=== PATIENT | male | born 1940 | race Caucasian/White ===

== ENCOUNTER 2025-06-24 14:06 | Outpatient (AMB) | payer MEDICARE, OTHER, SELFPAY ==
--- OUTSIDE RECORDS SUMMARY | 2025-06-23 10:20 | XMS_ITS | Encounter Summary ---
Author Organization Address [address] [place] [address] Care Team Providers Care Nurse College Name Role Phone Alida Weber MD Primary Care Provider Encounter Details Date Type Department Care Team (Late st Contact Info) Description 06/23/2025 10:20 AM [facility] Lab Draw Station [address] [phone] Memory loss; Type 2 diabetes mellitus with other specified complication, unspecified whether longterm insulin use (CMS/HCC V24, CMS/HCC V28); Abnormal pleural fluid; Nutritional deficiency; Dyspnea, unspecified type; Abnormal findings on diagnostic imaging of other parts of digestive tract Social History Tobacco Use Types Packs/Day Years Used Date Smoking Tobacco: Never Smokeless Tobacco: Never Alcohol Use Standard Drinks/Week Comments Not Currently 0 (1 standard drink = 0.6 oz pur e alcohol) Housing Instability Answer Date Recorde d Are you worried that in the next 2 months you may not have stable housing? No 05/20/2025 Food Access & Nutrition Answer Date Rec orded Do you have access to a vari ety of food including fruits and vegetables? Yes 05/20/2025 Access to Healthcare Answer Date Record ed Within the last 3 months, jose w many times did you visit the emergency department for your medical care? 3 05/20/2025 Health Literacy Answer Date Recorded How often do you need to hav e someone help you when you read instructions, pamphlets, or other written material from your doctor or pharmacy? Never 05/20/2025 Caregiver: How often do you need to have someone help you when you read instructions, pamphlets, or other written material from your doctor or pharmacy? Not on file 05/20/2025 Financial Risk Answer Date Recorded How hard is it for you to pa y for the very basics like food, housing, medical care, and air conditioning / heating? Not very hard 05/20/2025 Transportation Answer Date Recorded Has the lack of transportati on kept you from meetings, work, or from getting things needed for daily living? No Has the lack of transportati on kept you from medical appointments or from getting medications? No 05/20/2025 Social Isolation Answer Date Recorded How often do you feel lonely or isolated from th ose around you? Never 05/20/2025 Food Risk Answer Date Recorded Within the past 12 months we worried whether our food would run out before we got money to buy more. Never true 05/20/2025 Within the past 12 months th e food we bought just didn't last and we didn't have money to get more. Never true 05/20/2025 Dependent Care Answer Date Recorded Do you need help finding or paying for care for your loved ones. For example, special needs child caregiver or elderly care for an older adult? No 05/20/2025 Education Answer Date Recorded Do you think completing more education or training, like finishing a GED, going to college, or learning a trade, would be helpful for you? N/A 05/20/2025 Employment and Income Answer Date Recor ded During the last four weeks, have you been actively looking for work? No 05/20/2025 Living Situation Answer Date Recorded What is your living situation? Unrecognized valu e 05/20/2025 Interpersonal Safety Answer Date Record ed Physical Abuse Unrecognized value 04/15/2025 Verbal Abuse Unrecognized value 04/15/2025 Sex and Gender Information Value Date Recorded Sex Assigned at Male 02/05/2025 2:22 PM EDT Legal Sex Male 4:39 PM EST Gender Identity Male 02/05/2025 2:22 PM EDT Sexual Orientation Straight 02/05/2025 2: 22 PM EDT documented as of this encounter Functional Status * Are you deaf or do you have serious difficulty hearing? Answer Date of Assessment Author No 04/07/2025 11:47 AM Randee Allison RN * Are you blind or do you have serious difficulty seeing, even when wearing glasses? Answer Date of Assessment Author No 04/07/2025 11:47 AM Randee Allison RN * Do you have serious difficulty walking or climbing stairs? Answer Date of Assessment Author Yes 04/07/2025 11:47 AM Randee Allison RN * Do you have serious difficulty dressing or bathing? Answer Date of Assessment Author Yes 04/07/2025 11:47 AM Randee Allison RN * Because of a physical, mental, or emotional condition, do you have serious difficulty doing errandsalone such as visiting the doctor? Answer Date of Assessment Author Yes 04/07/2025 11:47 AM Randee Allison RN documented as of this encounter Mental Status * Because of a physical, mental, or emotional condition, do you have serious difficulty concentrating, remembering, or making decisions? (5 years old or older) Answer Entry Date Author No 04/07/2025 11:47 AM Randee Allison RN documented in this encounter Plan of Treatment Upcoming Encounters Date Type Department Care Team (Late st Contact Info) Description 07/22/2025 2:00 PM EST Office Visit Adult Medicine [address] [phone] Alida Weber MD [address] [place] [address] 07/24/2025 4:00 PM EST Office Visit Vascular Surgery - [place] [address] [phone] Senait España PA [address] [address] 07/29/2025 4:00 PM EST Office Visit Endocrinology [address] [phone] Rosa Roth PA [address] [place] [address] 08/12/2025 9:00 AM EST Consult [facility] [address] [place] [address] [place] [phone] Franky Choudhury MD [address] [place] [address] [place] [phone] 08/26/2025 10:30 AM EST Clinical Support Pulmonology - [place] [address] [place] [phone] 09/02/2025 10:45 AM EST Office Visit Pulmonology [facility] [address] [facility] [address] [place] [phone] Lore Myers MD [address] [place] [phone] 05/05/2026 9:00 AM EDT Ancillary Procedure [facility] [address] [facility] [address] [place] [address] Scheduled Orders Name Type Priority Associated Diagnoses Orde r Schedule pH, body fluid Lab Routine Abnormal pleural fluid 1 Occurrences starting 06/23/2025 until 06/23/2026 Amylase, body fluid Lab Routine Abnormal pleural fluid 1 Occurrences starting 06/23/2025 until 06/23/2026 Cell count with reflex differential, body fluid Lab Routine Abnormal pleural fluid 1 Occurrences starting 06/23/2025 until 06/23/2026 Triglycerides, body fluid Lab Routine Abnormal pleural fluid Nutritional deficiency Dyspnea, unspecified type Abnormal findings on diagnostic imaging of other parts of digestive tract 1 Occurrences starting 06/23/2025 until 06/23/2026 Lactate dehydrogenase, body fluid Lab Routine Abnormal pleural fluid 1 Occurrences starting 06/23/2025 until 06/23/2026 documented as of this encounter Procedures Procedure Name Priority Date/Time Associated Diagnosis Comments TREPONEMA PALLIDUM ANTIBODY WITH REFLEX TO RPR AND PARTICLE AGGLUTINATION Routine 06/23/2025 10:29 AM EST Memory loss THYROID STIMULATING HORMONE WITH REFLEX TO FREE T4 AND FREE T3 Routine 06/23/2025 10:29 AM EST Memory loss FREE THYROXINE WITH REFLEX TO FREE TRIIODOTHYRONINE Routine 06/23/2025 10:29 AM EST Memory loss MICROALBUMIN CREATININE URINE RATIO Routine 06/23/2025 10:29 AM EST Type 2 diabetes mellitus with other specified complication, unspecified whether long term care administrator insulin use ([facility] V24, [facility] V28) TRIIODOTHYRONINE FREE Routine 06/23/2025 10:29 AM EST Memory loss COMPREHENSIVE METABOLIC PANEL Routine 06/23/2025 10:29 AM EST Type 2 diabetes mellitus with other specified complication, unspecified whether longterm insulin use ([facility] V24, [facility] V28) documented in this encounter Results * (ABNORMAL) Triiodothyronine free (06/23/2025 10:29 AM EST) T3, Free 137(L) 230 - 420 pcg/dL LAB CHEMISTRY METHOD 06/23/2025 7:41 PM EST [facility] Blood Venous blood specimen / Unknown Venipuncture / Unknown 06/23/2025 10:29 AM EST 06/23/2025 10:29 AM EST us Alida Weber MD LAB BLOOD ORDERABLES Final Result [facility] [address] [place] [address], [place] [phone] * Free thyroxine with reflex to free triiodothyronine (06/23/2025 10:29 AM EST) Free T4 1.15 0.70 - 1.80 ng/dL LAB CHEMISTRY METHOD 06/23/2025 6:28 PM EST [facility] Blood Venous blood specimen / Unknown Venipuncture / Unknown 06/23/2025 10:29 AM EST 06/23/2025 10:29 AM EST us Alida Weber MD LAB BLOOD ORDERABLES Final Result Performing Organization Address [facility]/ZIP Co de Phone Number [facility] [address] [place] [address], [place] [phone] * (ABNORMAL) Thyroid stimulating hormone with reflex to free t4 and free t3 (06/23/2025 10:29 AM EST) Pathologist [facility] TSH 4.74(H) 0.40 - 4.00 mcIU/mL LAB CHEMISTRY METHOD 06/23/2025 5:05 PM [facility] Blood Venous blood specimen / Unknown Venipuncture / Unknown 06/23/2025 10:29 AM EST 06/23/2025 10:29 AM EST Alida Weber MD LAB BLOOD ORDERABLES Final Result Performing Organization Address City/[facility]/ZIP Co de Phone Number [facility] [address] [place] [address], [place] [phone] * (ABNORMAL) Comprehensive metabolic panel (06/23/2025 10:29 AM EST) [facility] Sodium 135 133 - 145 mmol/L LAB CHEMISTRY METHOD 06/23/2025 4:33 PM [facility] Potassium 3.1(L) 3.5 - 5.5 mmol/L LAB CHEMISTRY METHOD 06/23/2025 4:33 PM [facility] Chloride 93(L) 96 - 110 mmol/L LAB CHEMISTRY METHOD 06/23/2025 4:33 PM [facility] CO2 36(H) 21 - 32 mmol/L LAB CHEMISTRY METHOD 06/23/2025 4:33 PM [facility] Anion Gap 6 3 - 11 LAB CHEMISTRY METHOD 06/23/2025 4:33 PM [facility] Glucose 85 70 - 100 mg/dL LAB CHEMISTRY METHOD 06/23/2025 4:33 PM [facility] BUN 20 5 - 25 mg/dL LAB CHEMISTRY METHOD 06/23/2025 4:33 PM [facility] Creatinine 2.03(H) 0.70 - 1.30 mg/dL LAB CHEMISTRY METHOD 06/23/2025 4:33 PM [facility] eGFR 32(L) >=60 mL/min/1. 73m2 LAB CHEMISTRY METHOD 06/23/2025 4:33 PM [facility] Comment:Calculation based on the Chronic Kidney Disease Epidemiology Collaboration (CKD-EPI) equation refit without adjustment for race. BUN/Creatinine Ratio 9.9 LAB CHEMISTRY METHOD 06/23/2025 4:33 PM [facility] Calcium 8.6 8.5 - 10.5 mg/dL LAB CHEMISTRY METHOD 06/23/2025 4:33 PM [facility] AST (SGOT) 117(H) 10 - 42 unit/L LAB CHEMISTRY METHOD 06/23/2025 4:33 PM [facility] ALT (SGPT) 180(H) 10 - 60 unit/L LAB CHEMISTRY METHOD 06/23/2025 4:33 PM [facility] Alkaline Phosphatase 112 42 - 121 unit/L LAB CHEMISTRY METHOD 06/23/2025 4:33 PM [facility] Total Protein 6.4 6.0 - 8.0 g/dL LAB CHEMISTRY METHOD 06/23/2025 4:33 PM [facility] Albumin 3.6 3.2 - 5.0 g/dL LAB CHEMISTRY METHOD 06/23/2025 4:33 PM [facility] Total Bilirubin 1.0 0.0 - 1.4 mg/dL LAB CHEMISTRY METHOD 06/23/2025 4:33 PM [facility] Blood Venous blood specimen / Unknown Venipuncture / Unknown 06/23/2025 10:29 AM EST 06/23/2025 10:29 AM EST us Alida Weber MD LAB BLOOD ORDERABLES Final Result [facility] [address] [place] [address], [place] [phone] * (ABNORMAL) Microalbumin creatinine urine ratio (06/23/2025 10:29 AM EST) Creatinine, Urine 19.0 mg/dL LAB CHEMISTRY METHOD 06/23/2025 7:40 PM EST [facility] Microalb, Ur 112.0(H) 0.0 - 29.0 mg/L LAB CHEMISTRY METHOD 06/23/2025 7:40 PM EST [facility] Microalb/Crea t Ratio 589(H) <30 mg/g creat LAB CHEMISTRY METHOD 06/23/2025 7:40 PM EST [facility] Urine Urine specimen obtained by clean catch procedure / Unknown Non-blood Collection / Unknown 06/23/2025 10:29 AM EST 06/23/2025 10:29 AM EST us Alida Weber MD LAB URINE ORDERABLES Final Result [facility] [address] [place] [address], [place] [phone] * Treponema pallidum antibody with reflex to RPR and particle agglutination (06/23/2025 10:29 AM EST) T. Pallidum Antibodies Negative Negative LAB CHEMISTRY METHOD 06/23/2025 5:15 PM EST [facility] Blood Venous blood specimen / Unknown Venipuncture / Unknown 06/23/2025 10:29 AM EST 06/23/2025 10:29 AM EST us Alida Weber MD LAB BLOOD ORDERABLES Final Result [facility] [address] [place] [address], documented in this encounter Visit Diagnoses Diagnosis Memory loss Type 2 diabetes mellitus with other specified complication, unspecified whether long term care administrator insulin use (CMS/HCC V24, CMS/HCC V28) Abnormal pleural fluid Other nonspecific abnormal finding in body substances Nutritional deficiency Unspecified nutritional deficiency Dyspnea, unspecified type Abnormal findings on diagnostic imaging of other parts of digestive tract Encounter for adjustment or management of cardiac device documented in this encounter Additional Health Concerns Assessment Noted Time PHQ-9 Depression Total Score: 0 02/20/20 25 9:35 AM EDT documented as of this encounter Care Teams Nurse College Relationship Specialty Start Date End Date Alida Weber MD [address] [place] [address] PCP - General 10/26/22 documented as of this encounter
--- OUTSIDE RECORDS SUMMARY | 2025-06-24 07:40 | XMS_ITS | Encounter Summary ---
Author Organization [facility] Address [address] [place] [address] Care Team Providers Care Cyber Security Analyst Name Role Phone Alida Weber MD Primary Care Provider Reason for Visit * Reason Comments Follow-up Encounter Details Date Type Department Care Team ([facility] st Contact Info) Description 06/24/2025 7:40 AM EST Office Visit [facility] - [address] [facility] [address] [place] [phone] Saira Daly NP [address] [place] [address] [place] [phone] Nonrheumatic aortic valve stenosis (Primary Dx); Paroxysmal atrial fibrillation (CMS/HCC V24, CMS/HCC V28); HFrEF (heart failure with reduced ejection fraction) (CMS/HCC V24, CMS/HCC V28) Social History Tobacco Use Types Packs/Day Years [...] Record ed Within the last 3 months, ho w many times did you visit the [...] care for your loved ones. For example, early childhood lead teacher or elderly care for an older adult? [...] PM EDT documented as of this encounter Last Filed Vital Signs Vital Sign Reading Time Taken Comments Blood Pressure 118/66 06/24/2025 7:38 AM EST Pulse 63 06/24/2025 7:38 AM EST Temperature - - Respiratory Rate - - Oxygen Saturation - - Inhaled Oxygen Concentration - - Weight 52.6 kg (116 lb) 06/24/2025 7:38 AM EST Height 160 cm (5' 3 ) 06/24/2025 7:38 AM EST Body Mass Index 20.55 06/24/2025 7:38 AM EST documented in this encounter Functional Status * Are you [...] Randee Allison RN documented in this encounter Progress Notes * Saira Daly NP - 06/24/2025 8:24 AM ESTAssociated Problem(s): Aortic valve stenosis Echocardiogram from March revealed severely thickened aortic valve leaflets with moderate regurgitation and moderate to severe stenosis with mean gradient of 31 mmHg. At this point, I will refer himto see Dr. Choudhury to discuss TAVR. He may not be a candidate given chronic severe anemia requiring blood transfusions and he and his sister are aware of this but would like to discuss options with the specialist. He would not be a suitable candidate for SAVR. Warning signs of progressive aortic stenosis: chest pain, shortness of breath, palpitations, dizziness, passing out or coming close to passing out. * Saira Daly NP - 06/24/2025 8:22 AM ESTAssociated Problem(s): HFrEF (heart failure with reduced ejection fraction) (CMS/HCC V24, CMS/HCC V28) Echocardiogram in July 2024 showed moderately decreased LV systolic function with an EF of 35-40% and updated echocardiogram in March revealed improved LV systolic function to low-normal range with an EF of 50-55%. He is status post BiV ventricular pacemaker implantation. He appears euvolemic on physical exam. He is experiencing shortness of breath with exertional activities which are likelymultifactorial including severe anemia, deconditioning and worsening . He denies other symptoms of fluid retention such as orthopnea, PND and lower extremity edema. His fluid is managed by dialysis. GDMT is quite limited by low blood pressures and end-stage renal disease. No changes to current medical therapy, continue carvedilol as prescribed. * Saira aDly NP - 06/24/2025 8:20 AM ESTAssociated Problem(s): Paroxysmal atrial fibrillation (CMS/HCC V24, CMS/HCC V28) Patient has a history of paroxysmal atrial fibrillation. Heart rate well- controlled today at 63 bpm. He is not on anticoagulation due to severe anemia and frequent falls. He is not a suitable candidate for the Watchman procedure. I will continue to monitor the burden of atrial fibrillation via his pacemaker. Continue carvedilol as prescribed. * Saira Daly NP - 06/24/2025 7:40 AM EST Images from the original note were not included. [facility] PRIMARY DONATION SPECIALIST: Hector Galloway MD PCP: Alida Wbeer MD HPI: Kike Uribe is a pleasant 84 y.o. old male with a past medical history of hypertension, hyperlipidemia, complete heart block status post permanent pacemaker placement, paroxysmal atrial fibrillation not on anticoagulation, congestive heart failure with reduced ejection fraction, and end-stagerenal disease on dialysis, severe anemia, chronic nonocclusive DVTs followed closely by vascular and type II diabetes. He was initially referred to cardiology with an abnormal echocardiogram and lower extremity edema. The echocardiogram showed a severely dilated left atrium, normal LV size, wall thickness and systolic function with an EF of 55-60%, abnormal LV diastolic function, normal right atrial size with a dilated IVC 2.3 cm with less than 50% collapse suggestive of elevated right atrial pressure of 15 mmHg and no hemodynamically significant valve disease. In May 2023 he experienced a syncopal event and was found to have a left sided rib fracture andwas discharged home. He was readmitted a week later and found to be acutely bradycardic with complete heart block. On 05/29/2023 he received a [employer] Assurity MRI pacemaker. In June 2023 he was admitted with a large left pleural effusion requiring thoracentesis. He underwent a repeat CT scan which showed recurrence of his pleural effusion and he underwent a repeat thoracentesis. He has not had a recurrence of his pleural effusion since. He was admitted in March 2024 for heart failure and was noted to have a severely reduced left ventricular systolic function, new compared to echocardiogram prior to the pacemaker implantation. Subsequent, he underwent upgrade with a [employer] Quadra Allure BiV pacemaker implantation on 03/11/2024. He was found to have paroxysmal atrial fibrillation but anticoagulation was not initiated due to severe anemia. He is on Epogen injections. He recently required a blood transfusion. He started dialysis in January. He is on midodrine for symptomatic low blood pressures. Echocardiogram from July 2024 showed a severely dilated left atrium, normal LV cavity size, mild hypertrophy of the LV posterior wall, systolic function moderately decreased with an EF of 35-40%.No regional LV wall motion abnormalities. Grade 2 diastolic dysfunction. Moderate aortic valve stenosis with a peak gradient 31 mmHg and mean gradient 16 mmHg and trace regurgitation. Mild tricuspid valve regurgitation with no evidence of stenosis and RVSP estimated at 58 mmHg. Patient was admitted to [facility] from 01/30/2025 - 02/01/2025 for acute on chronic systolic heart failure. He was discharged on torsemide 40 mg twice daily. Patient presented back to [facility] ER on 02/01/2025 after having a fall at home. He reported that he fell in his bathroomwhen attempting to put on his pants. CT chest completed on 02/02/2025 showed acute nondisplaced fractures of the left 5th, 6th, 7th, and 8th ribs as well as acute displaced fractures of the lateral left ninth and posterior left 10th, 11th, and 12th ribs with a large left effusion with multifocal compressive atelectasis. CT abdomen/pelvis 02/02/2025 showed acute fractures of the left L2, L3, and L4 t ransverse processes. CT head 02/02/2025 was unremarkable. Patient was subsequently transferred from [facility] to [facility] for trauma evaluation and higher level of care. At [facility] patient was admitted to the trauma team. He underwent left sided chest tube pl acement. He was discharged to a rehab facility. He updated an echocardiogram in March which showed a severely dilated left atrium, a normal LV cavity size, wall thickness and low normal systolic function with an EF of 50-55%, no regional LV wall motion abnormalities and grade 2 diastolic dysfunction. Normal right ventricle cavity size and systolic function. Severely thickened aortic valve leaflets with moderate regurgitation and moderate to severe stenosis with mean gradient of 31 mmHg. Trace mitral valve regurgitation. Normal RVSP estimated at 36 mmHg. When compared with the prior echocardiogram from July 2024, LV systolic function has improved however there appears to be worsening of the aortic valve stenosis and regurgitation. Most recent remote device interrogation shows normal device function, no new alerts or events, A-fib burden 0%, 48% A-pacing and 99% V-pacing. He was admitted twice recently, once in March and again in April for severe anemia requiring ablood transfusion. Patient returns today for routine cardiology follow-up accompanied by his sister. He is ambulating with a roller walker. Cardiac mitchell he has been stable. He has a chronic stable exertional shortness of breath that has not worsened and resolved quickly with rest. He denies chest pain, palpitations, l ightheadedness/near-syncope, orthopnea, paroxysmal nocturnal dyspnea or lower extremity edema. He continues on dialysis 3 days a week and is getting outpatient blood transfusions for severe anemia. ACTIVE MEDICATIONS: Current Outpatient Medications Medication Instructions acetaminophen (TYLENOL) 1,000 mg, oral, Every 8 hours PRN albuterol HFA (PROAIR HFA ; PROVENTIL HFA ; VENTOLIN HFA) 90 mcg/actuation inhaler 2 puffs, inhalation, Every 6 hours PRN atorvastatin (LIPITOR) 80 mg, oral, Daily blood sugar diagnostic (FreeStyle Lite Strips) test strip Use daily to check bs calcitrioL (ROCALTROL) 0.25 mcg, oral, Daily carvediloL (COREG) 3.125 mg, oral, 2 times daily with meals cholecalciferol (VITAMIN D-3) 125 mcg (5,000 unit) capsule TAKE 1 CAPSULE (5000 UNITS TOTAL) BY MOUTH ONCE DAILY ezetimibe (ZETIA) 10 mg, oral, Daily FreeStyle Lancets 28 gauge lancets Use to test blood glucose once daily before a meal levothyroxine (SYNTHROID, LEVOTHROID) 112 mcg, oral, Every morning before breakfast midodrine (PROAMATINE) 5 mg, oral, Daily mupirocin (BACTROBAN) 2 % ointment 2 times daily Nephro-Ailyn 0.8 mg tablet 1 tablet, oral, Daily sevelamer carbonate (RENVELA) 800 mg, oral, 3 times daily with meals, Swallow tablet whole; do not crush, break, or chew. PAST MEDICAL HISTORY: Problem List[1] ALLERGIES: Allergies[2] SOCIAL HISTORY: Social History Tobacco Use Smoking status: Never Smokeless tobacco: Never Substance Use Topics Alcohol use: Not Currently PHYSICAL EXAM: Vitals: 06/24/25 0738 BP: 118/66 Pulse: 63 Weight: 52.6 kg (116 lb) Height: 1.6 m (63 ) Physical Exam Vitals reviewed. Constitutional: General: He is not in acute distress. Comments: Ambulating with a roller walker HENT: Head: Normocephalic and atraumatic. Neck: Vascular: No carotid bruit. Cardiovascular: Rate and Rhythm: Normal rate. Rhythm irregularly irregular. Pulses: Normal pulses. Heart sounds: S1 normal and S2 normal. Murmur heard. Harsh midsystolic murmur is present with a grade of 3/6 at the upper right sternal border radiatingto the neck. No friction rub. No gallop. Pulmonary: Effort: Pulmonary effort is normal. Breath sounds: Normal breath sounds. Abdominal: General: Abdomen is flat. Palpations: Abdomen is soft. Musculoskeletal: Cervical back: Neck supple. Right lower leg: No edema. Left lower leg: No edema. Comments: Severe kyphosis Skin: General: Skin is warm and dry. Neurological: General: No focal deficit present. Mental Status: He is alert and oriented to person, place, and time. Psychiatric: Mood and Affect: Mood normal. Behavior: Behavior normal. TESTING: Lab Results Component Value Date WBC 8.8 04/16/2025 HGB 8.3 (L) 04/16/2025 HCT 26.2 (L) 04/16/2025 MCV 97.0 04/16/2025 PLT 163 04/16/2025 Lab Results Component Value Date NA 135 06/23/2025 K 3.1 (L) 06/23/2025 CL 93 (L) 06/23/2025 CO2 36 (H) 06/23/2025 GLUCOSE 85 06/23/2025 BUN 20 06/23/2025 CREATININE 2.03 (H) 06/23/2025 CALCIUM 8.6 06/23/2025 PROT 6.4 06/23/2025 ALBUMIN 3.6 06/23/2025 BILITOT 1.0 06/23/2025 AST 117 (H) 06/23/2025 ALT 180 (H) 06/23/2025 PHOS 5.2 (H) 02/12/2025 MG 1.9 04/07/2025 ALKPHOS 112 06/23/2025 EGFR 32 (L) 06/23/2025 Lab Results Component Value Date CHOL 103 04/16/2025 CHOL 97 01/21/2025 CHOL 76 10/22/2024 Lab Results Component Value Date HDL 64 04/16/2025 HDL 56 01/21/2025 HDL 41 10/22/2024 Lab Results Component Value Date LDLCALC 24 04/16/2025 LDLCALC 32 01/21/2025 LDLCALC 25 10/22/2024 Lab Results Component Value Date TRIG 73 04/16/2025 TRIG 43 01/21/2025 TRIG 48 10/22/2024 Lab Results Component Value Date CHOLHDL 1.6 04/16/2025 CHOLHDL 1.7 01/21/2025 CHOLHDL 1.9 10/22/2024 Lab Results Component Value Date TSH 4.74 (H) 06/23/2025 Lab Results Component Value Date HGBA1C 5.8 04/16/2025 ASSESSMENT/PLAN: As per AHA guidelines and previously established plan of care by Dr. Hector Galloway MD, we discussed the following today: Problem List Items Addressed This Visit Aortic valve stenosis - Primary Echocardiogram from March revealed severely thickened aortic valve leaflets with moderate regurgitation and moderate to severe stenosis with mean gradient of 31 mmHg. At this point, I will refer himto see Dr. Choudhury to discuss TAVR. He may not be a candidate given chronic severe anemia requiring blood transfusions and he and his sister are aware of this but would like to discuss options with the specialist. He would not be a suitable candidate for SAVR. Warning signs of progressive aortic stenosis: chest pain, shortness of breath, palpitations, dizziness, passing out or coming close to passing out. HFrEF (heart failure with reduced ejection fraction) ([facility] V24, [facility] V28) Echocardiogram in July 2024 showed moderately decreased LV systolic function with an EF of 35-40% and updated echocardiogram in March revealed improved LV systolic function to low-normal range with an EF of 50-55%. He is status post BiV ventricular pacemaker implantation. He appears euvolemic on physical exam. He is experiencing shortness of breath with exertional activities which are likelymultifactorial including severe anemia, deconditioning and worsening . He denies other symptoms of fluid retention such as orthopnea, PND and lower extremity edema. His fluid is managed by dialysis. GDMT is quite limited by low blood pressures and end-stage renal disease. No changes to current medical therapy, continue carvedilol as prescribed. Paroxysmal atrial fibrillation (CMS/HCC V24, [facility] V28) Patient has a history of paroxysmal atrial fibrillation. Heart rate well- controlled today at 63 bpm. He is not on anticoagulation due to severe anemia and frequent falls. He is not a suitable candidate for the Watchman procedure. I will continue to monitor the burden of atrial fibrillation via his pacemaker. Continue carvedilol as prescribed. Thank you for allowing us to participate in the care of this patient. The patient will follow up with Dr. Choudhury for TAVR talk, sooner PRN. This note is completed with voice recognition software. Please pardon any grammatical or syntax errors. [facility] [1] Patient Active Problem List Diagnosis Acute cough Acute pain of left knee Anemia of chronic disease Aortic valve calcification Aortic valve stenosis Atelectasis of right lung CAD (coronary artery disease) Calcification of mitral valve Chest pain CHF (congestive heart failure) (CMS/HCC V24, CMS/HCC V28) CKD (chronic kidney disease) stage 5, GFR less than 15 ml/min (CMS/HCC V24, CMS/HCC V28) Closed fracture of rib of left side with routine healing Cyst of left kidney Ground glass opacity present on imaging of lung Heart block atrioventricular HFrEF (heart failure with reduced ejection fraction) (CMS/HCC V24, CMS/HCC V28) Hyperlipidemia Hypothyroidism Lower leg edema Lung nodule Pleural effusion on left Pleural scarring Prolonged QT interval Snoring SOB (shortness of breath) Swelling of left knee joint Systolic murmur Ulcer of right leg, limited to breakdown of skin (CMS/HCC V24, CMS/HCC V28) White coat syndrome with diagnosis of hypertension 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 not on chronic dialysis, without long-term current use of insulin (CMS/HCC V24, CMS/HCC V28) Primary hypertension Paroxysmal atrial fibrillation (CMS/HCC V24, CMS/HCC V28) Biventricular cardiac pacemaker in situ Type 2 diabetes mellitus, without long-term current use of insulin (CMS/HCC V24, CMS/HCC V28) Bradycardia Rib fractures Secondary hyperparathyroidism of renal origin (CMS/HCC V24) Bilateral impacted cerumen Chronic lymphocytic leukemia (CMS/HCC V24, CMS/HCC V28) Chronic serous otitis media of left ear Deviated nasal septum Disorder of both eustachian tubes Epistaxis Hyperkalemia 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 Otorrhagia of left ear Peripheral angiopathy due to type 2 diabetes mellitus (CMS/HCC V24, CMS/HCC V28) Plantar wart Sensorineural hearing loss (SNHL) of right ear Acquired hammer toe of left foot Acquired hammer toe of right foot Symptomatic anemia Bilateral hearing loss Chronic infective otitis externa Serous otitis media [2] Allergies Allergen Reactions Aspirin Bleeding BLEEDING ULCERS Sulfa (Sulfonamide Antibiotics) Unknown Other reaction(s): Other (See Comments) Pt is unsure of reaction Sulfamethoxazole-Trimethoprim Unknown UNKNOWN Cosigned by Rodrigo Medina MD at 06/24/2025 11:33 AM EST documented in this encounter Plan of Treatment Upcoming Encounters Date Type Department Care Team (Late st Contact Info) Description 07/22/2025 2:00 PM EST Office Visit [facility] - [address] [phone] Alida Weber MD [address] [place] [address] 07/24/2025 4:00 PM EST Office Visit Vascular Surgery - [place] [address] [facility] [address] [place] [phone] Senait España PA [address] [facility] [address] [place] [address] 07/29/2025 4:00 PM EST Office Visit Endocrinology [address] [phone] Rosa Roth PA [address] [place] [address] 08/12/2025 9:00 AM EST Consult [facility] - [address] [place] [phone] Franky Choudhury MD [address] [place] [address] [address] [place] [phone] 08/26/2025 10:30 AM EST Clinical Support Pulmonology - [place] [address] [facility] [address] [place] [phone] 09/02/2025 10:45 AM EST Office Visit Pulmonology - [place] [address] [facility] [address] [place] [phone] Lore Myers MD [address] [place] [phone] 05/05/2026 9:00 AM EDT Ancillary Procedure [facility] - [facility] [address] [facility] [address] [place] [phone] documented as of this encounter Visit Diagnoses Diagnosis Nonrheumatic aortic valve stenosis- Primary Paroxysmal atrial fibrillation (CMS/[facility] V24, CMS/[facility] V28) Atrial fibrillation HFrEF (heart failure with reduced ejection fraction) (CMS/HCC V24, [facility] V28) Encounter for adjustment or management of cardiac device documented in this encounter Discontinued Medications Medication Sig Discontinue Reason Start Date End Da te sodium zirconium cyclosilicate (Lokelma) 10 gram packetIndications:RESUM E ON Monday04/12/2025, DO NOT TAKE A DOSE ON Monday04/08/2025 Take 10 g by mouth 2 (two) times a week. Mix contents of the packet(s) into a glass with at least 3 tablespoons of water and stir well. Drink the mixture right away. If any powder is left in the glass, add more water, stir, and drink it right away to make sure all the medicine has been taken. MONDAY + MONDAY Formulary change 06/24/2025 documented as of this encounter Additional Health Concerns Assessment Noted Time PHQ-9 Depression Total Score: 0 02/20/20 25 9:35 AM EDT documented as of this encounter Care Teams Cyber Security Analyst Relationship Specialty Start Date End Date Alida Weber MD [address] [place] [address] PCP - General 10/26/22 documented as of this encounter
--- NOTE | 2025-06-24 14:24 | A.PHYSOV ---
Vital Signs 06/24/25 14:31 06/24/25 14:31 Height 5 ft 3 in Weight 160 lb 160 lb BMI 28.3 Intake Visit Reasons: RE-EVAL ON NECK Intake Note: Patient is a 84 year old male in office today for follow up neck pain. Inletter Required: No Allergies aspirin Allergy (Unknown, Verified 06/24/25 14:17) Unknown Sulfa (Sulfonamide Antibiotics) Allergy (Unknown, Verified 06/24/25 14:17) Unknown sulfamethoxazole Allergy (Unknown, Verified 06/24/25 14:17) Unknown HPI Comments Details: History of Present Illness The patient is an 84-year-old male presenting with neck pain and structural issues related to arthritis including kyphosis. Patient has been using a soft collar for support for activities that exacerbate his symptoms with mild relief. The patient has a history of cervical arthritis, confirmed by imaging studies, which causes clicking sounds during neck movement due to joint movement. The cartilage in his neck is worn, leading to a grinding sensation and pain. Structural issues in the neck have led to a forward head posture, causing muscle tension and discomfort. Maintaining an upright head position is painful, affecting daily activities. Patient did undergo C7-T1 JACKIE with mild relief of his symptoms for short period of time. Patient would like to consider further treatment options and has failed conservative treatment. Patient does take Tylenol and is on dialysis. Pain Description - Onset: Chronic neck pain with structural issues - Quality: Grinding sensation and clicking sounds during movement - Location: Cervical region with associated low back pain - Exacerbating factors: Activities requiring head movement or prolonged upright posture - Relieving factors: Rest and avoiding triggering activities [facility] Surgical History Status post cardiac surgery (Unknown) Social History (Updated 06/24/25 @ 14:29 by Kayce Mcclain MA) Alcohol intake: current Alcohol intake frequency: does not drink Patient Tobacco Use Status: Never used Tobacco Review of Systems Narrative Review of Systems - Musculoskeletal: Reports neck pain with clicking sounds, low back pain - Neurological: Denies any neurological deficits Physical Exam Exam Exam: Physical Exam Cervical Spine: Forward head position. He is tender to the C4 through 7 assess. He is markedly limited in extension as well as lateral rotation. Special Tests: Axial Compression test: Negative Spurlings test: Negative Lhermitte's sign is Negative Upper Extremities: Full range of motion bilateral upper extremities. Equal tuna purse seiner strength bilaterally. Neuro: Sensation: Intact to upper extremities bilateral to light touch Strength C5 (Elbow Flexion): 5/5 on the left and 5/5 on the right. C6 (Elbow Ext): 5/5 on the left and 5/5 on the right. C7 (Elbow Ext): 5/5 on the left and 5/5 on the right. C8 (Finger Flex): 5/5 on the left and 5/5 on the right. T1 (Finger Abd/Add): 5/5 on the left and 5/5 on the right. DTR: C5 (Biceps): Left 2 Right 2 C6 (Brachioradialis): Left 1 Right 1 C7 (Triceps): Left 1 Right 1 Abraham sign: Negative No pathologic clonus. No involuntary movement. Vital Signs: BMI result Body Mass Index 28.3 Assessment & Plan Assessment & Plan (1) Cervicalgia: Code(s): M54.2 - Cervicalgia Category: Medical (2) Cervical spondylosis: Code(s): M47.812 - Spondylosis without myelopathy or radiculopathy, cervical region Category: Medical Plan Pain Management - Affect: Pain impacts daily activities and causes discomfort - Analgesia: Previous injections provided short-term relief; considering new injections targeting arthritis - Adverse Effects: None reported from current pain management - Activities of Daily Living: Pain limits ability to maintain upright posture and perform certain activities - Aberrant Drug Related Behaviors: None reported Plan Patient was informed and verbally consented to the use of an ambient scribe for clinic note documentation during this visit. 1. Cervical Arthritis Patient is not respond to C7-T1 JACKIE. He has failed conservative treatment. I recommend bilateral C4-5, C5-6, C6-7 facet injection who is eager to proceed. We will obtain prior authorization for his injection contact him once we have done so. The meantime continue his home exercise plan and medications as prescribed. Orders: Referrals Physiatry Procedure Notification M47.812 - Spondylosis without myelopathy or radiculopathy, cervical region, M54.2 - Cervicalgia Coding Level of Care Code Tele Est Pt Level 3 (38473) Diagnoses Cervicalgia M54.2 Cervical spondylosis M47.812
[2025-06-24 14:31] VITALS: BMI 28.3
--- OUTSIDE RECORDS SUMMARY | 2025-06-25 08:58 | XMS_ITS ---
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 Past Plans Radiation Treatments * No radiation treatments are documented for this patient in [facility]. Treatments may have been administered in another system.
--- OUTSIDE RECORDS SUMMARY | 2025-06-25 08:58 | XMS_ITS | Patient Health Record ---
Author Organization [facility] Address [address] [place] [address] Care Team Providers Care Nursing Tech Name Role Phone Gus Alida Primary Care Provider Edda Roberson Unavailable [phone] Eunice Rivera Unavailable [phone] Osorio Cleaning Unavailable [phone] José Miguel Mora Unavailable [phone] Allergies Allergen (clinical drug ingredient) Drug/Non Drug Allergy documented on EMR Reaction Allergy Type Onset Date Status aspirin Aspirin Unknown Drug Allergy Active sulfamethoxazole / trimethoprim Bactrim Unknown Drug Allergy Active Substance with sulfonamide structure and antibacterial mechanism of action (substance) Sulfa Antibiotics Unknown Drug Allergy A ctive Results Component Value Reference Range Notes HEMOGLOBIN A1C (GLYCOHEMOGLO BIN) Reviewed date:08/27/2024 09:06:37 AM Interpretation: Performing Lab: Notes/Report: HEMOGLOBIN A1C % (HH) 5.9 HEMOGLOBIN A1C (GLYCOHEMOGLO BIN) Reviewed date:12/31/2024 01:40:01 PM Interpretation: Performing Lab: Notes/Report: HEMOGLOBIN A1C % (HH) 6.3 Reason For Referral No Information Medications Medication SIG (Take, Route, Frequency, Duration) Notes Start Date End Date Status Albuterol Active Retacrit Active Midodrine HCl 5 MG 1 tablet Orally Twic e a day Active Tylenol Active B Complex Active Mupirocin 2 % 1 application Brake Lining Maker ally daily to open wound; Duration: 30 days 05/01/2025 Active Atorvastatin Calcium Active Extra Depth Orthopedic Shoes, (1) Pair With (3) Pair Custom Heat Molded Multidensity Innersoles Dx: NIDDM/PVD(E11.51), Hammertoe Foot Deformity(M20.41,M20.42) , Preulcerative Skin Lesion(s)(L85.1) Wear Daily; Duration: 365 days Active Torsemide Active Sevelamer Carbonate Active Lokelma Active Ezetimibe Active Tums 500 MG 1 tablet Orally Once a day Not-Taking Calcitriol Active Sodium Bicarbonate N ot-Taking Levothyroxine Sodium Active Carvedilol Active Immunizations Vaccine Route Administration Date Status Comme nts Influenza Unknown 05/21/2024 Administered Influenza Unknown 05/07/2025 Administered Social History Tobacco Use: Social History Observation Description Date Details (start date - stop date) Never Smoker NA - NA Tobacco use other than smoking: Question Answer Notes Are you an other tobacco user? No Tobacco Control (Standard) Question Answer Notes Tobacco use: Nonsmoker Additional Findings: Tobacco non-user Current no nsmoker AUDIT-C (Standard) Question Answer Notes Did you have a drink containing alcohol in the p ast year? No Points 0 Interpretation Negative Problems Problem Type SNOMED Code ICD Code Onset Dates Problem Status W/U Status Risk Notes Problem Acquired hammer toe of right foot (4271473405472398) Other hammer toe(s) (acquired), right foot (M20.41) Active confirmed Problem Bilateral atherosclerosis of arteries of lower limbs (disorder) (54851560868588670 ) Atherosclerosis of [place] artery of both lower extremities, with unspecified presence of clinical manifestation (I70.203) Active confirmed Q7(A), Q8(2B), Q9(1B,2 C) Problem Ischemic ulcer of toe (359799356) Skin ulcer of toe of right foot with fat layer exposed (L97.512) Active confirmed Vital Signs Blood pressure diastolic 70 mm Hg 06/05/2025 Height 5ft 2 in in 06/05/2025 Blood pressure systolic 120 mm Hg 06/05/2025 Weight 135 lbs 06/05/2025 BMI 24.69 kg/m2 06/05/2025 Procedures Procedure Date Ordered Date Performed Result Body Sit e Q0903-HTCSIYIC DYSTROPHIC NAILS ANY # 08/27/2024 N/A 89334-ZYAB SKIN LESIONS, 2 TO 4 10/29/2024 N/A J7556-UYCZZZUR DYSTROPHIC NAILS ANY # 10/29/2024 N/A 73505-Dcgl Destruction, 1-14 12/31/2024 N/A 39317-VQTRJHC SKIN/TISSUE 06/05/2025 N/A Encounters Encounter Location Date Provider Diagnosis [address] [place] [address] 08/27/2024 Osorio Cleaning Keratoma L57.0 and Nail dystrophy L60.[address] [place] [address] 10/29/2024 Osorio Cleaning Keratoma L57.0 and Nail dystrophy L60.3 [facility] [address] [facility] [address] [place] [address] 12/31/2024 Edda Jackson Right foot pain M79.671 ; Plantar wart B07.0 and Left foot pain M79.[address] [place] [address] 01/16/2025 Eunice Rivera Plantar wart B07.0 ; Other hammer toe(s) (acquired), right foot M20.41 ; Type 2 diabetes mellitus with diabetic peripheral angiopathy without gangrene E11.51 ; Tinea unguium B35.1 ; Pain in right toe(s) M79.674 ; Pain in left toe(s) M79.675 ; Right foot pain M79.671 ; Left foot pain M79.672 and Other hammer toe(s) (acquired), left foot M20.[address] [address] 05/01/2025 Eunice Rivera Plantar wart B07.0 ; Other hammer toe(s) (acquired), right foot M20.41 ; Type 2 diabetes mellitus with diabetic peripheral angiopathy without gangrene E11.51 ; Tinea unguium B35.1 ; Pain in right toe(s) M79.674 ; Pain in left toe(s) M79.675 ; Right foot pain M79.671 ; Other hammer toe(s) (acquired), left foot M20.42 ; Ischemic ulcer of right foot with fat layer exposed L97.512 and Pressure injury of left heel, stage [address] [address] 05/22/2025 Eunice Rivera Other hammer toe(s) (acquired), right foot M20.41 ; Ischemic ulcer of right foot with fat layer exposed L97.512 ; Type 2 diabetes mellitus with diabetic peripheral angiopathy without gangrene E11.51 and Pressure injury of left heel, stage 1 L89.621 [facility] [address] [address] 06/05/2025 José Miguel Mora Skin ulcer of toe of right foot with fat layer exposed L97.512 ; Ingrown nail L60.0 ; Type 2 diabetes mellitus with diabetic polyneuropathy, 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 pdf (DIABETIC FOOT CARE INSTRUCTIONS. pdf) 01/16/2025 Plantar wart (ICD-10 - B07.0) 05/01/2025 Plantar wart (ICD-10 - B07.0) 05/22/2025 Other hammer toe(s) (acquired), right foot (ICD-10 - M20.41) 05/22/2025 Ischemic ulcer of right foot with fat layer exposed (ICD-10 - L97.512) Response to treatment 06/05/2025 Ingrown nail (ICD-10 - L60.0) 06/05/2025 Skin ulcer of toe of right foot with fat layer exposed (ICD-10 - L97.512) Patient Educated with: WOUND CARE INSTRUCTIONS. pdf (WOUND CARE INSTRUCTIONS. 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 pdf (DIABETIC FOOT CARE INSTRUCTIONS. pdf) 05/01/2025 Type 2 diabetes mellitus with diabetic peripheral angiopathy without gangrene (ICD-10 - E11.51) Q7(A), Q8(2B), Q9(1B,2C) 12/31/2024 Plantar wart (ICD-10 - B07.0) 10/29/2024 Nail dystrophy (ICD-10 - L60.3) $60 12/31/2024 Left foot pain (ICD-10 - M79.672) 01/16/2025 Tinea unguium (ICD-10 - B35.1) 05/22/2025 Pressure injury of left heel, stage 1 (ICD-10 - L89.621) 06/05/2025 Atherosclerosis of [place] artery of both lower extremities, with unspecified presence of clinical manifestation (ICD-10 - I70.203) Q7(A), Q8(2B), Q9(1B,2C) 05/01/2025 Tinea unguium (ICD-10 - B35.1) 05/01/2025 Pain in right toe(s) (ICD-10 - M79.674) 01/16/2025 Pain in right toe(s) (ICD-10 - M79.674) 01/16/2025 Pain in left toe(s) (ICD-10 - M79.675) 05/01/2025 Pain in left toe(s) (ICD-10 - M79.675) 05/01/2025 Right foot pain (ICD-10 - M79.671) 01/16/2025 Right foot pain (ICD-10 - M79.671) 01/16/2025 Left foot pain (ICD-10 - M79.672) 05/01/2025 Other hammer toe(s) (acquired), left foot (ICD-10 - M20.42) 01/16/2025 Other hammer toe(s) (acquired), left foot (ICD-10 - M20.42) 05/01/2025 Ischemic ulcer of right foot with fat layer exposed (ICD-10 - L97.512) Response to treatment Patient Educated with: WOUND CARE INSTRUCTIONS. pdf (WOUND CARE INSTRUCTIONS. pdf) 05/01/2025 Pressure injury of left heel, stage 1 (ICD-10 - L89.621) 05/01/2025 Other Plan Of Treatment Pending Test Test Name Order Date [id number] Destruction, 1-14 12/31/2024 [id number] SKIN/TISSUE 06/05/2025 18763-AEDP SKIN LESIONS, 2 TO 4 10/30/19 W4019-HSUFTGAW DYSTROPHIC NAILS ANY # N6553-PFAOANCX DYSTROPHIC NAILS ANY # J4540-UHDHIWTM DYSTROPHIC NAILS ANY # Next Appt Details Provider Name:José Miguel simon, 07/01/2025 01:00:00 PM, [address] [place], [address], Provider Name:Eunice molina, 08/14/2025 03:45:00 PM, [address] [place], [address], Insurance Providers Payer Name Payer Address Payer Phone Subscriber Number Group Number Insured Name Patient Relationship to Insured Coverage Start Date Coverage End Date Medicare National Govt Svcs [employer] [address] [place] [address] [id number] Kike Uribe Self - patient is the insured 5 [employer] [address] [place] [id number] [phone] [id number] Kike Uribe Self - patient is the insured Medical (General) History Medical History History ICD Code Back,Hip,and Knee pain Cataracts covid-19 type II diabetes High Blood Pressure Kidney disease thyroid Vascular grafts Measles Mumps Transfusions Broken bones Surgical History Surgery Date(Month/Year) cardiac pacemeker Hospitalization History Reason Date(Month/Year) 12/29
--- OUTSIDE RECORDS SUMMARY | 2025-06-25 08:58 | XMS_ITS | Clinical Summary ---
Author Organization [facility] Address [address] [place] [address] Care Team Providers Care Reservoir Engineering Advisor Name Role Phone Alida Weber MD Primary Care Provider Allergies Active Allergy Reactions Criticality Noted Date Comments Sulfa Antibiotics Other (See Comments) 12/28/19 23 Pt is unsure of reaction Medications Medication Sig Dispensed Refills Start Date End Date Status atorvastatin (LIPITOR) tablet 80 mg Take 1 tablet (80 mg total) by mouth daily. 0 Active ezetimibe (ZETIA) tablet 10 mg Take 1 tablet (10 mg total) by mouth daily. 0 Active levothyroxine (SYNTHROID, LEVOXYL) tablet 75 mcg Take 80 mcg by mouth every morning on an empty stomach. 0 Active Cholecalciferol (VITAMIN D) 2000 units tablet Take 6,000 Units by mouth daily. 0 Active Insulin Detemir (LEVEMIR SC) Inject 10 Units under the skin every night at bedtime. 0 Active B Complex Vitamins (VITAMIN B COMPLEX PO) Take by mouth. 0 Active acetaminophen (TYLENOL EXTRA STRENGTH) 500 MG tablet Take by mouth every 6 (six) hours as needed. 0 Active amLODIPine (NORVASC) tablet 5 mg Take 1 tablet (5 mg total) by mouth daily. 0 Active sodium zirconium cyclosilicate (LOKELMA) 10 g PACK packet Take 1 packet (10 g total) by mouth 2 (two) times a week 0 Active epoetin del-epbx (Retacrit) 05502 UNIT/ML SOLN injection once. 0 Ac tive sodium bicarbonate 650 MG tablet TAKE 1 TABLET (650 MG TOTAL) BY MOUTH IN THE MORNING AND IN THE EVENING 0 04/11/2023 Active torsemide (DEMADEX) 20 MG tablet Take 2 tablets (40 mg total) by mouth 2 (two) times a day. 0 08/08/2023 Active cinacalcet (SENSIPAR) tablet 30 mg TAKE 1 TABLET BY MOUTH 1 TIME EACH DAY. 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 Other hyperlipidemia 12/22/2017 Family History Medical History Relation Name Comments Cancer Mother Ryann Cancer Sister Indu Relation Name Status Comments Mother Ryann Sister Indu Alive Social History Tobacco Use Types Packs/Day Years Used Date Smoking Tobacco: Never Smokeless Tobacco: Never Alcohol Use Standard Drinks/Week Comments No 0 (1 standard drink = 0.6 oz pur e alcohol) Sex and Gender Information Value Date Recorded Sex Assigned at Male 04/04/2022 12:51 PM EDT Gender Identity Not on file Sexual Orientation Not on file Job Start Date Occupation Industry Not on file Not on file Not on file Last Filed Vital Signs Vital Sign Reading Time Taken Comments Blood Pressure 136/57 01/17/2024 9:42 AM EDT Pulse 68 01/17/2024 9:42 AM EDT Temperature 36.5 C (97.7 F) 01/17/2024 9:42 AM EDT Respiratory Rate 16 01/17/2024 9:42 AM EDT Oxygen Saturation 99% 01/17/2024 9:42 AM EDT ROOM AIR Inhaled Oxygen Concentration - - Weight 60.3 kg (133 lb) 11/13/2023 2:12 PM EDT Height 165.1 cm (5' 5 ) 11/13/2023 2:12 PM EDT Body Mass Index 22.13 11/13/2023 2:12 PM EDT Plan of Treatment Health Maintenance Due Date Last Done Comments Depression Screening 1952 Diabetes: Eye Exam (No Retinopathy) 1958 Diabetes: Foot Exam 1958 Diabetes: Microalbumin Test 1958 Hemoglobin A1C Due 1958 Preventative Health Evaluation 1958 Shingrix-Zoster Vaccine (1 of 2) 1959 Fall Risk Assessment 2005 RSV Adult > 60+ Yrs or (1 - 1-dose 75+ series) 2015 COVID-19 Vaccine ( season) 2025 10/25/2023, 11/13/2021, 05/23/2021, Additional history exists Influenza Vaccine (#1) 2025 , 05/21/2020, 05/21/2020, Additional history exists DTap / Tdap / Td (3 - Td or Tdap) 11/30/2031 11/29/2021, 04/11/2019 Pneumococcal Vaccine Completed 12/14/2023, 04/11/2019, 03/18/2013 Hepatitis B Vaccines Aged Out No long er eligible based on patient's age to complete this topic RSV Ped < 20 months Aged Out No longe r eligible based on patient's age to complete this topic Care Teams Reservoir Engineering Advisor Relationship Specialty Start Date End Date Alida Weber MD [address] [place] [address] PCP - General Internal Medicine 10/26/22
--- OUTSIDE RECORDS SUMMARY | 2025-06-25 08:59 | XMS_ITS | Continuity of Care Document ---
Author Organization [place] - [facility], [facility] Address [address] [place] [address] Care Team Providers Care Oracle Database Manager Name Role Phone SHAN VALENCIA Primary Care Provider Assessment Encounter Date Assessment Date Assessment LastModified by Organization Details LastModified Time 03/27/2025 03/27/2025 Neptali is a pleasant 84-year-old male who presents today for routine ear evaluation. Prior left sided T-tube. Under microscopic guidance there was significant crusting and dried blood in the left ear canal this was partially removed with a day hook and alligator forceps. His T-tube was obstructed in this and came out in 1 piece. I encouraged him to start Cipro drops for the next week and a half to try to break up some of the debris. I think this will make his next ear cleaning out easily. - Of note, the cerumen is on top of his eardrum for the next ear filter screen cleaner - Return visit in 2 weeks with the PA team [email or web address] Not available 03/27/2025 15:25:23 Plan of Treatment Reminders Order Date Submit Date Provider Last Modified By Organization Details Last Modified Time Details Appointments Hearing Test 2024 11:00A M Hearing Test Not available Not available Not available Establish ed 15 2024 11:30A M SIDNEY CALVO Not available Not available Not available Lab None recorded. Referral None recorded. Procedures None recorded. Surgeries None recorded. Imaging None recorded. Medication Orders ofloxacin 0.3 % ear drops 2024 025 [facility]acy #[id number], [address] [place], [address], 03/27/2025 15:26:16 Patient TargetsNo targets recorded. Patient InstructionsNo instructions recorded. Reason for Referral None Reported. Results Created Date Observation Date Name Description Value Unit Range Abnormal Flag Note LastModifiedBy Organization Detail LastModifiedTime 04/29/20 audio gram No observ ation record ed. BARCODE Not Available 2024 13:43:46 Result Notes None recorded. Problems Name Problem SNOMED Code Status Onset Date Resolution Date Notes Provider Name and Address Organization Details Recorded Time Impacted cerumen in left ear [id number] 29206 Active 2019 Impacted cerumen, left ear; Note: Date Diagnosed : 03/04/2020 3:57 PM (H61.22) Ethan Chinchilla, [address] [address], [place], [address] , [facility] - [facility] 5 15:25:30 Bleeding from nose 448091121 Active 2020 Epistaxis ; Note: Date Diagnosed : 03/02/2021 4:06 PM (R04.0) Not Available [facility] 4 02:46:44 Deviated nasal septum 401536998 Active 2020 Deviated nasal septum; Note: Date Diagnosed : 03/02/2021 4:06 PM (J34.2) Not Available [facility] 4 02:46:52 Impacted cerumen of bilateral ears 29251304508 82269 Active 2020 Impacted cerumen, bilateral ; Note: Date Diagnosed : 03/02/2021 4:06 PM (H61.23) Note: Date Diagnosed : 03/02/2021 4:06 PM (H61.23) Not Available [facility] 4 01:08:39 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 05323006144 100 Active 2021 Sensorine ural hearing loss, unilatera l, right ear, with restricte d hearing on the contralat eral side; Note: Date Diagnosed : 01/24/2022 10:45 AM (H90.A21) Not Available [facility] 4 02:46:52 Disorder of left Eustachia n tube 05727784960 85432 Active 2021 Other specified disorders of Eustachia n tube, left ear; Note: Date Diagnosed : 01/24/2022 10:45 AM (H69.82) Not Available [facility] 4 02:46:53 Mixed conductiv e and sensorine ural hearing loss of left ear 30519872905 107 Active 2021 Mixed conductiv e and sensorine ural hearing loss, unilatera l, left ear with restricte d hearing on the contralat eral side; Note: Date Diagnosed : 01/24/2022 10:45 AM (H90.A32) Not Available [facility] 4 02:46:46 Chronic serous otitis media of left ear 409392551 Active 2022 Chronic serous otitis media, left ear; Note: Date Diagnosed : 02/09/2023 1:16 PM (H65.22) Not Available [facility] 4 02:46:49 Sensorine ural hearing loss of bilateral ears 451219599 Active 2023 SIDNEY CALVO [address] [facility] [address] [facility], [place], [address] , [place] - [facility] 5 14:42:44 Bilateral disorder of Eustachia n tubes 28306197750 Active 2023 MARIA EUGENIA SANTOS MD [address], [place], [address] , [place] - [facility] [place] [facility] 4 09:39:41 Sensorine ural hearing loss of bilateral ears 015816688 Active 2023 Ethan Chinchilla DO [address], [place], [address] , [place] - [facility] [place] [facility] 5 08:47:36 Otorrhagi a of left ear 11331918873 22951 Active 2024 CHITRA ONEAL PA-C [address], [place], [address] , [place] - [facility] [place] [facility] 5 10:04:02 Dysfuncti on of bilateral eustachia n tubes 72011028483 17248 Active 2024 Ethan Chinchilla DO [address] [facility] [address], [place], [address] , [facility] - [facility] [place] 5 08:47:24 Chronic infective otitis externa 690878637 Active 2024 Ethan Chinchilla DO [address] [facility],[place] [address], [place], [place], [address] , [facility] [place] 5 15:26:02 Mixed conductiv e AND sensorine ural hearing loss 46753992 Active 2024 YISEL HATHAWAY AUD [address] [facility] [address], [place], [address] , [facility] - [facility] [place] 5 11:31:00 Bilateral hearing loss 18182424 Active 2024 SIDNEY CALVO [address] [facility],[place] [address], [place], [address] , [facility] - [facility] [place] 5 14:45:03 Serous otitis media 76512995 Active 2024 SIDNEY CALVO [address] [facility] [address], [place], [address] , [facility] - [facility] [place] 5 14:46:49 Dysfuncti on of left eustachia n tube 04764182358 Active 2024 SIDNEY CALVO [address] [facility],[place] [address], [place], [place], [address] , [facility] - [facility] [place] [facility] 5 14:47:08 Problem Notes None recorded. Procedures Surgical History Date Name Laterality Status Provider Name and Address Organization Details Recorded Time Air & Speech Audio with Tymps - 93082, 06757 & 53243 completed YISEL HATHAWAY AUD [address], [place], [address], [place] - [facility] 04/29/2025 11:35:41 5 Cerumen removal without microscope left completed SIDNEY CALVO [address] [facility],[address] [address], [place], [address], [facility] - [facility] [place] 04/08/2025 18:13:03 5 Cerumen removal with microscope completed Ethan Chinchilla, DO [address] [facility],[address], [address], [facility] - [facility] [place] [facility] 03/27/2025 15:24:17 5 Air & Speech Audio with Tymps - 37500, 22595 & 67012 completed THOM DOBBINS, AUD [address] [facility],[place] [address], [place], [address], [place] - [facility] 12/04/2024 09:52:31 5 Cerumen removal without microscope bilat completed CHITRA ONEAL PA-C [address] [facility],[address] [address] [address], [place], [address], [facility] - [facility] 12/04/2024 10:03:41 4 Cerumen removal with microscope completed MARIA EUGENIA SANTOS MD [address] [facility],[address], [address], [facility] - [facility] 06/05/2024 09:32:50 Imaging Results None recorded. Procedure Notes None recorded. Medical Equipment None Reported. Allergies No known drug allergies Medications Name Sig Start Date Stop Date Status Note LastModified by Organization Details LastModified Time furosemid e 40 mg tablet 2019 active Medicati on ID: [id number] D uration Value: 30 Brand Name: furosemi de Send Method: E-Prescr ibed Sub s Allowed: subs OK Speci al Instruct ion: TAKE 1 TABLET BY MOUTH EVERY DAY IN THE MORNING Medicati onGeneri cName: furosemi de Not Available Not Available Not Available atorvasta tin 80 mg tablet TAKE 1 TABLET BY MOUTH 1 TIME EACH DAY. active Not Available Not Available No t Available carvedilo l 6.25 mg tablet TAKE 1 TABLET BY MOUTH 2 TIMES DAILY (WITH MEALS) FOR 180 DAYS. active Not Available Not Available No t Available torsemide 20 mg tablet TAKE 2 TABLETS BY MOUTH IN THE MORNING AND 1 TABLET IN THE AFTERNOO N active Not Available Not Available No t Available azithromy anna 250 mg tablet TAKE 2 TABLETS BY MOUTH FOR THE FIRST DAY THEN TAKE 1 TABLET DAILY THEREAFT ER 06/05 completed Not Available Not Available Not Available metoprolo l succinate ER 50 mg tablet,ex tended release 24 hr 06/05 completed Medicati on ID: [id number] D uration Value: 30 Brand Name: metoprol ol succinat e Send Method: E-Prescr ibed Sub s Allowed: subs OK Speci al Instruct ion: TAKE 1 TABLET BY MOUTH EVERY DAY Medi cationGe nericNam e: metoprol ol succinat e Not Available Not Available Not Available FreeStyle Lancets 28 gauge USE TO TEST BLOOD GLUCOSE ONCE DAILY BEFORE A MEAL active Not Available Not Available No t Available prednison e 20 mg tablet PLEASE SEE ATTACHED FOR DETAILED DIRECTIO NS 06/05 completed Not Available Not Available Not Available midodrine 5 mg tablet TAKE 1 TABLET BY MOUTH 1 TIME EACH DAY. active Not Available Not Available No t Available amlodipin e 2.5 mg tablet TAKE 1 TABLET BY MOUTH EVERY DAY active Not Available Not Available No t Available amlodipin e 5 mg tablet TAKE 1 TABLET BY MOUTH EVERY DAY active Not Available Not Available No t Available acetamino phen 500 mg tablet TAKE 2 TABLETS BY MOUTH TWICE A DAY active Not Available Not Available No t Available carvedilo l 3.125 mg tablet TAKE 1 TABLET BY MOUTH TWICE A DAY WITH MEALS active Not Available Not Available No t Available levothyro xine 75 mcg tablet 06/05 completed Medicati on ID: [id number] D uration Value: 30 Brand Name: levothyr oxine Se nd Method: E-Prescr ibed Sub s Allowed: subs OK Speci al Instruct ion: TAKE 1 TABLET BY MOUTH EVERY DAY Medi cationGe nericNam e: levothyr oxine Not Available Not Available Not Available ofloxacin 0.3 % ear drops APPLY 4 DROPS TO THE LEFT EAR TWICE A DAY FOR 7 DAYS active Not Available Not Available No t Available furosemid e 80 mg tablet TAKE 0.5 TABLETS (40 MG TOTAL) BY MOUTH IN THE MORNING AND 0.5 TABLETS (40 MG TOTAL) IN THE EVENING. 06/05 completed Not Available Not Available Not Available sodium bicarbona te 650 mg tablet TAKE 2 TABLETS BY MOUTH IN THE MORNING AND 2 TABLETS IN THE EVENING AND 2 TABLETS BEFORE BEDTIME. active Not Available Not Available No t Available cephalexi n 500 mg capsule TAKE 1 CAPSULE BY MOUTH TWICE A DAY 06/05 completed Not Available Not Available Not Available erythromy anna 5 mg/gram (0.5 %) eye ointment PLEASE SEE ATTACHED FOR DETAILED DIRECTIO NS active Not Available Not Available No t Available calcitrio l 0.5 mcg capsule TAKE 1 CAPSULE (0.5 MCG TOTAL) BY MOUTH 1 (ONE) TIME EACH DAY active Not Available Not Available No t Available clotrimaz ole-betam ethasone 1 %-0.05 % topical cream APPLY TOPICALL Y TO AFFECTED AREA TWICE DAILY FOR 2-4 WEEKS 06/05 completed Not Available Not Available Not Available lisinopri l 10 mg tablet 06/05 completed Medicati on ID: [id number] D uration Value: 30 Brand Name: lisinopr il Send Method: E-Prescr ibed Sub s Allowed: subs STEWART Gord[place] al Instruct ion: TAKE 1 TABLET BY MOUTH EVERY DAY Medi cationGe nericNam e: lisinopr il Not Available Not Available Not Available furosemid e 20 mg tablet 06/05 completed Medicati on ID: [id number] D uration Value: 30 Brand Name: furosemi de Send Method: E-Prescr ibed Sub s Allowed: subs OK Speci al Instruct ion: TAKE 1 TABLET BY MOUTH EVERY DAY IN THE MORNING Medicati onGeneri cName: furosemi de Not Available Not Available Not Available metoprolo l succinate ER 25 mg tablet,ex tended release 24 hr TAKE 1 TABLET BY MOUTH EVERY DAY active Not Available Not Available No t Available albuterol sulfate HFA 90 mcg/actua tion aerosol inhaler INHALE 2 PUFFS BY MOUTH EVERY 6 HOURS NEEDED FOR WHEEZE OR FOR SHORTNES S OF BREATH active Not Available Not Available No t Available clotrimaz ole 1 % topical cream APPLY TO LOWER LEGS DAILY AFTER SHOWERIN G. 06/05 completed Not Available Not Available Not Available cholecalc iferol (vitamin D3) 125 mcg (5,000 unit) capsule TAKE 1 CAPSULE (5000 UNITS TOTAL) BY MOUTH ONCE DAILY active Not Available Not Available No t Available doxycycli ne hyclate 100 mg tablet TAKE 1 TABLET BY MOUTH EVERY 12 HOURS 06/05 completed Not Available Not Available Not Available calcitrio l 0.25 mcg capsule TAKE 1 CAPSULE (0.25 MCG TOTAL) BY MOUTH 1 (ONE) TIME EACH DAY active Not Available Not Available No t Available levothyro xine 112 mcg tablet TAKE 1 TABLET (112 MCG TOTAL) BY MOUTH ONCE DAILY BEFORE BREAKFAS T active Not Available Not Available No t Available amoxicill in 875 mg-potass ium clavulana te 125 mg tablet TAKE 1 TABLET BY MOUTH TWICE A DAY 06/05 completed Not Available Not Available Not Available B-Complex tablet 2019 active Medicati on ID: [id number] B rand Name: B-Comple x Send Method: E-Prescr ibed Sub s Allowed: subs OK Medic ationGen ericName : B-Comple x Not Available Not Available Not Available ezetimibe 10 mg tablet TAKE 1 TABLET BY MOUTH 1 TIME EACH DAY. active Not Available Not Available No t Available cinacalce t 30 mg tablet TAKE 1 TABLET BY MOUTH 1 TIME EACH DAY. active Not Available Not Available No t Available cinacalce t 60 mg tablet TAKE 1 TABLET BY MOUTH 1 TIME EACH DAY. active Not Available Not Available No t Available Nephro-Vi te 0.8 mg tablet TAKE 1 TABLET BY MOUTH 1 TIME EACH DAY. active Not Available Not Available No t Available BD Ultra-Fin e Mini Pen Needle 31 gauge x 3/16 1 EACH BY DOES NOT APPLY ROUTE 2 TIMES DAILY NEEDED (INSULIN ADMINIST RATION). 06/05 completed Not Available Not Available Not Available bromfenac 0.09 % eye drops USE 1 DROP ONCE DAILY TO THE RIGHT EYE 14 WEEKS DIRECTED active Not Available Not Available No t Available Levemir FlexPen 100 unit/mL (3 mL) solution subcutane ous insulin pen INJECT 10 UNITS UNDER THE SKIN EVERY NIGHT TAKE 10 UNITS BEFORE BED active Not Available Not Available No t Available FreeStyle Lite Strips USE TO TEST SUGAR ONCE A DAY active Not Available Not Available No t Available sevelamer carbonate 800 mg tablet TAKE 1 TABLET BY MOUTH 3 TIMES A DAY WITH MEALS. SWALLOW TABLET WHOLE DO NOT CRUSH, BREAK, OR CHEW. active Not Available Not Available No t Available Antibioti c(neomy-b acit-poly m) 3.5 mg-400 unit-5,00 0 unit/gram top oint SUPERFIC IAL ULCER OF LE B/L 06/05 completed Not Available Not Available Not Available Vitamin D3 125 mcg (5,000 unit) tablet 2019 active Medicati on ID: [id number] B rand Name: Vitamin D3 Send Method: E-Prescr ibed Sub s Allowed: subs OK Medic ationGen ericName : Vitamin D3 Not Available Not Available Not Available Flonase Allergy Relief 50 mcg/actua tion nasal spray,thania pension [place] 2 spray into both nostrils once a day 2021 active Medicati on ID: [id number] D uration Value: 30 Prescri bed By Name: SHERRIE Bo[place] nd Name: Flonase Allergy Relief S end Method: E-Prescr ibed Sub s Allowed: subs OK Medic ationGen ericName : Flonase Allergy Relief Not Available Not Available Not Available Lokelma 10 gram oral powder packet TAKE 1 PACKET BY MOUTH 4 (FOUR) TIMES A WEEK active Not Available Not Available No t Available Vitals Date Recorded Body height Provider Name an d Address Organization Details Last Updated DateTime 03/27/2025 160.02 cm [facility] - [facility] 03/27/2025 14:55:26 Social History None recorded. Functional Status None recorded. Mental Status None recorded. Family History Nothing Reported. Medical History Condition Response Diabetes Y Anemia Y Thyroid Problems Y Hypertension Y High Cholesterol Y Past Encounters Encounter ID Performer Location Encounter Start Date Encounter Closed Date Diagnosis/Indication Diagnosis SNOMED-CT Code Diagnosis ICD10 Code Diagnosis IMO Codes Diagnosis Note [id number] Ethan Chinchilla, DO [facility] [address] [address] 03/27/2025 14:53:35 03/27/2025 15:26:58 Dysfunction of bilateral eustachian tubes 5688329673 605911 H69.93 61178757 Sensorineu ral hearing loss of bilateral ears 023687936 H90.3 68663219 Impacted c erumen in left ear 6550469035 950722 H61.22 470199 Chronic in fective otitis externa 834039556 H60.392 72103304 Health Concerns Section Related Observation LastModified by Organization Detai ls LastModified Time None Recorded Concern Status LastModified by Organization Details LastModified Time None Recorded Payers Encounter Date Sequence Insurance Name Policy Number Policy Oralndo Covered Member ID [place] Member ID Guarantor Name 03/27/2025 2 [employer] [id number] Kike Uribe [id number] Kike Uribe 03/27/2025 1 MEDICARE B-CA: [facility] [employer] Kike Uribe [id number] Kike Uribe Notes Date Note Type Note Provider Name and Address Organization Details Recorded Time 03/27/2025 text/html ROS as noted in the HPI Interval history: Here today for recheck of eustachian tube dysfunction. Notes some ear pain and fullness. Notes that its been more bothersome recently Previously seen by Dr. Martinez and Chitra for eustachian tube dysfunction and prior PET placement. Last audiogram in November 2024 showed Normal sloping to severe sensorineural hearing loss with excellent word recognition. AD type A tymps, type B high-volume tymp Ethan Chinchilla, DO [address] [place] [address],[place] [address], [place], [address], [facility] - [facility] 03/27/2025 15:26:29
--- OUTSIDE RECORDS SUMMARY | 2025-06-25 08:59 | XMS_ITS ---
Author Organization 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 ([facility] V24, [facility] V28) 02/24/2025 Plantar wart 02/24/2025 Acquired hammer toe of left foot 02/24/2025 Acquired hammer toe of right foot 02/24/2025 Rib fractures 02/06/2025 Otorrhagia of left ear 12/04/2024 Type 2 diabetes mellitus, wi out long-term current use of insulin ([facility] V24, [facility] V28) 10/18/2024 Bradycardia 10/18/2024 Primary hypertension 07/19/2024 Paroxysmal atrial fibrillation ([facility] V24, [facility] V28) 07/19/2024 Assessment & Plan (06/24/2025 8:20 AM EST): Patient has a history of paroxysmal atrial fibrillation. Heart rate well- controlled today at 63 bpm. He is not on anticoagulation due to severe anemia and frequent falls. He is not a suitable candidate for the Watchman procedure. I will continue to monitor the burden of atrial fibrillation via his pacemaker. Continue carvedilol as prescribed. Assessment & Plan (03/27/2025 10:48 AM EDT): Patient has a history of paroxysmal atrial fibrillation. Heart rate well- controlled today at 60 bpm. He is not on anticoagulation due to severe anemia and frequent falls. He is not a suitable candidate for the Watchman procedure. I discussed the risks and benefits of anticoagulation with the patient and his sister and he will continue without at this time. I will continue to monitor the burden of atrial fibrillation via his pacemaker. Biventricular cardiac pacemaker in situ 07/19/20 24 Aortic valve stenosis 05/09/2024 Assessment & Plan (06/24/2025 8:26 AM EST): Echocardiogram from March revealed severely thickened aortic valve leaflets with moderate regurgitation and moderate to severe stenosis with mean gradient of 31 mmHg. At this point, I will refer him to see Dr. Choudhury to discuss TAVR. He [...] out or coming close to passing out. Assessment & Plan (03/27/2025 10:44 AM EDT): Echocardiogram from July 2024 showed moderate aortic valve stenosis with a peak gradient 31 mmHg and mean gradient 16 mmHg with trace regurgitation. Will update echocardiogram to reevaluate degree of stenosis. HFrEF (heart failure with re duced ejection fraction) (CMS/HCC V24, CMS/HCC V28) 05/09/2024 Assessment & Plan (06/24/2025 8:22 AM EST): Echocardiogram in July 2024 showed moderately decreased LV systolic function with an EF of 35-40% and updated echocardiogram in March revealed improved LV systolic function to low-normal range with an EF of 50-55%. He is status post BiV ventricular pacemaker implantation. He appears euvolemic on physical exam. He is experiencing shortness of breath with exertional activities which are likely multifactorial including severe anemia, deconditioning and worsening . He denies other symptoms of fluid retention such as orthopnea, PND and lower extremity edema. His fluid is managed by dialysis. GDMT is quite limited by low blood pressures and end-stage renal disease. No changes to current medical therapy, continue carvedilol as prescribed. Assessment & Plan (03/27/2025 10:48 AM EDT): Echocardiogram in July 2024 showed moderately decreased LV systolic function with an EF of 35-40%. He is status post BiV ventricular pacemaker implantation. He appears euvolemic on physical exam. He is experiencing shortness of breath with exertional activities which are likely multifactorial including recent rib fractures, severe anemia and deconditioning. He denies other symptoms of fluid retention such as orthopnea, PND and lower extremity edema. His fluid is managed by dialysis. GDMT is quite limited by low blood pressures and end-stage renal disease. No changes to current medical therapy, continue carvedilol as prescribed. Will update echocardiogram to reassess cardiac function and structures. 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 chronic dialysis, without long-term current use of insulin ([facility] V24, [facility] V28) 05/09/2024 Secondary hyperparathyroidism of renal origin ([facility] V24) 03/27/2024 Hyperkalemia 03/27/2024 Hypothyroidism 12/14/2023 White coat syndrome with diagnosis of hypertensi on 12/14/2023 CAD (coronary artery disease) 09/15/2023 CHF (congestive heart failure) ([facility] V24, [facility] V28) 09/15/2023 CKD (chronic kidney disease) stage 5, GFR less than 15 ml/min ([facility] V24, [facility] V28) 09/12/2023 Atelectasis of right lung 07/18/2023 Ground glass opacity present on imaging of lung 07/18/2023 Pleural scarring 07/18/2023 Acute cough 07/05/2023 Acute pain of left knee 07/05/2023 Pleural effusion on left 07/05/2023 Snoring 07/05/2023 Swelling of left knee joint 07/05/2023 Chest pain 06/27/2023 Heart block atrioventricular 06/27/2023 SOB (shortness of breath) 06/27/2023 Systolic murmur 06/27/2023 Aortic valve calcification 05/25/2023 Calcification of mitral valve 05/25/2023 Closed fracture of rib of left side with routine healing 05/25/2023 Cyst of left kidney 05/25/2023 Lung nodule 05/25/2023 Prolonged QT interval 05/25/2023 Lower leg edema 04/19/2023 Overview (05/09/2024): Last Assessment & Plan: Echo does suggest elevated CVP and grade 2 left ventricular diastolic dysfunction. Does not have a significant dyspnea. He is on furosemide 40 mg daily and unfortunately, he probably does not have a good response to the medication due to significant CKD with severely reduced creatinine clearance. I asked him to increase furosemide to 80 mg daily. I am not sure whether he could also have a superimposed venous insufficiency and he could not be evaluated by vascular team. The fundamental treatment is probably going to be renal replacement therapy eventually. Ulcer of right leg, limited to breakdown of skin (CMS/HCC V24, CMS/HCC V28) 04/19/2023 Anemia of chronic disease 04/18/2023 Chronic serous otitis media of left ear 02/10/20 Overview (02/24/2025): Chronic serous otitis media, left ear; Note: Date Diagnosed: 02/09/2023 1:16 PM (H65.22) Hyperlipidemia 10/06/2022 Disorder of both eustachian tubes 01/24/2022 Overview (02/24/2025): Other specified disorders of Eustachian tube, left ear; Note: Date Diagnosed: 01/24/2022 10:45 AM (H69.82) Mixed conductive and sensorineural hearing loss of left ear 01/24/2022 Overview (02/24/2025): Mixed conductive and sensorineural hearing loss, unilateral, left ear with restricted hearing on the contralateral side; Note: Date Diagnosed: 01/24/2022 10:45 AM (H90.A32) Sensorineural hearing loss (SNHL) of right ear 0 01/24/2022 Overview (02/24/2025): Sensorineural hearing loss, unilateral, right ear, with restricted hearing on the contralateral side; Note: Date Diagnosed: 01/24/2022 10:45 AM (H90.A21) Deviated nasal septum 03/02/2021 Overview (02/24/2025): Deviated nasal septum; Note: Date Diagnosed: 03/02/2021 4:06 PM (J34.2) Epistaxis 03/02/2021 Overview (02/24/2025): Epistaxis; Note: Date Diagnosed: 03/02/2021 4:06 PM (R04.0) Bilateral impacted cerumen 03/04/2020 Overview (02/24/2025): Impacted cerumen, left ear; Note: Date Diagnosed: 03/04/2020 3:57 PM (H61.22) Chronic lymphocytic leukemia ([facility] V24, [facility] V28) 12/22/2017 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 Past Treatment and Therapy Plans No past plan information found. Lifetime Dose Tracking * Chemical Lifetime Dose Automatic Entry Manual Entr y Fluoro Time 0.2 minutes 0.2 minutes 0 minutes Air Kerma 2.01 mGy 2.01 mGy 0 mGy CTDIvol 36.63 mGy 36.63 mGy 0 mGy
--- OUTSIDE RECORDS SUMMARY | 2025-06-25 09:00 | XMS_ITS | Clinical Summary ---
Author Organization [facility] [address] [place] [address] Address [address] [place], [place] Phone Care Team Providers Care Churn Operator Name Role Phone Alida Weber MD Primary Care Provider [phone] Allergies Active Allergy Reactions Criticality Noted Date Comments Aspirin Bleeding Medium 01/23/2025 BLEEDING ULCERS Sulfa (Sulfonamide Antibiotics) Unknown 12/27/2022 Other reaction(s): Other (See Comments) Pt is unsure of reaction Sulfamethoxazole-Trimethop rim Unknown 01/23/2025 UNKNOWN Medications blood sugar diagnostic (FreeStyle Lite Strips) test strip Use daily to check bs 100 each 12 025 2025 Active mupirocin (BACTROBAN) 2 % ointment 2 (two) times a day. 025 Active Nephro-Ailyn 0.8 mg tablet TAKE 1 TABLET BY MOUTH 1 TIME EACH DAY. 90 tablet 1 025 Active atorvastatin (LIPITOR) 80 mg tablet TAKE 1 TABLET BY MOUTH 1 TIME EACH DAY. 90 tablet 1 025 Active cholecalciferol (VITAMIN D-3) 125 mcg (5,000 unit) capsule TAKE 1 CAPSULE (5000 UNITS TOTAL) BY MOUTH ONCE DAILY 90 capsule 1 025 Active acetaminophen (TYLENOL) 500 mg tablet Take 2 tablets (1,000 mg total) by mouth every 8 (eight) hours if needed for mild pain. 360 tablet 1 Active ezetimibe (ZETIA) 10 mg tablet Take 1 tablet (10 mg total) by mouth 1 (one) time each day. 90 each 025 2025 Active calcitrioL (ROCALTROL) 0.25 mcg capsuleIndicatio ns:ESRD (end stage renal disease) on dialysis ([facility] V24, [facility] V28) Take 1 capsule (0.25 mcg total) by mouth 1 (one) time each day. 90 each 025 2025 Active albuterol HFA (PROAIR HFA ; PROVENTIL HFA ; VENTOLIN HFA) 90 mcg/actuation inhaler Inhale 2 puffs by mouth every 6 (six) hours if needed for wheezing or shortness of breath. 6.7 g 2 025 2024 Active midodrine (PROAMATINE) 5 mg tablet Take 1 tablet (5 mg total) by mouth 1 (one) time each day. 90 each 2025 Active carvediloL (COREG) 3.125 mg tablet Take 1 tablet (3.125 mg total) by mouth 2 (two) times a day with meals. 180 each 025 2025 Active FreeStyle Lancets 28 gauge lancets Use to test blood glucose once daily before a meal 100 each 1 Active sevelamer carbonate (RENVELA) 800 mg tabletIndication s:ESRD (end stage renal disease) on dialysis ([facility] V24, [facility] V28) Take 1 tablet (800 mg total) by mouth 3 (three) times a day with meals. Swallow tablet whole; do not crush, break, or chew. 270 each 1 025 2025 Active levothyroxine (SYNTHROID, LEVOTHROID) 112 mcg tablet Take 1 tablet (112 mcg total) by mouth 1 (one) time each day before breakfast. 90 each 025 2025 Active sodium zirconium cyclosilicate (Lokelma) 10 gram packetIndication s:RESUME ON Monday04/12/2025, DO NOT TAKE A DOSE [...] the medicine has been taken. MONDAY + Monday Discontinued(F ormulary change) atorvastatin (LIPITOR) 80 mg tablet Take 1 tablet (80 mg total) by mouth 1 (one) time each day. 90 each 2024 Discontinued albuterol HFA (PROAIR HFA ; PROVENTIL HFA ; VENTOLIN HFA) 90 mcg/actuation inhaler Inhale 2 puffs by mouth every 6 (six) hours if needed for wheezing or shortness of breath. 6.7 g 2 2024 Discontinued(R eorder) acetaminophen (TYLENOL) 500 mg tablet Take 2 tablets (1,000 mg total) by mouth 2 (two) times a day. 90 each 2 2024 Discontinued B complex-vitamin C-folic acid (NEPHRO-AILYN) 0.8 mg tablet Take 1 tablet by mouth 1 (one) time each day. 90 each 2024 Discontinued calcitrioL (ROCALTROL) 0.25 mcg capsuleIndicatio ns:ESRD (end stage renal disease) on dialysis ([facility] V24, [facility] V28) Take 1 capsule (0.25 mcg total) by mouth 1 (one) time each day. 90 each 025 2024 Discontinued(R eorder) cholecalciferol (VITAMIN D-3) 125 mcg (5,000 unit) capsule Take 1 capsule (5,000 Units total) by mouth 1 (one) time each day. 90 each 025 2024 Discontinued ezetimibe (ZETIA) 10 mg tablet Take 1 tablet (10 mg total) by mouth 1 (one) time each day. 90 each 025 2024 Discontinued(R eorder) midodrine (PROAMATINE) 5 mg tablet Take 1 tablet (5 mg total) by mouth 1 (one) time each day. 90 each 025 2024 Discontinued(R eorder) levothyroxine (SYNTHROID, LEVOTHROID) 112 mcg tablet Take 1 tablet (112 mcg total) by mouth 1 (one) time each day before breakfast. 90 each 025 2024 Discontinued(R eorder) FreeStyle Lancets 28 gauge lancets Use to test blood glucose once daily before a meal 100 each 1 025 2024 Discontinued(R eorder) sevelamer carbonate (RENVELA) 800 mg tabletIndication s:ESRD (end stage renal disease) on dialysis ([facility] V24, [facility] V28) Take 1 tablet (800 mg total) by mouth 3 (three) times a day with meals. Swallow tablet whole; do not crush, break, or chew. 270 each 1 025 2024 Discontinued(R eorder) carvediloL (COREG) 3.125 mg tablet Take 1 tablet (3.125 mg total) by mouth 2 (two) times a day with meals. 180 each 025 2024 Discontinued(R eorder) Active Problems Problem Noted Date Diagnosed Date Bilateral hearing loss 04/29/2025 Serous otitis media 04/29/2025 Chronic infective otitis externa 03/27/2025 Symptomatic anemia 03/07/2025 Peripheral angiopathy due to type 2 diabetes mellitus ([facility] V24, [facility] V28) 02/24/2025 Plantar wart 02/24/2025 Acquired hammer toe of left foot 02/24/2025 Acquired hammer toe of right foot 02/24/2025 Rib fractures 02/06/2025 Otorrhagia of left ear 12/04/2024 Type 2 diabetes mellitus, [facility] long-term current use of insulin ([facility] V24, [facility] V28) 10/18/2024 Bradycardia 10/18/2024 Primary hypertension 07/19/2024 Paroxysmal atrial fibrillation ([facility] V24, [facility] V28) 07/19/2024 Assessment & Plan (06/24/2025 [...] I will refer him to see Dr. Matson to discuss TAVR. He may not be [...] dialysis, without long-term current use of insulin ([facility] V24, [facility] V28) 05/09/2024 Secondary hyperparathyroidism of renal origin ([facility] [place] V24) 03/27/2024 Hyperkalemia 03/27/2024 Hypothyroidism 12/14/2023 White coat syndrome with diagnosis of hypertensi on 12/14/2023 CAD (coronary artery disease) 09/15/2023 CHF (congestive heart failure) ([facility] V24, [facility] V28) 09/15/2023 CKD (chronic kidney disease) stage 5, GFR less than 15 ml/min ([facility] V24, [facility] V28) 09/12/2023 Atelectasis of right lung 07/18/2023 [...] serous otitis media of left ear 02/10/20 23 Overview (02/24/2025): Chronic serous otitis media, left [...] 03/04/2020 3:57 PM (H61.22) Chronic lymphocytic leukemia ([facility] V24, [facility] V28) 12/22/2017 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 Encounters Date Type Department Care Team Description 06/24/2025 7:40 AM EST Office Visit [facility] - [facility] [address] [facility] [address] [place] [phone] Saira Daly NP Nonrheumatic aortic valve stenosis (Primary Dx); Paroxysmal atrial fibrillation ([facility] V24, [facility] V28); HFrEF (heart failure with reduced ejection fraction) ([facility] V24, [facility] V28) 06/23/2025 10:20 AM EST Lab Draw Station [address] [phone] Memory loss; Type 2 diabetes mellitus with other specified complication, unspecified whether jail insulin use ([facility] V24, [facility] V28); Abnormal pleural fluid; Nutritional deficiency; Dyspnea, unspecified type; Abnormal findings on diagnostic imaging of other parts of digestive tract 06/23/[address] [phone] Aldia Weber MD 06/19/2025 12:30 PM EST Office Visit [address] [phone] Alida Weber MD Hyperlipidemia, unspecified hyperlipidemia type (Primary Dx); ESRD (end stage renal disease) on dialysis ([facility] V24, [facility] V28); SOB (shortness of breath); HFrEF (heart failure with reduced ejection fraction) ([facility] V24, [facility] V28); White coat syndrome with diagnosis of hypertension; Anemia of chronic disease; Type 2 diabetes mellitus with other specified complication, without long-term current use of insulin ([facility] V24, [facility] V28); Hypothyroidism, unspecified type; Memory loss; Biventricular cardiac pacemaker in situ 06/13/2025 9:20 PM EST Ancillary Procedure [facility] - [facility] [address] [facility] [address] [place] [address] 06/02/[address] [phone] Alida Weber MD 05/28/2025 Telephone [address] [phone] Nataliya Lopez [place] 05/20/[address] [phone] Jacquie Nicole RN 05/15/2025 3:30 PM EDT Office Visit Pulmonology [address] [phone] Lore Myers MD KERRI on CPAP (Primary Dx); Dyspnea, unspecified type; Chronic obstructive pulmonary disease, unspecified COPD type ([facility] V24, [facility]/H[facility] V28); Multiple closed fractures of ribs of both sides with routine healing, subsequent encounter; Restrictive lung disease; Kyphoscoliosis 05/07/2025 4:25 PM EDT Ancillary Procedure [facility] [address] [facility] [address] [place] [address] 05/07/2025 2:58 PM EDT - 05/07/2025 11:59 PM EDT Hospital Encounter [address] [phone] Pleural effusion, bilateral; RAMIREZ (dyspnea on exertion) Discharge Disposition: Home or Self Care 05/07/2025 Results Follow-Up Pulmonology [address] [phone] Lore Myers MD 05/07/2025 Telephone Infectious Disease - [address] [phone] Dorcas Perez [place] 05/01/2025 1:00 PM EDT Ancillary Procedure [facility] [address] [facility] [address] [place] [address] Encounter for adjustment or management of cardiac device 04/24/2025 Telephone Adult Medicine [address] [phone] Nathalie Giraldo [place] 04/24/2025 Billing Patient Not Present Adult Medicine [address] [phone] Alida Weber MD 04/23/2025 Telephone Gastroenterology [address] [phone] Lorri Naik PA 04/22/2025 Telephone Pulmonology [address] [phone] Lore Myers MD 04/18/2025 Telephone Adult Medicine [address], [place] [phone] Alida Weber MD 04/17/2025 9:00 AM EDT Office Visit Adult Medicine [facility] [address] [place] [address] Alida Weber MD Primary hypertension (Primary Dx); Type 2 diabetes mellitus with other specified complication, unspecified whether jail insulin use ([facility] V24, [facility] V28); White coat syndrome with diagnosis of hypertension; Atrial fibrillation, unspecified type ([facility] V24, [facility] V28); ESRD (end stage renal disease) on dialysis ([facility] V24, [facility] V28); Anemia of chronic disease; Heart murmur; Biventricular cardiac pacemaker in situ; Memory loss 04/15/2025 10:27 AM EDT - 04/15/2025 11:59 PM EDT Hospital Encounter [facility] Xray [address] [place] [phone] Pain Discharge Disposition: Home or Self Care 04/15/2025 9:07 AM EDT Anesthesia Event [facility] Pain Management [address] [place] [address] Rodrigo Avila MD 04/15/2025 7:45 AM EDT - 04/15/2025 11:59 PM EDT Hospital Encounter [facility] Pain Management [address] [place] [address] Alverto Nickerson DO Slanda, Summer, CRNA Dasilva, John E, MD Radiculopathy, cervical region Discharge Disposition: Home or Self Care 04/14/2025 10:00 AM EDT Ancillary Procedure [facility] [address] [place] [phone] 04/08/2025 Telephone [facility] - [address] [place] [phone] Hector Galloway MD 04/07/2025 11:31 AM EDT - 04/07/2025 8:06 PM EDT Hospital Encounter [facility] Emergency [address] [place] [phone] Travis Hammer MD Deutsch, MD Aimee Posadas Nermina, MD Corrado, Adam D, MD Anemia, unspecified type (Primary Dx); ESRD (end stage renal disease) ([facility] V24, [facility] V28) Discharge Disposition: Home or Self Care 04/04/2025 12:30 PM EDT Ancillary Procedure [facility] [address] [place] [phone] HFrEF (heart failure with reduced ejection fraction) ([facility] V24, [facility] V28) 03/27/2025 9:40 AM EDT Office Visit [facility] [address] [place] [phone] Saira Daly NP HFrEF (heart failure with reduced ejection fraction) ([facility] V24, [facility] V28) (Primary Dx); Nonrheumatic aortic valve stenosis; Atrial fibrillation, unspecified type ([facility] V24, [facility] V28) 03/27/2025 Telephone Adult Medicine [address] [phone] Alida Weber MD from Last 3 Months Immunizations Immunization Administration Dates Next Due Influenza trivalent, 0.5mL ( Fluzone High-dose) 65yo and older 04/24/2025,05/18/2021,05/21/2020,05/30,05/03/2018,06/02/2016 Influenza trivalent, with pr eservative (Fluzone; Afluria) 6mo and older 06/05/2017 Influenza, Unspecified 05/10/2023 Moderna SARS-CoV-2 COVID-19, mRNA, LNP-S, preservative free 05/10/2023 Pfizer SARS-CoV-2 COVID-19, mRNA, LNP-S, preservative free 10/25/2023,11/13/2021,05/23/2021,10/05,09/14/2020 Pneumococcal conjugate 13 va lent (Prevnar 13, PCV13) 2mo and older 04/11/2019 Pneumococcal polysaccharide 23 valent (Pneumovax 23) 2yo and older 03/18/2013 Respiratory syncytial virus (RSV), unspecified 08/31/2023 Tdap Tetanus diptheria acell ular pertussis (Boostrix; Adacel) 7yo and older 04/11/2019 Surgical History Surgery Date Site/Laterality Comments COLONOSCOPY PROCEDURE:COLONOSCOPY AV FISTULA PLACEMENT INSERT / REPLACE / REMOVE PACEMAKER EYE SURGERY Medical History Medical History Date Comments CLL (chronic lymphocytic randy kemia) ([facility] V24, [facility] V28) DX:CLL (chronic lymphocytic leukemia) ([facility]) Hypertension DX:Hypertension Chronic kidney disease CKD 4/5 Diabetes mellitus type 2, co ntrolled, with complications ([facility] V24, [facility] V28) DX:Diabetes mellitus type 2, controlled, with complications ([facility]) Hyperlipidemia DX:Hyperlipidemi a Hypothyroidism DX:Hypothyroidis m Stage 4 chronic kidney disea se ([facility] V24, [facility] V28) 10/06/2022 DX:Stage 4 chronic kidney di sease ([facility]) Atrial fibrillation ([facility] V24, [facility] V28) Heart failure with mildly re duced ejection fraction ([facility] V24, [facility] V28) LVEF 30-40 07/2025 Aortic stenosis GI bleed CHF (congestive heart failur e) ([facility] V24, [facility] V28) 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 For example, early childhood special educator or elderly care for an older adult? [...] Orientation Straight 02/05/2025 2: 22 PM EDT Obstetrics History Last Filed Vital Signs Vital Sign Reading Time Taken Comments Blood Pressure 118/66 06/24/2025 7:38 AM EST Pulse 63 06/24/2025 7:38 AM EST Temperature 36.5 C (97.7 F) 06/19/2025 12:29 PM EST Respiratory Rate 20 05/15/2025 3:41 PM EDT Oxygen Saturation 100% 05/15/2025 3:41 PM EDT Inhaled Oxygen Concentration - - Weight 52.6 kg (116 lb) 06/24/2025 7:38 AM EST Height 160 cm (5' 3 ) 06/24/2025 7:38 AM EST Body Mass Index 20.55 06/24/2025 7:38 AM EST Plan of Treatment Upcoming Encounters Date Type Department Care Team (Late st Contact Info) Description 07/22/2025 2:00 PM EST Office Visit [facility] [place] - [address] [phone] Alida Weber MD [address] [place] [address] 07/24/2025 4:00 PM EST Office Visit Vascular [place] [address] [place] [address] Senait España PA [address] [facility] [address] [place] [address] 07/29/2025 4:00 PM EST Office Visit Endocrinology [address] [phone] Rosa Roth PA [address] [place], [place] 08/12/2025 9:00 AM EST Consult [facility] - [address] [place] [phone] Franky Matson MD [address] [place] [address] [address] [place] [phone] 08/26/2025 10:30 AM EST Clinical Support Pulmonology - [place] [address] [facility] [address] [place] [phone] 09/02/2025 10:45 AM EST Office Visit Pulmonology - [place] [address] [facility] [address] [place] [address] Lore Myers MD [address] [place] [phone] 05/05/2026 9:00 AM EDT Ancillary Procedure [facility] - [facility] [address] [facility] [address] [place] [phone] Health Maintenance Due Date Last Done Comments Medicare Annual Wellness Visit 07/22/2025 Postponed from 07/14/2022 (Patient Does Not Have Time) Hepatitis B Vaccines (3 of 3 - 19+ 3-dose series) 09/21/2025 05/19/2025, 04/18/2025, 03/21/2025 COVID-19 Vaccine (10 - Pfizer risk 2024- season) 2025 04/24/2025, 04/20/2024, 10/25/2023, Additional history exists Diabetes: Annual Retina Eye Exam 11/07/2025 11/07/2024, 08/14/2023 Diabetes: Blood Sugar Control Test (HGBA1C) 12/14/2025 06/16/2025, 06/16/2025, 05/28/2025, Additional history exists Falls Risk Assessment 03/08/2026 03/08/2025, 024 Social Influencers of Health Screening 05/20/2026 05/20/2025 Diabetes: Annual Foot Exam 06/19/2026 06/19/2025, Hypertension/CHF/CAD Annual BMP Blood Test 06/23/2026 06/23/2025, 04/16/2025, 04/07/2025, Additional history exists RSV Immunization Adult Patients (1 - 1-dose 75+ series) 06/29/2026 08/31/2023 Postponed from 2015 (Patient Refused) Cholesterol Screening (Lipid Panel) 06/16/2030 06/16/2025, 05/28/2025, 05/07/2025, Additional history exists DTaP,Tdap,and Td Vaccines (3 - Td or Tdap) 11/30/2031 11/29/2021, 04/11/2019 Zoster Vaccines Completed 11/05/2022, 07/22/2022 RSV Immunization Patients Under 20 months Aged Out 08/31/2023 No longer eligible based on patient's age to complete this topic Pneumococcal Vaccine: 50+ Years Completed 12/14/2023, 04/11/2019, 03/18/2013 Depression Screening Completed 02/19/2025, 10/27/19 24 Influenza Vaccine Completed 04/24/2025, , 05/10/2023, Additional history exists HIB Vaccines Aged Out No longer eligi ble based on patient's age to complete this topic HPV Vaccines Aged Out No longer eligi ble based on patient's age to complete this topic Hepatitis A Vaccines Aged Out No long er eligible based on patient's age to complete this topic IPV Vaccines Aged Out No longer eligi ble based on patient's age to complete this topic MMR Vaccines Aged Out No longer eligi ble based on patient's age to complete this topic Meningococcal ACWY Vaccine Aged Out N o longer eligible based on patient's age to complete this topic Meningococcal B Vaccine Aged Out No l onger eligible based on patient's age to complete this topic Varicella Vaccines Aged Out No longer eligible based on patient's age to complete this topic Medical Devices Implanted Type Area Senior Climate Advisor Device Identifier Shelf Expiration Date Model / Serial / Lot Abbt-Stju [id number] Quadra Allure Mp(Tm) [id number] Implanted:12/2023 (Quantity not on file) [employer]iac [employer]GER [employer] [employer] 3562 QUADRA ALLURE MP(TM) / [id number] / Abbt-Stju Quadra Allure Mp [id number] Implanted:12/2023 (Quantity not on file) Cardiac [employer]GER [employer] [facility] [employer] QUADRA ALLURE MP [id number] / [id number] / Procedures Procedure Name Priority Date/Time Associated Diagnosis Comments TRIIODOTHYRONINE FREE Routine 06/23/2025 10:29 AM EST Memory loss FREE THYROXINE WITH REFLEX TO FREE TRIIODOTHYRONINE Routine 06/23/2025 10:29 AM EST Memory loss THYROID STIMULATING HORMONE WITH REFLEX TO FREE T4 AND FREE T3 Routine 06/23/2025 10:29 AM EST Memory loss COMPREHENSIVE METABOLIC PANEL Routine 06/23/2025 10:29 AM EST Type 2 diabetes mellitus with other specified complication, unspecified whether supervisor intermediates insulin use ([facility] V24, [facility] V28) MICROALBUMIN CREATININE URINE RATIO Routine 06/23/2025 10:29 AM EST Type 2 diabetes mellitus with other specified complication, unspecified whether supervisor intermediates insulin use ([facility] V24, [facility] V28) TREPONEMA PALLIDUM ANTIBODY WITH REFLEX TO RPR AND PARTICLE AGGLUTINATION Routine 06/23/2025 10:29 AM EST Memory loss CARDIAC DEVICE CHECK- REMOTE- MURJ Routine 06/13/2025 9:[address] CHEST WO CONTRAST Routine 05/16/2025 8:47 AM EDT CARDIAC DEVICE CHECK- REMOTE- MURJ Routine 05/07/2025 4:20 PM EDT XR CHEST 2 VIEWS Routine 05/07/2025 3:16 PM EDT Pleural effusion, bilateral RAMIREZ (dyspnea on exertion) CARDIAC DEVICE CHECK- IN CLINIC- MURJ Routine 05/01/2025 1:40 PM EDT Encounter for adjustment or management of cardiac device BILIRUBIN DUPLICATE PROCEDURE TO ORDER Routine 04/16/2025 10:44 AM EDT Elevated liver enzymes CBC WITH AUTO DIFFERENTIAL Routine 04/16/2025 10:44 AM EDT Anemia, unspecified type GAMMA GLUTAMYL TRANSFERASE Routine 04/16/2025 10:44 AM EDT Elevated liver enzymes CBC AND DIFFERENTIAL Routine 04/16/2025 10:44 AM EDT Anemia, unspecified type THYROID STIMULATING HORMONE WITH REFLEX TO FREE T4 AND FREE T3 Routine 04/16/2025 10:44 AM EDT Hypothyroidism, unspecified type MICROALBUMIN CREATININE URINE RATIO Routine 04/16/2025 10:44 AM EDT Type 2 diabetes mellitus with other specified complication, without long-term current use of insulin ([facility] V24, CMS/[facility] V28) COMPREHENSIVE METABOLIC PANEL Routine 04/16/2025 10:44 AM EDT Type 2 diabetes mellitus with other specified complication, without long-term current use of insulin ([facility] V24, [facility] V28) LIPID PANEL WITH REFLEX TO DIRECT LDL Routine 04/16/2025 10:44 AM EDT Type 2 diabetes mellitus with other specified complication, without long-term current use of insulin ([facility] V24, [facility] V28) ANTIMITOCHONDRIAL ANTIBODY Routine 04/16/2025 10:44 AM EDT Elevated liver enzymes HEMOGLOBIN A1C Routine 04/16/2025 10:42 AM EDT Type 2 diabetes mellitus with other specified complication, without long-term current use of insulin ([facility] V24, [facility] V28) POCT GLUCOSE BLOOD Routine 04/15/2025 8: 24 AM EDT CARDIAC DEVICE CHECK- REMOTE- MURJ Routine 04/14/2025 9:59 AM EDT ECG ANNOTATED 04/08/2025 ELECTROLYTE PANEL STAT 04/07/2025 6:3 6 PM EDT HEMOGLOBIN AND HEMATOCRIT Routine 2024 6:35 PM EDT TRANSFUSE RED BLOOD CELLS STAT 2024 1:46 PM EDT ERYTHROPOIETIN Routine 04/07/2025 1:15 PM EDT TROPONIN I HIGH SENSITIVITY Timed 04/07/2025 1:15 PM EDT PREPARE RBC STAT 04/07/2025 12:57 PM EDT FERRITIN Add-On 04/07/2025 11:54 AM EDT IRON AND TIBC Add-On 04/07/2025 11:54 AM EDT CBC WITH AUTO DIFFERENTIAL STAT 04/07/2025 11:54 AM EDT TYPE AND SCREEN STAT 04/07/2025 11:54 AM EDT TROPONIN I HIGH SENSITIVITY Timed 04/07/2025 11:54 AM EDT MAGNESIUM STAT 04/07/2025 11:54 AM EDT BASIC METABOLIC PANEL STAT 04/07/2025 11:54 AM EDT CBC AND DIFFERENTIAL STAT 04/07/2025 11:54 AM EDT ECG 12-LEAD STAT 04/07/2025 11:38 AM EDT ED CRITICAL CARE Routine 04/07/2025 11:0 0 AM EDT TRANSTHORACIC ECHOCARDIOGRAM (TTE) COMPLETE Routine 04/04/2025 1:14 PM EDT HFrEF (heart failure with reduced ejection fraction) (CMS/HCC V24, CMS/HCC V28) EXTERNAL DIABETIC RETINA EYE EXAM 11/07/2024 FALLS RISK ASSESSMENT Routine 03/13/2024 DEPRESSION SCREENING Routine 10/27/2023 DIABETES FOOT EXAM Routine 07/18/2023 from Last 3 Months or Most Recently Relevant to Health Maintenance Results * Treponema pallidum antibody with reflex to RPR and particle agglutination (06/23/2025 10:29 AM EST) Pathologist [facility] T. Pallidum Antibodies Negative Negative LAB CHEMISTRY METHOD 06/23/2025 5:15 PM EST [facility] Blood Venous blood specimen / Unknown Venipuncture / Unknown 06/23/2025 10:29 AM EST 06/23/2025 10:29 AM EST Alida Weber MD LAB BLOOD ORDERABLES Final Result Performing Organization Address [facility]/ZIP Co de Phone Number [facility] [address] [place] [address], [place] [phone] * (ABNORMAL) Thyroid stimulating hormone with reflex to free t4 and free t3 (06/23/2025 10:29 AM EST) Only the most recent of2 resultswithin the time period is included. [facility] TSH 4.74(H) 0.40 - 4.00 mcIU/mL LAB CHEMISTRY METHOD 06/23/2025 5:05 PM EST [facility] Blood Venous blood specimen / Unknown Venipuncture / Unknown 06/23/2025 10:29 AM EST 06/23/2025 10:29 AM EST Alida Weber MD LAB BLOOD ORDERABLES Final Result Performing Organization Address City/[facility]/ZIP Co de Phone Number [facility] [address] [place] [address], [place] [phone] * Free thyroxine with reflex to free triiodothyronine (06/23/2025 10:29 AM EST) [facility] Free T4 1.15 0.70 - 1.80 ng/dL LAB CHEMISTRY METHOD 06/23/2025 6:28 PM EST [facility] Blood Venous blood specimen / Unknown Venipuncture / Unknown 06/23/2025 10:29 AM EST 06/23/2025 10:29 AM EST Alida Weber MD LAB BLOOD ORDERABLES Final Result Performing Organization Address City/[facility]/ZIP Co de Phone Number [facility] [address] [place] [address], [place] [phone] * (ABNORMAL) Microalbumin creatinine urine ratio (06/23/2025 10:29 AM EST) Only the most recent of2 resultswithin the time period is included. Creatinine, Urine 19.0 mg/dL LAB CHEMISTRY METHOD 06/23/2025 7:40 PM [facility] Microalb, Ur 112.0(H) 0.0 - 29.0 mg/L LAB CHEMISTRY METHOD 06/23/2025 7:40 PM EST [facility] Microalb/Crea t Ratio 589(H) <30 mg/g creat LAB CHEMISTRY METHOD 06/23/2025 7:40 PM EST [facility] Urine Urine specimen obtained by clean catch procedure / Unknown Non-blood Collection / Unknown 06/23/2025 10:29 AM EST 06/23/2025 10:29 AM EST Alida Weber MD LAB URINE ORDERABLES Final Result [facility] [address] [place] [address], [place] [phone] * (ABNORMAL) Triiodothyronine free (06/23/2025 10:29 AM EST) T3, Free 137(L) 230 - 420 pcg/dL LAB CHEMISTRY METHOD 06/23/2025 7:41 PM EST [facility] Blood Venous blood specimen / Unknown Venipuncture / Unknown 06/23/2025 10:29 AM EST 06/23/2025 10:29 AM EST us Alida Weber MD LAB BLOOD ORDERABLES Final Result [facility] [address] [place] [address], * (ABNORMAL) Comprehensive metabolic panel (06/23/2025 10:29 AM EST) Only the most recent of2 resultswithin the time period is included. Sodium 135 133 - 145 mmol/L LAB CHEMISTRY METHOD 06/23/2025 4:33 PM [facility] Potassium 3.1(L) 3.5 - 5.5 mmol/L LAB CHEMISTRY METHOD 06/23/2025 4:33 PM [facility] Chloride 93(L) 96 - 110 mmol/L LAB CHEMISTRY METHOD 06/23/2025 4:33 PM [facility] CO2 36(H) 21 - 32 mmol/L LAB CHEMISTRY METHOD 06/23/2025 4:33 PM [facility] Anion Gap 6 3 - 11 LAB CHEMISTRY METHOD 06/23/2025 4:33 PM [facility] Glucose 85 70 - 100 mg/dL LAB CHEMISTRY METHOD 06/23/2025 4:33 PM [facility] BUN 20 5 - 25 mg/dL LAB CHEMISTRY METHOD 06/23/2025 4:33 PM [facility] Creatinine 2.03(H) 0.70 - 1.30 mg/dL LAB CHEMISTRY METHOD 06/23/2025 4:33 PM [facility] eGFR 32(L) >=60 mL/min/1. 73m2 LAB CHEMISTRY METHOD 06/23/2025 4:33 PM [facility] Comment:Calculation based on the Chronic Kidney Disease Epidemiology Collaboration (CKD-EPI) equation refit without adjustment for race. BUN/Creatinine Ratio 9.9 LAB CHEMISTRY METHOD 06/23/2025 4:33 PM [facility] Calcium 8.6 8.5 - 10.5 mg/dL LAB CHEMISTRY METHOD 06/23/2025 4:33 PM [facility] AST (SGOT) 117(H) 10 - 42 unit/L LAB CHEMISTRY METHOD 06/23/2025 4:33 PM [facility] ALT (SGPT) 180(H) 10 - 60 unit/L LAB CHEMISTRY METHOD 06/23/2025 4:33 PM [facility] Alkaline Phosphatase 112 42 - 121 unit/L LAB CHEMISTRY METHOD 06/23/2025 4:33 PM [facility] Total Protein 6.4 6.0 - 8.0 g/dL LAB CHEMISTRY METHOD 06/23/2025 4:33 PM [facility] Albumin 3.6 3.2 - 5.0 g/dL LAB CHEMISTRY METHOD 06/23/2025 4:33 PM [facility] Total Bilirubin 1.0 0.0 - 1.4 mg/dL LAB CHEMISTRY METHOD 06/23/2025 4:33 PM [facility] Blood Venous blood specimen / Unknown Venipuncture / Unknown 06/23/2025 10:29 AM EST 06/23/2025 10:29 AM EST us Alida Weber MD LAB BLOOD ORDERABLES Final Result [facility] [address] [place] [address], * Cardiac device check - Remote- MURJ (06/13/2025 9:16 PM EST) Only the most recent of3 resultswithin the time period is included. Date Time Interrogation Session [id number] CV DEVICE CHECK Type Interrogation Session Remote Scheduled CV DEVICE CHECK Implantable Pulse Generator Senior Climate Advisor [employer] CV DEVICE CHECK Implantable Pulse Generator Type MANAGER FIBER-P CV DEVICE CHECK Implantable Pulse Generator Model 3562 Quadra Allure MP(TM) CV DEVICE CHECK Implantable Pulse Generator Serial Number [id number] CV DEVICE CHECK Implantable Pulse Generator Implant Date 20240311 CV DEVICE CHECK Battery Remaining Percentage 84.00 CV DEVICE CHECK Battery Remaining Longevity 82.0 CV DEVICE CHECK Battery Voltage 2.980 CV D EVICE CHECK Battery COMMERCIAL OR INSTITUTIONAL CLEANER Trigger 2.620 CV DEVICE CHECK Battery Status Middle of Service CV DEVICE CHECK Chaim Statistic RA Percent Paced 48.00 CV DEVICE CHECK Chaim Statistic RV Percent Paced 99.00 CV DEVICE CHECK MANAGER FIBER Statistic MANAGER FIBER Percent Paced 99.00 CV DEVICE CHECK Atrial Tachy Statistic AT/AF Victoria Percent 0.00 CV DEVICE CHECK Lead Channel Sensing Intrinsic Amplitude 2.300 CV DEVICE CHECK Lead Channel Setting Sensing Sensitivity 0.50 CV DEVICE CHECK Lead Channel Impedance Value 410 CV DEVICE CHECK Lead Channel Pacing Threshold Amplitude 0.875 CV DEVICE CHECK Lead Channel Pacing Threshold Pulse Width 0.4 CV DEVICE CHECK Lead Channel RA Pacing Threshold Date 2025-06-04 CV DEVICE CHECK Lead Channel Setting Pacing Amplitude 1.875 CV DEVICE CHECK Lead Channel Setting Pacing Pulse Width 0.4 CV DEVICE CHECK Lead Channel Sensing Intrinsic Amplitude 12.000 CV DEVICE CHECK Lead Channel Setting Sensing Sensitivity 2.00 CV DEVICE CHECK Lead Channel Impedance Value 390 CV DEVICE CHECK Lead Channel Pacing Threshold Amplitude 0.875 CV DEVICE CHECK Lead Channel Pacing Threshold Pulse Width 0.4 CV DEVICE CHECK Lead Channel RV Pacing Threshold Date 2025-06-04 CV DEVICE CHECK Lead Channel Setting Pacing Amplitude 2.000 CV DEVICE CHECK Lead Channel Setting Pacing Pulse Width 0.4 CV DEVICE CHECK Lead Channel Impedance Value 650 CV DEVICE CHECK Lead Channel Pacing Threshold Amplitude 1.250 CV DEVICE CHECK Lead Channel Pacing Threshold Pulse Width 0.4 CV DEVICE CHECK Lead Channel Pacing Threshold Date 2025-06-04 CV DEVICE CHECK Lead Channel Setting Pacing Amplitude 2.250 CV DEVICE CHECK Lead Channel Setting Pacing Pulse Width 0.4 CV DEVICE CHECK Chaim Setting Mode (NBG Code) DDDR CV DEVICE CHECK Ventricular chambers paced during MANAGER FIBER pacing. BiV CV DEVICE CHECK Chaim Setting Lower Rate Limit 60 CV DEVICE CHECK Chaim Setting AT Mode Switch Rate 180 CV DEVICE CHECK Chaim Setting Maximum Tracking Rate 130 CV DEVICE CHECK Chaim Setting Maximum Sensor Rate 130 CV DEVICE CHECK Chaim Setting PAV Delay 150 CV DEVICE CHECK Chaim Setting MIKHAIL Delay 130 CV DEVICE CHECK MANAGER FIBER LV-RV Delay 20 CV D EVICE CHECK Date of Service 2025-08-12 CV DEVICE CHECK Anatomical Region Laterality Modality Device Interroga tion 06/04/2025 2:00 AM EDT Impressions 06/13/2025 11:34 AM EST Normal Remote: No Events * Normal Device Function * Alerts or events: None * Battery: Battery is at 84%, 6.83 yrs * Sensing, impedance and thresholds reviewed * Programmed parameters reviewed * Presenting rhythm reviewed * Heart Rate Histograms reviewed * No significant changes noted Heart Failure Diagnostic: Stable * Heart failure diagnostics assessed through the device * Status: Stable * No overt HF present Narrative Procedure Note Rodrigo Medina MD - 06/13/2025 IMPRESSION: Normal Remote: No Events * Normal Device Function * Alerts or events: None * Battery: Battery is at 84%, 6.83 yrs * Sensing, impedance and thresholds reviewed * Programmed parameters reviewed * Presenting rhythm reviewed * Heart Rate Histograms reviewed * No significant changes noted Heart Failure Diagnostic: Stable * Heart failure diagnostics assessed through the device * Status: Stable * No overt HF present Rodrigo Medina MD CV IMPLANTABLE CARDIAC DEVICE PROCEDURES Final Result * CT Chest wo Contrast (05/16/2025 8:47 AM EDT) Anatomical Region Laterality Modality Body Computed Tomogra phy Historical Provider MD [facility] CT PROCEDURES Final R esult * XR Chest 2 Views (05/07/2025 3:16 PM EDT) Anatomical Region Laterality Modality Body Radiographic Rosamaria ging 05/07/2025 6:25 PM EDT Impressions 05/07/2025 6:52 PM EDT No significant interval change in the small to medium-sized left pleural effusion. -------- FINAL REPORT -------- Dictated By: Sarahi Riggs Dictated Date: 05/07/2025 18:25 ET Assigned Physician: Sarahi Riggs Reviewed and Electronically Signed By: Sarahi Riggs Signed Date: 05/07/2025 18:52 ET Workstation ID: [id number] Transcribed By: Self Edit Transcribed Date: 05/07/2025 18:35 ET Narrative 05/07/2025 6:52 PM EDT EXAM: Chest x-ray HISTORY: Dyspnea on exertion. History of a pleural effusion. COMPARISON: 10/18/2024 and 07/05/2023, chest CT 11/12/2024 FINDINGS: PA and lateral views of the chest were performed. No significant interval change in the small to medium-sized left pleural effusion compared with most recent imaging. No right pleural effusion. No evidence of pulmonary edema. No definite infiltrate. Heart is not enlarged. 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 Mediastinal contours have similar appearance. Multilevel degenerative changes in the spine. Bilateral chronic appearing rib fracture deformities. Procedure Note Sarahi Riggs MD - 05/07/2025 EXAM: Chest x-ray HISTORY: Dyspnea on exertion. History of a pleural effusion. COMPARISON: 10/18/2024 and 07/05/2023, chest CT 11/12/2024 FINDINGS: PA and lateral views of the chest were performed. No significant interval change in the small to medium-sized left pleuraleffusion compared with most recent imaging. No right pleural effusion. Noevidence of pulmonary edema. No definite infiltrate. Heart is notenlarged. Stable appearance of the triple lead pacemaker entering from theright. Mediastinal contours have similar appearance. Multileveldegenerative changes in the spine. Bilateral chronic appearing ribfracture deformities. IMPRESSION: No significant interval change in the small to medium-sized left pleuraleffusion. -------- FINAL REPORT -------- Dictated By: Sarahi Riggs Dictated Date: 05/07/2025 18:25 ET Assigned Physician: Sarahi Riggs Reviewed and Electronically Signed By: Sarahi Riggs Signed Date: 05/07/2025 18:52 ET Workstation ID: [id number] Transcribed By: Self Edit Transcribed Date: 05/07/2025 18:35 ET Lore Myers MD IMG XR PROCEDURES Final Result * [place]IAC [place]ICE [place] [facility] [place]05[place]01[place]25 1:40 PM EDT) Date Time Interrogation Session [id number] CV DEVICE CHECK Implantable Pulse Generator Senior Climate Advisor [employer] CV DEVICE CHECK Implantable Pulse Generator Type MANAGER FIBER-P CV DEVICE CHECK Implantable Pulse Generator Model Quadra [place] MP 3562 CV DEVICE CHECK Implantable Pulse Generator Serial Number [id number] CV DEVICE CHECK Implantable Pulse Generator Implant Date 20240311 CV DEVICE CHECK Battery Voltage 2.980 CV D EVICE CHECK Battery Status Middle of Service CV DEVICE CHECK Chaim Statistic RA Percent Paced 41.00 CV DEVICE CHECK MANAGER FIBER Statistic MANAGER FIBER Percent Paced 99.67 CV DEVICE CHECK Lead Channel Sensing Intrinsic Amplitude 2.700 CV DEVICE CHECK Lead Channel Setting Sensing Sensitivity 0.50 CV DEVICE CHECK Lead Channel Impedance Value 388 CV DEVICE CHECK Lead Channel Pacing Threshold Amplitude 0.750 CV DEVICE CHECK Lead Channel Pacing Threshold Pulse Width 0.4 CV DEVICE CHECK Lead Channel RA Pacing Threshold Date 2025-05-01 CV DEVICE CHECK Lead Channel Setting Pacing Amplitude 1.750 CV DEVICE CHECK Lead Channel Setting Pacing Pulse Width 0.4 CV DEVICE CHECK Lead Channel Sensing Intrinsic Amplitude 12.000 CV DEVICE CHECK Lead Channel Setting Sensing Sensitivity 2.00 CV DEVICE CHECK Lead Channel Impedance Value 400 CV DEVICE CHECK Lead Channel Pacing Threshold Amplitude 1.000 CV DEVICE CHECK Lead Channel Pacing Threshold Pulse Width 0.4 CV DEVICE CHECK Lead Channel RV Pacing Threshold Date 2025-05-01 CV DEVICE CHECK Lead Channel Setting Pacing Amplitude 2.000 CV DEVICE CHECK Lead Channel Setting Pacing Pulse Width 0.4 CV DEVICE CHECK Lead Channel Impedance Value 688 CV DEVICE CHECK Lead Channel Pacing Threshold Amplitude 1.000 CV DEVICE CHECK Lead Channel Pacing Threshold Pulse Width 0.4 CV DEVICE CHECK Lead Channel Pacing Threshold Date 2025-05-01 CV DEVICE CHECK Lead Channel Setting Pacing Amplitude 2.000 CV DEVICE CHECK Lead Channel Setting Pacing Pulse Width 0.4 CV DEVICE CHECK Chaim Setting Mode (NBG Code) DDDR CV DEVICE CHECK Ventricular chambers paced during MANAGER FIBER pacing. LV -> RV CV DEVICE CHECK Chaim Setting Lower Rate Limit 60 CV DEVICE CHECK Chaim Setting AT Mode Switch Rate 180 CV DEVICE CHECK Chaim Setting Maximum Tracking Rate 130 CV DEVICE CHECK Chaim Setting Maximum Sensor Rate 130 CV DEVICE CHECK Chaim Setting PAV Delay 150 CV DEVICE CHECK Chaim Setting MIKHAIL Delay 130 CV DEVICE CHECK MANAGER FIBER LV-RV Delay 20 CV D EVICE CHECK Date of Service 2025-12-02 CV DEVICE CHECK Anatomical Region Laterality Modality Device Interroga tion 05/01/2025 Impressions 05/06/2025 12:25 PM EDT Normal In-Office: No Events * Normal Device Function * Alerts or events: None * Battery: MOS, 6.70 yrs * Sensing, impedance and thresholds reviewed and tested * Presenting Rhythm: AP-BiVP 75 bpm * Underlying Rhythm: -VS 42 bpm today * Heart Rate Histograms reviewed * Pacing and Detection Parameters were evaluated Heart Failure Diagnostic: Stable * Heart failure diagnostics assessed through the device * Status: Stable * No overt HF present Narrative Procedure Note Rodrigo Medina MD - 05/07/2025 IMPRESSION: Normal In-Office: No Events * Normal Device Function * Alerts or events: None * Battery: MOS, 6.70 yrs * Sensing, impedance and thresholds reviewed and tested * Presenting Rhythm: AP-BiVP 75 bpm * Underlying Rhythm: -VS 42 bpm today * Heart Rate Histograms reviewed * Pacing and Detection Parameters were evaluated Heart Failure Diagnostic: Stable * Heart failure diagnostics assessed through the device * Status: Stable * No overt HF present us Order Referral Cardiovascular CV IMPLANTABLE CAR DIAC DEVICE PROCEDURES Final Result * Bilirubin duplicate procedure to order (04/16/2025 10:44 AM EDT) Total Bilirubin 0.9 0.0 - 1.4 mg/dL LAB CHEMISTRY METHOD 04/16/2025 12:25 PM EDT [facility] Bilirubin, Direct 0.3 0.0 - 0.3 mg/dL LAB CHEMISTRY METHOD 04/16/2025 12:25 PM EDT [facility] Bilirubin, Indirect 0.6 0.0 - 1.1 mg/dL LAB CHEMISTRY METHOD 04/16/2025 12:25 PM EDT [facility] Blood Venous blood specimen / Unknown Venipuncture / Unknown 04/16/2025 10:44 AM EDT 04/16/2025 10:44 AM EDT us Lorri LITTLE LAB BLOOD ORDERABLES Final Resu lt [facility] [address] [place] [address], [place] [phone] * Lipid panel with reflex to direct LDL (04/16/2025 10:44 AM EDT) [facility] Cholesterol 103 0 - 200 mg/dL LAB CHEMISTRY METHOD 04/16/2025 12:28 PM EDT [facility] Triglycerides 73 0 - 150 mg/dL LAB CHEMISTRY METHOD 04/16/2025 12:28 PM EDT [facility] HDL 64 >=40 mg/dL LAB CHEMISTRY METHOD 04/16/2025 12:28 PM EDT [facility] LDL Calculated 24 0 - 100 mg/dL LAB CHEMISTRY METHOD 04/16/2025 12:28 PM EDT [facility] Comment:Estimated LDL Calcul ated using equation: Total cholesterol - HDL cholesterol - (Triglycerides/5) VLDL Cholesterol Frankie 14.6 mg/dL LAB CHEMISTRY METHOD 04/16/2025 12:28 PM EDT [facility] Non HDL Chol. (LDL+VLDL) 39 <145 mg/dL LAB CHEMISTRY METHOD 04/16/2025 12:28 PM EDT [facility] Chol/HDL Ratio 1.6 0.0 - 4.4 LAB CHEMISTRY METHOD 04/16/2025 12:28 PM T [facility] Blood Venous blood specimen / Unknown Venipuncture / Unknown 04/16/2025 10:44 AM EDT 04/16/2025 10:44 AM EDT us Alida Weber MD LAB BLOOD ORDERABLES Final Result [facility] [address] [place] [address], [place] [phone] * (ABNORMAL) CBC auto differential (04/16/2025 10:44 AM EDT) Only the most recent of2 resultswithin the time period is included. [facility] WBC 8.8 4.8 - 10.8 K/mcL LAB HEMETOLOGY METHOD 04/16/2025 12:09 PM [facility] RBC 2.70(L) 4.50 - 5.50 M/[facility] LAB HEMETOLOGY METHOD 04/16/2025 12:09 PM [facility] Hemoglobin 8.3(L) 13.5 - 17.5 g/dL LAB HEMETOLOGY METHOD 04/16/2025 12:09 PM [facility] Hematocrit 26.2(L) 42.0 - 54.0 % LAB HEMETOLOGY METHOD 04/16/2025 12:09 PM [facility] MCV 97.0 79.0 - 98.0 FL LAB HEMETOLOGY METHOD 04/16/2025 12:09 PM [facility] MCH 30.7 27.0 - 32.0 pcg LAB HEMETOLOGY METHOD 04/16/2025 12:09 PM [facility] MCHC 31.7(L) 32.0 - 37.0 g/dL LAB HEMETOLOGY METHOD 04/16/2025 12:09 PM [facility] RDW 18.6(H) 11.0 - 15.0 % LAB HEMETOLOGY METHOD 04/16/2025 12:09 PM [facility] Platelets 163 130 - 400 K/[facility] HEMETOLOGY METHOD 04/16/2025 12:09 PM [facility] MPV 11.4(H) 7.0 - 11.0 FL LAB HEMETOLOGY METHOD 04/16/2025 12:09 PM [facility] NRBC 0.0 <1.0 % LAB HEMETOLOGY METHOD 04/16/2025 12:09 PM [facility] NRBC Absolute 0.00 <0.10 K/[facility] HEMETOLOGY METHOD 04/16/2025 12:09 PM [facility] Neutrophils Relative 73.2 % LAB HEMETOLOGY METHOD 04/16/2025 12:09 PM [facility] Lymphocytes Relative 20.5 % LAB HEMETOLOGY METHOD 04/16/2025 12:09 PM [facility] Monocytes Relative 5.8 % LAB HEMETOLOGY METHOD 04/16/2025 12:09 PM [facility] Eosinophils Relative 0.0 % LAB HEMETOLOGY METHOD 04/16/2025 12:09 PM [facility] Basophils Relative 0.0 % LAB HEMETOLOGY METHOD 04/16/2025 12:09 PM [facility] Immature Granulocytes Relative 0.5 % LAB HEMETOLOGY METHOD 04/16/2025 12:09 PM [facility] Neutrophils Absolute 6.42 1.50 - 7.00 K/mcL LAB HEMETOLOGY METHOD 04/16/2025 12:09 PM [facility] Lymphocytes Absolute 1.80 1.00 - 5.00 K/mcL LAB HEMETOLOGY METHOD 04/16/2025 12:09 PM [facility] Monocytes Absolute 0.51 0.20 - 1.00 K/mcL LAB HEMETOLOGY METHOD 04/16/2025 12:09 PM [facility] Eosinophils Absolute 0.00 0.00 - 0.50 K/mcL LAB HEMETOLOGY METHOD 04/16/2025 12:09 PM [facility] Basophils Absolute 0.00 0.00 - 0.20 K/mcL LAB HEMETOLOGY METHOD 04/16/2025 12:09 PM [facility] Immature Granulocytes Absolute 0.04(H) 0.00 - 0.03 K/mcL LAB HEMETOLOGY METHOD 04/16/2025 12:09 PM [facility] Blood Venous blood specimen / Unknown Venipuncture / Unknown 04/16/2025 10:44 AM EDT 04/16/2025 10:44 AM EDT Alida Weber MD LAB BLOOD ORDERABLES Final Result Performing Organization Address [facility] de Phone Number [facility] [address] [place] [address], [place] [phone] * (ABNORMAL) Antimitochondrial antibody (04/16/2025 10:44 AM EDT) Pathologist [facility] Mitochondrial Antibody Quantitative 224.6(H) <=20.0 units LAB CHEMISTRY METHOD 04/23/2025 12:31 PM EDT [facility] Mitochondrial Antibody Qualitative Positive (A) Negative LAB CHEMISTRY METHOD 04/23/2025 12:31 PM EDT [facility] Blood Venous blood specimen / Unknown Venipuncture / Unknown 04/16/2025 10:44 AM EDT 04/16/2025 10:44 AM EDT Lorri LITTLE LAB BLOOD ORDERABLES Final Resu lt Performing Organization Address [facility] de Phone Number [facility] [address] [place] [address], [place] [phone] * GGT (04/16/2025 10:44 AM EDT) [facility] GGT 29 7 - 64 unit/L LAB CHEMISTRY METHOD 04/16/2025 12:25 PM EDT [facility] Blood Venous blood specimen / Unknown Venipuncture / Unknown 04/16/2025 10:44 AM EDT 04/16/2025 10:44 AM EDT Lorri LITTLE LAB BLOOD ORDERABLES Final Resu lt Performing Organization Address City/[facility]/ZIP Co de Phone Number [facility] [address] [place] [address], [place] [phone] * Hemoglobin A1c (04/16/2025 10:42 AM EDT) [facility] Hemoglobin A1C 5.8 <6.5 % LAB CHEMISTRY METHOD 04/16/2025 9:35 PM EDT [facility] Mean Bld Glu Estim. 120 mg/dL LAB CHEMISTRY METHOD 04/16/2025 9:35 PM EDT [facility] Blood Venous blood specimen / Unknown Venipuncture / Unknown 04/16/2025 10:42 AM EDT 04/16/2025 10:42 AM EDT Alida Weber MD LAB BLOOD ORDERABLES Final Result Performing Organization Address City/[facility]/ZIP Co de Phone Number [facility] [address] [place] [address], * POCT Glucose, blood (04/15/2025 8:24 AM EDT) [facility] Glucose POCT 89 70 - 100 mg/dL 04/15/2025 8:25 AM EDT [facility] Blood Capillary blood specimen / Unknown 04/15/2025 8:24 AM EDT 04/15/2025 8:27 AM EDT Rodrigo Avila MD LAB POINT OF CARE TE ST DOCKED DEVICE UNSOLICITED RESULTS Final Result [facility] [address] [place] [address], [place] [phone] * ECG-Annotated (04/08/2025) Provider Onbase ECG ORDERABLES Final Result * Electrolyte panel (04/07/2025 6:36 PM EDT) [facility] Sodium 135 133 - 145 mmol/L LAB CHEMISTRY METHOD 04/07/2025 6:58 PM EDT [facility] Potassium 4.0 3.5 - 5.5 mmol/L LAB CHEMISTRY METHOD 04/07/2025 6:58 PM EDT [facility] Chloride 98 96 - 110 mmol/L LAB CHEMISTRY METHOD 04/07/2025 6:58 PM EDT [facility] CO2 31 21 - 32 mmol/L LAB CHEMISTRY METHOD 04/07/2025 6:58 PM EDT [facility] Anion Gap 6 3 - 11 LAB CHEMISTRY METHOD 04/07/2025 6:58 PM EDT [facility] Blood Venous blood specimen / Unknown Venipuncture / Unknown 04/07/2025 6:36 PM EDT 04/07/2025 6:39 PM EDT Marilee Jones NP LAB BLOOD ORDERABLES Fin al Result Performing Organization Address City/[facility]/ZIP Co de Phone Number [facility] [address] [place] [address], * (ABNORMAL) Hemoglobin and hematocrit (04/07/2025 6:35 PM EDT) [facility] Hemoglobin 8.9(L) 13.5 - 17.5 g/dL LAB HEMETOLOGY METHOD 04/07/2025 7:07 PM EDT [facility] Hematocrit 28.3(L) 42.0 - 54.0 % LAB HEMETOLOGY METHOD 04/07/2025 7:07 PM EDT [facility] Blood Venous blood specimen / Unknown Venipuncture / Unknown 04/07/2025 6:35 PM EDT 04/07/2025 6:39 PM EDT us Marilee Jones NP LAB BLOOD ORDERABLES Fin al Result [facility] [address] [place] [address], [place] [phone] * Transfuse RBC (04/07/2025 3:28 PM EDT) Katharina Saucedo MD BLOOD TRANSFUSION ORDERABLES F inal Result * (ABNORMAL) Troponin I high sensitivity (04/07/2025 1:15 PM EDT) Only the most recent of2 resultswithin the time period is included. Pathologist [facility] High Sensitivity Troponin I 88(H) <=79 ng/L LAB CHEMISTRY METHOD 04/07/2025 2:05 PM EDT [facility] Blood Venous blood specimen / Unknown Venipuncture / Unknown 04/07/2025 1:15 PM EDT 04/07/2025 1:32 PM EDT Narrative [facility] - 04/07/2025 2:05 PM EDT High levels of biotin in samples may falsely decrease hsTroponin values. Use caution when interpreting hsTroponin results in patients taking biotin who exhibit renal impairment (eGFR <60) or in patients taking more than 20 mg/day of biotin. Rodrigo Patel MD LAB BLOOD ORDERABLES Final Resul t [facility] [address] [place] [address], * (ABNORMAL) Erythropoietin (04/07/2025 1:15 PM EDT) Erythropoietin 25.0(H) 2.6 - 18.5 mIU/mL 04/10/2025 7:55 PM EDT [facility] Comment: Test performed at [facility], [address], [place] [address] Carmen Candelaria MD, PhD - Food Production Machine Operator Blood Venous blood specimen / Unknown Venipuncture / Unknown 04/07/2025 1:15 PM EDT 04/07/2025 1:32 PM EDT us Heber Yu MD LAB BLOOD ORDERABLES Final Res ult [facility] [address] [place] [address] * Prepare RBC: 1 Units (04/07/2025 12:57 PM EDT) Product Code [id number] 04/07/2025 1:51 PM EDT [facility] Unit Number [id number] 04/07/20 1:51 PM EDT [facility] Crossmatch Compatible 04/07/2025 1:11 PM EDT [facility] Dispense Status Transfused 04/07/2025 1:51 PM EDT [facility] Unit ABO Rh OPOS 04/07/2025 1:51 PM EDT [facility] Unit Expiration Date Time [id number] 04/07/2025 1:51 PM EDT [facility] Unit Blood Type 5100 04/07/2025 1:51 PM EDT [facility] Blood Venous blood specimen / Unknown 04/07/2025 12:57 PM EDT 04/07/2025 12:23 PM EDT us Katharian Saucedo MD BLOOD BANK PRODUCT ORDERABLES Final Result [facility] [address] [place] [address], * Iron and TIBC (04/07/2025 11:54 AM EDT) Iron 127 50 - 160 mcg/dL LAB CHEMISTRY METHOD 04/07/2025 1:22 PM EDT [facility] TIBC 279 250 - 450 mcg/dL LAB CHEMISTRY METHOD 04/07/2025 1:22 PM EDT [facility] Iron Saturation 46 20 - 50 % LAB CHEMISTRY METHOD 04/07/2025 1:22 PM EDT [facility] Blood Venous blood specimen / Unknown Venipuncture / Unknown 04/07/2025 11:54 AM EDT 04/07/2025 12:23 PM EDT Heber Yu MD LAB BLOOD ORDERABLES Final Res ult Performing Organization Address [facility]/ZIP Co de Phone Number [facility] [address] [place] [address], [place] [phone] * Type and screen (04/07/2025 11:54 AM EDT) ABO Group O 04/07/2025 1:09 PM EDT [facility] Rh Type Positive 04/07/2025 1:09 PM EDT [facility] Antibody Screen Negative 04/07/2025 1:09 PM EDT [facility] Blood Venous blood specimen / Unknown Venipuncture / Unknown 04/07/2025 11:54 AM EDT 04/07/2025 12:23 PM EDT Rodrigo Patel MD LAB BLOOD BANK TEST ORDERABLES F inal Result Performing Organization Address City/[facility]/ZIP Co de Phone Number [facility] [address] [place] [address], [place] [phone] * Magnesium (04/07/2025 11:54 AM EDT) Magnesium 1.9 1.9 - 2.6 mg/dL LAB CHEMISTRY METHOD 04/07/2025 1:00 PM EDT [facility] Blood Venous blood specimen / Unknown Venipuncture / Unknown 04/07/2025 11:54 AM EDT 04/07/2025 12:23 PM EDT us Rodrigo Patel MD LAB BLOOD ORDERABLES Final Resul t Performing Organization Address City/[facility]/ZIP Co de Phone Number [facility] [address] [place] [address], [place] [phone] * (ABNORMAL) Ferritin (04/07/2025 11:54 AM EDT) Ferritin 631(H) 26 - 388 ng/mL LAB CHEMISTRY METHOD 04/07/2025 2:37 PM EDT [facility] Blood Venous blood specimen / Unknown Venipuncture / Unknown 04/07/2025 11:54 AM EDT 04/07/2025 12:23 PM EDT us Heber Yu MD LAB BLOOD ORDERABLES Final Res ult Performing Organization Address [facility]/ZIP Co de Phone Number [facility] [address] [place] [address], [place] [phone] * (ABNORMAL) Basic metabolic panel (04/07/2025 11:54 AM EDT) Pathologist [facility] Sodium 135 133 - 145 mmol/L LAB CHEMISTRY METHOD 04/07/2025 1:00 PM EDT [facility] Potassium 3.2(L) 3.5 - 5.5 mmol/L LAB CHEMISTRY METHOD 04/07/2025 1:00 PM EDT [facility] Chloride 96 96 - 110 mmol/L LAB CHEMISTRY METHOD 04/07/2025 1:00 PM EDT [facility] CO2 32 21 - 32 mmol/L LAB CHEMISTRY METHOD 04/07/2025 1:00 PM EDT [facility] Anion Gap 7 3 - 11 LAB CHEMISTRY METHOD 04/07/2025 1:00 PM EDT [facility] Glucose 139(H) 70 - 100 mg/dL LAB CHEMISTRY METHOD 04/07/2025 1:00 PM EDT [facility] BUN 24 5 - 25 mg/dL LAB CHEMISTRY METHOD 04/07/2025 1:00 PM EDT [facility] Creatinine 2.56(H) 0.70 - 1.30 mg/dL LAB CHEMISTRY METHOD 04/07/2025 1:00 PM EDT [facility] eGFR 24(L) >=60 mL/min/1. 73m2 LAB CHEMISTRY METHOD 04/07/2025 1:00 PM EDT [facility] Comment:Calculation based on the Chronic Kidney Disease Epidemiology Collaboration (CKD-EPI) equation refit without adjustment for race. BUN/Creatinine Ratio 9.4 LAB CHEMISTRY METHOD 04/07/2025 1:00 PM EDT [facility] Calcium 8.7 8.5 - 10.5 mg/dL LAB CHEMISTRY METHOD 04/07/2025 1:00 PM EDT [facility] Blood Venous blood specimen / Unknown Venipuncture / Unknown 04/07/2025 11:54 AM EDT 04/07/2025 12:23 PM EDT us Rodrigo Patel MD LAB BLOOD ORDERABLES Final Resul t [facility] [address] [place] [address], * ECG 12 lead (04/07/2025 11:38 AM EDT) Ventricular Rate ECG 67 BPM GEMUSE Atrial Rate 67 BPM GEMUSE QRS Duration 160 ms GEMUSE Q-T Interval 492 ms GEMUSE QTc 519 ms GEMUSE P Wave [place] 82 degrees GEMUSE R [place] 95 degrees GEMUSE T [place] 70 degrees GEMUSE ECG Interpretation Ventricular-p aced rhythm with Premature atrial complexes with Aberrant conduction Biventricular pacemaker detected Abnormal ECG When compared with ECG of 07-MAR-2025 06:16, Aberrant conduction is now Present Vent. rate has decreased BY 7 BPM Confirmed by FRANKY MATSON ([id number]) on 04/07/2025 5:03:48 PM GEMUSE 04/07/2025 11:3 8 AM EDT 04/07/2025 5:03 PM EDT us Rodrigo Patel MD ECG ORDERABLES Final Result GEMUSE * Critical Care (04/07/2025 11:00 AM EDT) Narrative Katharina Saucedo MD - 04/07/2025 11:00 AM EDT Katharina Saucedo MD 04/07/2025 12:59 PM Critical Care Performed by: Katharina Saucedo MD Authorized by: Katharina Saucedo MD Critical care provider statement: Critical care time (minutes): 15 Total face to face critical care time (minutes): 15 Critical care was necessary to treat or prevent imminent or life-threatening deterioration of the following conditions: Renal failure and circulatory failure Critical care was time spent personally by me on the following activities: Development of treatment plan with patient or surrogate, examination of patient, obtaining history from patient or surrogate, ordering and performing treatments and interventions, ordering and review of laboratory studies and re-evaluation of patient's condition us Katharina Saucedo MD IN CLINIC/BEDSIDE ORDERABLES F inal Result * (ABNORMAL) TRANSTHORACIC ECHOCARDIOGRAM (TTE) COMPLETE (04/04/2025 1:14 PM EDT) Left Atrium Minor [place] 6.2 cm CV PACS Left Atrium Major [place] 5.9 cm CV PACS LA Area Sys (A2C) 31 cm2 CV PACS LA Area Sys (A4C) 26 cm2 CV PACS LA Volume (BP) 110 mL CV PACS RA Area 13.0 cm2 CV PACS RA 2D Volume 35 mL CV PACS AV Regurgitation PHT 843 ms CV PACS AR Max Velocity 2.9 m/s CV PACS AV Regurgitant Volume 33 mmHg CV PACS AV Peak Joseph 3.7 m/s CV PACS AV Peak Gradient 55 mmHg CV PACS AV Mean Gradient 31 mmHg CV PACS Ao VTI 82.5 cm CV PACS AV Area Continuity Equation 0.6 cm2 CV PACS AV Area Peak Velocity 0.6 cm2 CV PACS Aortic Sinus Valsalva 3.4 cm CV PACS Ascending Aorta 3.3 cm CV PACS IVC Proximal 1.6 cm CV PACS IVSD 0.8 0.6 - 1.0 cm CV PACS LVIDD 4.2 4.2 - 5.8 cm CV PACS LVIDS 3.3 2.5 - 4.0 cm CV PACS LVOT Diameter 2.0 cm CV PACS LVOT Mean Grad 1 mmHg CV PACS LVOT Peak VTI 16.2 cm CV PACS LVOT Mean Joseph 0.5 m/s CV PACS LVOT Peak Joseph 0.7 m/s CV PACS LVOT Peak Gradient 2 mmHg CV PACS LVPWD 0.9 0.6 - 1.0 cm CV PACS MV E' Tissue Velocity Lateral 7 cm/s CV PACS MV E' Tissue Velocity Septal 6 cm/s CV PACS LVOT Area 3.1 cm2 CV PACS LVOT Stroke Volume 51 mL CV PACS MV Deceleration [place] 2.3 m/s2 CV PACS E Wave Deceleration Time 398(A) 119 - 242 ms CV PACS MV PHT 117 ms CV PACS MV Peak A Joseph 1.10 m/s CV PACS MV Peak E Joseph 0.92 m/s CV PACS MV Mean Gradient 3 mmHg CV PACS MV VTI 55.2 cm CV PACS Mitral Valve Max Velocity 1.3 m/s CV PACS MV Peak Gradient 6 mmHg CV PACS MV Area PHT 1.9 cm2 CV PACS MV Area Continuity Equation 0.9 cm2 CV PACS PV Acceleration Time 63 ms CV PACS PV Acceleration Time 63 ms CV PACS PV Peak Velocity 1.0 m/s CV PACS PV Peak Gradient 4 mmHg CV PACS RV Diastolic Basal Dimension 2.7 2.5 - 4.1 cm CV PACS TAPSE 28 mm CV PACS TR Peak Velocity 2.89 m/s CV PACS TR Peak Gradient 33 mmHg CV PACS E/E' Ratio Septal 15 CV PACS E/E' Ratio Averaged 14 CV PACS LVOT Stroke Index 33 mL/m2 CV PACS Relative Wall Thickness ratio 0.43 CV PACS LVOT:AV VTI Index 0.20 CV PACS FS 21 % CV PACS LV Mass 2D 110 g CV PACS Ascending Aorta Index 2.16 cm/m2 CV PACS MV VTI:LVOT VTI ratio 3.4 CV PACS LVOT flow 157 mL/s CV PACS RA 2D Volume Index 23 mL/m2 CV PACS FIDE Index (VTI) 0.40 cm2/m2 CV PACS FIDE Index (Pk Joseph) 0.39 cm2/m2 CV PACS LVIDD Index 2.75 cm/m2 CV PACS LVIDS Index 2.16 cm/m2 CV PACS AV Velocity Ratio 0.19 CV PACS E/A Ratio 0.8 CV PACS E/E' Ratio Lateral 13 CV PACS LA Volume Index (BP) 72 mL/m2 CV PACS LV Mass Index 2D 72 g/m2 CV PACS BSA 1.53 m2 CV PACS Right Ventricular Peak Systolic Pressure 36 mmHg CV PACS Est. RA Pressure 3 mmHg CV PACS Anatomical Region Laterality Modality Ultrasound Narrative 04/08/2025 1:45 PM EDT Left ventricle cavity size is normal. Wall thickness is normal. Systolic function is low normal with an ejection fraction of 50-55%. There are no regional LV wall motion abnormalities. There is Grade II (moderate) diastolic dysfunction. Right ventricle cavity is normal. Right ventricular systolic function is normal. Left atrium cavity is severely dilated. The aortic valve is trileaflet. The leaflets are severely thickened. There is moderate regurgitation. There is moderate to severe stenosis with mean gradient of 31mmHg The right ventricular systolic pressure is normal. The RVSP is estimated at 36 mmHg. Bilateral pleural effusion is present. Compared to previous study of 07/23/2024, aortic stenosis and regurgitation have progressed. Left ventricular systolic function has improved. Left Ventricle Left ventricle cavity size is normal. Wall thickness is normal. Systolic function is low normal with an ejection fraction of 50-55%. There are no regional LV wall motion abnormalities. There is Grade II (moderate) diastolic dysfunction. Right Ventricle Right ventricle cavity appears normal. Systolic function is normal. Normal TAPSE (> 17 mm). A pacer wire is present in the right ventricle. Left Atrium Left atrium cavity is severely dilated. Right Atrium Right atrium cavity is normal. A pacer wire is present in the right atrium. IVC/SVC RA pressures is estimated to be 3 mmHg (IVC diameter <21 mm and decreases >50% during inspiration). Mitral Valve The leaflets are moderately thickened. There is annular calcification. There is trace regurgitation. There is no evidence of mitral valve stenosis. Tricuspid Valve Tricuspid valve structure is normal. There is mild regurgitation. There is no evidence of tricuspid valve stenosis. The right ventricular systolic pressure is normal. The RVSP is estimated at 36 mmHg. Aortic Valve The aortic valve is trileaflet. The leaflets are severely thickened. There is moderate regurgitation. There is moderate to severe stenosis with mean gradient of 31mmHg Pulmonic Valve Visualized portions of the pulmonic valve appear normal. No significant pulmonic valve regurgitation. No significant pulmonary valve stenosis noted. Ascending Aorta The Sinus of Valsalva is (3.4 cm). The ascending aorta is (3.3 cm). Pericardium There are left and right pleural effusions. Study Details Overall the study quality was adequate. Saira Daly NP CV ECHO PROCEDURES Final Result * External Diabetic Retina Eye Exam Report (11/07/2024) Anatomical Region Laterality Modality Ultrasound Provider Rama Onbase IMG US PROCEDURES Final Result * Falls Risk Assessment (03/13/2024) [facility] Falls Risk Assessment Abstracted Result [facility] Provider HEALTH MAINTENANCE Final Result * Depression Screening (10/27/2023) [facility] Depression Screening Abstracted Result [facility] Provider HEALTH MAINTENANCE Final Result * Diabetes Foot Exam (07/18/2023) [facility] Diabetes: Annual Foot Exam Abstracted Result [facility] Provider HEALTH MAINTENANCE Final Result from Last 3 Months or Most Recently Relevant to Health Maintenance Insurance MEDICARE [employer] Advance Directives Documents on File Type Date Recorded 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 Advance Directives and Living Will 02/25/2025 2:28 PM Pastora Campbell PROXY Advance Directives and Living Will 02/25/2025 2:27 PM MOLST Health Care Decision (hx) 08/07/2023 HE ALTH CARE PROXY Health Care Decision (hx) 08/07/2023 HE ALTH CARE PROXY Health Care Decision (hx) 08/07/2023 HE ALTH CARE PROXY Health Care Decision (hx) 08/07/2023 HE ALTH CARE PROXY Health Care Decision (hx) 08/07/2023 HE ALTH CARE PROXY Health Care Decision (hx) 08/07/2023 HE ALTH CARE PROXY Health Care Decision (hx) 08/07/2023 HE ALTH CARE PROXY Health Care Decision (hx) 08/07/2023 HE ALTH CARE PROXY Health Care Decision (hx) 08/07/2023 HE ALTH CARE PROXY Health Care Decision (hx) 08/07/2023 HE ALTH CARE PROXY Health Care Decision (hx) 08/07/2023 HE ALTH CARE PROXY Health Care Decision (hx) 08/07/2023 HE ALTH CARE PROXY Health Care Decision (hx) 08/07/2023 HE ALTH CARE PROXY Health Care Decision (hx) 08/07/2023 HE ALTH CARE PROXY Health Care Decision (hx) 01/17/2023 AD TIMMONS DIRECTIVE Health Care Decision (hx) 01/17/2023 AD TIMMONS DIRECTIVE Health Care Decision (hx) 01/17/2023 AD TIMMONS DIRECTIVE Health Care Decision (hx) 01/17/2023 AD TIMMONS DIRECTIVE Health Care Decision (hx) 01/17/2023 AD TIMMONS DIRECTIVE Health Care Decision (hx) 01/17/2023 AD TIMMONS DIRECTIVE Health Care Decision (hx) 01/17/2023 AD TIMMONS DIRECTIVE Health Care Decision (hx) 01/17/2023 AD TIMMONS DIRECTIVE Health Care Decision (hx) 01/17/2023 AD TIMMONS DIRECTIVE Health Care Decision (hx) 01/17/2023 AD TIMMONS DIRECTIVE Health Care Decision (hx) 01/17/2023 AD TIMMONS DIRECTIVE Health Care Decision (hx) 01/17/2023 AD TIMMONS DIRECTIVE Health Care Decision (hx) 01/17/2023 AD TIMMONS DIRECTIVE Health Care Decision (hx) 01/17/2023 AD TIMMONS DIRECTIVE Health Care Decision (hx) 01/17/2023 AD TIMMONS DIRECTIVE Health Care Decision (hx) 01/17/2023 AD TIMMONS DIRECTIVE Health Care Decision (hx) 01/17/2023 AD TIMMONS DIRECTIVE Health Care Decision (hx) 01/17/2023 AD TIMMONS DIRECTIVE Health Care Decision (hx) 01/17/2023 AD TIMMONS DIRECTIVE Health Care Decision (hx) 01/17/2023 AD TIMMONS DIRECTIVE Health Care Decision (hx) 01/17/2023 AD TIMMONS DIRECTIVE Health Care Decision (hx) 01/17/2023 AD TIMMONS DIRECTIVE Health Care Decision (hx) 01/17/2023 AD TIMMONS DIRECTIVE Health Care Decision (hx) 01/17/2023 AD TIMMONS DIRECTIVE Health Care Decision (hx) 01/17/2023 AD TIMMONS DIRECTIVE Health Care Decision (hx) 01/17/2023 AD TIMMONS DIRECTIVE Health Care Decision (hx) 01/17/2023 AD TIMMONS DIRECTIVE Health Care Decision (hx) 01/17/2023 AD TIMMONS DIRECTIVE Health Care Decision (hx) 01/17/2023 AD TIMMONS DIRECTIVE Health Care Decision (hx) 01/17/2023 AD TIMMONS DIRECTIVE Health Care Decision (hx) 01/17/2023 AD TIMMONS DIRECTIVE Health Care Decision (hx) 01/17/2023 AD TIMMONS DIRECTIVE Health Care Decision (hx) 12/21/2022 HE ALTH CARE PROXY Health Care Decision (hx) 12/21/2022 HE ALTH CARE PROXY Health Care Decision (hx) 12/21/2022 HE ALTH CARE PROXY Health Care Decision (hx) 12/21/2022 HE ALTH CARE PROXY Health Care Decision (hx) 12/21/2022 HE ALTH CARE PROXY Health Care Decision (hx) 12/21/2022 HE ALTH CARE PROXY Health Care Decision (hx) 12/21/2022 HE ALTH CARE PROXY Health Care Decision (hx) 12/21/2022 HE ALTH CARE PROXY Health Care Decision (hx) 12/21/2022 HE ALTH CARE PROXY Health Care Decision (hx) 12/21/2022 HE ALTH CARE PROXY Health Care Decision (hx) 12/21/2022 HE ALTH CARE PROXY Health Care Decision (hx) 12/21/2022 HE ALTH CARE PROXY Health Care Decision (hx) 12/21/2022 HE ALTH CARE PROXY Health Care Decision (hx) 12/21/2022 HE ALTH CARE PROXY Health Care Decision (hx) 12/21/2022 HE ALTH CARE PROXY Health Care Decision (hx) 12/21/2022 HE ALTH CARE PROXY Health Care Decision (hx) 12/21/2022 HE ALTH CARE PROXY Health Care Decision (hx) 12/21/2022 HE ALTH CARE PROXY Health Care Decision (hx) 12/21/2022 HE ALTH CARE PROXY Health Care Decision (hx) 12/21/2022 HE ALTH CARE PROXY Health Care Decision (hx) 12/21/2022 HE ALTH CARE PROXY Health Care Decision (hx) 12/21/2022 HE ALTH CARE PROXY Health Care Decision (hx) 12/21/2022 HE ALTH CARE PROXY Health Care Decision (hx) 12/21/2022 HE ALTH CARE PROXY Health Care Decision (hx) 12/21/2022 HE ALTH CARE PROXY Health Care Decision (hx) 12/21/2022 HE ALTH CARE PROXY Health Care Decision (hx) 12/21/2022 HE ALTH CARE PROXY Health Care Decision (hx) 12/21/2022 HE ALTH CARE PROXY Health Care Decision (hx) 12/21/2022 HE ALTH CARE PROXY Health Care Decision (hx) 12/21/2022 HE ALTH CARE PROXY Health Care Decision (hx) 12/21/2022 HE ALTH CARE PROXY Health Care Decision (hx) 12/21/2022 HE ALTH CARE PROXY Health Care Decision (hx) 12/21/2022 HE ALTH CARE PROXY Health Care Decision (hx) 12/21/2022 HE ALTH CARE PROXY Health Care Decision (hx) 12/21/2022 HE ALTH CARE PROXY * No CPR/Do Not Intubate (Latest Code Status on File) Date Activated Date Inactivated Comments 04/07/2025 2:05 PM 04/07/2025 10:06 PM This code sta tus was ascertained in the following way: Code status discussion: discussion with patient To update the patient's code status, place a code status order. Do not modify or discontinue any currently active code status orders. * Full Code - Default Date Activated Date Inactivated Comments 04/07/2025 1:06 PM 04/07/2025 2:05 PM This is order is used when code status has not been discussed with the patient, or code status is otherwise unknown/unconfirmed To update the patient's code status, place a code status order. Do not modify or discontinue any currently active code status orders. * No CPR/Do Not Intubate Date Activated Date Inactivated Comments 03/07/2025 2:32 PM 03/08/2025 4:42 PM This code stat us was ascertained in the following way: Code status discussion: discussion with patient/molst on file To update the patient's code status, place a code status order. Do not modify or discontinue any currently active code status orders. * Full Code - Default Date Activated Date Inactivated Comments 03/07/2025 1:53 PM 03/07/2025 2:32 PM This is order is used when code status has not been discussed with the patient, or code status is otherwise unknown/unconfirmed To update the patient's code status, place a code status order. Do not modify or discontinue any currently active code status orders. * No CPR/Do Not Intubate Date Activated Date Inactivated Comments 02/12/2025 11:26 AM 02/19/2025 4:[address] atus was ascertained in the following way: Code status discussion: discussion with patient To update the patient's code status, place a code status order. Do not modify or discontinue any currently active code status orders. Healthcare Agents on File Name Relationship Healthcare Agent Relationshi p Communication Pastora Campbell Sister Health Care Agent [phone] (Home) Care Teams Churn Operator Relationship Specialty Start Date End Date Alida Weber MD [address] [place] [address] PCP - General 10/26/22
--- OUTSIDE RECORDS SUMMARY | 2025-06-25 09:00 | XMS_ITS | Encounter Summary ---
Author Organization [facility] Address [address] [place] [phone] Phone Care Team Providers Care Mortgage Manager Name Role Phone GusAriadnemariel Primary Care Provider [phone] Reason for Visit * Reason Comments Med Change Request Encounter Details Date Type Department Care Team ([facility] Contact Info) Description 10/02/2024 Refill [facility] [address] [address] Saima Segovia ARNP [address] [phone] Stage 5 chronic kidney disease (HCC); Secondary hyperparathyroidism of renal origin (HCC); Hyperphosphatemia Social History Tobacco Use Types Packs/Day Years Used Date Smoking Tobacco: Never Smokeless Tobacco: Never Alcohol Use Standard Drinks/Week Comments No 0 (1 standard drink = 0.6 oz pur e alcohol) Sex and Gender Information Value Date Recorded Sex Assigned at Not on file Legal Sex Male 4:41 PM EST Gender Identity Not on file Sexual Orientation Not on file documented as of this encounter Functional Status * BP Answer Date of Assessment Author 70 10/02/2024 8:48 AM EST Bar[place]ona, N ixilu * Weight Answer Date of Assessment Author 8.4 10/02/2024 8:48 AM EST Barahona, N ixilu * BP Location Answer Date of Assessment Author Left upper arm 10/02/2024 8:48 AM EST Barahona, N ixilu * BP Answer Date of Assessment Author [address] 10/02/2024 8:48 AM EST Barahona, N ixilu * Weight Answer Date of Assessment Author 2118.4 10/02/2024 8:48 AM Edie Oliveira * BP Location Answer Date of Assessment Author Left upper arm 10/02/2024 8:48 AM Edie Oliveira documented as of this encounter Plan of Treatment Not on file documented as of this encounter Visit Diagnoses Diagnosis Stage 5 chronic kidney disease (HCC) Secondary hyperparathyroidism of renal origin (HCC) Secondary hyperparathyroidism of renal origin Hyperphosphatemia documented in this encounter Care Teams Mortgage Manager Relationship Specialty Start Date End Date Alida Weber [address] [place] [address] PCP - General 10/12/22 documented as of this encounter
--- OUTSIDE RECORDS SUMMARY | 2025-06-25 09:00 | XMS_ITS ---
Author Name [facility] Organization Unknown Care Team Organization Name Specialty Phone Email Start Date End Da alexi [facility] ACO 03/26/2025 [facility] SHAN VALENCIA Primary Care [email or web address] 01/13/2023 03/25/2024
--- OUTSIDE RECORDS SUMMARY | 2025-06-25 09:01 | XMS_ITS | Encounter Summary ---
Author Organization [facility] Address [address] [place] [address] Care Team Providers Care Director Sterile Processing Name Role Phone Alida Weber MD Primary Care Provider Reason for Visit * Reason Comments [facility] [id number] Encounter Details Date Type Department Care Team ([facility] Contact Info) Description 04/24/2025 Billing Patient Not Present Adult Medicine [facility] [address] [place] [address] Alida Weber MD [address] [place], [place] Social History Tobacco Use Types Packs/Day Years Used Date Smoking Tobacco: Never Smokeless Tobacco: Never Alcohol Use Standard Drinks/Week Comments Not Currently 0 (1 standard drink = 0.6 oz pur e alcohol) Housing Instability Answer Date Recorde d Are you worried that in the next 2 months you may not have stable housing? No 02/20/2025 Food Access & Nutrition Answer Date Rec orded Do you have access to a vari ety of food including fruits and vegetables? Yes 02/20/2025 Access to Healthcare Answer Date Record ed Within the last 3 months, ho w many times did you visit the emergency department for your medical care? 2 02/20/2025 Health Literacy Answer Date Recorded How often do you need to hav e someone help you when you read instructions, pamphlets, or other written material from your doctor or pharmacy? Rarely 02/20/2025 Caregiver: How often do you need to have someone help you when you read instructions, pamphlets, or other written material from your doctor or pharmacy? Not on file 02/20/2025 Financial Risk Answer Date Recorded How hard is it for you to pa y for the very basics like food, housing, medical care, and air conditioning / heating? Not very hard 02/20/2025 Transportation Answer Date Recorded Has the lack of transportati on kept you from meetings, work, or from getting things needed for daily living? No Has the lack of transportati on kept you from medical appointments or from getting medications? No 02/20/2025 Social Isolation Answer Date Recorded How often do you feel lonely or isolated from th ose around you? Never 02/20/2025 Food Risk Answer Date Recorded Within the past 12 months we worried whether our food would run out before we got money to buy more. Never true 02/20/2025 Within the past 12 months th e food we bought just didn't last and we didn't have money to get more. Never true 02/20/2025 Dependent Care Answer Date Recorded Do you need help finding or paying for care for your loved ones. For example, children's institution attendant or elderly care for an older adult? No 02/20/2025 Education Answer Date Recorded Do you think completing more education or training, like finishing a GED, going to college, or learning a trade, would be helpful for you? N/A 02/20/2025 Employment and Income Answer Date Recor ded During the last four weeks, have you been actively looking for work? No 02/20/2025 Living Situation Answer Date Recorded What is your living situation? Unrecognized valu e 02/20/2025 Interpersonal Safety Answer Date Record ed Physical [...] 2:00 PM EST Office Visit Adult Medicine [address] [phone] Alida Weber MD [address] [place] [address] 07/24/2025 4:00 PM EST Office Visit Vascular Surgery - [place] [address] [address] Senait España PA [address] [address] 07/29/2025 4:00 PM EST Office Visit Endocrinology [address] [phone] Rosa Roth PA [address] [place] [address] 08/12/2025 9:00 AM EST Consult [facility] [address] [place] [phone] Franky Choudhury MD [address] [place] [address] [address] [place] [phone] 08/26/2025 10:30 AM EST Clinical Support Pulmonology [facility] 175 [facility] [address] [place] [phone] 09/02/2025 10:45 AM EST Office Visit Pulmonology [facility] 175 [facility] [address] [place] [address] Lore Myers MD [address] [place] [phone] 05/05/2026 9:00 AM EDT Ancillary Procedure [facility] [address] 300 [facility] [address] [place] [phone] documented as of this encounter Visit Diagnoses Not on filedocumented in this encounter Additional Health Concerns Assessment Noted Time PHQ-9 Depression Total Score: 0 02/20/20 25 9:35 AM EDT documented as of this encounter Care Teams Director Sterile Processing Relationship Specialty Start Date End Date Alida Weber MD [address] [place] [address] PCP - General 10/26/22 documented as of this encounter
--- OUTSIDE RECORDS SUMMARY | 2025-06-25 09:01 | XMS_ITS | Continuity of Care Document ---
Author Organization [place] [facility], [facility] Address [address] [place] [address] Care Team Providers Care Career Orientation Teacher Name Role Phone SHAN VALENCIA Primary Care Provider Assessment Encounter Date Assessment Date Assessment LastModified by Organization Details LastModified Time 04/08/2025 04/08/2025 84 year old male, with a history of eustachian tube dysfunction s/p left tympanostomy tube placement performed 02/09/[address] Ruiz, presents for repeat left ear debridement. On otoscopic examination, there is dry ceruminous and squamous debris completely obstructing the left external auditory canal. This was removed using instruments and suction which the patient tolerated well. Canal skin is mildly erythematous, however the tympanic membrane is intact with a well aerated middle ear space. Recommend continued use of ofloxacin drops in the left ear for an additional 7 days. I will see him back in 2 weeks to ensure resolution and obtain repeat audiometric testing. All questions were answered. [email or web address] Not available 04/08/2025 18:12:31 Plan of Treatment Reminders Order Date Submit [...] ofloxacin 0.3 % ear drops 2024 025 [facility]/Pharmacy #[id number], [address] [place], [address], 04/08/2025 12:07:58 Patient TargetsNo targets recorded. Patient InstructionsNo instructions [...] Recorded Time Impacted cerumen in left ear [id number] 03701 Active 2019 Impacted cerumen, left ear; Note: Date Diagnosed : 03/04/2020 3:57 PM (H61.22) Ethan Chinchilla, [place] [address], [place], [phone] , [facility] 5 15:25:30 Bleeding from nose 218692246 Active 2020 Epistaxis ; Note: Date Diagnosed : 03/02/2021 4:06 PM (R04.0) Not Available [facility] 4 02:46:44 Deviated nasal septum 187586148 Active 2020 Deviated nasal septum; Note: Date Diagnosed : 03/02/2021 4:06 PM (J34.2) Not Available [facility] 4 02:46:52 Impacted cerumen of bilateral ears 99015966086 91324 Active 2020 Impacted cerumen, bilateral ; Note: Date Diagnosed : 03/02/2021 4:06 PM (H61.23) Note: Date Diagnosed : 03/02/2021 4:06 PM (H61.23) Not Available [facility] 4 01:08:39 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 88677182200 100 Active 2021 Sensorine ural hearing loss, unilatera l, right ear, with restricte d hearing on the contralat eral side; Note: Date Diagnosed : 01/24/2022 10:45 AM (H90.A21) Not Available [facility] 4 02:46:52 Disorder of left Eustachia n tube 97487287740 91040 Active 2021 Other specified disorders of Eustachia n tube, left ear; Note: Date Diagnosed : 01/24/2022 10:45 AM (H69.82) Not Available [facility] 4 02:46:53 Mixed conductiv e and sensorine ural hearing loss of left ear 16504795017 107 Active 2021 Mixed conductiv e and sensorine ural hearing loss, unilatera l, left ear with restricte d hearing on the contralat eral side; Note: Date Diagnosed : 01/24/2022 10:45 AM (H90.A32) Not Available [facility] 4 02:46:46 Chronic serous otitis media of left ear 793889788 Active 2022 Chronic serous otitis media, left ear; Note: Date Diagnosed : 02/09/2023 1:16 PM (H65.22) Not Available [facility] 4 02:46:49 Sensorine ural hearing loss of bilateral ears 334806613 Active 2023 SIDNEY CALVO [address] [facility] [place], [place], [phone] , [place] - [facility] 5 14:42:44 Bilateral disorder of Eustachia n tubes 48725702897 Active 2023 MARIA EUGENIA SANTOS MD [address] [facility] [address], [place], [address] , [place] - [facility] 4 09:39:41 Sensorine ural hearing loss of bilateral ears 595412602 Active 2023 Ethan Chinchilla DO [address] [facility] [address], [place], [address] , [place] - [facility] 5 08:47:36 Otorrhagi a of left ear 92779269189 47596 Active 2024 CHITRA ONEAL PA-C [address] [facility] [address], [place], [address] , [place] - [facility] 5 10:04:02 Dysfuncti on of bilateral eustachia n tubes 18263891796 65173 Active 2024 Ethan Chinchilla DO [address] [facility] [place],[facility] [address], [place], [address] , [facility] 5 08:47:24 Chronic infective otitis externa 742436292 Active 2024 Ethan Chinchilla DO 100 [facility],[place] [address], [place], [place], [address] , [facility] 5 15:26:02 Mixed conductiv e AND sensorine ural hearing loss 39570161 Active 2024 YISEL HATHAWAY AUD 100 [facility] 100, [place], [address] , [facility] 5 11:31:00 Bilateral hearing loss 30729926 Active 2024 SIDNEY CALVO 100 [facility],[place] [address], [place], [address] , [facility] 5 14:45:03 Serous otitis media 65994852 Active 2024 SIDNEY CALVO [address] [facility] [place],[facility] 100, [place], [address] , [facility] 5 14:46:49 Dysfuncti on of left eustachia n tube 37673288349 Active 2024 SIDNEY CALVO 100 [facility],[place] [address], [place], [place], [address] , [facility] 5 14:47:08 Problem Notes None recorded. Procedures Surgical History Date Name Laterality Status Provider Name and Address Organization Details Recorded Time Air & Speech Audio with Tymps - 46259, 64109 & 83508 completed YISEL HATHAWAY AUD [address] [facility] [address], [place], [address], [place] - [facility] 04/29/2025 11:35:41 5 Cerumen removal without microscope left completed SIDNEY CALVO 100 [facility],[place] [address], [place], [address], [facility] 04/08/2025 18:13:03 5 Cerumen removal with microscope completed Ethan Chinchilla, DO [address] [facility] [place],[address], [address], [facility] 03/27/2025 15:24:17 5 Air & Speech Audio with Tymps - 64476, 19405 & 04583 completed THOM DOBBINS, AUD [address] [facility] [place] [address], [place], [address], [place] - [facility] 12/04/2024 09:52:31 5 Cerumen removal without microscope bilat completed CHITRA ONEAL PA-C 100 [facility],[place] [address], [place], [address], [facility] 12/04/2024 10:03:41 4 Cerumen removal with microscope completed MARIA EUGENIA SANTOS MD 100 [facility],[address], [address], [facility] 06/05/2024 09:32:50 Imaging Results None recorded. Procedure Notes None recorded. Medical Equipment None Reported. Allergies No known drug allergies Medications Name Sig Start Date Stop Date Status Note LastModified by Organization Details LastModified Time furosemid e 40 mg tablet 2019 active Medicati on ID: [id number] D uration Value: 30 Brand Name: furosemi [...] 24 hr 06/05 completed Medicati on ID: 535504 D uration Value: 30 Brand Name: metoprol [...] mcg tablet 06/05 completed Medicati on ID: [id number] D uration Value: 30 Brand Name: levothyr [...] mg tablet 06/05 completed Medicati on ID: [id number] D uration Value: 30 Brand Name: lisinopr il Send Method: E-Prescr ibed Sub s Allowed: subs STEWART Gordoni al Instruct ion: TAKE 1 TABLET BY MOUTH EVERY DAY Medi cationGe nericNam e: lisinopr il Not Available Not Available Not Available furosemid e 20 mg tablet 06/05 completed Medicati on ID: [id number] D uration Value: 30 Brand Name: furosemi [...] B-Complex tablet 2019 active Medicati on ID: 225321 B rand Name: B-Comple x Send Method: [...] unit) tablet 2019 active Medicati on ID: 558298 B rand Name: Vitamin D3 Send Method: E-Prescr ibed Sub s Allowed: subs OK Medic ationGen ericName : Vitamin D3 Not Available Not Available Not Available Flonase Allergy Relief 50 mcg/actua tion nasal spray,thania pension [place] 2 spray into both nostrils once a day 2021 active Medicati on ID: [id number] D uration Value: 30 Prescri bed By [...] t Available Vitals Date Recorded Body height Body mass index (BMI) Body weight Provider Name and Address Organization Details Last Updated DateTime 04/08/2025 160.02 cm 20.9 kg/m2 90260.9 g Nickie Hassan [place] - [facility] 04/08/2025 11:43:59 Social History None recorded. Functional Status None recorded. Mental Status None recorded. Family History Nothing Reported. Medical History Condition Response Diabetes Y Anemia Y Thyroid Problems Y Hypertension Y High Cholesterol Y Past Encounters Encounter ID Performer Location Encounter Start Date Encounter Closed Date Diagnosis/Indication Diagnosis SNOMED-CT Code Diagnosis ICD10 Code Diagnosis IMO Codes Diagnosis Note [id number] Ethan Chinchilla, DO [facility] of [address] [address] 03/27/2025 14:53:35 03/27/2025 15:26:58 Dysfunction of bilateral eustachian tubes 4882815609 540743 H69.93 60486090 Sensorineu ral hearing loss of bilateral ears 810334037 H90.3 11519754 Impacted c erumen in left ear 5461715322 819955 H61.22 596921 Chronic in fective otitis externa 907578740 H60.392 [id number] SIDNEY CALVO [facility] [address] [place] [address] 04/08/2025 11:00:09 04/08/2025 12:11:58 Dysfunction of bilateral eustachian tubes 9073885544 568293 H69.93 52314398 Sensorineu ral hearing loss of bilateral ears 765704259 H90.3 02981130 Impacted c erumen in left ear 2745719733 169431 H61.22 089904 Chronic in fective otitis externa 599010904 H60.392 59494871 Health Concerns Section Related Observation LastModified by Organization Detai ls LastModified Time None Recorded Concern Status LastModified by Organization Details LastModified Time None Recorded Payers Encounter Date Sequence Insurance Name Policy Number Policy [place] Covered Member ID [place] Member ID Guarantor Name 04/08/2025 2 [employer] [id number] Kike Uribe [id number] Kike Uribe 04/08/2025 1 MEDICARE B-[place]: [facility] [employer] Kike Uribe [id number] Kike Uribe Notes Date Note Type Note Provider Name and Address Organization Details Recorded Time 04/08/2025 text/html ROS as noted in the HPI 84 year old male, with a history of eustachian tube dysfunction s/p left tympanostomy tube placement performed 02/09/[address] Ruiz, presents for repeat left ear debridement. Patient completed course of ofloxacin with resolution of otalgia. He continues to endorse some fullness in the left ear. Denies otorrhea. ETHAN JONES MD [address] [place] [address], [place], [address], [facility] 04/14/2025 07:53:41
--- OUTSIDE RECORDS SUMMARY | 2025-06-25 09:01 | XMS_ITS | Continuity of Care Document ---
Author Organization [place] - [facility], [facility] Address [address] [place] [address] Care Team Providers Care Certified Endoscopy Technician Name Role Phone SHAN VALENCIA Primary Care Provider [phone] Assessment No assessment recorded. Plan of Treatment Reminders Order Date Submit Date Provider Last Modified By Organization Details Last Modified Time Details Appointments Hearing Test 2024 11:00A M Hearing Test Not available Not available Not available Establish ed 15 2024 11:30A M SIDNEY CALVO Not available Not available Not available Lab None recorded. Referral None recorded. Procedures None recorded. Surgeries None recorded. Imaging None recorded. Medication Orders None recorded. Patient TargetsNo targets recorded. Patient InstructionsNo instructions recorded. Reason for Referral None Reported. Results Created Date Observation Date Name Description Value Unit Range Abnormal Flag Note LastModifiedBy Organization Detail LastModifiedTime 04/29/20 25 audio gram No observ ation record ed. BARCODE Not Available 2024 13:43:46 Result Notes None recorded. Problems Name Problem SNOMED Code Status Onset Date Resolution Date Notes Provider Name and Address Organization Details Recorded Time Impacted cerumen in left ear 88219869918 92887 Active 2019 Impacted cerumen, left ear; Note: Date Diagnosed : 03/04/2020 3:57 PM (H61.22) Ethan Chinchilla, [address], [address] , [place] - [facility] 15:25:30 Bleeding from nose 062108123 Active 2020 Epistaxis ; Note: Date Diagnosed : 03/02/2021 4:06 PM (R04.0) Not Available [facility] 4 02:46:44 Deviated nasal septum 652818609 Active 2020 Deviated nasal septum; Note: Date Diagnosed : 03/02/2021 4:06 PM (J34.2) Not Available [facility] 4 02:46:52 Impacted cerumen of bilateral ears 37889308857 13680 Active 2020 Impacted cerumen, bilateral ; Note: Date Diagnosed : 03/02/2021 4:06 PM (H61.23) Note: Date Diagnosed : 03/02/2021 4:06 PM (H61.23) Not Available [facility] 4 01:08:39 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 72771699346 100 Active 2021 Sensorine ural hearing loss, unilatera l, right ear, with restricte d hearing on the contralat eral side; Note: Date Diagnosed : 01/24/2022 10:45 AM (H90.A21) Not Available [facility] 4 02:46:52 Disorder of left Eustachia n tube 57441844062 12896 Active 2021 Other specified disorders of Eustachia n tube, left ear; Note: Date Diagnosed : 01/24/2022 10:45 AM (H69.82) Not Available [facility] 4 02:46:53 Mixed conductiv e and sensorine ural hearing loss of left ear 50523543077 107 Active 2021 Mixed conductiv e and sensorine ural hearing loss, unilatera l, left ear with restricte d hearing on the contralat eral side; Note: Date Diagnosed : 01/24/2022 10:45 AM (H90.A32) Not Available [facility] 4 02:46:46 Chronic serous otitis media of left ear 081061732 Active 2022 Chronic serous otitis media, left ear; Note: Date Diagnosed : 02/09/2023 1:16 PM (H65.22) Not Available [facility] 4 02:46:49 Sensorine ural hearing loss of bilateral ears 059756368 Active 2023 SIDNEY CALVO [address], [place], [address] , [place] - [facility] 5 14:42:44 Bilateral disorder of Eustachia n tubes 83613974761 64525 Active 2023 MARIA EUGENIA SANTOS MD [address], [place], [place], [address] , [place] - [facility] 4 09:39:41 Sensorine ural hearing loss of bilateral ears 362381677 Active 2023 Ethan Chinchilla, DO [address], [place], [place], [address] , [place] - [facility] 5 08:47:36 Otorrhagi a of left ear 64940798236 Active 2024 CHITRA ONEAL PA-C [address] [facility],[address], [place], [place], [address] , [place] - [facility] 5 10:04:02 Dysfuncti on of bilateral eustachia n tubes 50040992508 Active 2024 Ethan Chinchilla, DO [address] [facility] [address], [place], [place], [address] , [place] - [facility] 5 08:47:24 Chronic infective otitis externa 765152492 Active 2024 Ethan Chinchilla, DO [address] [facility], [place], [place], [address] , [place] - [facility] 5 15:26:02 Mixed conductiv e AND sensorine ural hearing loss 14780822 Active 2024 MARIAMA RODRIGUEZ [address] [facility], [place], [place], [address] , [place] - [facility] 5 11:31:00 Bilateral hearing loss 53115019 Active 2024 SIDNEY CALVO [address], [place], [address] , [place] [facility] 5 14:45:03 Serous otitis media 63496552 Active 2024 SIDNEY CALVO [address] [facility] [address],[facility] [address], [place], [address] , [place] - [facility] 5 14:46:49 Dysfuncti on of left eustachia n tube 79610800692 51259 Active 2024 SIDNEY CALVO [address] [facility], [place], [address] , [place] - [facility] 5 14:47:08 Problem Notes None recorded. Procedures Surgical History Date Name Laterality Status Provider Name and Address Organization Details Recorded Time 5 Air & Speech Audio with Tymps - 48101, 59770 & 64613 completed YISEL HATHAWAY, AUD [address] [facility],[address] [address], [place], [address], [place] - [facility] 04/29/2025 11:35:41 5 Cerumen removal without microscope left completed SIDNEY CALVO [address] [facility],[address], [address], [facility] - [facility] 04/08/2025 18:13:03 5 Cerumen removal with microscope completed Ethan Chinchilla, DO [address] [facility],[address], [address], [place] - [facility] 03/27/2025 15:24:17 5 Air & Speech Audio with Tymps - 03887, 70524 & 02465 completed THOM DOBBINS, AUD [address] [facility],[address], [address], [place] - [facility] 12/04/2024 09:52:31 5 Cerumen removal without microscope bilat completed CHITRA ONEAL PA-C [address] [facility],[address] [address], [place], [address], [place] [facility] 12/04/2024 10:03:41 Cerumen removal with microscope completed MARIA EUGENIA SANTOS MD [address] [place] [address], [place], [address], [place] [facility] 06/05/2024 09:32:50 Imaging Results None recorded. Procedure Notes None recorded. Medical Equipment None Reported. Allergies No known drug allergies Medications Name Sig Start Date Stop Date Status Note LastModified by Organization Details LastModified Time furosemid e 40 mg tablet 2019 active Medicati on ID: [id number] D uration Value: 30 Brand Name: furosemi [...] 24 hr 06/05 completed Medicati on ID: 873870 D uration Value: 30 Brand Name: metoprol [...] mcg tablet 06/05 completed Medicati on ID: 936456 D uration Value: 30 Brand Name: levothyr [...] mg tablet 06/05 completed Medicati on ID: 605116 D uration Value: 30 Brand Name: lisinopr il Send Method: E-Prescr ibed Sub s Allowed: subs OK Speci al Instruct ion: TAKE 1 TABLET BY MOUTH EVERY DAY Medi cationGe nericNam e: lisinopr il Not Available Not Available Not Available furosemid e 20 mg tablet 06/05 completed Medicati on ID: 947580 D uration Value: 30 Brand Name: ting cano Send Method: E-Prescr ibed Sub s Allowed: subs OK Speci al Instruct ion: TAKE 1 TABLET BY MOUTH EVERY DAY IN THE MORNING Medicati onGeneri cName: jessei de Not Available Not Available Not Available [...] B-Complex tablet 2019 active Medicati on ID: 634592 B rand Name: B-Comple x Send Method: [...] unit) tablet 2019 active Medicati on ID: 510938 B rand Name: Vitamin D3 Send Method: E-Prescr ibed Sub s Allowed: subs OK Medic ationGen ericName : Vitamin D3 Not Available Not Available Not Available Flonase Allergy Relief 50 mcg/actua tion nasal spray,thania pension [place] 2 spray into both nostrils once a day 2021 active Medicati on ID: 844112 D uration Value: 30 Prescri bed By [...] and Address Organization Details Last Updated DateTime 04/29/2025 160.02 cm 20.5 kg/m2 62775.71 g Nickie Hassan [place] - [facility] 04/29/2025 11:00:42 Social History None recorded. Functional Status None recorded. Mental Status None recorded. Family History Nothing Reported. Medical History Condition Response Diabetes Y Anemia Y Thyroid Problems Y Hypertension Y High Cholesterol Y Past Encounters Encounter ID Performer Location Encounter Start Date Encounter Closed Date Diagnosis/Indication Diagnosis SNOMED-CT Code Diagnosis ICD10 Code Diagnosis IMO Codes Diagnosis Note [id number] SIDNEY CALVO [facility] of [address] [address] 04/08/2025 11:00:09 04/08/2025 12:11:58 Dysfunction of bilateral eustachian tubes [id number] 355831 H69.93 03450372 Sensorineu ral hearing loss of bilateral ears 614821417 H90.3 13130812 Impacted c erumen in left ear 4200270013 411341 H61.22 396266 Chronic in fective otitis externa 495823614 H60.392 [id number] SIDNEY CALVO [facility] of [address] [address] 04/29/2025 10:48:51 04/29/2025 12:08:58 Chronic infective otitis externa 792830490 H60.392 [id number] Resolved. Mixed cond uctive AND sensorineural hearing loss 42859441 H90.A32 18010562 Right Ear:Border line normal hearing through 2K Hz sloping to a severe SNHL with excellent speech discrimina tion.Type A tympanogra m.Left Ear:Severe MHL with excellent speech discrimina tion.Type B tympanogra m. Bilateral hearing loss 74183656 H90.A21 30394220 Serous otitis media 8032 7007 H65.92 05201667 Dysfunctio n of left eustachian tube 9371339660 445852 H69.92 [id number] MARIAMA RODRIGUEZ [facility] [place] [address] [place] [address] 04/29/2025 11:27:01 04/30/2025 18:06:48 Sensorineural hearing loss of bilateral ears 863306185 H90.3 Mixed cond uctive AND sensorineural hearing loss 64862928 H90.A32 83573094 Right Ear:Border line normal hearing through 2K Hz sloping to a severe SNHL with excellent speech discrimina tion.Type A tympanogra m.Left Ear:Severe MHL with excellent speech discrimina tion.Type B tympanogra m. Health Concerns Section Related Observation LastModified by Organization Detai ls LastModified Time None Recorded Concern Status LastModified by Organization Details LastModified Time None Recorded Payers Encounter Date Sequence Insurance Name Policy Number Policy [place] Covered Member ID [place] Member ID Guarantor Name 04/29/2025 2 [employer] [id number] Kike Uribe [id number] Kike Uribe 04/29/2025 1 MEDICARE B-IA: [facility] [employer] Kike Uribe [id number] Kike Uribe Notes Date Note Type Note Provider Name and Address Organization Details Recorded Time 04/29/2025 text/html ROS as noted in the HPI 84 year old male, with a history of eustachian tube dysfunction s/p left tympanostomy tube placement performed 02/09/[address] Ruiz, presents for follow up of left otitis externa. Left tube has already extruded. Patient completed course of topical ofloxacin. He does report persistent fullness in the left ear since the previous visit. Denies otalgia, otorrhea, and dizziness. MARY ELLEN HARRINGTON MD [address] [address], [place], [address], [facility] - [facility] 04/29/2025 17:06:39
--- OUTSIDE RECORDS SUMMARY | 2025-06-25 09:01 | XMS_ITS | Clinical Summary ---
Author Organization [facility] 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 Role Phone Gus Alida Primary Care Provider [phone] Allergies Active Allergy Reactions Criticality Noted Date Comments Sulfa Antibiotics Other (see comments) 12/28/19 23 Pt is unsure of reaction Medications acetaminophen (TYLENOL) 500 MG tablet Take by mouth every 6 (six) hours if needed Active B COMPLEX VITAMINS ER PO Take by mouth Active atorvastatin (LIPITOR) 80 MG tabletIndications:Other hyperlipidemia TAKE 1 TABLET (80 MG TOTAL) BY MOUTH AT BED TIME 90 tablet 3 04/20/20 23 Active ezetimibe (ZETIA) 10 MG tabletIndications:Other hyperlipidemia TAKE 1 TABLET BY MOUTH 1 TIME EACH DAY. 90 tablet 3 05/04/20 23 Active levothyroxine (SYNTHROID, LEVOTHROID) 112 MCG tablet Take 112 mcg by mouth 1 (one) time each day 06/02/20 23 Active carvedilol (COREG) 6.25 MG tablet Take 6.25 mg by mouth in the morning and 6.25 mg in the evening. Take with meals. Active Epoetin Emile-epbx (RETACRIT IJ) Inject as directed Active sodium bicarbonate 650 MG tabletIndications:Stage 5 chronic kidney disease (HCC),Chronic metabolic acidosis Take 2 tablets (1,300 mg total) by mouth in the morning and 2 tablets (1,300 mg total) in the evening and 2 tablets (1,300 mg total) before bedtime. 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) Take 1 capsule (0.25 mcg total) by mouth 1 (one) time each day 30 capsule 11 01/02/20 25 026 Active torsemide (DEMADEX) 20 MG tablet Take 3 tablets (60 mg total) by mouth 1 (one) time each day Take 2 tablets in the AM and 1 tablet in the PM 90 tablet 2 01/08/20 25 Active Sodium Zirconium Cyclosilicate (Lokelma) 10 g pack Take 1 packet by mouth 4 (four) times a week 48 each 1 01/31/20 25 Active Hospital, Clinic, or Other Facility Administered Medication Ordered Dose Route Frequency Start Date End Date Status Epoetin Emile-epbx solution 20,000 UnitsIndications:Stage 5 chronic kidney disease (HCC),Anemia, not otherwise specified,Type 2 diabetes mellitus with diabetic chronic kidney disease (HCC) [address] Units IJ Every 14 days 01/25/2023 Active Active Problems Problem Noted Date Diagnosed Date Secondary hyperparathyroidism of renal origin Hyperkalemia 03/27/2024 Stage 5 chronic kidney disease 04/28/2022 Chronic kidney disease, stage 4 (severe) 021 Type 2 diabetes mellitus wit h diabetic chronic kidney disease 10/27/2020 Acute nontraumatic kidney injury 10/26/2020 Anemia 12/22/2017 Chronic lymphoid leukemia, 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 [address] [phone] Travis Coyne MD End stage renal disease; Dependence on renal dialysis 06/16/2025 Treatment [facility] [address] [phone] Travis Coyne MD End stage renal disease; Dependence on renal dialysis 06/09/2025 Treatment [facility] [address] [phone] Travis Coyne MD End stage renal disease; Dependence on renal dialysis 06/02/2025 [facility] [address] [phone] Travis Coyne MD End stage renal disease; Dependence on renal dialysis 05/26/2025 Treatment [facility] [address] [phone] Travis Coyne MD End stage renal disease; Dependence on renal dialysis 05/19/2025 Treatment [facility] [address] [phone] Travis Coyne MD End stage renal disease; Dependence on renal dialysis 05/16/2025 Treatment [facility] [address] [phone] Travis Coyne MD End stage renal disease; Dependence on renal dialysis 05/05/2025 Treatment [facility] [address] [phone] Travis Coyne MD End stage renal disease; Dependence on renal dialysis 04/23/2025 Treatment [facility] [address] [phone] Travis Coyne MD End stage renal disease; Dependence on renal dialysis 04/14/2025 Treatment [facility] [address] [phone] Travis Coyne MD End stage renal disease; Dependence on renal dialysis 04/11/2025 Treatment [facility] [address] [phone] Travis Coyne MD End stage renal disease; Dependence on renal dialysis 04/10/2025 Telephone [facility] [address] [phone] Saima Mo 04/07/2025 Treatment [facility] [address] [phone] Travis Coyne MD End stage renal disease; Dependence on renal dialysis from Last 3 Months Immunizations Immunization Administration Dates Next Due Influenza Split High Dose Preservative Free IM 1 Pneumococcal Polysaccharide 03/18/2013 Family History Medical History Relation Comments Hypertension Mother Cancer Sibling sister breast/ov lobo Relation Status Comments Father Unknown Mother Unknown Sibling Social History Tobacco Use Types Packs/Day Years Used Date Smoking Tobacco: Never Smokeless Tobacco: Never Tobacco Cessation:Counseling Given: No Alcohol Use Standard Drinks/Week Comments No 0 (1 standard drink = 0.6 oz pur e alcohol) Sex and Gender Information Value Date Recorded Sex Assigned at Not on file Legal Sex Male 4:41 PM EST Gender Identity Not on file Sexual Orientation Not on file Last Filed Vital Signs Vital Sign Reading Time Taken Comments Blood Pressure 121/58 01/22/2025 9:45 AM EDT Pulse 60 01/07/2025 1:20 PM EDT Temperature - - Respiratory Rate - - Oxygen Saturation 97% 12/05/2024 9:42 AM EDT Inhaled Oxygen Concentration - - Weight 62.1 kg (136 lb 12.8 oz) 01/07/2025 1:20 PM EDT Height 157.5 cm (5' 2 ) 03/27/2024 8:33 AM EDT Body Mass Index 25.02 03/27/2024 8:33 AM EDT Plan of Treatment Health Maintenance Due Date Last Done Comments Hepatitis B Vaccine (1 of 5 - Risk Dialysis 4-dose series) 1960 Diabetes: Ophthalmology Exam 09/03/2020 Diabetes: Pedal Pulse Checked 09/03/2020 Diabetes: Sensory Foot Exam 09/03/2020 Diabetes: Visual Foot Exam 09/03/2020 Influenza Vaccine (#1) 2025 4, 05/10/2023, 05/18/2021, Additional history exists Diabetes: Hemoglobin A1C 09/16/20252 025, 05/28/2025, 01/21/2025, Additional history exists Pneumococcal Vaccine: 50+ Years Completed 9, 03/18/2013 Pneumococcal Vaccine: Peds ( 0 to 5 Years) and At-Risk Patients (6 to 49 Years) Discontinued 04/11/2019, 03/18/2013 Procedures Procedure Name Priority Date/Time Associated Diagnosis Comments POTASSIUM Routine 06/18/2025 3:00 AM EST LI[facility] (HC) Routine 06/18/2025 3:00 AM EST ALUMINUM LEVEL Routine 06/16/2025 3:00 AM EST URIC ACID Routine 06/16/2025 3:00 AM EST TRANSFERRIN SATURATION Routine 3:00 AM EST PROTEIN, TOTAL, SERUM Routine 06/16/2025 3:00 AM EST MAGNESIUM Routine 06/16/2025 3:00 AM EST ELECTROLYTE PANEL Routine 06/16/2025 3:0 0 AM EST LACTATE DEHYDROGENASE Routine 06/16/2025 3:00 AM EST LIPID PANEL Routine 06/16/2025 3:00 AM EST LIH (HC) Routine 06/16/2025 3:00 AM EST BUN/CREATININE RATIO Routine 06/16/2025 3:00 AM EST GLUCOSE, RANDOM Routine 06/16/2025 3:00 AM EST BILIRUBIN, TOTAL Routine 06/16/2025 3:00 AM EST AST Routine 06/16/2025 3:00 AM EST ALT Routine 06/16/2025 3:00 AM EST CREATININE, SERUM Routine 06/16/2025 3:0 0 AM EST ALKALINE PHOSPHATASE Routine 06/16/2025 3:00 AM EST CALCIUM PHOSPHORUS PRODUCT, ADJUSTED (HC) Routine 06/16/2025 3:00 AM EST FERRITIN Routine 06/16/2025 3:00 AM EST PTH, INTACT Routine 06/16/2025 3:00 AM EST HEMOGLOBIN A1C Routine 06/16/2025 3:00 AM EST RETICULOCYTES Routine 06/16/2025 3:00 AM EST CBC AND DIFFERENTIAL Routine 06/16/2025 3:00 AM EST KT/V NATURAL LOG, URR (HC) Routine 06/16/2025 3:00 AM EST PTH, INTACT Routine 06/11/2025 3:00 AM EST LIH (HC) Routine 06/11/2025 3:00 AM EST POTASSIUM Routine 06/11/2025 3:00 AM EST POTASSIUM Routine 06/09/2025 3:00 AM EST LIH (HC) Routine 06/09/2025 3:00 AM EST HEMOGLOBIN Routine 06/04/2025 3:00 AM EDT ALUMINUM LEVEL Routine 05/28/2025 3:00 AM EDT URIC ACID Routine 05/28/2025 3:00 AM EDT TRANSFERRIN SATURATION Routine 3:00 AM EDT PROTEIN, TOTAL, SERUM Routine 05/28/2025 3:00 AM EDT MAGNESIUM Routine 05/28/2025 3:00 AM EDT LIH (HC) Routine 05/28/2025 3:00 AM EDT LIPID PANEL Routine 05/28/2025 3:00 AM EDT ELECTROLYTE PANEL Routine 05/28/2025 3:0 0 AM EDT LACTATE DEHYDROGENASE Routine 05/28/2025 3:00 AM EDT GLUCOSE, RANDOM Routine 05/28/2025 3:00 AM EDT BUN/CREATININE RATIO Routine 05/28/2025 3:00 AM EDT BILIRUBIN, TOTAL Routine 05/28/2025 3:00 AM EDT CREATININE, SERUM Routine 05/28/2025 3:0 0 AM EDT AST Routine 05/28/2025 3:00 AM EDT ALT Routine 05/28/2025 3:00 AM EDT CALCIUM PHOSPHORUS PRODUCT, ADJUSTED (HC) Routine 05/28/2025 3:00 AM EDT ALKALINE PHOSPHATASE Routine 05/28/2025 3:00 AM EDT FERRITIN Routine 05/28/2025 3:00 AM EDT VITAMIN D 25 HYDROXY Routine 05/28/2025 3:00 AM EDT PTH, INTACT Routine 05/28/2025 3:00 AM EDT HEMOGLOBIN A1C Routine 05/28/2025 3:00 AM EDT RETICULOCYTES Routine 05/28/2025 3:00 AM EDT CBC AND DIFFERENTIAL Routine 05/28/2025 3:00 AM EDT KT/V NATURAL LOG, URR (HC) Routine 05/28/2025 3:00 AM EDT HEMOGLOBIN Routine 05/21/2025 3:00 AM EDT HEMOGLOBIN Routine 05/16/2025 3:00 AM EDT PHOSPHATE ( PHOSPHORUS) Routine 05/14/2025 3:00 AM EDT LIH (HC) Routine 05/14/2025 3:00 AM EDT HEPATITIS B SURFACE ANTIGEN W/REFL CONFIRM Routine 05/07/2025 3:00 AM EDT FERRITIN Routine 05/07/2025 3:00 AM EDT PTH, INTACT Routine 05/07/2025 3:00 AM EDT TRANSFERRIN SATURATION Routine 3:00 AM EDT PROTEIN, TOTAL, SERUM Routine 05/07/2025 3:00 AM EDT ELECTROLYTE PANEL Routine 05/07/2025 3:0 0 AM EDT MAGNESIUM Routine 05/07/2025 3:00 AM EDT LIPID PANEL Routine 05/07/2025 3:00 AM EDT LIH (HC) Routine 05/07/2025 3:00 AM EDT LACTATE DEHYDROGENASE Routine 05/07/2025 3:00 AM EDT GLUCOSE, RANDOM Routine 05/07/2025 3:00 AM EDT CREATININE, SERUM Routine 05/07/2025 3:0 0 AM EDT BILIRUBIN, TOTAL Routine 05/07/2025 3:00 AM EDT BUN/CREATININE RATIO Routine 05/07/2025 3:00 AM EDT AST Routine 05/07/2025 3:00 AM EDT ALT Routine 05/07/2025 3:00 AM EDT ALKALINE PHOSPHATASE Routine 05/07/2025 3:00 AM EDT CALCIUM PHOSPHORUS PRODUCT, ADJUSTED (HC) Routine 05/07/2025 3:00 AM EDT CBC AND DIFFERENTIAL Routine 05/07/2025 3:00 AM EDT KT/V NATURAL LOG, URR (HC) Routine 05/07/2025 3:00 AM EDT HEMOGLOBIN Routine 04/25/2025 3:00 AM EDT CALCIUM, ADJUSTED W ALBUMIN Routine 04/25/2025 3:00 AM EDT LIH (HC) Routine 04/25/2025 3:00 AM EDT HEMOGLOBIN Routine 04/23/2025 3:00 AM EDT HEMOGLOBIN Routine 04/18/2025 3:00 AM EDT LIH (HC) Routine 04/16/2025 3:00 AM EDT CO2, TOTAL Routine 04/16/2025 3:00 AM EDT PTH, INTACT Routine 04/14/2025 3:00 AM EDT HEPATITIS B SURFACE ANTIGEN W/REFL CONFIRM Routine 04/09/2025 3:00 AM EDT TRANSFERRIN SATURATION Routine 3:00 AM EDT MAGNESIUM Routine 04/09/2025 3:00 AM EDT PROTEIN, TOTAL, SERUM Routine 04/09/2025 3:00 AM EDT ELECTROLYTE PANEL Routine 04/09/2025 3:0 0 AM EDT LIH (HC) Routine 04/09/2025 3:00 AM EDT LACTATE DEHYDROGENASE Routine 04/09/2025 3:00 AM EDT GLUCOSE, RANDOM Routine 04/09/2025 3:00 AM EDT CREATININE, SERUM Routine 04/09/2025 3:0 0 AM EDT BUN/CREATININE RATIO Routine 04/09/2025 3:00 AM EDT BILIRUBIN, TOTAL Routine 04/09/2025 3:00 AM EDT AST Routine 04/09/2025 3:00 AM EDT ALT Routine 04/09/2025 3:00 AM EDT ALKALINE PHOSPHATASE Routine 04/09/2025 3:00 AM EDT CALCIUM PHOSPHORUS PRODUCT, ADJUSTED (HC) Routine 04/09/2025 3:00 AM EDT FERRITIN Routine 04/09/2025 3:00 AM EDT CBC AND DIFFERENTIAL Routine 04/09/2025 3:00 AM EDT KT/V NATURAL LOG, URR (HC) Routine 04/09/2025 3:00 AM EDT HEMOGLOBIN Routine 04/04/2025 3:00 AM EDT from Last 3 Months Results * LI[facility] (06/18/2025 3:00 AM EST) Only the most recent of10 resultswithin the time period is included. Lipemia Normal Normal [facility] Icterus Normal Normal [facility] Hemolysis Normal Normal [facility] 06/18/2025 3:00 AM EST 06/19/2025 1:17 PM EST us Travis Coyne MD LAB [id number] SOLICITED RESULTS Final Result Performing Organization Address [facility]/ZIP Co de Phone Number APS [facility] [address] [place] [address] * Potassium (06/18/2025 3:00 AM EST) Only the most recent of3 resultswithin the time period is included. Potassium 4.2 3.4 - 5.0 mEq/L [facility] 06/18/2025 3:00 AM EST 06/19/2025 1:17 PM EST us Travis Coyne MD LAB BLOOD ORDERABLES Final Re sult Performing Organization Address City/[facility] Co de Phone Number [facility] [address] [place] [address] * (ABNORMAL) Kt/V Natural Log, URR (06/16/2025 3:00 AM EST) Only the most recent of4 resultswithin the time period is included. Treatment Time 214 min [facility] Pre-Weight, lb 52.8 kg [facility] Post-Weight, lb 51.7 kg [facility] Ultrafiltration Rate 6 <=13 mL/kg/hr [facility] Comment: Recommend achieving Ultrafiltration Rate (UFR) <=10 mL/kg/hr References: Roula PALMA et al. Kidney Int. 2010; 79(2):250-257 BUN Post Dialysis 19 7 - 25 mg/dL [facility] BUN 64(H) 7 - 25 mg/dL [facility] UREA REDUCTION RATIO (%) 70 >=65 % [facility] Kt/V Natural Log 1.38 >=1.2 [facility] 06/16/2025 3:00 AM EST 06/17/2025 1:18 PM EST Travis Coyne MD LAB [id number] SOLICITED RESULTS Final Result Performing Organization Address [facility] de Phone Number [facility] [address] [place] [address] * Calcium Phosphorus Product, Adjusted (06/16/2025 3:00 AM EST) Only the most recent of4 resultswithin the time period is included. Albumin 3.8 3.6 - 5.4 g/dL [facility] Calcium 9.5 8.6 - 10.3 mg/dL [facility] Phosphorus, Serum 4.6 2.5 - 5.0 mg/dL [facility] Ca*PO4 43.7 <55.0 mg2/dL2 [facility] Calcium, Adjusted Total 9.7 8.6 - 10.3 mg/dL [facility] CA*PO4 CORRCTD 44.6 <55.0 mg2/dL2 [facility] 06/16/2025 3:00 AM EST 06/17/2025 3:02 PM EST Travis Coyne MD LAB [id number] SOLICITED RESULTS Final Result Performing Organization Address [facility] Co de Phone Number [facility] [address] [place] [address] * BUN/CREATININE RATIO (06/16/2025 3:00 AM EST) Only the most recent of4 resultswithin the time period is included. BUN/Creatinine Ratio 13.3 <=23.0 [facility] 06/16/2025 3:00 AM EST 06/17/2025 3:02 PM EST Travis Coyne MD LAB [id number] SOLICITED RESULTS Final Result Performing Organization Address [facility] de Phone Number [facility] [address] [place] [address] * (ABNORMAL) TSAT (06/16/2025 3:00 AM EST) Only the most recent of4 resultswithin the time period is included. Iron 96 65 - 175 ug/dL [facility] Transferrin 211(L) 215 - 365 mg/dL [facility] TIBC 295 211 - 406 ug/dL [facility] Iron Saturation (TSat) 32 22 - 52 % [facility] 06/16/2025 3:00 AM EST 06/17/2025 3:02 PM EST Travis Coyne MD LAB BLOOD ORDERABLES Final Re sult Performing Organization Address [facility] de Phone Number [facility] [address] [place] [address] * Aluminum level (06/16/2025 3:00 AM EST) Only the most recent of2 resultswithin the time period is included. Aluminum 4 1 - 20 ug/L [facility] Comment: This test was developed and its performance characteristics determined by [employer] [facility] in a manner consistent with CLIA requirements. This test has not been cleared or approved by the U.S. Food and Drug Administration. 06/16/2025 3:00 AM EST 06/17/2025 1:31 PM EST Travis Coyne MD LAB BLOOD ORDERABLES Final Re sult Performing Organization Address [facility] de Phone Number [facility] [address] [place] [address] * (ABNORMAL) Reticulocytes (06/16/2025 3:00 AM EST) Only the most recent of2 resultswithin the time period is included. Reticulocyte 3.2(H) 0.5 - 1.8 % [facility] Retic Ct Pct 35.1 28.2 - 35.7 pg [facility] 06/16/2025 3:00 AM EST 06/17/2025 1:35 PM EST Travis Coyne MD LAB BLOOD ORDERABLES Final Re sult Performing Organization Address City/[facility] Co de Phone Number [facility] [address] [place] [address] * (ABNORMAL) CBC and Differential (06/16/2025 3:00 AM EST) Only the most recent of4 resultswithin the time period is included. DIFFERENTIAL MANUAL, 2 Not Indicated [facility] White Blood Cells 7.0 4.2 - 9.1 K/uL [facility] RBC 2.30(L) 4.63 - 6.08 M/uL [facility] Hgb 7.7(L) 13.7 - 17.5 g/dL [facility] Hemoglobin x 3 23.1(L) 41.1 - 52.5 g/dL [facility] Hematocrit 24.2(L) 40.1 - 51.0 % [facility] MCV 105.2(H) 79.0 - 92.2 fL [facility] MCH 33.5(H) 25.7 - 32.2 pg [facility] MCHC 31.8(L) 32.3 - 36.5 g/dL [facility] RDW 18.1(H) 11.6 - 14.4 % [facility] Platelets 113(L) 163 - 337 K/uL [facility] MPV 12.9 9.1 - 13.0 fL [facility] Neutrophils Relative 43.4 34.0 - 67.9 % [facility] Lymphocytes Relative 46.8 21.8 - 53.1 % [facility] Monocytes 6.8 5.3 - 12.2 % [facility] Eosinophils Relative 2.1 0.8 - 7.0 % [facility] Basophils Relative 0.6 0.2 - 1.2 % [facility] Immature Granulocytes 0.3 0.0 - 1.0 % [facility] 06/16/2025 3:00 AM EST 06/17/2025 1:35 PM EST Travis Coyne MD LAB BLOOD ORDERABLES Final Re sult Performing Organization Address City/[facility]/ZIP Co de Phone Number [facility] [address] [place] [address] * Uric Acid (06/16/2025 3:00 AM EST) Only the most recent of2 resultswithin the time period is included. Uric Acid 6.0 4.4 - 7.6 mg/dL [facility] 06/16/2025 3:00 AM EST 06/17/2025 3:02 PM EST Travis Coyne MD LAB BLOOD ORDERABLES Final Re sult Performing Organization Address [facility] Co de Phone Number [facility] [address] [place] [address] * (ABNORMAL) ALT (06/16/2025 3:00 AM EST) Only the most recent of4 resultswithin the time period is included. ALT (SGPT) 77(H) 10 - 49 U/L [facility] 06/16/2025 3:00 AM EST 06/17/2025 3:02 PM EST Travis Coyne MD LAB BLOOD ORDERABLES Final Re sult Performing Organization Address [facility] de Phone Number [facility] [address] [place] [address] * (ABNORMAL) AST (06/16/2025 3:00 AM EST) Only the most recent of4 resultswithin the time period is included. AST (SGOT) 73(H) <34 U/L [facility] 06/16/2025 3:00 AM EST 06/17/2025 3:02 PM EST us Travis Coyne MD LAB BLOOD ORDERABLES Final Re sult Performing Organization Address [facility] de Phone Number [facility] [address] [place] [address] * (ABNORMAL) Protein, total (06/16/2025 3:00 AM EST) Only the most recent of4 resultswithin the time period is included. Total Protein 6.1(L) 6.4 - 8.9 g/dL [facility] 06/16/2025 3:00 AM EST 06/17/2025 3:02 PM EST Travis Coyne MD LAB BLOOD ORDERABLES Final Re sult Performing Organization Address [facility] Co de Phone Number [facility] [address] [place] [address] * Alkaline phosphatase (06/16/2025 3:00 AM EST) Only the most recent of4 resultswithin the time period is included. Alkaline Phosphatase 103 46 - 116 U/L [facility] 06/16/2025 3:0 0 AM EST 06/17/2025 3:02 PM EST Travis Coyne MD LAB BLOOD ORDERABLES Final Re sult Performing Organization Address [facility] de Phone Number [facility] [address] [place] [address] * PTH, Intact (06/16/2025 3:00 AM EST) Only the most recent of5 resultswithin the time period is included. PTH, Intact 662 160 - 721 pg/mL [facility] Comment: Suggested (KDIGO) ESRD maintenance range is two to nine times the upper normal limit (80.1 pg/mL) for the laboratory. 06/16/2025 3:00 AM EST 06/17/2025 3:02 PM EST Travis Coyne MD LAB BLOOD ORDERABLES Final Re sult Performing Organization Address [facility] de Phone Number [facility] [address] [place] [address] * Magnesium (06/16/2025 3:00 AM EST) Only the most recent of4 resultswithin the time period is included. Magnesium 2.2 1.9 - 2.7 mg/dL [facility] 06/16/2025 3:00 AM EST 06/17/2025 3:02 PM EST Travis Coyne MD LAB BLOOD ORDERABLES Final Re sult Performing Organization Address [facility] de Phone Number [facility] [address] [place] [address] * (ABNORMAL) Lactate dehydrogenase (06/16/2025 3:00 AM EST) Only the most recent of4 resultswithin the time period is included. LDH 360(H) 120 - 246 U/L [facility] 06/16/2025 3:00 AM EST 06/17/2025 3:02 PM EST Travis Coyne MD LAB BLOOD ORDERABLES Final Re sult Performing Organization Address [facility] de Phone Number [facility] [address] [place] [address] * Hemoglobin A1c (06/16/2025 3:00 AM EST) Only the most recent of2 resultswithin the time period is included. Hemoglobin A1C 4.6 <5.7 % [facility] Comment: Methodology: Ion-exchange high-performance liquid chromatography (HPLC) Normal: <5.7% Prediabetes: 5.7-6.4% Diabetes: >6.4% Diabetic Glucose Control Evaluation: Therapeutic action suggested at >8.0% ADA recommends a glycemic goal of <7.0% 06/16/2025 3:00 AM EST 06/17/2025 1:35 PM EST us Travis Coyne MD LAB BLOOD ORDERABLES Final Re sult Performing Organization Address [facility] de Phone Number [facility] [address] [place] [address] * Glucose, random (06/16/2025 3:00 AM EST) Only the most recent of4 resultswithin the time period is included. Glucose 93 70 - 99 mg/dL [facility] Comment: ADA guidelines outline the following fasting glucose ranges: Normal: <100 Prediabetes: 100-125 Diabetes: >125 06/16/2025 3:00 AM EST 06/17/2025 3:02 PM EST Travis Coyne MD LAB BLOOD ORDERABLES Final Re sult Performing Organization Address [facility] Co de Phone Number [facility] [address] [place] [address] * (ABNORMAL) Ferritin (06/16/2025 3:00 AM EST) Only the most recent of4 resultswithin the time period is included. Ferritin 689(H) 22 - 322 ng/mL [facility] 06/16/2025 3:00 AM EST 06/17/2025 3:02 PM EST Travis Coyne MD LAB BLOOD ORDERABLES Final Re sult Performing Organization Address [facility] de Phone Number [facility] [address] [place] [address] * (ABNORMAL) Creatinine, serum (06/16/2025 3:00 AM EST) Only the most recent of4 resultswithin the time period is included. Creatinine 4.81(H) 0.70 - 1.30 mg/dL [facility] 06/16/2025 3:00 AM EST 06/17/2025 3:02 PM EST Travis Coyne MD LAB BLOOD ORDERABLES Final Re sult Performing Organization Address [facility] de Phone Number [facility] [address] [place] [address] * Bilirubin, total (06/16/2025 3:00 AM EST) Only the most recent of4 resultswithin the time period is included. Total Bilirubin 0.6 0.3 - 1.2 mg/dL [facility] 06/16/2025 3:00 AM EST 06/17/2025 3:02 PM EST Travis Coyne MD LAB BLOOD ORDERABLES Final Re sult Performing Organization Address City/[facility] Co de Phone Number [facility] [address] [place] [address] * (ABNORMAL) Lipid panel (06/16/2025 3:00 AM EST) Only the most recent of3 resultswithin the time period is included. Cholesterol 79 mg/dL [facility] Comment: Optimal: <200 Borderline: 200-239 High Risk: >239 Triglycerides 37 mg/dL [facility] Comment: Optimal: <150 Borderline: 150-200 High Risk: >200 HDL 47(L) mg/dL [facility] Comment: Optimal: >59 Borderline: 40-59 High Risk: <40 LDL-Calc 25 mg/dL [facility] Comment: Optimal: <100 Borderline: 100-159 High Risk: >159 VLDL Cholesterol Frankie 7 mg/dL [facility] Comment: Optimal: <30 Borderline: 30-40 High Risk: >40 Chol/HDL Ratio 1.7 [facility] Comment: Optimal: <3.3 High Risk: >6.2 06/16/2025 3:00 AM EST 06/17/2025 3:02 PM EST Travis Coyne MD LAB BLOOD ORDERABLES Final Re sult Performing Organization Address [facility] de Phone Number [facility]PS [facility] [address] [place] [address] * (ABNORMAL) Electrolyte panel (06/16/2025 3:00 AM EST) Only the most recent of4 resultswithin the time period is included. Sodium 134(L) 136 - 145 mEq/L [facility] Potassium 4.3 3.4 - 5.0 mEq/L [facility] Chloride 96(L) 98 - 107 mEq/L [facility] Bicarbonate (CO2) 26 21 - 31 mEq/L [facility] Anion Gap 12 3 - 14 mEq/L [facility] 06/16/2025 3:00 AM EST 06/17/2025 3:02 PM EST Travis Coyne MD LAB BLOOD ORDERABLES Final Re sult Performing Organization Address [facility] de Phone Number [facility] [address] [place] [address] * (ABNORMAL) Hemoglobin (06/04/2025 3:00 AM EDT) Only the most recent of7 resultswithin the time period is included. Hgb 7.9(L) 13.7 - 17.5 g/dL [facility] Hemoglobin x 3 23.7(L) 41.1 - 52.5 g/dL [facility] 06/04/2025 3:00 AM EDT 06/05/2025 12:31 PM EDT Travis Coyne MD LAB BLOOD ORDERABLES Final Re sult Performing Organization Address [facility] de Phone Number [facility] [address] [place] [address] * Vitamin D 25 Hydroxy (05/28/2025 3:00 AM EDT) Vitamin D, 25-Hydroxy 70 30 - 100 ng/mL [facility] Comment: Status Adult Pediatric Deficient: <20 <15 Insufficient: 20-29 15-19 Sufficient: 30-100 20-100 05/28/2025 3:00 AM EDT 05/29/2025 2:13 PM EDT us Travis Coyne MD LAB BLOOD ORDERABLES Final Re sult Performing Organization Address [facility] Co de Phone Number [facility] [address] [place] [address] * (ABNORMAL) Phosphorus (05/14/2025 3:00 AM EDT) Phosphorus, Serum 5.4(H) 2.5 - 5.0 mg/dL [facility] 05/14/2025 3:00 AM EDT 05/15/2025 3:34 PM EDT us Travis Coyne MD LAB BLOOD ORDERABLES Final Re sult Performing Organization Address [facility] Co de Phone Number [facility] [address] [place] [address] * Hepatitis B Surface Ag w/Reflex Confirmation (05/07/2025 3:00 AM EDT) Only the most recent of2 resultswithin the time period is included. Hep B Surface Antigen Negative Negative [facility] 05/07/2025 3:00 AM EDT 05/08/2025 1:44 PM EDT Travis Coyne MD LAB BLOOD ORDERABLES Final Re sult Performing Organization Address [facility] de Phone Number [facility] [address] [place] [address] * Calcium, Adjusted w Albumin (04/25/2025 3:00 AM EDT) Calcium 9.2 8.6 - 10.3 mg/dL [facility] Albumin 4.0 3.6 - 5.4 g/dL [facility] Calcium, Adjusted Total 9.2 8.6 - 10.3 mg/dL [facility] 04/25/2025 3:00 AM EDT 04/26/2025 12:56 PM EDT Travis Coyne MD LAB BLOOD ORDERABLES Final Re sult Performing Organization Address [facility] de Phone Number [facility] [address] [place] [address] * CO2 (04/16/2025 3:00 AM EDT) Bicarbonate (CO2) 25 21 - 31 mEq/L [facility] 04/16/2025 3:00 AM EDT 04/17/2025 2:41 PM EDT Travis Coyne MD LAB BLOOD ORDERABLES Final Re sult Performing Organization Address [facility] Co de Phone Number [facility] [address] [place] [address] from Last 3 Months Insurance [employer] Commercial [place] [id number] Care Teams 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
--- OUTSIDE RECORDS SUMMARY | 2025-06-25 09:01 | XMS_ITS | Data Portability ---
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 All questions were answered. Not available 04/08/2025 18:12:31 04/29/2025 04/29/2025 84 year old male , with a history of eustachian tube dysfunction s/p left tympanostomy tube placement performed 02/09/[address] Ruiz, presents for follow up of left otitis externa. Left tube has already extruded. Tympanic membrane appears well-healed, however there is a serous effusion present in the middle ear space. Right ear is stable. Audiometric testing and tympanometry confirm the presence of fluid in the left ear. The pathophysiology of eustachian tube dysfunction was reviewed. Recommend observation and repeat audiogram in 3 months. Patient was encouraged to practice autoinsufflation frequently throughout the day to promote pressure equalization. Consider replacement of tube if fluid persists. All questions were answered. Not available 04/29/2025 14:55:45 Plan of Treatment Reminders Order Date Submit [...] ofloxacin 0.3 % ear drops 2024 025 [facility][id number], [address] [place], [address], 04/08/2025 12:07:58 ofloxacin 0.3 % ear drops 2024 025 [facility] #[id number], [address] [place], [address], 03/27/2025 15:26:16 Patient TargetsNo targets recorded. Patient InstructionsNo instructions recorded. Reason for Referral None Reported. Results Created Date Observation Date Name Description Value Unit Range Abnormal Flag Note LastModifiedBy Organization Detail LastModifiedTime 12/05/19 25 audio gram No observ ation record ed. BARCODE Not Available 2024 12:45:00 04/29/20 25 audio gram No observ ation record ed. BARCODE Not Available 2024 13:43:46 Result Notes None recorded. Problems Name Problem SNOMED Code Status Onset Date Resolution Date Notes Provider Name and Address Organization Details Recorded Time Impacted cerumen in left ear 69581918794 46389 Active 2019 Impacted cerumen, left ear; Note: Date Diagnosed : 03/04/2020 3:57 PM (H61.22) Ethan Chinchilla, [address] [facility] [address],[place] [address], [place], [address] , [facility] 5 15:25:30 Bleeding from nose 699096209 Active 2020 Epistaxis ; Note: Date Diagnosed : 03/02/2021 4:06 PM (R04.0) Not Available [facility] 4 02:46:44 Deviated nasal septum 767046171 Active 2020 Deviated nasal septum; Note: Date Diagnosed : 03/02/2021 4:06 PM (J34.2) Not Available [facility] 4 02:46:52 Impacted cerumen of bilateral ears 19453795803 07809 Active 2020 Impacted cerumen, bilateral ; Note: Date Diagnosed : 03/02/2021 4:06 PM (H61.23) Note: Date Diagnosed : 03/02/2021 4:06 PM (H61.23) Not Available [facility] 4 01:08:39 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 27345529689 100 Active 2021 Sensorine ural hearing loss, unilatera l, right ear, with restricte d hearing on the contralat eral side; Note: Date Diagnosed : 01/24/2022 10:45 AM (H90.A21) Not Available [facility] 4 02:46:52 Disorder of left Eustachia n tube 71846285319 67129 Active 2021 Other specified disorders of Eustachia n tube, left ear; Note: Date Diagnosed : 01/24/2022 10:45 AM (H69.82) Not Available [facility] 4 02:46:53 Mixed conductiv e and sensorine ural hearing loss of left ear 91230551431 107 Active 2021 Mixed conductiv e and sensorine ural hearing loss, unilatera l, left ear with restricte d hearing on the contralat eral side; Note: Date Diagnosed : 01/24/2022 10:45 AM (H90.A32) Not Available [facility] 4 02:46:46 Chronic serous otitis media of left ear 871276216 Active 2022 Chronic serous otitis media, left ear; Note: Date Diagnosed : 02/09/2023 1:16 PM (H65.22) Not Available [facility] 4 02:46:49 Sensorine ural hearing loss of bilateral ears 845590733 Active 2023 SIDNEY CALVO [address], [place], [address] , [place] - [facility] 5 14:42:44 Bilateral disorder of Eustachia n tubes 88961489808 Active 2023 MARIA EUGENIA SANTOS MD [address] [facility], [place], [address] , [place] - [facility] 4 09:39:41 Sensorine ural hearing loss of bilateral ears 138303602 Active 2023 Ethan Chinchilla DO [address], [place], [address] , [place] - [facility] 5 08:47:36 Otorrhagi a of left ear 78875721182 Active 2024 CHITRA ONEAL PA-C [address], [place], [address] , [place] - [facility] 5 10:04:02 Dysfuncti on of bilateral eustachia n tubes 75454253963 Active 2024 Ethan Chinchilla DO [address], [place], [address] , [place] - [facility] 5 08:47:24 Chronic infective otitis externa 633233036 Active 2024 Ethan Chinchilla DO [address] [facility] [place] [address], [place], [address] , [place] - [facility] 5 15:26:02 Mixed conductiv e AND sensorine ural hearing loss 14374118 Active 2024 YISEL HATHAWAY, AUD [address] [facility] [place] [address], [facility] [place], [address] , [place] - [facility] 5 11:31:00 Bilateral hearing loss 80323301 Active 2024 SIDNEY CALVO [address] [facility] [place] [address], [facility] [place], [address] , [facility] - [facility] 5 14:45:03 Serous otitis media 44080937 Active 2024 SIDNEY CALVO [address] [facility],[place] [address], [facility] [place], [address] , [place] - [facility] 5 14:46:49 Dysfuncti on of left eustachia n tube 24490552234 25398 Active 2024 SIDNEY CALVO [address] [facility] [place],[facility] [address], [facility] [place], [address] , [facility] - [facility] 5 14:47:08 Problem Notes None recorded. Procedures Surgical History Date Name Laterality Status Provider Name and Address Organization Details Recorded Time 5 Air & Speech Audio with Tymps - 40643, 11902 & 11058 completed YISEL HATHAWAY, AUD [address] [facility] [facility], [place], [address], [place] - [facility] 04/29/2025 11:35:41 5 Cerumen removal without microscope left completed SIDNEY CALVO [address], [place], [address], [place] - [facility] 04/08/2025 18:13:03 5 Cerumen removal with microscope completed Ethan Chinchilla, DO [address] [facility] [place],[address], [place], [address], [facility] - [facility] 03/27/2025 15:24:17 5 Air & Speech Audio with Tymps - 27551, 96013 & 67601 completed THOM DOBBINS, AUD [address] [facility], [address] [place],[address], [place], [address], [facility] - [facility] 12/04/2024 09:52:31 5 Cerumen removal without microscope bilat completed CHITRA ONEAL PA-C [address] [facility],[place] [address], [place], [address], [facility] - [facility] 12/04/2024 10:03:41 4 Cerumen removal with microscope completed MARIA EUGENIA SANTOS MD [address] [facility],[place] [address], [place], [address], [facility] - [facility] 06/05/2024 09:32:50 Imaging Results None recorded. Procedure Notes None recorded. Medical Equipment None Reported. Allergies No known drug allergies Medications Name Sig Start Date Stop Date Status Note LastModified by Organization Details LastModified Time furosemid e 40 mg tablet 2019 active Medicati on ID: [id number] D uration Value: 30 Brand Name: ting [...] 24 hr 06/05 completed Medicati on ID: [id number] D uration Value: 30 Brand Name: metoprol ol succinat e Send Method: E-Prescr ibed Sub s Allowed: subs STEWART Alford al Instruct ion: TAKE 1 TABLET BY [...] mcg tablet 06/05 completed Medicati on ID: [id number] D uration Value: 30 Brand Name: levothyr oxine Se nd Method: E-Prescr ibed Sub s Allowed: subs STEWART [place] al Instruct ion: TAKE 1 TABLET BY [...] mg tablet 06/05 completed Medicati on ID: [id number] D uration Value: 30 Brand Name: lisinopr il Send Method: E-Prescr ibed Sub s Allowed: subs STEWART Alford al Instruct ion: TAKE 1 TABLET BY MOUTH EVERY DAY Medi cationGe nericNam e: lisinopr il Not Available Not Available Not Available furosemid e 20 mg tablet 06/05 completed Medicati on ID: [id number] D uration Value: 30 Brand Name: furosemi de Send Method: E-Prescr ibed Sub s Allowed: subs STEWART nolasco Instruct ion: TAKE 1 TABLET BY MOUTH [...] B-Complex tablet 2019 active Medicati on ID: [id number] B rand Name: B-Comple x Send Method: [...] unit) tablet 2019 active Medicati on ID: [id number] B rand Name: Vitamin D3 Send Method: E-Prescr ibed Sub s Allowed: subs OK Medic ationGen ericName : Vitamin D3 Not Available Not Available Not Available Flonase Allergy Relief 50 mcg/actua tion nasal spray,thania pension [place] 2 spray into both nostrils once a day 2021 active Medicati on ID: [id number] D uration Value: 30 Prescri bed By [...] and Address Organization Details Last Updated DateTime 12/04/2024 160.02 cm 23.6 kg/m2 49419.79 g Jennifer Levy [place] - [facility] 12/04/2024 08:59:46 Date Recorded Body height Provider Name an d Address Organization Details Last Updated DateTime 03/27/2025 160.02 cm LIZ CASSANDRA [place] - [facility] 03/27/2025 14:55:26 Date Recorded Body height Body mass index (BMI) Body weight Provider Name and Address Organization Details Last Updated DateTime 04/08/2025 160.02 cm 20.9 kg/m2 91796.9 g Nickie Hassan [place] - [facility] 04/08/2025 11:43:59 Date Recorded Body height Body mass index (BMI) Body weight Provider Name and Address Organization Details Last Updated DateTime 04/29/2025 160.02 cm 20.5 kg/m2 40256.71 g Nickie Hassan [place] - [facility] 04/29/2025 11:00:42 Social History None recorded. Functional Status None recorded. Mental Status None recorded. Family History Nothing Reported. Medical History Condition Response Diabetes Y Anemia Y Thyroid Problems Y Hypertension Y High Cholesterol Y Past Encounters Encounter ID Performer Location Encounter Start Date Encounter Closed Date Diagnosis/Indication Diagnosis SNOMED-CT Code Diagnosis ICD10 Code Diagnosis IMO Codes Diagnosis Note [id number] MARIA EUGENIA SANTOS MD [facility] [address] [address] 06/05/2024 08:46:20 06/05/2024 09:08:35 Impacted cerumen of bilateral ears 8914650333 706147 H61.23 Sensorineu ral hearing loss of bilateral ears 144249747 H90.3 Bilateral disorder of Eustachian tubes 8590510341 257154 H69.93 [id number] CHITRA ONEAL PA-C [facility] [address] [address] 12/04/2024 08:41:14 12/04/2024 10:14:19 Disorder of left Eustachian tube 3310210310 011177 H69.82 Impacted c erumen of bilateral ears 9139512894 441180 H61.23 Otorrhagia of left ear 7832182490 633034 H92.22 1405412 [id number] MARIAMA KAT [facility] [address] [address] 12/04/2024 08:41:35 12/04/2024 11:22:53 Sensorineural hearing loss of bilateral ears 301435940 H90.3 Audiologic al evaluation results: Right ear: Normal sloping to severe sensorineu ral hearing loss with excellent word recognitio n. Left ear: Normal sloping to severe sensorineu ral hearing loss with excellent word recognitio n. Tympanomet ry: Right Ear:Type A Left Ear:Type B with large volume [id number] Ethan Chinchilla DO [facility] [address] [address] 03/27/2025 14:53:35 03/27/2025 15:26:58 Dysfunction of bilateral eustachian tubes 2520318169 266923 H69.93 [id number] Sensorineu ral hearing loss of bilateral ears 345571090 H90.3 [id number] Impacted c erumen in left ear 2478784738 893077 H61.22 523552 Chronic in fective otitis externa 819789684 H60.392 30844374 [id number] SIDNEY CALVO [facility] [address] [address] 04/08/2025 11:00:09 04/08/2025 12:11:58 Dysfunction of bilateral eustachian tubes 6732005627 693298 H69.93 74240856 Sensorineu ral hearing loss of bilateral ears 479581734 H90.3 37112555 Impacted c erumen in left ear 5920348174 039519 H61.22 312438 Chronic in fective otitis externa 613969804 H60.392 [id number] SIDNEY CALVO [facility] [address] [address] 04/29/2025 10:48:51 04/29/2025 12:08:58 Chronic infective otitis externa 423637258 H60.392 [id number] Resolved. Mixed cond uctive AND sensorineural hearing loss 80907281 H90.A32 [id number] Right Ear:Border line normal hearing through 2K Hz sloping to a severe SNHL with excellent speech discrimina tion.Type A tympanogra m.Left Ear:Severe MHL with excellent speech discrimina tion.Type B tympanogra m. Bilateral hearing loss 70438183 H90.A21 87484865 Serous otitis media 8032 7007 H65.92 21668371 Dysfunctio n of left eustachian tube 9607651724 572845 H69.92 [id number] MARIAMA RODRIGUEZ [facility] [address] [address] 04/29/2025 11:27:01 04/30/2025 18:06:48 Sensorineural hearing loss of bilateral ears 141629281 H90.3 Mixed cond uctive AND sensorineural hearing loss 31034989 H90.A32 [id number] Right Ear:Border line normal hearing through 2K Hz sloping to a severe SNHL with excellent speech discrimina tion.Type A tympanogra m.Left Ear:Severe MHL with excellent speech discrimina tion.Type B tympanogra m. Health Concerns Section Related Observation LastModified by Organization Ed pyle LastModified Time None Recorded Concern Status LastModified by Organization Details LastModified Time None Recorded Advance Directives Directive None Recorded Payers Insurance Date Sequence Insurance Name Policy Number Policy [place] Covered Member ID [place] Member ID Guarantor Name 04/29/2025 2 JORJE [id number] Kike Uribe [id number] Kike Uribe 04/29/2025 1 MEDICARE [place]: [facility] Kike Uribe [id number] Kike Uribe Notes Date Note Type Note Provider Name and Address Organization Details Recorded Time 12/04/2024 text/html ROS as noted in the HPI 84-year-old male presents for follow-up of eustachian tube dysfunction and updated audiometric testing. He is status post left tympanostomy tube placement on 02/09/[address] Ruiz. Denies otalgia, otorrhea, and changes in his hearing. MARIA EUGENIA SANTOS MD [address] [place] [address], [address], [facility] 12/04/2024 18:01:09 03/27/2025 text/html ROS as noted in the [...] tymps, type B high-volume tymp Ethan Chinchilla, [address] [place] [address], [address], [facility] 03/27/2025 15:26:29 04/08/2025 text/html ROS as noted in the HPI 84 year old male, with a history of eustachian tube dysfunction s/p left tympanostomy tube placement performed 02/09/[address] Ruiz, presents for repeat left ear debridement. Patient completed course of ofloxacin with resolution of otalgia. He continues to endorse some fullness in the left ear. Denies otorrhea. ETHAN JONES MD [address] [place] [address],[address], [address], [facility] - [facility] 04/14/2025 07:53:41 04/29/2025 text/html ROS as noted in the [...] otorrhea, and dizziness. MARY ELLEN HARRINGTON MD [address] [place] [address], [place], [address], [facility] - [facility] 04/29/2025 17:06:39
--- OUTSIDE RECORDS SUMMARY | 2025-06-25 09:01 | XMS_ITS | Continuity of Care Document ---
Author Organization [place] - [facility], [facility] Address [address] [place] [address] Care Team Providers Care Blasting Contract Miner Name Role Phone SHAN VALENCIA Primary Care Provider [phone] Assessment Encounter Date Assessment Date Assessment LastModified by Organization Details LastModified Time 04/29/2025 04/29/2025 84 year old male , [...] if fluid persists. All questions were answered. [email or web address] Not available 04/29/2025 14:55:45 Plan of Treatment [...] Recorded Time Impacted cerumen in left ear [id number] 28176 Active 2019 Impacted cerumen, left ear; Note: Date Diagnosed : 03/04/2020 3:57 PM (H61.22) Ethan Chinchilla, [address],[place] [address], [place], [address] , [facility] 5 15:25:30 Bleeding from nose 523673054 Active 2020 Epistaxis ; Note: Date Diagnosed : 03/02/2021 4:06 PM (R04.0) Not Available [facility] 4 02:46:44 Deviated nasal septum 460186753 Active 2020 Deviated nasal septum; Note: Date Diagnosed : 03/02/2021 4:06 PM (J34.2) Not Available [facility] 4 02:46:52 Impacted cerumen of bilateral ears 80218745484 04528 Active 2020 Impacted cerumen, bilateral ; Note: Date Diagnosed : 03/02/2021 4:06 PM (H61.23) Note: Date Diagnosed : 03/02/2021 4:06 PM (H61.23) Not Available [facility] 4 01:08:39 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 32876111244 100 Active 2021 Sensorine ural hearing loss, unilatera l, right ear, with restricte d hearing on the contralat eral side; Note: Date Diagnosed : 01/24/2022 10:45 AM (H90.A21) Not Available [facility] 4 02:46:52 Disorder of left Eustachia n tube 97935241312 85682 Active 2021 Other specified disorders of Eustachia n tube, left ear; Note: Date Diagnosed : 01/24/2022 10:45 AM (H69.82) Not Available [facility] 4 02:46:53 Mixed conductiv e and sensorine ural hearing loss of left ear 85087708819 107 Active 2021 Mixed conductiv e and sensorine ural hearing loss, unilatera l, left ear with restricte d hearing on the contralat eral side; Note: Date Diagnosed : 01/24/2022 10:45 AM (H90.A32) Not Available [facility] 4 02:46:46 Chronic serous otitis media of left ear 211164524 Active 2022 Chronic serous otitis media, left ear; Note: Date Diagnosed : 02/09/2023 1:16 PM (H65.22) Not Available [facility] 4 02:46:49 Sensorine ural hearing loss of bilateral ears 604250455 Active 2023 SIDNEY CALVO [address], [place], [place], [address] , [place] - [facility] 5 14:42:44 Bilateral disorder of Eustachia n tubes 53072727801 Active 2023 MARIA EUGENIA SANTOS MD [address] [facility], [place], [place], [address] , [place] - [facility] 4 09:39:41 Sensorine ural hearing loss of bilateral ears 418804535 Active 2023 Ethan Chinchilla DO [address] [facility] [address], [place], [place], [address] , [place] - [facility] 5 08:47:36 Otorrhagi a of left ear 37753186083 29137 Active 2024 CHITRA ONEAL PA-C [address], [place], [place], [address] , [place] - [facility] 5 10:04:02 Dysfuncti on of bilateral eustachia n tubes 01208604135 50369 Active 2024 Ethan Chinchilla DO [address] [facility], [place], [place], [address] , [place] - [facility] 5 08:47:24 Chronic infective otitis externa 346055159 Active 2024 Ethan Chinchilla DO [address] [facility],[place] [address], [place], [address] , [place] - [facility] 5 15:26:02 Mixed conductiv e AND sensorine ural hearing loss 46576843 Active 2024 YISEL HATHAWAY, AUD [address], [place], [address] , [place] - [facility] 5 11:31:00 Bilateral hearing loss 90431525 Active 2024 SIDNEY CALVO [address] [facility] [address], [place], [address] , [place] [facility] 5 14:45:03 Serous otitis media 70620996 Active 2024 SIDNEY CALVO [address] [facility] [address], [place], [address] , [facility] - [facility] 5 14:46:49 Dysfuncti on of left eustachia n tube 25760986448 01324 Active 2024 SIDNEY CALVO [address],[place] [address], [place], [address] , [place] - [facility] 14:47:08 Problem Notes None recorded. Procedures Surgical History Date Name Laterality Status Provider Name and Address Organization Details Recorded Time Air & Speech Audio with Tymps - 33424, 75174 & 86719 completed YISEL HATHAWAY, AUD [address],[place] [facility], [place], [address], [facility] - [facility] 04/29/2025 11:35:41 Cerumen removal without microscope left completed SIDNEY CALVO [address] [facility], [place], [address], [place] - [facility] 04/08/2025 18:13:03 5 Cerumen removal with microscope completed Ethan Chinchilla, DO 100 [facility],[address], [address], [facility] - [facility] 03/27/2025 15:24:17 5 Air & Speech Audio with Tymps - 74417, 20861 & 81919 completed THOM DOBBINS, AUD [address] [facility],[address], [address], [facility] - [facility] 12/04/2024 09:52:31 5 Cerumen removal without microscope bilat completed CHITRA ONEAL PA-C [address] [facility],[address], [address], [facility] - [facility] 12/04/2024 10:03:41 4 Cerumen removal with microscope completed MARIA EUGENIA SANTOS MD [address] [facility],[address], [address], [facility] - [facility] 06/05/2024 09:32:50 Imaging Results None recorded. Procedure Notes None recorded. Medical Equipment None Reported. Allergies No known drug allergies Medications Name Sig Start Date Stop Date Status Note LastModified by Organization Details LastModified Time furosemid e 40 mg tablet 2019 active Medicati on ID: [id number] D uration Value: 30 Brand Name: furosemi [...] 24 hr 06/05 completed Medicati on ID: [id number] D uration Value: 30 Brand Name: metoprol [...] mcg tablet 06/05 completed Medicati on ID: 666992 D uration Value: 30 Brand Name: levothyr [...] mg tablet 06/05 completed Medicati on ID: 158849 D uration Value: 30 Brand Name: lisinopr il Send Method: E-Prescr ibed Sub s Allowed: subs OK Speci al Instruct ion: TAKE 1 TABLET BY MOUTH EVERY DAY Medi cationGe nericNam e: lisinopr il Not Available Not Available Not Available furosemid e 20 mg tablet 06/05 completed Medicati on ID: [id number] D uration Value: 30 Brand Name: furosemi [...] B-Complex tablet 2019 active Medicati on ID: 077027 B rand Name: B-Comple x Send Method: [...] unit) tablet 2019 active Medicati on ID: 088152 B rand Name: Vitamin D3 Send Method: E-Prescr ibed Sub s Allowed: subs OK Medic ationGen ericName : Vitamin D3 Not Available Not Available Not Available Flonase Allergy Relief 50 mcg/actua tion nasal spray,thania pension [place] 2 spray into both nostrils once a day 2021 active Medicati on ID: 697821 D uration Value: 30 Prescri bed By [...] Updated DateTime 04/29/2025 160.02 cm 20.5 kg/m2 60592.71 g Nickie Hassan [place] - [facility] 04/29/2025 11:00:42 Social History None recorded. Functional Status None recorded. Mental Status None recorded. Family History Nothing Reported. Medical History Condition Response Diabetes Y Anemia Y Thyroid Problems Y Hypertension Y High Cholesterol Y Past Encounters Encounter ID Performer Location Encounter Start Date Encounter Closed Date Diagnosis/Indication Diagnosis SNOMED-CT Code Diagnosis ICD10 Code Diagnosis IMO Codes Diagnosis Note [id number] SIDNEY CALVO [facility] of [address] [address] 04/08/2025 11:00:09 04/08/2025 12:11:58 Dysfunction of bilateral eustachian tubes 8180780918 728175 H69.93 53344979 Sensorineu ral hearing loss of bilateral ears 673139414 H90.3 26851206 Impacted c erumen in left ear 1038559362 208204 H61.22 710133 Chronic in fective otitis externa 301607392 H60.392 88437838 [id number] SIDNEY CALVO [facility] of [address] [address] 04/29/2025 10:48:51 04/29/2025 12:08:58 Chronic infective otitis externa 373137536 H60.392 74753294 Resolved. Mixed cond uctive AND sensorineural hearing loss 34842816 H90.A32 64742358 Right Ear:Border line normal hearing through 2K Hz sloping to a severe SNHL with excellent speech discrimina tion.Type A tympanogra m.Left Ear:Severe MHL with excellent speech discrimina tion.Type B tympanogra m. Bilateral hearing loss 07566202 H90.A21 27228294 Serous otitis media 8032 7007 H65.92 82876588 Dysfunctio n of left eustachian tube 4718001936 293119 H69.92 [id number] MARIAMA RODRIGUEZ [facility] of [address] [address] 04/29/2025 11:27:01 04/30/2025 18:06:48 Sensorineural hearing loss of bilateral ears 856465105 H90.3 Mixed cond uctive AND sensorineural hearing loss 36256473 H90.A32 66222235 Right Ear:Border line normal hearing through 2K [...] Member ID Guarantor Name 04/29/2025 2 [employer] [id number] Kike Uribe [id number] Kike Uribe 04/29/2025 1 MEDICARE B-[place]: [employer] Kike Uribe [id number] Kike Uribe Notes Date Note Type [...] otorrhea, and dizziness. MARY ELLEN HARRINGTON MD [address] [place] [address], [place], [address], [facility] - [facility] 04/29/2025 17:06:39
--- OUTSIDE RECORDS SUMMARY | 2025-06-25 09:01 | XMS_ITS | Encounter Summary ---
Author Organization [facility] Address [address] [place] [address] Phone Care Team Providers Care Video Player Mechanic Name Role Phone Alida Weber Primary Care Provider [phone] Encounter Details Date Type Department Care Team (Late st Contact Info) Description 12/14/2022 Telephone [facility] [address] [place] [address] Saima Terry Social History Tobacco Use Types Packs/Day Years [...] on file documented as of this encounter Miscellaneous Notes * Telephone Encounter - Saima Terry - 12/14/2022 1:18 PM EDT Pt called to relay that both his ankles have been swollen for two days now, he believes this is dueto his recent medication changes by Dr. Hernandez. Pt believes medication is not doing what it's suppose to do he would like CB to be advised. documented in this encounter Plan of Treatment Not on file documented as of this encounter Visit Diagnoses Not on filedocumented in this encounter Care Teams Video Player Mechanic Relationship Specialty Start Date End Date Alida Weber 4 [facility] [place] [address] PCP - General 10/12/22 documented as of this encounter
--- OUTSIDE RECORDS SUMMARY | 2025-06-25 09:01 | XMS_ITS | Encounter Summary ---
Author Organization [facility] Address [address] [place] [address] Phone Care Team Providers Care Clinical Staff Educator Name Role Phone Elton Webernereyda Primary Care Provider [phone] Encounter Details Date Type Department Care Team ([facility] st Contact Info) Description 06/20/2025 Treatment [facility] [address] [address] Ge Rose MD [facility] [address] [address] End stage renal disease; Dependence on renal dialysis Social History Tobacco Use Types Packs/Day Years [...] as of this encounter Miscellaneous Notes * Dialysis Note - Ge Rose MD - 06/20/2025 12:00 AM EST BASIC NOTE Patient: Kike Uribe : 1940 Note Author: GE ROSE MD Service Date: 06/20/2025 This patient was personally seen [id number] for a basic visit as part of routine monthly dialysis care for end stage renal disease. Attending Asset Management Coordinator: GE ROSE Dialysis Location: [facility] Schedule: Shift: 1 HOME MEDICATIONS Current [facility] Medications acetaminophen (TYLENOL) 500 MG tablet Take by mouth every 6 (six) hours if needed Start Date: atorvastatin (LIPITOR) 80 MG tablet TAKE 1 TABLET (80 MG TOTAL) BY MOUTH AT BED TIME Start Date: 04/20/2023 B COMPLEX VITAMINS ER PO Take by mouth Start Date: calcitriol (Rocaltrol) 0.25 MCG capsule Take 1 capsule (0.25 mcg total) by mouth 1 (one) time each day Start Date: 01/01/2025 carvedilol (COREG) 6.25 MG tablet Take 6.25 mg by mouth in the morning and 6.25 mg in the evening. Take with meals. Start Date: Epoetin Emile-epbx (RETACRIT IJ) Inject as directed Start Date: ezetimibe (ZETIA) 10 MG tablet TAKE 1 TABLET BY MOUTH 1 TIME EACH DAY. Start Date: 05/04/2023 levothyroxine (SYNTHROID, LEVOTHROID) 112 MCG tablet Take 112 mcg by mouth 1 (one) time each day Start Date: 06/02/2023 sodium bicarbonate 650 MG tablet Take 2 tablets (1,300 mg total) by mouth in the morning and 2 tablets (1,300 mg total) in the evening and 2 tablets (1,300 mg total) before bedtime. Start Date: 12/11/2024 Sodium Zirconium Cyclosilicate (Lokelma) 10 g pack Take 1 packet by mouth 4 (four) times a week Start Date: 01/30/2025 torsemide (DEMADEX) 20 MG tablet Take 3 tablets (60 mg total) by mouth 1 (one) time each day Take 2 tablets in the AM and 1 tablet in the PM Start Date: 01/07/2025 Current [facility] Allergies Allergen: SULFA ANTIBIOTICS Reaction: Other (see comments) ADEQUACY ASSESSMENT Kt/V, Natural Log 1.38 (06/16/25) 1.48 (05/28/25) 1.73 (05/07/25) UREA REDUCTION RATIO (%) 70 (06/16/25) 72 (05/28/25) 76 (05/07/25) BUN 64 (06/16/25) 39 (05/28/25) 51 (05/07/25) BUN Post Dialysis 19 (06/16/25) 11 (05/28/25) 12 (05/07/25) Creatinine 4.81 (06/16/25) 4.01 (05/28/25) 4.31 (05/07/25) Bicarbonate (CO2) 26 (06/16/25) 28 (05/28/25) 28 (05/07/25) Sodium 134 (06/16/25) 132 (05/28/25) 130 (05/07/25) ANEMIA ASSESSMENT Hgb 7.7 (06/16/25) 7.9 (06/04/25) 7.0 (05/28/25) Hemoglobin 8.2 (12/31/24) 8.0 (11/25/24) 8.4 (10/23/24) Iron Saturation (TSat) 32 (06/16/25) 38 (05/28/25) 62 (05/07/25) Ferritin 689 (06/16/25) 663 (05/28/25) 818 (05/07/25) Iron 96 (06/16/25) 100 (05/28/25) 163 (05/07/25) TIBC 295 (06/16/25) 260 (05/28/25) 263 (05/07/25) MCV 105.2 (06/16/25) 103.4 (05/28/25) 98.6 (05/07/25) Platelets 113 (06/16/25) 90 (05/28/25) 99 (05/07/25) COMMENTS: Hb 6.5 so will arrange xfusion at [facility] after hd today BMM ASSESSMENT Calcium, Adjusted Total 9.7 06/16/25 9.3 05/28/25 9.4 05/07/25 Calcium 9.5 06/16/25 9.2 05/28/25 9.4 05/07/25 Phosphorus, Serum 4.6 06/16/25 4.6 05/28/25 5.4 05/14/25 Phosphorus 5.5 12/31/24 1.6 11/25/24 3.2 10/23/24 Ca*PO4 43.7 06/16/25 42.3 05/28/25 54.5 05/07/25 PTH, Intact 662 06/16/25 876 06/11/25 830 05/28/25 PTH 757 12/31/24 397 11/25/24 268 10/23/24 Vitamin D, 25-Hydroxy 70 05/28/25 61 02/21/25 Vitamin D, 25-OH, Total 51.5 06/27/24 Magnesium 2.2 06/16/25 2.0 05/28/25 1.9 05/07/25 Alkaline Phosphatase 103 06/16/25 109 05/28/25 103 05/07/25 Aluminum 4 06/16/25 3 05/28/25 4 02/21/25 NUTRITION ASSESSMENT Albumin 3.8 06/16/25 3.9 05/28/25 4.0 05/07/25 Potassium 4.2 06/18/25 4.3 06/16/25 4.5 06/11/25 Glucose 93 06/16/25 85 05/28/25 87 05/07/25 Hemoglobin A1C 4.6 06/16/25 4.8 05/28/25 ADDITIONAL LABS White Blood Cells 7.0 (06/16/25) 5.2 (05/28/25) 6.8 (05/07/25) WBC 6.0 (12/31/24) 6.3 (11/25/24) 6.4 (10/23/24) Cholesterol 79 (06/16/25) 83 (05/28/25) 86 (05/07/25) HDL 47 (06/16/25) 43 (05/28/25) 51 (05/07/25) LDL-Calc 25 (06/16/25) 28 (05/28/25) 25 (05/07/25) Triglycerides 37 (06/16/25) 60 (05/28/25) 52 (05/07/25) Hep B Surface Antibody ?4 (02/21/25) Uric Acid 6.0 (06/16/25) 5.2 (05/28/25) 7.2 (02/21/25) Chol/HDL Ratio 1.7 (06/16/25) 1.9 (05/28/25) 1.7 (05/07/25) ALT (SGPT) 77 (06/16/25) 87 (05/28/25) 49 (05/07/25) AST (SGOT) 73 (06/16/25) 60 (05/28/25) 31 (05/07/25) ADDITIONAL COMMENT COMMENTS: 02/24/25 adjusting to HD 03/03/25 doing ok 03/05/25 stable 03/10/25 doing ok 03/17/25 same 03/24/25 no new issues 06/09/25 d/chava summers 04/11/25 doing well 04/14/25 stable 04/23/25 no new issues 05/05/25 stabe 05/16/25 stable 05/26/25 stable 06/02/25 no new issues 06/16/25 stable 06/20/25 doing ok Signed by: GE ROSE MD on 06/22/2025 at 10:32:18 AM Transcribed by: GE ROSE MD on 06/22/2025 at 10:32:18 AM documented in this encounter Plan of Treatment Not on file documented as of this encounter Visit Diagnoses Diagnosis End stage renal disease Dependence on renal dialysis documented in this encounter Care Teams Clinical Staff Educator Relationship Specialty Start Date End Date Alida Weber [address] [place] [address] PCP - General 10/12/22 documented as of this encounter
--- OUTSIDE RECORDS SUMMARY | 2025-06-25 09:03 | XMS_ITS | Encounter Summary ---
Author Organization [facility] Address [address] [place] [address] Care Team Providers Care Basket Braider Name Role Phone Alida Weber MD Primary Care Provider Encounter Details Date Type Department Care Team ([facility] [address] Contact Info) Description 05/20/2025 Telephone Adult Medicine [address] [phone] Jacquie Nicole, [place] Social History Tobacco Use Types Packs/Day Years [...] care for your loved ones. For example, child and adolescent psychologist or elderly care for an older adult? [...] of Assessment Author No 04/07/2025 11:47 AM EDT Randee Fam RN * Are you blind or do you have serious difficulty seeing, even when wearing glasses? Answer Date of Assessment Author No 04/07/2025 11:47 AM EDT Randee Fam RN * Do you have serious difficulty walking or climbing stairs? Answer Date of Assessment Author Yes 04/07/2025 11:47 AM EDT Randee Fam RN * Do you have serious difficulty dressing or bathing? Answer Date of Assessment Author Yes 04/07/2025 11:47 AM EDT Randee Fam RN * Because of a physical, mental, or emotional condition, do you have serious difficulty doing errandsalone such as visiting the doctor? Answer Date of Assessment Author Yes 04/07/2025 11:47 AM EDT Randee Fam RN documented as of this encounter Mental Status * Because of a physical, mental, or emotional condition, do you have serious difficulty concentrating, remembering, or making decisions? (5 years old or older) Answer Entry Date Author No 04/07/2025 11:47 AM EDT Randee Fam RN documented in this encounter Progress Notes * Jacquie Nicole RN - 05/20/2025 11:53 AM EDT Pt needs to reschedule his ccv , documented in this encounter Plan of Treatment Upcoming Encounters Date Type Department Care Team (Late st Contact Info) Description 07/22/2025 2:00 PM EST Office Visit Adult Medicine [address] [phone] Alida Weber MD [address] [place] [address] 07/24/2025 4:00 PM EST Office Visit Vascular Surgery - [place] [address] [address] Senait España PA [address] [address] 07/29/2025 4:00 PM EST Office Visit Endocrinology [address] [phone] Rosa Roth PA [address] [place] [address] 08/12/2025 9:[address] [facility] Cardiology [facility] [address] [place] [phone] Franky Choudhury MD [address] [place] [address] [address] [place] [address] 08/26/2025 10:30 AM EST Clinical Support Pulmonology - [place] [address] [facility] 200 [place] [address] 09/02/2025 10:45 AM EST Office Visit Pulmonology [facility] 200 [place] [address] Lore Myers MD [address] [place] [phone] 05/05/2026 9:00 AM EDT Ancillary Procedure [facility] [address] 300 [facility] [address] [place] [phone] documented as of this encounter Visit Diagnoses Not on filedocumented in this encounter Additional Health Concerns Assessment Noted Time PHQ-9 Depression Total Score: 0 02/20/20 25 9:35 AM EDT documented as of this encounter Care Teams Basket Braider Relationship Specialty Start Date End Date Alida Weber MD [address] [place] [address] PCP - General 10/26/22 documented as of this encounter
--- OUTSIDE RECORDS SUMMARY | 2025-06-25 09:03 | XMS_ITS | Encounter Summary ---
Author Organization [facility] Address [address] [place] [address] Care Team Providers Care Testing And Regulating Technician Name Role Phone Alida Weber MD Primary Care Provider Reason for Visit * Reason Onset Date Comments Forms/questionnaires 06/02/2025 RMV Encounter Details Date Type Department Care Team ([facility] st Contact Info) Description 06/02/2025 Telephone Adult Medicine [facility] [address] [place] [address] Alida Weber MD [address] [place] [address] Social History Tobacco Use Types Packs/Day Years [...] ed Within the last 3 months, jose mcneil many times did you visit the emergency [...] do you feel lonely or isolated from ose around you? Never 05/20/2025 Food Risk [...] for your loved ones. For example, children's book author or elderly care for an older adult? [...] documented in this encounter Progress Notes * Nathalie Giraldo MA - 06/17/2025 10:34 AM EST Form placed in Dr Weber's green folder on his desk. * Milagros Williamson - 06/02/2025 12:59 PM EDT If patient presents with the one of the forms directly below the direct patient with their forms toMedical Records to be completed by [place]. All [facility] disability forms ONLY All [employer] requests for Worker's Compensation Motor vehicle accident [facility] Physical forms for long-term housing Life insurance FORMS TO BE COMPLETED IN THE PRACTICE: Type of form: Handicap placard Release of information form ( all sections) has been completed and signed. Yes If this form is for the Registry of Motor Vechicles for a handicap placard or plate is the patient go to be: N/A - not a registry form Is the patient still driving? Unsure For what medical problem does the patient need this form completed? Is patients name on the form? Yes Is the patients portion (demographics) of the form completed? Yes Did the patient sign the form? Yes Which provider is form to be completed by? Alida Weber MD Patient requesting the form be: Will meat pickler-call when completed: (home) If form is not to be picked up by patient has patient been informed that RELEASE OF INFO form must be signed by them for alternate person to meat pickler form? No Patient has been informed that completion will be in 7-10 business days: Yes documented in this encounter Plan of Treatment Upcoming Encounters Date Type Department Care Team (Late st Contact Info) Description 07/22/2025 2:00 PM EST Office Visit Adult Medicine [address] [phone] Alida Weber MD [address] [place], [place] 07/24/2025 4:00 PM EST Office Visit Vascular Surgery - [place] 300 [facility] [address] [place] [address] Senait España PA 300 [facility] [address] [place] [address] 07/29/2025 4:00 PM EST Office Visit Endocrinology [address] [phone] Rosa Roth PA [address] [place], [place] 08/12/2025 9:00 AM EST Consult [facility] Dr Zuniga [facility] Dr [address] [place] [phone] Franky Choudhury MD [address] [place] [address] Dr Polanco [address] [place] [address] 08/26/2025 10:30 AM EST Clinical Support Pulmonology - [place] 175 [facility] [address] [place] [phone] 09/02/2025 10:45 AM EST Office Visit Pulmonology - [place] 175 [facility] [address] [place] [phone] Lore Myers MD [address] [place] [phone] 05/05/2026 9:00 AM EDT Ancillary Procedure [facility] - [facility] 154 300 [facility] [address] [place] [phone] documented as of this encounter Visit Diagnoses Not on filedocumented in this encounter Additional Health Concerns Assessment Noted Time PHQ-9 Depression Total Score: 0 02/20/20 25 9:35 AM EDT documented as of this encounter Care Teams Testing And Regulating Technician Relationship Specialty Start Date End Date Alida Weber MD [address] [place] [address] PCP - General 10/26/22 documented as of this encounter
--- OUTSIDE RECORDS SUMMARY | 2025-06-25 09:03 | XMS_ITS | Encounter Summary ---
Author Organization [facility] Address [address] [place] [address] Care Team Providers Care National Guard Member Name Role Phone Alida Weber MD Primary Care Provider Reason for Referral * Consultation (Routine) - Authorized Specialty Diagnoses / Procedures Referred By Lillian govea Referred To Contact Neurology Diagnoses Memory loss Alida Weber MD [address] [place], [place] Phone: tel: fax: Referral ID Status Reason Start Date Expiration Date Visits Requested Visits Authorized [id number] Authorized Specialty Services Required 06/24/2026 1 1 Reason for Visit * Reason Onset Date Comments Referral 06/23/2025 Encounter Details Date Type Department Care Team (Late st Contact Info) Description 06/23/2025 Telephone Adult Medicine [facility] [address] [place] [address] Alida Weber MD [address] [place] [address] Social History Tobacco Use Types Packs/Day Years [...] care for your loved ones. For example, childcare attendant or elderly care for an older [...] of Assessment Author No 04/07/2025 11:47 AM DAMARIST Randee Fam RN * Do you have [...] Progress Notes * Jacquie Nicole RN - 06/24/2025 11:15 AM EST Message to pastora to clarify Pt will need new referral * Milagros Williamson - 06/23/2025 10:18 AM EST The patients sister Pastora would like Dr. Weber to know that [facility] but they are accepting new patients at this time. documented in this encounter Plan of Treatment Upcoming Encounters Date Type Department Care Team (Late st Contact Info) Description 07/22/2025 2:00 PM EST Office Visit Adult Medicine [facility] [address] [place] [address] Alida Weber MD [address] [place], [place] 07/24/2025 4:00 PM EST Office Visit Vascular Surgery [facility] 300 [facility] [address] [place] [phone] Senait España PA 300 [facility] [address] [place] [address] 07/29/2025 4:00 PM EST Office Visit Endocrinology [facility] [address] [place] [address] Rosa Roth PA [address] [place] [address] 08/12/2025 9:00 AM EST Consult [facility] [address] [place] [address] Dr Greenfield [address] [place] [phone] Franky Choudhury MD [address] [place] [address] Dr Polanco [address] [place] [phone] 08/26/2025 10:30 AM EST Clinical Support Pulmonology - [place] 175 [facility] [address] [place] [phone] 09/02/2025 10:45 AM EST Office Visit Pulmonology - [place] 175 [facility] 200 [place] [phone] Lore Myers MD [address] [place] [phone] 05/05/2026 9:00 AM EDT Ancillary Procedure [facility] - [address] [facility] [address] [place] [address] Scheduled Referrals Name Type Priority Associated Diagnoses Order Schedule Ambulatory referral to Neurology Outpatient Referral Routine Memory loss 1 Occurrences starting 06/24/2025 until 06/24/2026 documented as of this encounter Visit Diagnoses Diagnosis Memory loss- Primary Encounter for adjustment or management of cardiac device documented in this encounter Additional Health Concerns Assessment Noted Time PHQ-9 Depression Total Score: 0 02/20/20 25 9:35 AM EDT documented as of this encounter Care Teams National Guard Member Relationship Specialty Start Date End Date Alida Weber MD [address] [place] [address] PCP - General 10/26/22 documented as of this encounter
--- OUTSIDE RECORDS SUMMARY | 2025-06-25 09:04 | XMS_ITS | Encounter Summary ---
Author Organization [facility] Address [address] [place] [address] Care Team Providers Care Auto Wash Buffer Name Role Phone Alida Weber MD Primary Care Provider Encounter Details Date Type Department Care Team ([facility] Contact Info) Description 05/07/2025 Results Follow-Up Pulmonology - [place] [address] [place] [phone] Lore Myers MD [address] [place] [phone] Social History Tobacco Use Types Packs/Day Years [...] your loved ones. For example, early childhood services coordinator or elderly care for an older adult? [...] of Assessment Author Yes 04/07/2025 11:47 AM DAMARIST Randee Fam RN [...] documented in this encounter Progress Notes * Lore Myers MD - 05/07/2025 9:23 PM EDT Inform patient chest x-ray showed similar pleural effusion. I will discuss with him during follow-up visit on 05/15/2025. documented in this encounter Plan of Treatment Upcoming Encounters Date Type Department Care Team (Late st Contact Info) Description 07/22/2025 2:00 PM EST Office Visit Adult Medicine [facility] [address] [place] [address] Alida Weber MD [address] [place] [address] 07/24/2025 4:00 PM EST Office Visit Vascular Surgery - [place] 300 [facility] 210 [place] [phone] Senait España PA 300 [facility] 210 [place] [address] 07/29/2025 4:00 PM EST Office Visit Endocrinology - [place] [address] [place] [address] Rosa Roth PA [address] [place] [address] 08/12/2025 9:00 AM EST Consult [facility] - [facility] [address] [place] [phone] Franky Choudhury MD [address] [place] [address] Dr Collin [address] [place] [phone] 08/26/2025 10:30 AM EST Clinical Support Pulmonology [facility] 175 [facility] 200 [place] [phone] 09/02/2025 10:45 AM EST Office Visit Pulmonology - [place] 175 [facility] 200 [place] [phone] Lore Myers MD [address] [place] [phone] 05/05/2026 9:00 AM EDT Ancillary Procedure [facility] 154 300 [facility] 154 [place] [phone] documented as of this encounter Visit Diagnoses Not on filedocumented in this encounter Additional Health Concerns Assessment Noted Time PHQ-9 Depression Total Score: 0 02/20/20 25 9:35 AM EDT documented as of this encounter Care Teams Auto Wash Buffer Relationship Specialty Start Date End Date Alida Weber MD [address] [place], [place] PCP - General 10/26/22 documented as of this encounter
== END 2025-06-24 14:57 | disposition home or self-care (01) ==
LOC: HO.HPHYS 14:06
PROVIDERS: PCP Internal Medicine; Visit Provider Physician Assistant
DX: M54.2 Cervicalgia (principal); M47.812 Spondylosis without myelopathy or radiculopathy, cervical region
CPT/HCPCS: 99213

== ENCOUNTER → 2025-06-24 14:06 | Outpatient (BNVA) | payer MEDICARE, OTHER, SELFPAY | PROVIDERS: PCP Internal Medicine; Visit Provider Physician Assistant | DX: M54.2 Cervicalgia (principal); M47.812 Spondylosis without myelopathy or radiculopathy, cervical region | CPT/HCPCS: 99212 ==

== ENCOUNTER 2025-06-30 11:40 | Day surgery (SDC) | payer MEDICARE, OTHER, SELFPAY ==
--- NOTE | ~2025-06-30 | FL_ITS ---
EXAMINATION: FL GUIDANCE ONLY HISTORY: Procedural guidance COMPARISON: None available. TECHNIQUE: Fluoroscopy time: 48 seconds. Cumulative Dose: 6.10 mGy. DAP: 266.74 uGym2 Images: 6. FINDINGS: Fluoroscopic spot films of the cervical spine demonstrate needles and contrast material in place at multiple levels bilaterally. FL/FL guidance in OR IMPRESSION: Fluoroscopy during procedure. Please see procedure report for additional information. Electronically signed by: Shamar Thibodeaux MD 06/30/2025 02:38 PM EST
[2025-06-30 11:52] VITALS: BMI 28.3
[2025-06-30 12:02] VITALS: BP 148/42; PULSE 64; RESP 16; TEMP 36.7; O2SAT 98
--- NOTE | 2025-06-30 12:14 | MHC.SHP ---
Pre-Procedural Eval Section A - 24 Hr Update-Section A only Date of Service: 06/30/25 The patient is an INPATIENT: No The patient has been examined within 24 hours of the surgical procedure. 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 Relevant Family History (Specify if Yes): No Relevant Social History: None Present Medications: see Short Stay Collaborative assessment Medical History: No relevant PMH History of Previous Operations: No relevant previous surgery Allergies: Allergies Allergy/AdvReac Type Severity Reaction Status Date / Time aspirin Allergy Unknown Unknown Verified 06/24/25 14:17 Sulfa (Sulfonamide Allergy Unknown Unknown Verified 06/24/25 14:17 Antibiotics) sulfamethoxazole Allergy Unknown Unknown Verified 06/24/25 14:17 Review of Systems Sugical H&P ROS: Negative: Constitution, Cardiovascular, Respiratory, Neurological, Psychiatric, Hem-Onc, Allergic/Immunologic, Gastrointestinal, Genitourinary, Musculoskeletal, Integumentary, Endocrine and Eyes/Ears/Nose/Throat Exam Surgical H&P Exam: Normal: HEENT, Normal: Heart, Normal: Lungs, Normal: Extremities, Normal: Abdomen, Normal: Skin and Normal: Neurological Plan Diagnosis/Plan: Unchanged I have reviewed the history and physical and performed a pertinent physical examination on my patient. No changes have occurred unless specified. Time Spent With Patient Time: Total time managing care of this patient today ____ minutes.
--- NOTE | 2025-06-30 12:17 | W.PM.OPN ---
Operative Note Operative Note Date of Service: 06/30/25 Narrative: Procedure performed: Bilateral C4-C5, C5-C6, C6-C7 facet injections Preop diagnosis: Cervical facet arthropathy Postop diagnosis: The same Anesthesia: Local After informed consent was obtained, patient was brought into the procedure room and placed in the prone position on the procedure table. Skin over posterior aspect of the neck was prepped and draped in usual sterile manner. The facet joints indicated above were visualized utilizing fluoroscopy. For each joint 3.5 in 22 gauge spinal needle was introduced percutaneously and advanced to enter the joint cavity. Needle placement was verified utilizing 0.2 cc of Omnipaque contrast solution. Each joint received 1 cc of therapeutic solution containing 20 mg of triamcinolone and 0.5% Marcaine. Radiation exposure was reported and documented in the chart.
[2025-06-30 13:20] VITALS: BP 158/51; PULSE 65; RESP 16; TEMP 36.8; O2SAT 100
--- OUTSIDE RECORDS SUMMARY | 2025-06-30 15:18 | XMS_ITS ---
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 ([facility] V24, [facility] V28) 02/24/2025 Plantar wart 02/24/2025 Acquired hammer toe of left foot 02/24/2025 Acquired hammer toe of right foot 02/24/2025 Rib fractures 02/06/2025 Otorrhagia of left ear 12/04/2024 Type 2 diabetes mellitus, wi out long-term current use of insulin ([facility] V24, [facility] V28) 10/18/2024 Bradycardia 10/18/2024 Primary hypertension 07/19/2024 Paroxysmal atrial fibrillation ([facility] V24, [facility] V28) 07/19/2024 Assessment & Plan (06/24/2025 [...] dialysis, without long-term current use of insulin ([facility] V24, [facility] V28) 05/09/2024 Secondary hyperparathyroidism of renal origin ([facility] V24) 03/27/2024 Hyperkalemia 03/27/2024 Hypothyroidism 12/14/2023 White coat syndrome with diagnosis of hypertensi on 12/14/2023 CAD (coronary artery disease) 09/15/2023 CHF (congestive heart failure) ([facility] V24, [facility] V28) 09/15/2023 CKD (chronic kidney disease) stage 5, GFR less than 15 ml/min ([facility] V24, [facility] V28) 09/12/2023 Atelectasis of right lung [...] 03/04/2020 3:57 PM (H61.22) Chronic lymphocytic leukemia ([facility] V24, [facility] V28) 12/22/2017 Hypothyroidism due to [...]
--- OUTSIDE RECORDS SUMMARY | 2025-06-30 15:18 | XMS_ITS | Encounter Summary ---
Author Organization [facility] Address [address] [place] [address] Care Team Providers Care Dynamite Packing Machine Operator Name Role Phone Alida Weber MD Primary Care Provider Reason for Visit * Reason Comments [facility] [id number] Encounter Details Date Type Department Care Team ([facility] Contact Info) Description 04/24/2025 Billing Patient Not Present Adult Medicine [facility] [address] [place] [address] Alida Weber MD [address] [place], [place] Social History Tobacco Use Types Packs/Day [...] for your loved ones. For example, child day care teacher or elderly care for an older [...] 2:00 PM EST Office Visit Adult Medicine [address] [phone] Alida Weber MD [address] [place] [address] 07/24/2025 4:00 PM EST Office Visit Vascular Surgery - [place] [address] [phone] Senait España PA [address] [address] 07/29/2025 4:00 PM EST Office Visit Endocrinology [address] [phone] Rosa Roth PA [address] [place] [address] 08/12/2025 9:00 AM EST Consult [facility] [address] [place] [phone] Franky Choudhury MD [address] [place] [address] Dr Collin [address] [place] [phone] 08/26/2025 10:30 AM EST Clinical Support Pulmonology [facility] 175 [facility] 200 [place] [phone] 09/02/2025 10:45 AM EST Office Visit Pulmonology [facility] 175 [facility] 200 [place] [address] Lore Myers MD [address] [place] [phone] 05/05/2026 9:00 AM EDT Ancillary Procedure [facility] [address] [facility] [address] [place] [phone] documented as of this encounter Visit Diagnoses Not on filedocumented in this encounter Additional Health Concerns Assessment Noted Time PHQ-9 Depression Total Score: 0 02/20/20 25 9:35 AM EDT documented as of this encounter Care Teams Dynamite Packing Machine Operator Relationship Specialty Start Date End Date Alida Weber MD [address] [place] [address] PCP - General 10/26/22 documented as of this encounter
--- OUTSIDE RECORDS SUMMARY | 2025-06-30 15:18 | XMS_ITS ---
Author Organization [facility] Address [address] [place] [address] Care Team Providers Care Perioperative Tech Name Role Phone Alida Weber MD Primary Care Provider [phone] Active Problems Problem Noted Date Diagnosed Date [...] treatments are documented for this patient in [facility]. Treatments may have been administered in another system.
--- OUTSIDE RECORDS SUMMARY | 2025-06-30 15:18 | XMS_ITS | Clinical Summary ---
Author Organization [facility] Address [address] [place] [address] Care Team Providers Care Keymodule Assembly Supervisor Name Role Phone Alida Weber MD [...] a week 0 Active epoetin del-epbx (Retacrit) 61857 UNIT/ML SOLN injection once. 0 Ac tive [...] age to complete this topic Care Teams Keymodule Assembly Supervisor Relationship Specialty Start Date End Date Alida Weber MD [address] [place] [address] PCP - General Internal Medicine 10/26/22
--- OUTSIDE RECORDS SUMMARY | 2025-06-30 15:19 | XMS_ITS | Clinical Summary ---
Author Organization [facility] [address] [place] [address] Address [address] [place], [place] Phone Care Team Providers Care Help Desk Consultant Name Role Phone Alida Weber MD Primary Care Provider [phone] Allergies Active Allergy Reactions Criticality Noted Date [...] ns:ESRD (end stage renal disease) on dialysis [place] [place] [facility] [place] Take 1 capsule (0.25 mcg total) by mouth 1 (one) time each day. 90 each 025 2025 Active albuterol HFA (PROAIR HFA ; PROVENTIL HFA ; VENTOLIN HFA) 90 mcg/actuation inhaler Inhale 2 puffs by mouth every 6 (six) hours if needed for wheezing or shortness of breath. 6.7 g 2 2024 Active midodrine (PROAMATINE) 5 mg tablet Take 1 tablet (5 mg total) by mouth 1 (one) time each day. 90 each 2025 Active carvediloL (COREG) 3.125 mg tablet Take 1 tablet (3.125 mg total) by mouth 2 (two) times a day with meals. 180 each 2025 Active FreeStyle Lancets 28 gauge lancets Use to test blood glucose once daily before a meal 100 each 1 Active sevelamer carbonate (RENVELA) 800 mg tabletIndication s:ESRD (end stage renal disease) on dialysis [place] [place] [facility] [place] Take 1 tablet (800 mg total) by mouth 3 (three) times a day with meals. Swallow tablet whole; do not crush, break, or chew. 270 each 1 025 2025 Active levothyroxine (SYNTHROID, LEVOTHROID) 112 mcg tablet Take 1 tablet (112 mcg total) by mouth 1 (one) time each day before breakfast. 90 each 025 2025 Active levothyroxine (SYNTHROID, LEVOTHROID) 125 mcg tablet Take 1 tablet (125 mcg total) by mouth 1 (one) time each day. 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 90 each 2024 Discontinued(R eorder) cholecalciferol (VITAMIN D-3) 125 mcg (5,000 unit) capsule Take 1 capsule (5,000 Units total) by mouth 1 (one) time each day. 90 each 025 2024 Discontinued ezetimibe (ZETIA) 10 mg tablet Take 1 tablet (10 mg total) by mouth 1 (one) time each day. 90 each 2024 Discontinued(R eorder) midodrine (PROAMATINE) 5 mg [...] daily before a meal 100 each 1 2024 Discontinued(R eorder) sevelamer carbonate (RENVELA) 800 mg tabletIndication s:ESRD (end stage renal disease) on dialysis ([facility] V24, [facility] V28) Take 1 tablet (800 mg total) by mouth 3 (three) times a day with meals. Swallow tablet whole; do not crush, break, or chew. 270 each 1 2024 Discontinued(R eorder) carvediloL (COREG) 3.125 mg tablet Take 1 tablet (3.125 mg total) by mouth 2 (two) times a day with meals. 180 each 025 2024 Discontinued(R eorder) potassium chloride (KLOR-CON M20) 20 mEq CR tablet Take 2 tablets (40 mEq total) by mouth 2 (two) times a day for 2 doses. Tablet may be swallowed whole (do not crush/chew/suc k on) OR broken in half and each half swallowed separately OR dissolved (whole tablet) in ~4 ounces of water (allow ~2 minutes to dissolve, stir well and administer immediately). 4 each 025 2024 Active Problems Problem Noted Date Diagnosed Date Bilateral hearing loss 04/29/2025 Serous otitis media 04/29/2025 Chronic infective otitis externa 03/27/2025 Symptomatic anemia 03/07/2025 Peripheral angiopathy due to type 2 diabetes mellitus ([facility] V24, [facility] V28) 02/24/2025 Plantar wart 02/24/2025 Acquired hammer toe of left foot 02/24/2025 Acquired hammer toe of right foot 02/24/2025 Rib fractures 02/06/2025 Otorrhagia of left ear 12/04/2024 Type 2 diabetes mellitus, [facility] long-term current use of insulin ([facility] V24, [facility] V28) 10/18/2024 Bradycardia 10/18/2024 Primary hypertension 07/19/2024 Paroxysmal atrial fibrillation ([facility] V24, [facility] V28) 07/19/2024 Assessment & Plan (06/24/2025 8:20 [...] pacemaker. Biventricular cardiac pacemaker in situ 07/19/20 Aortic valve stenosis 05/09/2024 Assessment & Plan [...] (heart failure with re duced ejection fraction) ([facility] V24, [facility] V28) 05/09/2024 Assessment & Plan (06/24/2025 8:22 [...] dialysis, without long-term current use of insulin ([facility] V24, [facility] V28) 05/09/2024 Secondary hyperparathyroidism of renal origin ([facility] V24) 03/27/2024 Hyperkalemia 03/27/2024 Hypothyroidism 12/14/2023 White coat syndrome with diagnosis of hypertensi on 12/14/2023 CAD (coronary artery disease) 09/15/2023 CHF (congestive heart failure) ([facility] V24, [facility] V28) 09/15/2023 CKD (chronic kidney disease) stage 5, GFR less than 15 ml/min ([facility] V24, [facility] V28) 09/12/2023 Atelectasis of right lung 07/18/2023 [...] right leg, limited to breakdown of skin ([facility] V24, [facility] V28) 04/19/2023 Anemia of chronic disease 04/18/2023 [...] 03/04/2020 3:57 PM (H61.22) Chronic lymphocytic leukemia (CMS/HCC V24, CMS/H CC V28) 12/22/2017 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 Encounters Date Type Department Care Team Description 06/26/2025 Results Follow-Up Adult [address] [phone] Alida Weber MD 06/24/2025 7:40 AM EST Office Visit [facility] [address] [facility] [address] [place] [phone] Saira Daly NP Nonrheumatic aortic valve stenosis (Primary Dx); Paroxysmal atrial fibrillation (CMS/HCC V24, CMS/HCC V28); HFrEF (heart failure with reduced ejection fraction) (CMS/HCC V24, CMS/HCC V28) 06/23/2025 10:20 AM EST Lab Draw [address] Memory loss; Type 2 diabetes mellitus with other specified complication, unspecified whether senior living insulin use (CMS/HCC V24, CMS/HCC V28); Abnormal pleural fluid; Nutritional deficiency; Dyspnea, unspecified type; Abnormal findings on diagnostic imaging of other parts of digestive tract 06/23/[address] [phone] Alida Weber MD 06/19/2025 12:30 PM EST Office Visit [address] [phone] Alida Weber MD Hyperlipidemia, unspecified hyperlipidemia type (Primary Dx); ESRD (end stage renal disease) on dialysis (CMS/HCC V24, CMS/HCC V28); SOB (shortness of breath); HFrEF (heart failure with reduced ejection fraction) (CMS/HCC V24, CMS/HCC V28); White coat syndrome with diagnosis of hypertension; Anemia of chronic disease; Type 2 diabetes mellitus with other specified complication, without long-term current use of insulin (CMS/HCC V24, CMS/HCC V28); Hypothyroidism, unspecified type; Memory loss; Biventricular cardiac pacemaker in situ 06/13/2025 9:20 PM EST Ancillary Procedure [facility] [address] [facility] [address] [place] [phone] 06/02/2025 Telephone Adult Medicine [address] [phone] Alida Weber MD 05/28/2025 Telephone Pulmonology - [address] [phone] Nataliya Lopez [place] 05/20/2025 Telephone Adult Medicine [address] [phone] Jacquie Nicole RN 05/15/2025 3:30 PM EDT Office Visit Pulmonology [address] [phone] Lore Myers MD KERRI on CPAP (Primary Dx); Dyspnea, unspecified type; Chronic obstructive pulmonary disease, unspecified COPD type (CMS/HCC V24, CMS/HCC V28); Multiple closed fractures of ribs of both sides with routine healing, subsequent encounter; Restrictive lung disease; Kyphoscoliosis 05/07/2025 4:25 PM EDT Ancillary Procedure [facility] [address] [address] 05/07/2025 2:58 PM EDT - 05/07/2025 11:59 PM EDT Hospital Encounter [address] [phone] Pleural effusion, bilateral; RAMIREZ (dyspnea on exertion) Discharge Disposition: Home or Self Care 05/07/2025 Results Follow-Up Pulmonology - [address] [phone] Lore Myers MD 05/07/2025 Telephone Infectious Disease - [address] [phone] Dorcas Perez MA 05/01/2025 1:00 PM EDT Ancillary Procedure [facility] [address] 300 [facility] [address] [place] [address] Encounter for adjustment or management of cardiac device 04/24/2025 Telephone Adult [address] [phone] Nathalie Giraldo MA 04/24/2025 Billing Patient Not Present [address] [phone] Alida Weber MD 04/23/[address] [facility] 175 [facility] [address] [phone] Lorri Naik PA 04/22/[address] [facility] [address] [phone] Lore Myers MD 04/18/2025 Telephone Adult [address] [phone] Alida Weber MD 04/17/2025 9:00 AM EDT Office Visit [address] [phone] Alida Weber MD Primary hypertension (Primary Dx); Type 2 diabetes mellitus with other specified complication, unspecified whether salvage determiner insulin use ([facility] V24, [facility] V28); White coat syndrome with diagnosis of hypertension; Atrial fibrillation, unspecified type ([facility]/HCC V24, [facility] V28); ESRD (end stage renal disease) on dialysis ([facility] V24, [facility] V28); Anemia of chronic disease; Heart murmur; Biventricular cardiac pacemaker in situ; Memory loss 04/15/2025 10:27 AM EDT - 04/15/2025 11:59 PM EDT Hospital Encounter [facility] [address] [place] [phone] Pain Discharge Disposition: Home or Self Care 04/15/2025 9:07 AM EDT Anesthesia Event [facility] [address] [place] [phone] Rodrigo Avila MD 04/15/2025 7:45 AM EDT - 04/15/2025 11:59 PM EDT Hospital Encounter [facility] [address] [place] [address] Alverto Nickerson DO Slanda, Summer, CRNA Dasilva, John E, MD Radiculopathy, cervical region Discharge Disposition: Home or Self Care 04/14/2025 10:00 AM EDT Ancillary Procedure [facility] [address] [place] [address] 04/08/2025 Telephone [facility] [address] [place] [address] Hector Galloway MD 04/07/2025 11:31 AM EDT - 04/07/2025 8:06 PM EDT Hospital Encounter [facility] Emergency [address] [place] [address] Travis Hammer MD Deutsch, MD Aimee Posadas Nermina, MD Corrado, Tony Watson MD Anemia, unspecified type (Primary Dx); ESRD (end stage renal disease) ([facility] V24, [facility] V28) Discharge Disposition: Home or Self Care 04/04/2025 12:30 PM EDT Ancillary Procedure [facility] [address] [place] [address] [place] [address] HFrEF (heart failure with reduced ejection fraction) ([facility] V24, [facility] V28) from Last 3 Months Immunizations Immunization Administration Dates Next Due Influenza trivalent, 0.5mL ( Fluzone High-dose) 65yo and older 04/24/2025,05/18/2021,05/21/2020,05/30,05/03/2018,06/02/2016 Influenza trivalent, with pr eservative (Fluzone; Afluria) 6mo and older 06/05/2017 Influenza, Unspecified 05/10/2023 Moderna SARS-CoV-2 COVID-19, mRNA, LNP-S, preservative free 05/10/2023 SlapVid SARS-CoV-2 COVID-19, mRNA, LNP-S, preservative free 10/25/2023,11/13/2021,05/23/2021,10/05,09/14/2020 Pneumococcal conjugate 13 [facility] (Prevnar 13, PCV13) 2mo and older 04/11/2019 [...] Date Comments CLL (chronic lymphocytic randy kemia) [place] [place] [facility] [place] DX:CLL (chronic lymphocytic leukemia) ([facility]) Hypertension DX:Hypertension Chronic kidney disease CKD 4/5 Diabetes mellitus type 2, co ntrolled, with complications ([facility] [place] [facility] [place]) DX:Diabetes mellitus type 2, controlled, with complications ([facility]) Hyperlipidemia DX:Hyperlipidemi a Hypothyroidism DX:Hypothyroidis m Stage 4 chronic kidney disea se ([facility] [place] [facility]) 10/06/2022 DX:Stage 4 chronic kidney di sease ([facility]) Atrial fibrillation ([facility] [place] [facility] [place]) Heart failure with mildly re duced ejection fraction ([facility] [place] [facility] [place]) LVEF 30-40 07/2025 Aortic stenosis GI bleed CHF (congestive heart failur e) ([facility] [facility] [place]) DJD (degenerative joint dise ase) of [...] 2:00 PM EST Office Visit Adult Medicine [address] [phone] Alida Weber MD [address] [place] [address] 07/24/2025 4:00 PM EST Office Visit Vascular Surgery - [place] [address] [facility] [address] [place] [phone] Senait España PA [address] [address] 07/29/2025 4:00 PM EST Office Visit Endocrinology [address] [phone] Rosa Roth PA [address] [place], [place] 08/12/2025 9:00 AM EST Consult [facility] [address] [place] [address] [place] [address] Franky Matson MD [address] [place] [address] [address] [place] [address] 08/26/2025 10:30 AM EST Clinical Support Pulmonology [facility] 175 [facility] [address] [place] [address] 09/02/2025 10:45 AM EST Office Visit Pulmonology [facility] 175 [facility] [address] [place] [address] Lore Myers MD [address] [place] [phone] 05/05/2026 9:00 AM EDT Ancillary Procedure [facility] [address] [facility] [address] [place] [phone] Health Maintenance Due Date Last Done Comments [...] this topic Medical Devices Implanted Type Area Item Processing Clerk Device Identifier Shelf Expiration Date Model / Serial / Lot Abbt-Stju 3562 Quadra Allure Mp(Tm) [id number] Implanted:12/2023 (Quantity not on file) Cardiac DITCHING MACHINE OPERATOR-P [facility]562 QUADRA ALLURE MP(TM) / [id number] / Abbt-Stju Quadra Allure Mp [id number] Implanted:08/0 12/2023 (Quantity not on file) Cardiac DITCHING MACHINE OPERATOR-P [facility] [employer] QUADRA ALLURE MP 3562 / [id number] / Procedures Procedure Name Priority Date/Time Associated [...] mellitus with other specified complication, unspecified whether senior living insulin use (CMS/HCC V24, CMS/HCC V28) MICROALBUMIN CREATININE URINE RATIO Routine 06/23/2025 10:29 AM EST Type 2 diabetes mellitus with other specified complication, unspecified whether senior living insulin use (CMS/HCC V24, CMS/HCC V28) TREPONEMA PALLIDUM ANTIBODY WITH REFLEX TO [...] complication, without long-term current use of insulin (CMS/HCC V24, CMS/HCC V28) COMPREHENSIVE METABOLIC PANEL Routine 04/16/2025 10:44 AM EDT Type 2 diabetes mellitus with other specified complication, without long-term current use of insulin (CMS/HCC V24, CMS/HCC V28) LIPID PANEL WITH REFLEX TO DIRECT LDL Routine 04/16/2025 10:44 AM EDT Type 2 diabetes mellitus with other specified complication, without long-term current use of insulin (CMS/HCC V24, CMS/HCC V28) ANTIMITOCHONDRIAL ANTIBODY Routine 04/16/2025 10:44 AM EDT Elevated liver enzymes HEMOGLOBIN A1C Routine 04/16/2025 10:42 AM EDT Type 2 diabetes mellitus with other specified complication, without long-term current use of insulin (CMS/HCC V24, CMS/HCC V28) POCT GLUCOSE BLOOD Routine 04/15/2025 8: [...] LAB CHEMISTRY METHOD 06/23/2025 5:15 PM EST [facility] Blood Venous blood specimen / Unknown Venipuncture / Unknown 06/23/2025 10:29 AM EST 06/23/2025 10:29 AM EST Alida Weber MD LAB BLOOD ORDERABLES Final Result Performing Organization Address [facility]/ZIP Co de Phone Number [facility] [address] [place] [address], [place] [phone] * (ABNORMAL) Thyroid stimulating hormone with reflex to free t4 and free t3 (06/23/2025 10:29 AM EST) Only the most recent of2 resultswithin the time period is included. TSH 4.74(H) 0.40 - 4.00 mcIU/mL LAB CHEMISTRY METHOD 06/23/2025 5:05 PM EST [facility] Blood Venous blood specimen / Unknown Venipuncture / Unknown 06/23/2025 10:29 AM EST 06/23/2025 10:29 AM EST Alida Weber MD LAB BLOOD ORDERABLES Final Result Performing Organization Address [facility]/ZIP Co de Phone Number [facility] [address] [place] [address], [place] [phone] * Free thyroxine with reflex to free triiodothyronine (06/23/2025 10:29 AM EST) Free T4 1.15 0.70 - 1.80 ng/dL LAB CHEMISTRY METHOD 06/23/2025 6:28 PM EST [facility] Blood Venous blood specimen / Unknown Venipuncture / Unknown 06/23/2025 10:29 AM EST 06/23/2025 10:29 AM EST Alida Weber MD LAB BLOOD ORDERABLES Final Result Performing Organization Address City/[facility]/ZIP Co de Phone Number [facility] [address] [place] [address], [place] [phone] * (ABNORMAL) Microalbumin creatinine urine ratio (06/23/2025 10:29 AM EST) Only the most recent of2 resultswithin the time period is included. [facility] Creatinine, Urine 19.0 mg/dL LAB CHEMISTRY METHOD 06/23/2025 7:40 PM [facility] Microalb, Ur 112.0(H) 0.0 - 29.0 mg/L LAB CHEMISTRY METHOD 06/23/2025 7:40 PM [facility] Microalb/Crea t Ratio 589(H) <30 mg/g creat LAB CHEMISTRY METHOD 06/23/2025 7:40 PM EST [facility] Urine Urine specimen obtained by clean catch procedure / Unknown Non-blood Collection / Unknown 06/23/2025 10:29 AM EST 06/23/2025 10:29 AM EST Alida Weber MD LAB URINE ORDERABLES Final Result [facility] [address] [place] [address], [place] [phone] * (ABNORMAL) Triiodothyronine free (06/23/2025 10:29 AM EST) T3, Free 137(L) 230 - 420 pcg/dL LAB CHEMISTRY METHOD 06/23/2025 7:41 PM [facility] Blood Venous blood specimen / Unknown Venipuncture / Unknown 06/23/2025 10:29 AM EST 06/23/2025 10:29 AM EST us Alida Weber MD LAB BLOOD ORDERABLES Final Result [facility] [address] [place] [address], [place] [phone] * (ABNORMAL) Comprehensive metabolic panel (06/23/2025 10:29 AM EST) Only the most recent of2 resultswithin the time period is included. Sodium 135 133 - 145 mmol/L LAB CHEMISTRY METHOD 06/23/2025 4:33 PM [facility] Potassium 3.1(L) 3.5 - 5.5 mmol/L LAB CHEMISTRY METHOD 06/23/2025 4:33 PM [facility] Chloride 93(L) 96 - 110 mmol/L LAB CHEMISTRY METHOD 06/23/2025 4:33 PM [facility] CO2 36(H) 21 - 32 mmol/L LAB CHEMISTRY METHOD 06/23/2025 4:33 PM [facility] Anion Gap 6 3 - 11 LAB CHEMISTRY METHOD 06/23/2025 4:33 PM [facility] Glucose 85 70 - 100 mg/dL LAB CHEMISTRY METHOD 06/23/2025 4:33 PM [facility] BUN 20 5 - 25 mg/dL LAB CHEMISTRY METHOD 06/23/2025 4:33 PM [facility] Creatinine 2.03(H) 0.70 - 1.30 mg/dL LAB CHEMISTRY METHOD 06/23/2025 4:33 PM [facility] eGFR 32(L) >=60 mL/min/1. 73m2 LAB CHEMISTRY METHOD 06/23/2025 4:33 PM [facility] Comment:Calculation based on the Chronic Kidney Disease Epidemiology Collaboration (CKD-EPI) equation refit without adjustment for race. BUN/Creatinine Ratio 9.9 LAB CHEMISTRY METHOD 06/23/2025 4:33 PM [facility] Calcium 8.6 8.5 - 10.5 mg/dL LAB CHEMISTRY METHOD 06/23/2025 4:33 PM [facility] AST (SGOT) 117(H) 10 - 42 unit/L LAB CHEMISTRY METHOD 06/23/2025 4:33 PM [facility] ALT (SGPT) 180(H) 10 - 60 unit/L LAB CHEMISTRY METHOD 06/23/2025 4:33 PM [facility] Alkaline Phosphatase 112 42 - 121 unit/L LAB CHEMISTRY METHOD 06/23/2025 4:33 PM [facility] Total Protein 6.4 6.0 - 8.0 g/dL LAB CHEMISTRY METHOD 06/23/2025 4:33 PM [facility] Albumin 3.6 3.2 - 5.0 g/dL LAB CHEMISTRY METHOD 06/23/2025 4:33 PM [facility] Total Bilirubin 1.0 0.0 - 1.4 mg/dL LAB CHEMISTRY METHOD 06/23/2025 4:33 PM [facility] Blood Venous blood specimen / Unknown Venipuncture / Unknown 06/23/2025 10:29 AM EST 06/23/2025 10:29 AM EST us Alida Weber MD LAB BLOOD ORDERABLES Final Result [facility] [address] [place] [address], * Cardiac device check - Remote- MURJ (06/13/2025 9:16 PM EST) Only the most recent of3 resultswithin the time period is included. Date Time Interrogation Session [id number] CV DEVICE CHECK Type Interrogation Session Remote Scheduled CV DEVICE CHECK Implantable Pulse Generator Item Processing Clerk [facility] CV DEVICE CHECK Implantable Pulse Generator Type DITCHING MACHINE OPERATOR-P CV DEVICE CHECK Implantable Pulse Generator Model 3562 Quadra Allure MP(TM) CV DEVICE CHECK Implantable Pulse Generator Serial Number [id number] CV DEVICE CHECK Implantable Pulse Generator Implant Date 20240311 CV DEVICE CHECK Battery Remaining Percentage 84.00 CV DEVICE CHECK Battery Remaining Longevity 82.0 CV DEVICE CHECK Battery Voltage 2.980 CV D EVICE CHECK Battery SOUND ENGINEERING TECHNICIAN Trigger 2.620 CV DEVICE CHECK Battery Status Middle of Service CV DEVICE CHECK Chaim Statistic RA Percent Paced 48.00 CV DEVICE CHECK Chaim Statistic RV Percent Paced 99.00 CV DEVICE CHECK DITCHING MACHINE OPERATOR Statistic DITCHING MACHINE OPERATOR Percent Paced 99.00 CV DEVICE CHECK Atrial Tachy Statistic AT/AF Agency Percent 0.00 CV DEVICE CHECK Lead Channel [...] CV DEVICE CHECK Ventricular chambers paced during DITCHING MACHINE OPERATOR pacing. BiV CV DEVICE CHECK Chaim Setting Lower Rate Limit 60 CV DEVICE CHECK Chaim Setting AT Mode Switch Rate 180 CV DEVICE CHECK Chaim Setting Maximum Tracking Rate 130 CV DEVICE CHECK Chaim Setting Maximum Sensor Rate 130 CV DEVICE CHECK Chaim Setting PAV Delay 150 CV DEVICE CHECK Chaim Setting MIKHAIL Delay 130 CV DEVICE CHECK DITCHING MACHINE OPERATOR LV-RV Delay 20 CV D EVICE CHECK [...] Modality Body Computed Tomogra phy Historical Provider IMG CT PROCEDURES Final R esult * XR [...] Signed Date: 05/07/2025 18:52 ET Workstation ID: [id number] Transcribed By: Self Edit Transcribed Date: 05/07/2025 [...] Signed Date: 05/07/2025 18:52 ET Workstation ID: [id number] Transcribed By: Self Edit Transcribed Date: 05/07/2025 18:35 ET Lore Myers MD IMG XR PROCEDURES Final Result * CARDIAC DEVICE [facility]- [place] [facility] (05/01/2025 1:40 PM EDT) Date Time Interrogation Session [id number] CV DEVICE CHECK Implantable Pulse Generator Item Processing Clerk [facility] CV DEVICE CHECK Implantable Pulse Generator Type DITCHING MACHINE OPERATOR-P CV DEVICE CHECK Implantable Pulse Generator Model Gina [employer] [place] 3562 CV DEVICE CHECK Implantable Pulse Generator Serial Number [id number] CV DEVICE CHECK Implantable Pulse Generator Implant Date 20240311 CV DEVICE CHECK Battery Voltage 2.980 CV D EVICE CHECK Battery Status Middle of Service CV DEVICE CHECK Chaim Statistic RA Percent Paced 41.00 CV DEVICE CHECK DITCHING MACHINE OPERATOR Statistic DITCHING MACHINE OPERATOR Percent Paced 99.67 CV DEVICE CHECK Lead [...] CV DEVICE CHECK Ventricular chambers paced during DITCHING MACHINE OPERATOR pacing. LV -> RV CV DEVICE CHECK Chaim Setting Lower Rate Limit 60 CV DEVICE CHECK Chaim Setting AT Mode Switch Rate 180 CV DEVICE CHECK Chaim Setting Maximum Tracking Rate 130 CV DEVICE CHECK Chaim Setting Maximum Sensor Rate 130 CV DEVICE CHECK Chaim Setting PAV Delay 150 CV DEVICE CHECK Chaim Setting MIKHAIL Delay 130 CV DEVICE CHECK DITCHING MACHINE OPERATOR LV-RV Delay 20 CV D EVICE CHECK [...] LAB CHEMISTRY METHOD 04/16/2025 12:25 PM EDT [facility] Bilirubin, Direct 0.3 0.0 - 0.3 mg/dL LAB CHEMISTRY METHOD 04/16/2025 12:25 PM T [facility] Bilirubin, Indirect 0.6 0.0 - 1.1 mg/dL LAB CHEMISTRY METHOD 04/16/2025 12:25 PM T [facility] Blood Venous blood specimen / Unknown Venipuncture / Unknown 04/16/2025 10:44 AM EDT 04/16/2025 10:44 AM EDT us Lorri LITTLE LAB BLOOD ORDERABLES Final Resu lt [facility] [address] [place] [address], [place] [phone] * Lipid panel with reflex to direct LDL (04/16/2025 10:44 AM EDT) Cholesterol 103 0 - 200 mg/dL LAB CHEMISTRY METHOD 04/16/2025 12:28 PM EDT [facility] Triglycerides 73 0 - 150 mg/dL LAB CHEMISTRY METHOD 04/16/2025 12:28 PM EDT [facility] HDL 64 >=40 mg/dL LAB CHEMISTRY METHOD 04/16/2025 12:28 PM EDT [facility] LDL Calculated 24 0 - 100 mg/dL LAB CHEMISTRY METHOD 04/16/2025 12:28 PM EDT [facility] Comment:Estimated LDL Calcul ated using equation: Total cholesterol - HDL cholesterol - (Triglycerides/5) VLDL Cholesterol Frankie 14.6 mg/dL LAB CHEMISTRY METHOD 04/16/2025 12:28 PM EDT [facility] Non HDL Chol. (LDL+VLDL) 39 <145 mg/dL LAB CHEMISTRY METHOD 04/16/2025 12:28 PM EDT [facility] Chol/HDL Ratio 1.6 0.0 - 4.4 LAB CHEMISTRY METHOD 04/16/2025 12:28 PM T [facility] Blood Venous blood specimen / Unknown Venipuncture / Unknown 04/16/2025 10:44 AM EDT 04/16/2025 10:44 AM EDT us Alida Weber MD LAB BLOOD ORDERABLES Final Result Performing Organization Address City/[facility]/ZIP Co de Phone Number [facility] [address] [place] [address], [place] [phone] * (ABNORMAL) CBC auto differential (04/16/2025 10:44 AM EDT) Only the most recent of2 resultswithin the time period is included. [facility] WBC 8.8 4.8 - 10.8 K/mcL LAB HEMETOLOGY METHOD 04/16/2025 12:09 PM [facility] RBC 2.70(L) 4.50 - 5.50 M/mcL LAB HEMETOLOGY METHOD 04/16/2025 12:09 PM [facility] Platelets 163 130 - 400 K/mcL LAB HEMETOLOGY METHOD 04/16/2025 12:09 PM [facility] MPV 11.4(H) 7.0 - 11.0 FL LAB HEMETOLOGY METHOD 04/16/2025 12:09 PM [facility] NRBC 0.0 <1.0 % LAB HEMETOLOGY METHOD 04/16/2025 12:09 PM [facility] NRBC Absolute 0.00 <0.10 K/mcL LAB HEMETOLOGY METHOD 04/16/2025 12:09 PM [...] K/mcL LAB HEMETOLOGY METHOD 04/16/2025 12:09 PM EDT [facility] Blood Venous blood specimen / Unknown Venipuncture / Unknown 04/16/2025 10:44 AM EDT 04/16/2025 10:44 AM EDT Alida Weber MD LAB BLOOD ORDERABLES Final Result Performing Organization Address [facility] [place] de Phone Number [facility] [address] [place] [address], [place] [phone] * (ABNORMAL) Antimitochondrial antibody (04/16/2025 10:44 AM EDT) Mitochondrial Antibody Quantitative 224.6(H) <=20.0 units LAB CHEMISTRY METHOD 04/23/2025 12:31 PM EDT [facility] Mitochondrial Antibody Qualitative Positive (A) Negative LAB CHEMISTRY METHOD 04/23/2025 12:31 PM EDT [facility] Blood Venous blood specimen / Unknown Venipuncture / Unknown 04/16/2025 10:44 AM EDT 04/16/2025 10:44 AM EDT Lorri LITTLE LAB BLOOD ORDERABLES Final Resu lt Performing Organization Address [facility]/ZIP Co de Phone Number [facility] [address] [place] [address], [place] [phone] * GGT (04/16/2025 10:44 AM EDT) GGT 29 7 - 64 unit/L LAB CHEMISTRY METHOD 04/16/2025 12:25 PM EDT [facility] Blood Venous blood specimen / Unknown Venipuncture / Unknown 04/16/2025 10:44 AM EDT 04/16/2025 10:44 AM EDT us Lorri LITTLE LAB BLOOD ORDERABLES Final Resu lt Performing Organization Address City/[facility]/ZIP Co de Phone Number [facility] [address] [place] [address], [place] [phone] * Hemoglobin A1c (04/16/2025 10:42 AM EDT) [facility] Hemoglobin A1C 5.8 <6.5 % LAB CHEMISTRY METHOD 04/16/2025 9:35 PM EDT [facility] Mean Bld Glu Estim. 120 mg/dL LAB CHEMISTRY METHOD 04/16/2025 9:35 PM EDT [facility] Blood Venous blood specimen / Unknown Venipuncture / Unknown 04/16/2025 10:42 AM EDT 04/16/2025 10:42 AM EDT us Alida Weber MD LAB BLOOD ORDERABLES Final Result Performing Organization Address [facility]/ZIP Co de Phone Number [facility] [address] [place] [address], [place] [phone] * POCT Glucose, blood (04/15/2025 8:24 AM EDT) [facility] Glucose POCT 89 70 - 100 mg/dL 04/15/2025 8:25 AM EDT [facility] Blood Capillary blood specimen / Unknown 04/15/2025 8:24 AM EDT 04/15/2025 8:27 AM EDT us Rodrigo Avila MD LAB POINT OF CARE TE ST DOCKED DEVICE UNSOLICITED RESULTS Final Result Performing Organization Address [facility]/ZIP Co de Phone Number [facility] [address] [place] [address], [place] [phone] * ECG-Annotated (04/08/2025) us Provider Onbase ECG ORDERABLES Final Result * Electrolyte panel (04/07/2025 6:36 PM EDT) Pathologist [facility] Sodium 135 133 - 145 mmol/L LAB CHEMISTRY METHOD 04/07/2025 6:58 PM EDT [facility] Potassium 4.0 3.5 - 5.5 mmol/L LAB CHEMISTRY METHOD 04/07/2025 6:58 PM EDT [facility] Chloride 98 96 - 110 mmol/L LAB CHEMISTRY METHOD 04/07/2025 6:58 PM EDT [facility] CO2 31 21 - 32 mmol/L LAB CHEMISTRY METHOD 04/07/2025 6:58 PM EDT [facility] Anion Gap 6 3 - 11 LAB CHEMISTRY METHOD 04/07/2025 6:58 PM EDT [facility] Blood Venous blood specimen / Unknown Venipuncture / Unknown 04/07/2025 6:36 PM EDT 04/07/2025 6:39 PM EDT us Marilee Jones NP LAB BLOOD ORDERABLES Fin al Result [facility] [address] [place] [address], * (ABNORMAL) Hemoglobin and hematocrit (04/07/2025 6:35 PM EDT) Pathologist [facility] Hemoglobin 8.9(L) 13.5 - 17.5 g/dL LAB HEMETOLOGY METHOD 04/07/2025 7:07 PM EDT [facility] Hematocrit 28.3(L) 42.0 - 54.0 % LAB HEMETOLOGY METHOD 04/07/2025 7:07 PM EDT [facility] Blood Venous blood specimen / Unknown Venipuncture / Unknown 04/07/2025 6:35 PM EDT 04/07/2025 6:39 PM EDT Marilee Denny Jones NP LAB BLOOD ORDERABLES Fin al Result Performing Organization Address [facility] Co de Phone Number [facility] [address] [place] [address], * Transfuse RBC (04/07/2025 3:28 PM EDT) Katharina Saucedo MD BLOOD TRANSFUSION ORDERABLES F inal Result * (ABNORMAL) Troponin I high sensitivity (04/07/2025 1:15 PM EDT) Only the most recent of2 resultswithin the time period is included. [facility] High Sensitivity Troponin I 88(H) <=79 ng/L LAB CHEMISTRY METHOD 04/07/2025 2:05 PM EDT [facility] Blood Venous blood specimen / Unknown Venipuncture / Unknown 04/07/2025 1:15 PM EDT 04/07/2025 1:32 PM EDT Narrative [facility] - 04/07/2025 2:05 PM EDT High levels of biotin in samples may falsely decrease hsTroponin values. Use caution when interpreting hsTroponin results in patients taking biotin who exhibit renal impairment (eGFR <60) or in patients taking more than 20 mg/day of biotin. Rodrigo Patel MD LAB BLOOD ORDERABLES Final Resul t Performing Organization Address [facility] Co de Phone Number [facility] [address] [place] [address], [place] [phone] * (ABNORMAL) Erythropoietin (04/07/2025 1:15 PM EDT) Pathologist [facility] Erythropoietin 25.0(H) 2.6 - 18.5 mIU/mL 04/10/2025 7:55 PM EDT [facility] Comment: Test performed at [facility], [address] , [place] [address] Carmen Candelaria MD, PhD - Cloth Bleaching Range Tender Blood Venous blood specimen / Unknown Venipuncture / Unknown 04/07/2025 1:15 PM EDT 04/07/2025 1:32 PM EDT us Heber Yu MD LAB BLOOD ORDERABLES Final Res ult [facility] [address] [place] [address] * Prepare RBC: 1 Units (04/07/2025 12:57 PM EDT) Product Code [id number] 04/07/2025 1:51 PM EDT [facility] Unit Number [id number] 04/07/20 1:51 PM EDT [facility] Crossmatch Compatible 04/07/2025 1:11 PM EDT [facility] Dispense Status Transfused 04/07/2025 1:51 PM EDT [facility] Unit ABO Rh OPOS 04/07/2025 1:51 PM EDT [facility] Unit Expiration Date Time [id number] 04/07/2025 1:51 PM EDT [facility] Unit Blood Type 5100 04/07/2025 1:51 PM EDT [facility] Blood Venous blood specimen / Unknown 04/07/2025 12:57 PM EDT 04/07/2025 12:23 PM EDT us Katharina Saucedo MD BLOOD BANK PRODUCT ORDERABLES Final Result Performing Organization Address City/[facility]/ZIP Co de Phone Number [facility]) [facility] [address] [place] [address], * Iron and TIBC (04/07/2025 11:54 AM EDT) Iron 127 50 - 160 mcg/dL LAB CHEMISTRY METHOD 04/07/2025 1:22 PM EDT [facility] TIBC 279 250 - 450 mcg/dL LAB CHEMISTRY METHOD 04/07/2025 1:22 PM EDT [facility] Iron Saturation 46 20 - 50 % LAB CHEMISTRY METHOD 04/07/2025 1:22 PM EDT [facility] Blood Venous blood specimen / Unknown Venipuncture / Unknown 04/07/2025 11:54 AM EDT 04/07/2025 12:23 PM EDT us Heber Yu MD LAB BLOOD ORDERABLES Final Res ult Performing Organization Address [facility]/ZIP Co de Phone Number [facility] [address] [place] [address], [place] [phone] * Type and screen (04/07/2025 11:54 AM EDT) ABO Group O 04/07/2025 1:09 PM EDT [facility] Rh Type Positive 04/07/2025 1:09 PM EDT [facility] Antibody Screen Negative 04/07/2025 1:09 PM EDT [facility] Blood Venous blood specimen / Unknown Venipuncture / Unknown 04/07/2025 11:54 AM EDT 04/07/2025 12:23 PM EDT us Rodrigo Patel MD LAB BLOOD BANK TEST ORDERABLES F inal Result [facility] [address] [place] [address], [place] [phone] * Magnesium (04/07/2025 11:54 AM EDT) Magnesium 1.9 1.9 - 2.6 mg/dL LAB CHEMISTRY METHOD 04/07/2025 1:00 PM EDT [facility] Blood Venous blood specimen / Unknown Venipuncture / Unknown 04/07/2025 11:54 AM EDT 04/07/2025 12:23 PM EDT Rodrigo Patel MD LAB BLOOD ORDERABLES Final Resul t Performing Organization Address [facility]/ZIP Co de Phone Number [facility] [address] [place] [address], [place] [phone] * (ABNORMAL) Ferritin (04/07/2025 11:54 AM EDT) Ferritin 631(H) 26 - 388 ng/mL LAB CHEMISTRY METHOD 04/07/2025 2:37 PM EDT [facility] Blood Venous blood specimen / Unknown Venipuncture / Unknown 04/07/2025 11:54 AM EDT 04/07/2025 12:23 PM EDT Heber Yu MD LAB BLOOD ORDERABLES Final Res ult Performing Organization Address [facility]/ZIP Co de Phone Number [facility] [address] [place] [address], [place] [phone] * (ABNORMAL) Basic metabolic panel (04/07/2025 11:54 AM EDT) Sodium 135 133 - 145 mmol/L LAB CHEMISTRY METHOD 04/07/2025 1:00 PM EDT [facility] Potassium 3.2(L) 3.5 - 5.5 mmol/L LAB CHEMISTRY METHOD 04/07/2025 1:00 PM EDT [facility] Chloride 96 96 - 110 mmol/L LAB CHEMISTRY METHOD 04/07/2025 1:00 PM EDT [facility] CO2 32 21 - 32 mmol/L LAB CHEMISTRY METHOD 04/07/2025 1:00 PM EDT [facility] Anion Gap 7 3 - 11 LAB CHEMISTRY METHOD 04/07/2025 1:00 PM EDT [facility] Glucose 139(H) 70 - 100 mg/dL LAB CHEMISTRY METHOD 04/07/2025 1:00 PM EDT [facility] BUN 24 5 - 25 mg/dL LAB CHEMISTRY METHOD 04/07/2025 1:00 PM [facility] Creatinine 2.56(H) 0.70 - 1.30 mg/dL LAB CHEMISTRY METHOD 04/07/2025 1:00 PM EDT [facility] eGFR 24(L) >=60 mL/min/1. 73m2 LAB CHEMISTRY METHOD 04/07/2025 1:00 PM EDT [facility] Comment:Calculation based on the Chronic Kidney Disease Epidemiology Collaboration (CKD-EPI) equation refit without adjustment for race. BUN/Creatinine Ratio 9.4 LAB CHEMISTRY METHOD 04/07/2025 1:00 PM EDT [facility] Calcium 8.7 8.5 - 10.5 mg/dL LAB CHEMISTRY METHOD 04/07/2025 1:00 PM [facility] Blood Venous blood specimen / Unknown Venipuncture / Unknown 04/07/2025 11:54 AM EDT 04/07/2025 12:23 PM EDT us Rodrigo Patel MD LAB BLOOD ORDERABLES Final Resul t [facility] [address] [place] [address], * ECG 12 lead (04/07/2025 11:38 AM EDT) Ventricular Rate ECG 67 BPM GEMUSE Atrial Rate 67 BPM GEMUSE QRS Duration 160 ms GEMUSE Q-T Interval 492 ms GEMUSE QTc 519 ms GEMUSE P Wave Lutcher 82 degrees GEMUSE R Lutcher 95 degrees GEMUSE T Lutcher 70 degrees GEMUSE ECG Interpretation Ventricular-p aced rhythm with Premature atrial complexes with Aberrant conduction Biventricular pacemaker detected Abnormal ECG When compared with ECG of 01-AUG-2025 06:16, Aberrant conduction is now Present Vent. rate has decreased BY 7 BPM Confirmed by FRANKY MATSON ([id number]) on 04/07/2025 5:03:48 PM GEMUSE 04/07/2025 11:3 8 AM EDT 04/07/2025 5:03 PM EDT us Rodrigo Paetl MD ECG ORDERABLES Final Result [facility] * Critical Care (04/07/2025 11:00 AM EDT) Katharina Martinez MD - 04/07/2025 11:00 AM EDT Katharina [...] (04/04/2025 1:14 PM EDT) Left Atrium Minor Lutcher 6.2 cm CV PACS Left Atrium Major Lutcher 5.9 cm CV PACS LA Area Sys [...] Volume 51 mL CV PACS MV Deceleration [place] 2.3 m/s2 CV PACS E Wave Deceleration [...] Details Overall the study quality was adequate. Result [facility] Saira Daly NP CV ECHO PROCEDURES Final Result * External Diabetic Retina Eye Exam Report (11/07/2024) Anatomical Region Laterality Modality Ultrasound Provider [facility] IMG US PROCEDURES Final Result * Falls Risk Assessment (03/13/2024) [facility] Falls Risk Assessment Abstracted Result [facility] Provider HEALTH MAINTENANCE Final Result * Depression Screening (10/27/2023) [facility] Depression Screening Abstracted Result [facility] Provider HEALTH MAINTENANCE Final Result * Diabetes Foot Exam (07/18/2023) [facility] Diabetes: Annual Foot Exam Abstracted Result [facility] Provider HEALTH MAINTENANCE Final Result from Last 3 Months or Most Recently Relevant to Health Maintenance Insurance MEDICARE AETNA Advance Directives Documents on File Type Date Recorded Patient Sample Tester Grinder Expl anation Advance Directives and Living Will 02/25/2025 2:28 PM Pastora Ribeiroe PROXY Advance Directives and Living Will 02/25/2025 [...] Communication Pastora Campbell Sister Health Care Agent Care Teams Help Desk Consultant Relationship Specialty Start Date End Date Alida Weber MD [address] [place] [address] PCP - General 10/26/22
--- OUTSIDE RECORDS SUMMARY | 2025-06-30 15:19 | XMS_ITS | Encounter Summary ---
Author Organization [facility] Address [address] [place] [address] Care Team Providers Care Specifications Checker Name Role Phone Alida Weber MD Primary Care Provider Encounter Details Date Type Department Care Team ([facility] Contact Info) Description 05/07/2025 Results Follow-Up Pulmonology - [place] [address] [place] [phone] Lore Myers MD [address] [place] [phone] Social History Tobacco Use Types Packs/Day [...] care for your loved ones. For example, home child care provider or elderly care for an older adult? [...] 2:00 PM EST Office Visit Adult Medicine [facility] [address] [place] [address] Alida Weber MD [address] [place] [address] 07/24/2025 4:00 PM EST Office Visit Vascular Surgery - [place] [address] [facility] [address] [place] [address] Senait España PA [address] [facility] [address] [place] [address] 07/29/2025 4:00 PM EST Office Visit Endocrinology - [place] [address] [place] [address] Rosa Roth PA [address] [place] [address] 08/12/2025 9:00 AM EST Consult [facility] - [facility] [address] [place] [phone] Franky Choudhury MD [address] [place] [address] [address] [place] [phone] 08/26/2025 10:30 AM EST Clinical Support Pulmonology [facility] [address] [facility] [address] [place] [phone] 09/02/2025 10:45 AM EST Office Visit Pulmonology - [place] [address] [facility] [address] [place] [phone] Lore Myers MD [address] [place] [phone] 05/05/2026 9:00 AM EDT Ancillary Procedure [facility] [address] [facility] [address] [place] [phone] documented as of this encounter Visit Diagnoses Not on filedocumented in this encounter Additional Health Concerns Assessment Noted Time PHQ-9 Depression Total Score: 0 02/20/20 25 9:35 AM EDT documented as of this encounter Care Teams Specifications Checker Relationship Specialty Start Date End Date Alida Weber MD [address] [place], [place] PCP - General 10/26/22 documented as of this encounter
--- OUTSIDE RECORDS SUMMARY | 2025-06-30 15:19 | XMS_ITS | Encounter Summary ---
Author Organization [facility] Address [address] [place] [address] Care Team Providers Care Cheese Cooker Name Role Phone Alida Weber MD Primary Care Provider [phone] Encounter Details Date Type Department Care Team ([facility] Contact Info) Description 06/26/2025 Results Follow-Up Adult [facility] [address] [place] [phone] Alida Weber MD [address] [place] [address] Social History Tobacco Use Types Packs/Day Years [...] your loved ones. For example, child and family services specialist or elderly care for an older adult? [...] Randee Allison RN documented in this encounter Ordered Prescriptions Prescription Sig Dispense Quantity Refills Last Filled Start Date End Date levothyroxine (SYNTHROID, LEVOTHROID) 125 mcg tablet Take 1 tablet (125 mcg total) by mouth 1 (one) time each day. 30 each 2 06/26/2025 6 potassium chloride (KLOR-CON M20) 20 mEq CR tablet Take 2 tablets (40 mEq total) by mouth 2 (two) times a day for 2 doses. Tablet may be swallowed whole (do not crush/chew/suck on) OR broken in half and each half swallowed separately OR dissolved (whole tablet) in ~4 ounces of water (allow ~2 minutes to dissolve, stir well and administer immediately). 4 each 06/26/2025 5 documented in this encounter Plan of Treatment Upcoming Encounters Date Type Department Care Team (Late st Contact Info) Description 07/22/2025 2:00 PM EST Office Visit Adult Medicine [facility] [address] [place] [phone] Alida Weber MD [address] [place] [address] 07/24/2025 4:00 PM EST Office Visit Vascular Surgery - [place] [address] [facility] [address] [place] [address] Senait Epsaña PA [address] [facility] [address] [place] [address] 07/29/2025 4:00 PM EST Office Visit Endocrinology [facility] [address] [place] [phone] Rosa Roth PA [address] [place] [address] 08/12/2025 9:00 AM EST Consult [facility] [address] [place] [phone] Franky Choudhury MD [address] [place] [address] [address] [place] [phone] 08/26/2025 10:30 AM EST Clinical Support Pulmonology [facility] [address] [place] [facility] [address] [place] [phone] 09/02/2025 10:45 AM EST Office Visit Pulmonology [facility] [address] [place] [facility] [address] [place] [phone] Lore Myers MD [address] [place] [phone] 05/05/2026 9:00 AM EDT Ancillary Procedure [facility] Cardiology [facility] - [facility] [address] [facility] [address] [place] [phone] Scheduled Orders Name Type Priority Associated Diagnoses Orde r Schedule Thyroid stimulating hormone with reflex to free t4 and free t3 Lab Routine Hypothyroidism, unspecified type Expected: 07/14/2025, Expires: 06/26/2026 Comprehensive metabolic panel Lab Routine Hypokalemia Elevated liver enzymes 1 Occurrences starting 06/26/2025 until 06/26/2026 documented as of this encounter Visit Diagnoses Diagnosis Hypothyroidism, unspecified type- Primary Hypokalemia Hypopotassemia Elevated liver enzymes Other nonspecific abnormal serum enzyme levels Encounter for adjustment or management of cardiac device documented in this encounter Additional Health Concerns Assessment Noted Time PHQ-9 Depression Total Score: 0 02/20/20 25 9:35 AM EDT documented as of this encounter Care Teams Cheese Cooker Relationship Specialty Start Date End Date Alida Weber MD [address] [place] [address] PCP - General 10/26/22 documented as of this encounter
--- OUTSIDE RECORDS SUMMARY | 2025-06-30 15:19 | XMS_ITS | Encounter Summary ---
Author Organization [facility] Address [address] [place] [address] Care Team Providers Care Federal Judge Name Role Phone Alida Weber MD Primary Care Provider Reason for Referral * Consultation (Routine) - Closed Specialty Diagnoses / Procedures Referred By Lillian govea Referred To Contact Neurology Diagnoses Memory loss Alida Weber MD [address] [place] [address] Phone: tel: fax: Referral ID Status Reason Start Date Expiration Date V isits Requested Visits Authorized [id number] Closed Specialty Services Required 06/24/2025 06/24/2026 1 1 Reason for Visit * Reason Onset Date Comments Referral 06/23/2025 Encounter Details Date Type Department Care Team (Late st Contact Info) Description 06/23/2025 Telephone Adult Medicine [facility] [address] [place] [phone] Alida Weber MD [address] [place] [address] Social History Tobacco Use Types Packs/Day Years [...] care for your loved ones. For example, residential child care counselor or elderly care for an older adult? [...] would like Dr. Weber to know that [facility] Care but they are accepting new patients at this time. documented in this encounter Plan of Treatment Upcoming Encounters Date Type Department Care Team (Late st Contact Info) Description 07/22/2025 2:00 PM EST Office Visit Adult Medicine [facility] [address] [place], [place] [phone] Alida Weber MD [address] [place], [place] 07/24/2025 4:00 PM EST Office Visit Vascular Surgery [facility] [address] [facility] [address] [place] [address] Senait España PA [address] [facility] [address] [place] [address] 07/29/2025 4:00 PM EST Office Visit Endocrinology [facility] [address] [place], [place] [phone] Rosa Roth PA [address] [place], [place] 08/12/2025 9:00 AM EST Consult [facility] Cardiology Associates [facility] [address] [place] [address] [place] [address] [place] [phone] Franky Choudhury MD [address] [place] [address] Dr [place] [place] [phone] 08/26/2025 10:30 AM EST Clinical Support Pulmonology - [place] 175 [facility] 200 [place] [address] 09/02/2025 10:45 AM EST Office Visit Pulmonology - [place] 175 [facility] [address] [place] [phone] Lore Myers MD [address] [place] [phone] 05/05/2026 9:00 AM EDT Ancillary Procedure [facility] Cardiology Associates - [address] [facility] [address] [place] [address] Scheduled Referrals Name Type Priority [...] documented as of this encounter Care Teams Federal Judge Relationship Specialty Start Date End Date Alida Weber MD [address] [place] [address] PCP - General 10/26/22 documented as of this encounter
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
== END 2025-06-30 13:45 | disposition home or self-care (01) ==
PROVIDERS: PCP Internal Medicine; Visit Provider Physical Medicine & Rehabilitation
PROC: (CPT 64490; principal; 2025-06-30 14:00)
DX: M47.812 Spondylosis without myelopathy or radiculopathy, cervical region (principal); G89.29 Other chronic pain; M54.2 Cervicalgia; M40.292 Other kyphosis, cervical region; M54.50 Low back pain, unspecified; Z88.2 Allergy status to sulfonamides; Z88.6 Allergy status to analgesic agent; Z98.890 Other specified postprocedural states
CPT/HCPCS: 64490; 64491; 64492; J0665; J3301; Q9967

== ENCOUNTER → 2025-06-30 11:40 | Outpatient (BNV) | payer MEDICARE, OTHER, SELFPAY | PROVIDERS: PCP Internal Medicine; Visit Provider Physical Medicine & Rehabilitation | DX: M47.812 Spondylosis without myelopathy or radiculopathy, cervical region (principal) | CPT/HCPCS: 64490; 64491; 64492 ==

== ENCOUNTER 2025-07-29 13:11 | Outpatient (AMB) | payer MEDICARE, OTHER, SELFPAY ==
--- OUTSIDE RECORDS SUMMARY | 2025-07-24 09:22 | XMS_ITS | Encounter Summary ---
Author Organization [facility] Address [address] [place] [address] Care Team Providers Care Cushion Maker Hand Name Role Phone Alida Weber MD Primary Care Provider Reason for Referral * Imaging (Emergency) - Closed Specialty Diagnoses / Procedures Referred By Lillian govea Referred To Contact Radiology Diagnoses Encounter for subsequent annual wellness visit (AWV) in Medicare patient Left eye injury, subsequent encounter Procedures CT Fossa/Sella/IAC/Orbit wo Contrast CT Fossa/Sella/IAC/Orbit wo and w Contrast Alida Weber MD [address] [place] [address] Phone: tel: fax: CT Scan - [address] Phone: tel: fax: Referral ID Status Reason Start Date Expiration Date Visits Re quested Visits Authorized [id number] Closed 07/22/2025 07/22/2026 1 1 Reason for Visit * Imaging (Emergency) - Closed Specialty Diagnoses / Procedures Referred By Lillian govea Referred To Contact Radiology Diagnoses Encounter for subsequent annual wellness visit (AWV) in Medicare patient Left eye injury, subsequent encounter Procedures CT Fossa/Sella/IAC/Orbit wo Contrast CT Fossa/Sella/IAC/Orbit wo and w Contrast Alida Weber MD [address] [place], [place] Phone: tel: fax: CT Scan - [place] [address] [place], [place] Phone: tel: fax: Referral ID Status Reason Start Date Expiration Date Visits Re quested Visits Authorized [id number] Closed 07/22/2025 07/22/2026 1 1 Encounter Details Date Type Department Care Team (Latest Contact Info) Description 07/24/2025 9:22 AM EST - 07/24/2025 11:59 PM [facility] Hospital Encounter CT Scan - [place] [address] [place], [place] [phone] Encounter for subsequent annual wellness visit (AWV) in Medicare patient; Left eye injury, subsequent encounter Discharge Disposition: Home or Self Care Social History Tobacco Use Types Packs/Day Years Used Date Smoking Tobacco: Never Smokeless Tobacco: Never Alcohol Use Standard Drinks/Week Comments Not Currently 0 (1 standard drink = 0.6 oz pur e alcohol) Housing Instability Answer Date Recorde d Are you worried that in the next 2 months you may not have stable housing? No 07/22/2025 Food Access & Nutrition Answer Date Rec orded Do you have access to a vari ety of food including fruits and vegetables? Yes 07/22/2025 Access to Healthcare Answer Date Record ed Within the last 3 months, ho ewa many times did you visit the emergency department for your medical care? 0 07/22/2025 Health Literacy Answer Date Recorded How often do you need to hav e someone help you when you read instructions, pamphlets, or other written material from your doctor or pharmacy? Never 07/22/2025 Caregiver: How often do you need to have someone help you when you read instructions, pamphlets, or other written material from your doctor or pharmacy? Not on file 07/22/2025 Financial Risk Answer Date Recorded How hard is it for you to pa y for the very basics like food, housing, medical care, and air conditioning / heating? Not very hard 07/22/2025 Transportation Answer Date Recorded Has the lack of transportati on kept you from meetings, work, or from getting things needed for daily living? No Has the lack of transportati on kept you from medical appointments or from getting medications? No 07/22/2025 Social Isolation Answer Date Recorded How often do you feel lonely or isolated from th ose around you? Never 07/22/2025 Food Risk Answer Date Recorded Within the past 12 months we worried whether our food would run out before we got money to buy more. Never true 07/22/2025 Within the past 12 months th e food we bought just didn't last and we didn't have money to get more. Never true 07/22/2025 Dependent Care Answer Date Recorded Do you need help finding or paying for care for your loved ones. For example, rn child or elderly care for an older adult? No 07/22/2025 Education Answer Date Recorded Do you think completing more education or training, like finishing a GED, going to college, or learning a trade, would be helpful for you? No 07/22/2025 Employment and Income Answer Date Recor ded During the last four weeks, have you been actively looking for work? No 07/22/2025 Living Situation Answer Date Recorded What is your living situation? Unrecognized valu e 07/22/2025 Interpersonal Safety Answer Date Record ed Physical [...] Randee Fam RN documented in this encounter Medications at Time of Discharge acetaminophen (TYLENOL) 500 mg tablet Take 2 tablets (1,000 mg total) by mouth every 8 (eight) hours if needed for mild pain. 360 tablet 1 06/17/2025 atorvastatin (LIPITOR) 80 mg tablet TAKE 1 TABLET BY MOUTH 1 TIME EACH DAY. 90 tablet 1 06/12/2025 blood sugar diagnostic (FreeStyle Lite Strips) test strip Use daily to check bs 100 each 12 02/25/2025 02/25/2026 carvediloL (COREG) 3.125 mg tablet Take 1 tablet (3.125 mg total) by mouth 2 (two) times a day with meals. 180 each 06/19/2025 09/17/2025 cholecalciferol (VITAMIN D-3) 125 mcg (5,000 unit) capsule TAKE 1 CAPSULE (5000 UNITS TOTAL) BY MOUTH ONCE DAILY 90 capsule 1 06/13/2025 ezetimibe (ZETIA) 10 mg tablet Take 1 tablet (10 mg total) by mouth 1 (one) time each day. 90 each 06/19/2025 09/17/2025 FreeStyle Lancets 28 gauge lancets Use to test blood glucose once daily before a meal 100 each 1 06/19/2025 levothyroxine (SYNTHROID, LEVOTHROID) 125 mcg tablet Take 1 tablet (125 mcg total) by mouth 1 (one) time each day. 30 each 2 07/22/2025 10/20/2025 midodrine (PROAMATINE) 5 mg tablet Take 1 tablet (5 mg total) by mouth 1 (one) time each day. 90 each 06/19/2025 09/17/2025 Nephro-Ailyn 0.8 mg tablet TAKE 1 TABLET BY MOUTH 1 TIME EACH DAY. 90 tablet 1 06/10/2025 sevelamer carbonate (RENVELA) 800 mg tabletIndication s:ESRD (end stage renal disease) on dialysis ([facility] V24, [facility] V28) Take 1 tablet (800 mg total) by mouth 3 (three) times a day with meals. Swallow tablet whole; do not crush, break, or chew. 270 each 1 06/19/2025 12/16/2025 triamcinolone (KENALOG) 0.1 % cream Apply to affected area 1-2 times daily as needed. 30 g 2 07/22/2025 09/20/2025 documented as of this encounter Discharge Disposition Disposition Code Departure Means Destination Home or Self Care documented in this encounter Plan of Treatment Upcoming Encounters Date Type Department Care Team (Late st Contact Info) Description 07/29/2025 4:00 PM EST Office Visit Endocrinology - [place] [address] [place] [phone] Rosa Roth PA [address] [place] [address] 08/12/2025 9:00 AM EST Consult [facility] Cardiology [facility] [address] [place] [place] [phone] Franky Choudhury MD [address] [place] [address] Dr Polanco [address] [place] [address] 08/14/2025 10:00 AM EST Appointment [facility] Ultrasound [address] [place] [phone] 08/26/2025 10:30 AM EST Ancillary Procedure Pulmonology - [place] 175 [facility] 200 [place] [phone] 09/02/2025 10:45 AM EST Office Visit Pulmonology - [place] [address] [place] [address] Lore Myers MD [address] [place] [phone] 10/28/2025 8:30 AM EDT Office Visit Adult Medicine [facility] [address] [place] [address] Alida Weber MD [address] [place] [address] 05/05/2026 9:00 AM EDT Ancillary Procedure [facility] Cardiology [facility] [address] 300 [facility] 154 [place] [address] 06/24/2026 1:30 PM EST Ancillary Procedure [facility] Cardiology [facility] [address] [place] [address] [place] [address] 07/21/2026 9:00 AM EST Office Visit Vascular Surgery - [place] [address] [place] [address] Senait España PA 300 [facility] [address] [place] [address] documented as of this encounter Procedures Procedure Name Priority Date/Time Associated Diagnosis Comments CT FOSSA/SELLA/IAC/ORB IT WO CONTRAST STAT 07/24/2025 9:32 AM EST Encounter for subsequent annual wellness visit (AWV) in Medicare patient Left eye injury, subsequent encounter documented in this encounter Results * CT Fossa/Sella/IAC/Orbit wo Contrast (07/24/2025 9:32 AM EST) Anatomical Region Laterality Modality Head and Neck Computed Tomogra phy 07/24/2025 10:3 6 AM EST Impressions 07/24/2025 11:47 AM EST Possible nondisplaced fractures of the lateral wall of the left orbit and medial wall of the left orbit. Possible chronic defect of the left sphenoidal bone. Left mastoiditis. -------- FINAL REPORT -------- Dictated By: Mary Zhang Dictated Date: 07/24/2025 10:36 ET Assigned Physician: Mary Zhang Reviewed and Electronically Signed By: Mary Zhang Signed Date: 07/24/2025 11:47 ET Workstation ID: [id number] Transcribed By: Self Edit Transcribed Date: 07/24/2025 11:30 ET Narrative 07/24/2025 11:[address] FOSSA/SELLA/IAC/ORBIT WO CONTRAST HISTORY: Left eye injury after fall with subconjunctival hemorrhage. TECHNIQUE: Sequential axial sections were obtained through the orbits without intravenous contrast. Reformatted sagittal and coronal images were obtained. PRIORS: None. FINDINGS: There may be a a nondisplaced fracture of the lateral wall of the left orbit, image #56 on the coronal series. Alternatively, this could represent a residual sphenozygomatic suture line there is a possible nondisplaced fracture of the medial wall of the lower orbit on image 59 of the axial series and 49 of the coronal series. The orbital floors are intact. There is a 0.7 x 0.8 cm defect in the left sphenoidal bone at the lateral aspect of the left middle cranial fossa on image 77 of the axial series. This defect may be chronic. The globes are intact. The lenses are normally positioned. The intra- and extraconal fat planes are preserved. No foreign bodies are seen. The extraocular muscles are normal and symmetric in appearance. There is minor membrane thickening of the maxillary sinuses . There is opacification of all of the left mastoid air cells. There is membrane thickening of a couple right mastoid air cells. The paranasal sinuses and mastoid air cells are otherwise clear. There is degenerative change of the cervical spine. There is advanced calcification of the carotid arteries. Procedure Note Mary Zhang MD - 07/24/2025 CT FOSSA/SELLA/IAC/ORBIT WO CONTRAST HISTORY: Left eye injury after fall with subconjunctival hemorrhage. TECHNIQUE: Sequential axial sections were obtained through the orbitswithout intravenous contrast. Reformatted sagittal and coronal imageswere obtained. PRIORS: None. FINDINGS: There may be a a nondisplaced fracture of the lateral wall ofthe left orbit, image #56 on the coronal series. Alternatively, this couldrepresent a residual sphenozygomatic suture line there is a possiblenondisplaced fracture of the medial wall of the lower orbit on image 59 ofthe axial series and 49 of the coronal series. The orbital floors areintact. There is a 0.7 x 0.8 cm defect in the left sphenoidal bone at the lateralaspect of the left middle cranial fossa on image 77 of the axial series.This defect may be chronic. The globes are intact. The lenses are normally positioned. The intra- andextraconal fat planes are preserved. No foreign bodies are seen. Theextraocular muscles are normal and symmetric in appearance. There is minor membrane thickening of the maxillary sinuses . There isopacification of all of the left mastoid air cells. There is membranethickening of a couple right mastoid air cells. The paranasal sinuses andmastoid air cells are otherwise clear. There is degenerative change of the cervical spine. There is advanced calcification of the carotid arteries. IMPRESSION: Possible nondisplaced fractures of the lateral wall of the left orbit andmedial wall of the left orbit. Possible chronic defect of the leftsphenoidal bone. Left mastoiditis. -------- FINAL REPORT -------- Dictated By: Mary Zhang Dictated Date: 07/24/2025 10:36 ET Assigned Physician: Mary Zhang Reviewed and Electronically Signed By: Mary Zhang Signed Date: 07/24/2025 11:47 ET Workstation ID: [id number] Transcribed By: Self Edit Transcribed Date: 07/24/2025 11:30 ET us Alida eWber MD IMG CT PROCEDURES Final Res ult documented in this encounter Visit Diagnoses Diagnosis Encounter for subsequent annual wellness visit (AWV) in Medicare patient Left eye injury, subsequent encounter Encounter for adjustment or management of cardiac device documented in this encounter Additional Health Concerns Assessment Noted Time PHQ-9 Depression Total Score: 0 07/22/20 25 3:23 PM EST A fall risk assessment has been complete d for the patient 07/22/2025 3:20 PM EST documented as of this encounter Care Teams Cushion Maker Hand Relationship Specialty Start Date End Date Alida Weber MD [address] [place] [address] PCP - General 10/26/22 documented as of this encounter
--- OUTSIDE RECORDS SUMMARY | 2025-07-24 09:26 | XMS_ITS | Encounter Summary ---
Author Organization [facility] Address [address] [place] [address] Care Team Providers Care Molder Punch Name Role Phone Alida Weber MD Primary Care Provider [phone] Reason for Referral * Imaging (Routine) - Closed Specialty Diagnoses / Procedures Referred By Lillian govea Referred To Contact Radiology Diagnoses Dyspnea, unspecified type Procedures CT Chest wo Contrast Lore Myers MD [address] [address] Phone: tel: fax: CT Scan - [address] Phone: tel: fax: Referral ID Status Reason Start Date Expiration Date Visits Re quested Visits Authorized [id number] Closed 05/15/2025 05/15/2026 1 1 Reason for Visit * Imaging (Routine) - Closed Specialty Diagnoses / Procedures Referred By Lillian govea Referred To Contact Radiology Diagnoses Dyspnea, unspecified type Procedures CT Chest wo Contrast Lore Myers MD 175 [facility] [address] [place] [address] Phone: tel: fax: CT Scan - [address] Phone: tel: fax: Referral ID Status Reason Start Date Expiration Date Visits Re quested Visits Authorized [id number] Closed 05/15/2025 05/15/2026 1 1 Encounter Details Date Type Department Care Team (Latest Contact Info) Description 07/24/2025 9:26 AM EST - 07/24/2025 11:59 PM [facility] Hospital Encounter CT Scan - [address] [phone] Dyspnea, unspecified type Discharge Disposition: Home or Self Care Social [...] your loved ones. For example, child care teacher or elderly care for an [...] Assessment Author Yes 04/07/2025 11:47 AM EDT Doles, A shley L, RN documented as of this encounter Mental Status * Because of a physical, mental, or emotional condition, do you have serious difficulty concentrating, remembering, or making decisions? (5 years old or older) Answer Entry Date Author No 04/07/2025 11:47 AM Randee Allison RN documented in this encounter Medications at [...] s:ESRD (end stage renal disease) on dialysis ([facility] V24, [facility] V28) Take 1 tablet (800 mg total) [...] Description 07/29/2025 4:00 PM EST Office Visit [facility] [address] [place], [place] [phone] oRsa Roth PA [address] [place] [address] 08/12/2025 9:00 AM EST Consult [facility] [address] [place] [phone] Franky Choudhury MD [address] [place] [address] [address] [place] [phone] 08/14/2025 10:[address] [facility] Ultrasound [address] [place] [phone] 08/26/2025 10:30 AM EST Ancillary Procedure Pulmonology - [place] [address] [phone] 09/02/2025 10:45 AM EST Office Visit Pulmonology [facility] [address] [phone] Lore Myers MD [address] [place] [phone] 10/28/2025 8:30 AM EDT Office Visit Adult Medicine [facility] [address] [place], [place] [phone] Alida Weber MD [address] [place] [address] 05/05/2026 9:00 AM EDT Ancillary Procedure [facility] Cardiology [facility] [address] [place] [address] 06/24/2026 1:30 PM EST Ancillary Procedure [facility] [address] [place] [address] 07/21/2026 9:00 AM EST Office Visit Vascular Surgery - [place] [address] [place] [address] Senait España PA [address] [place] [address] documented as of this encounter Procedures Procedure Name Priority Date/Time Associated Diagnosis Comments CT CHEST WO CONTRAST Routine 07/24/2025 9:32 AM EST Dyspnea, unspecified type documented in this encounter Results * CT Chest wo Contrast (07/24/2025 9:32 AM EST) Anatomical Region Laterality Modality Body Computed Tomogra phy 07/25/2025 6:57 AM EST Impressions 07/25/2025 7:37 AM EST Moderate left pleural effusion, decreased somewhat in size since the previous study. Compressive atelectasis left lower lobe, decreased slightly in size since the previous study. -------- FINAL REPORT -------- Dictated By: Mary Zhang Dictated Date: 07/25/2025 06:57 ET Assigned Physician: Mary Zhang Reviewed and Electronically Signed By: Mary Zhang Signed Date: 07/25/2025 07:37 ET Workstation ID: [id number] Transcribed By: Self Edit Transcribed Date: 07/25/2025 06:57 ET Narrative 07/25/2025 7:[address] CHEST WITHOUT CONTRAST HISTORY: Dyspnea. COMPARISON: Chest CT 11/12/2024. TECHNIQUE: Multidetector CT is obtained from lung apex to base without IV contrast. Sagittal and coronal reformatted images obtained. Automated exposure control utilized. RADIATION DOSE: CTDl: 7.37 mGy. FINDINGS: Lungs/pleura: There is compressive atelectasis with air bronchograms in the left lower lobe decreased slightly in size. There is minor biapical scarring. There are small calcified pleural plaques in the upper lobes. There is a moderate left pleural effusion, and this has decreased somewhat in size since the previous study. Lymph nodes: Sensitivity for lymphadenopathy is limited without IV contrast. Subcentimeter mediastinal lymph nodes. No definite enlarged hilar lymph nodes. Cardiovascular: No cardiomegaly, pericardial effusion, or thoracic aortic aneurysm. There is atherosclerosis. There is a pacemaker. Soft tissues: Thyroid gland is not enlarged. No esophageal abnormality. Upper abdomen: There is advanced atherosclerosis. Bones: There is kyphosis and degenerative change of the spine. Procedure Note Mary Zhang MD - 07/25/2025 CT CHEST WITHOUT CONTRAST HISTORY: Dyspnea. COMPARISON: Chest CT 11/12/2024. TECHNIQUE: Multidetector CT is obtained from lung apex to base without IVcontrast. Sagittal and coronal reformatted images obtained. Automatedexposure control utilized. RADIATION DOSE: CTDl: 7.37 mGy. FINDINGS: Lungs/pleura: There is compressive atelectasis with air bronchograms inthe left lower lobe decreased slightly in size. There is minor biapicalscarring. There are small calcified pleural plaques in the upper lobes.There is a moderate left pleural effusion, and this has decreased somewhatin size since the previous study. Lymph nodes: Sensitivity for lymphadenopathy is limited without IVcontrast. Subcentimeter mediastinal lymph nodes. No definite enlargedhilar lymph nodes. Cardiovascular: No cardiomegaly, pericardial effusion, or thoracic aorticaneurysm. There is atherosclerosis. There is a pacemaker. Soft tissues: Thyroid gland is not enlarged. No esophageal abnormality. Upper abdomen: There is advanced atherosclerosis. Bones: There is kyphosis and degenerative change of the spine. IMPRESSION: Moderate left pleural effusion, decreased somewhat in size since theprevious study. Compressive atelectasis left lower lobe, decreasedslightly in size since the previous study. -------- FINAL REPORT -------- Dictated By: Mary Zhang Dictated Date: 07/25/2025 06:57 ET Assigned Physician: Mary Zhang Reviewed and Electronically Signed By: Mary Zhang Signed Date: 07/25/2025 07:37 ET Workstation ID: [id number] Transcribed By: Self Edit Transcribed Date: 07/25/2025 06:57 ET Lore Myers MD IMG CT PROCEDURES Final Result documented in this encounter Visit Diagnoses Diagnosis Dyspnea, unspecified type Encounter for adjustment or management of cardiac device documented in this encounter Additional Health Concerns Assessment Noted Time PHQ-9 Depression Total Score: 0 07/22/20 25 3:23 PM EST A fall risk assessment has been complete d for the patient 07/22/2025 3:20 PM EST documented as of this encounter Care Teams Molder Punch Relationship Specialty Start Date End Date Alida Weber MD [address] [place] [address] PCP - General 10/26/22 documented as of this encounter
--- OUTSIDE RECORDS SUMMARY | 2025-07-24 15:00 | XMS_ITS | Encounter Summary ---
Author Organization [facility] Address [address] [place] [address] Care Team Providers Care Marketing Forecaster Name Role Phone Alida Weber MD Primary Care Provider Reason for Referral * Imaging (Routine) - Authorized Specialty Diagnoses / Procedures Referred By Lillian govea Referred To Contact Diagnoses PAD (peripheral artery disease) (CMS/[facility] V24) Procedures Vascular US duplex lower extremity arteries bilateral with MEIR Senait España PA [address] [place] [address] Phone: tel: fax: [facility] Referral ID Status Reason Start Date Expiration Date V isits Requested Visits Authorized [id number] Authorized 07/24/2025 07/24/2026 1 1 Reason for Visit * Reason Comments Peripheral Vascular Disease Encounter Details Date Type Department Care Team (Late st Contact Info) Description 07/24/2025 3:00 PM EST Office Visit Vascular Surgery - [place] [address] [place] [address] Senait España PA [address] [facility] [address] [place] [address] PAD (peripheral artery disease) (CMS/HCC V24) (Primary Dx); Leg swelling Social History Tobacco Use Types Packs/Day Years [...] for your loved ones. For example, child protective investigator or elderly care for an older adult? [...] Sign Reading Time Taken Comments Blood Pressure 117/73 07/24/2025 3:06 PM EST Pulse 99 07/24/2025 3:06 PM EST Temperature - - Respiratory Rate - - Oxygen Saturation - - Inhaled Oxygen Concentration - - Weight 51.8 kg (114 lb 3.2 oz) 07/24/2025 3:06 P M EST Height 160 cm (5' 3 ) 07/24/2025 3:06 PM EST Body Mass Index 20.23 07/24/2025 3:06 PM EST documented in this encounter Functional Status [...] Entry Date Author No 04/07/2025 11:47 AM DAMARIST Randee Fam RN documented in this encounter Progress Notes * SIDNEY Chopra - 07/24/2025 3:00 PM EST PATIENT: Kike Uribe ENCOUNTER: 07/24/2025 EMRN: [id number] : 1940 PCP: Alida Weber MD CHIEF COMPLAINT: Peripheral Vascular Disease HPI: This 85 y.o. male presents for f/u of recent imaging. History pertinent for PAD, CHF, ESRD on HD, valvular disease, chronic leg swelling with ulcer, afib not on anticoagulation. He presents with his sister. Pt initially had 3 ulcers which have all healed with compression and wound care. He has an arterial duplex to review today. He is using compression daily but requires help to don them. He has no active ulcers. He follows with podiatry regularly [facility]. He denies any previous arterialor venous procedures. Patient denies tobacco use. PAST MEDICAL HISTORY: Patient Active Problem List Diagnosis Acute cough [...] mellitus, without long-term current use of insulin ([facility] V24, [facility] V28) Bradycardia Rib fractures Secondary hyperparathyroidism of renal origin (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 V24, [facility] V28) Plantar wart Sensorineural hearing loss (SNHL) of right ear Acquired hammer toe of left foot Acquired hammer toe of right foot Symptomatic anemia Bilateral hearing loss Chronic infective otitis externa Serous otitis media Uses walker ESRD (end stage renal disease) on dialysis ([facility] V24, [facility] V28) Family history of ovarian cancer Dermatitis Heart failure with preserved ejection fraction (HFpEF) ([facility] V24, [facility] V28) Leg swelling PAST SURGICAL HISTORY: Past Surgical History: Procedure Laterality Date AV FISTULA PLACEMENT COLONOSCOPY PROCEDURE:COLONOSCOPY EYE SURGERY INSERT / REPLACE / REMOVE PACEMAKER MEDICATIONS: Outpatient Medications Marked as Taking for the 07/24/25 encounter (Office Visit) with SIDNEY Chopra Medication Sig Dispense Refill acetaminophen (TYLENOL) 500 mg tablet Take 2 tablets (1,000 mg total) by mouth every 8 (eight) hours if needed for mild pain. 360 tablet 1 albuterol HFA (PROAIR HFA ; PROVENTIL HFA ; VENTOLIN HFA) 90 mcg/actuation inhaler Inhale 2 puffs by mouth every 6 (six) hours if needed for wheezing or shortness of breath. 6.7 g 2 atorvastatin (LIPITOR) 80 mg tablet TAKE 1 TABLET BY MOUTH 1 TIME EACH DAY. 90 tablet 1 blood sugar diagnostic (FreeStyle Lite Strips) test strip Use daily to check bs 100 each 12 carvediloL (COREG) 3.125 mg tablet Take 1 tablet (3.125 mg total) by mouth 2 (two) times a day withmeals. 180 each 0 cholecalciferol (VITAMIN D-3) 125 mcg (5,000 unit) capsule TAKE 1 CAPSULE (5000 UNITS TOTAL) BY MOUTH ONCE DAILY 90 capsule 1 ezetimibe (ZETIA) 10 mg tablet Take 1 tablet (10 mg total) by mouth 1 (one) time each day. 90 each 0 FreeStyle Lancets 28 gauge lancets Use to test blood glucose once daily before a meal 100 each 1 levothyroxine (SYNTHROID, LEVOTHROID) 125 mcg tablet Take 1 tablet (125 mcg total) by mouth 1 (one)time each day. 30 each 2 midodrine (PROAMATINE) 5 mg tablet Take 1 tablet (5 mg total) by mouth 1 (one) time each day. 90 each 0 Nephro-Ailyn 0.8 mg tablet TAKE 1 TABLET BY MOUTH 1 TIME EACH DAY. 90 tablet 1 sevelamer carbonate (RENVELA) 800 mg tablet Take 1 tablet (800 mg total) by mouth 3 (three) times aday with meals. Swallow tablet whole; do not crush, break, or chew. 270 each 1 triamcinolone (KENALOG) 0.1 % cream Apply to affected area 1-2 times daily as needed. 30 g 2 ALLERGIES: Allergies Allergen Reactions Aspirin Bleeding BLEEDING ULCERS Sulfa (Sulfonamide Antibiotics) Unknown Other reaction(s): Other (See Comments) Pt is unsure of reaction Sulfamethoxazole-Trimethoprim Unknown UNKNOWN SOCIAL HISTORY: Social History Tobacco Use Smoking status: Never Smokeless tobacco: Never Vaping Use Vaping status: Never Used Substance Use Topics Alcohol use: Not Currently Drug use: Never FAMILY HISTORY: Family History Problem Relation Name Age of Onset Cancer Mother Ryann Heart attack Father Cancer Sister Indu ROS: GENERAL: No malaise, significant weight loss or fever NECK: No lumps, goiter, pain or significant neck swelling RESPIRATORY: No cough, wheezing or shortness of breath CARDIAC: No chest pain or palpitations GI: No abdominal discomfort MUSCULOSKELETAL: SEE HPI SKIN: No lesions, rash or itching NEURO: No persistent headache, syncope, seizures, weakness or numbness VASCULAR: SEE HPI PHYSICAL EXAM: Vitals: 07/24/25 1506 BP: 117/73 BP Location: Right arm Patient Position: Sitting Pulse: 99 Weight: 51.8 kg (114 lb 3.2 oz) Height: 1.6 m (63 ) General: Alert and oriented x 3, no acute distress, well-nourished HEENT: Normocephalic atraumatic Chest: Respiratory effort normal Cardiac: Regular rate rhythm Abdomen: Soft, nontender, nondistended Extremity: -Upper extremities: 2+ radial artery pulse palpable. -Right lower extremity: 2+ femoral artery pulse. No palpable popliteal artery pulse. Unable to palpate DP or PT. No major varicosities noted. Pitting edema of the lower leg. No ulcers. -Left lower extremity: 2+ femoral artery pulse. No palpable popliteal artery pulse. Unable to palpate DP or PT. No major varicosities noted. Ptting edema of the lower leg. No ulcers. Neuro: Grossly intact DIAGNOSTIC TESTING: Arterial duplex, [facility], 01/09/25: Right mid peroneal artery is occluded. RIGHT. MEIR noncompressible. TBI 0.53. Decreased amplitude PVR waveform at the ankle. Normal amplitude digit PPG waveform. Diffuse atherosclerotic disease. No significant inflow arterial occlusive disease. 50-99% popliteal artery stenosis Diseased two-vessel runoff via the anterior tibial and posterior tibial artery. Occluded peroneal artery. LEFT. MEIR noncompressible. TBI 0.40. Decreased amplitude PVR waveform at the ankle. Decreased amplitude digit PPG waveform. Diffuse atherosclerotic disease. No significant inflow arterial occlusive disease. 20-49% popliteal artery stenosis Three-vessel runoff with moderate to severe tibial arterial occlusive disease Result History Order Result History Report Procedure Details A whitten scale, color and doppler analysis ultrasound was performed. During the study longitudinal and transverse views were obtained. Continuous wave doppler, pulsed wave doppler and pulsed volume recording (PVR) was performed. Overall the study quality was poorly visualized and technically difficult. Study was technically difficult due to: acoustic shadowing and body habitus. Lower Extremity Arterial Findings Right Lower Arterial Duplex The distal external iliac artery has biphasic flow. The common femoral artery has triphasic flow. The profunda femoris artery has monophasic flow. The superficial femoral artery has biphasic flow. The proximal popliteal artery has biphasic flow. The distal popliteal artery has monophasic flow. The anterior tibial artery has biphasic flow. The posterior tibial artery has monophasic flow. The mid peroneal artery is occluded. Right Segmental Pressures Unable to obtain right MEIR due to uncompressible arteries. Left Lower Arterial Duplex The distal external iliac artery has biphasic flow. The common femoral artery has biphasic flow. The profunda femoris artery has biphasic flow. The superficial femoral artery has biphasic flow. The proximal popliteal artery has biphasic flow. The distal popliteal artery has monophasic flow. The anterior tibial artery has monophasic flow. The posterior tibial artery has monophasic flow. The mid peroneal artery has biphasic flow. 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 Unable to obtain right MEIR due to uncompressible arteries. Iliac Artery Measurements PSV Rt EIA Prox 92 cm/s Rt EIA Dist 90 cm/s Lt EIA Dist 69 cm/s Right Lower Arterial Measurements PSV ATOMIC PHYSICS PROFESSOR Prox 62 cm/s SFA Prox 71 cm/s SFA Mid 98 cm/s SFA Dist 50 cm/s Pop Prox 41 cm/s Pop Dist 43 cm/s INFORMATION TECHNOLOGY DATA ANALYST Prox 98 cm/s INFORMATION TECHNOLOGY DATA ANALYST Mid 87 cm/s INFORMATION TECHNOLOGY DATA ANALYST Dist 97 cm/s ALMA Prox 49 cm/s ALMA Mid 62 cm/s ALMA Dist 66 cm/s Peroneal Mid 0 cm/s Left Lower Arterial Measurements PSV ATOMIC PHYSICS PROFESSOR Prox 50 cm/s SFA Prox 80 cm/s SFA Mid 92 cm/s SFA Dist 50 cm/s Pop Prox 39 cm/s Pop Dist 55 cm/s INFORMATION TECHNOLOGY DATA ANALYST Prox 19 cm/s INFORMATION TECHNOLOGY DATA ANALYST Mid 12 cm/s INFORMATION TECHNOLOGY DATA ANALYST Dist 7 cm/s ALMA Prox 13 cm/s ALMA Mid 66 cm/s ALMA Dist 72 cm/s Peroneal Mid 46 cm/s Segmental Pressure Measurements Right Left Brachial BP 189 mmHg Toe Pressure 101 mmHg 76 mmHg TBI 0.53 0.4 All Reviewers List SIDNEY Chopra on 01/09/2025 08:56 Study Signed at 0825 EDT Lower Extremity Arterial Duplex-05/16/2024-14:25 Findings: Right: MEIR could not be calculated due to noncompressible vessel. There is heterogenous atherosclerotic palque in the right lower extremity arteries. There is probably moderate (20-49%) stenosis of the right distal popliteal artery, right posterior tibial and anterior tibial arteries. The right peroneal artery is occluded. 2-vessel runoff is noted in the right calf. Left: MEIR could not be calculated due to noncompressible vessel. There is heterogenous atherosclerotic palque in the left lower extremity arteries. There is probably moderate (20-49%) stenosis of distal popliteal, posterior tibial, anterior tibialand peroneal arteries. 3-vessel runoff is noted in the left calf. Conclusions: Right: MEIR could not be calculated due to noncompressible vessel. There is probably moderate (20-49%) stenosis of the right distal popliteal artery, right posterior tibial and anterior tibial arteries. The right peroneal artery is occluded. 2-vessel runoff is noted in the right calf. Left: MEIR could not be calculated due to noncompressible vessel. There is probably moderate (20-49%) stenosis of distal popliteal, posterior tibial, anterior tibialand peroneal arteries. 3-vessel runoff is noted in the left calf. Echocardiogram, [facility], 07/06/2023: EF 50 to 55% Bilateral lower extremity venous duplex, [facility], 04/07/2023: No DVT bilaterally. Venous reflux studies, [facility], 11/27/2023: - Right: Chronic thrombus noted in the right common femoral vein, greater saphenous vein and small saphenous vein. Measurements were provided of the greater and small saphenous veins. There is no superficial or deep reflux noted. - Left: Chronic thrombus in the greater saphenous and small saphenous veins. Measurements were provided of the diameters of the greater and small saphenous veins. There is no deep or superficial venous reflux noted. No DVT on the left. I independently reviewed the studies along with the images. ASSESSMENT: 1. PAD (peripheral artery disease) ([facility] V24) 2. Leg swelling PLAN: 85 y.o. male with PAD. He has moderate popliteal and tibial disease bilaterally, stable from last year. No active ulcers or rest pain. Recommend follow up in 6 months with repeat arterial duplex or sooner if he develops skin breakdown or recurrent venous stasis ulcers. Pt also has chronic bilateral leg swelling which is multifactorial. Patient had multiple ulcers when he was first referred and all ulcers have now healed with compression and wound care. He continuesto use compression daily and will be adding pneumatic compression as well. He has had venous refluxstudies ordered by his primary. I discussed that regardless of results, would recommend compression and elevation alone unless he develops a venous stasis ulcer. Of note, on prior reflux studies, chronic thrombus was discovered in the right common femoral vein and bilateral greater and small saphenous veins which was discussed with Dr. Kelly who then reviewed the images. Patient has chronic appearing nonocclusive thrombus vs wall thickening on the dan of the right common femoral vein and bilateral GSV and SSV. This is nonocclusive and definitely not acute. He does not need anticoagulation or any further workup for this. We discussed the natural pathophysiology of PAD. I spent 35 minutes in an encounter with this patient, including time spent with patient, chart review, reviewing and ordering diagnostic studies, and documentation. documented in this encounter Plan of Treatment Upcoming Encounters Date Type Department Care Team (Late st Contact Info) Description 07/29/2025 4:00 PM EST Office Visit Endocrinology - [place] [address] [place], [place] [phone] Rosa Roth PA [address] [place], [place] 08/12/2025 9:00 AM EST Consult [facility] [address] [place] [phone] Franky Choudhury MD [address] [place] [address] [address] [place] [phone] 08/14/2025 10:[address] [facility] Ultrasound [address] [place] [phone] 08/26/2025 10:30 AM EST Ancillary Procedure Pulmonology - [place] [address] [phone] 09/02/2025 10:45 AM EST Office Visit Pulmonology - [place] [address] [facility] [address] [place] [phone] Lore Myers MD [address] [place] [phone] 10/28/2025 8:30 AM EDT Office Visit [facility] - [place] [address] [place] [address] Alida Weber MD [address] [place] [address] 05/05/2026 9:00 AM EDT Ancillary Procedure [facility] - [address] [place] [address] 06/24/2026 1:30 PM EST Ancillary Procedure [facility] - [address] [address] [place] [address] 07/21/2026 9:00 AM EST Office Visit Vascular Surgery - [place] [address] [place] [address] Senait España PA [address] [place] [address] Scheduled Orders Name Type Priority Associated Diagnoses Orde r Schedule Vascular US duplex lower extremity arteries bilateral with MEIR Vascular Ultrasound Routine PAD (peripheral artery disease) ([facility] V24) Expected: 06/24/2026, Expires: 07/24/2026 documented as of this encounter Visit Diagnoses Diagnosis PAD (peripheral artery disease) ([facility] V24)- Primary Unspecified peripheral vascular disease Leg swelling Swelling of limb Encounter for adjustment or management of cardiac device documented in this encounter Additional Health Concerns Assessment Noted Time PHQ-9 Depression Total Score: 0 07/22/20 25 3:23 PM EST A fall risk assessment has been complete d for the patient 07/22/2025 3:20 PM EST documented as of this encounter Care Teams Marketing Forecaster Relationship Specialty Start Date End Date Alida Weber MD [address] [facility] [place] [id number] PCP - General 10/26/22 documented as of this encounter
--- NOTE | 2025-07-29 13:15 | A.PHYSOV_ITS ---
Intake Visit Reasons: F/U after injection 06/30/2025 Intake Note: Patient is a 85 year old male here for follow up after Bilateral C4-C5,C5-C6,C6-C7 facet injections 06/30/25 Property Man Required: No Allergies aspirin Allergy (Unknown, Verified 07/29/25 13:16) Unknown Sulfa (Sulfonamide Antibiotics) Allergy (Unknown, Verified 07/29/25 13:16) Unknown sulfamethoxazole Allergy (Unknown, Verified 07/29/25 13:16) Unknown HPI Comments Details: History of Present Illness The patient is an 85 year old male presenting with follow-up for neck pain and difficulty holding his head up. He reports that a recent cervical facet injection provided about 50% relief for a month, but the effects have since dissipated. His primary issue is an inability to hold his head up, which worsens when he becomes tired. The patient has end-stage renal disease and undergoes dialysis, which he states takes a lot out of him and exacerbates his neck weakness. He has tried using a neck brace for support, but it caused discomfort by digging into his skin. Pain Description - Primary location: Neck. - Pain quality: Associated with difficulty holding his head up. - Exacerbating factors: Symptoms worsen with fatigue, particularly after dialysis sessions. - Relieving factors: A recent injection provided 50% relief for one month. - Interference with function: Inability to hold his head up when tired. Results [facility] Surgical History Status post cardiac surgery (Unknown) Social History Are you a primary rn wound care to a significant other at home: No Do you presently have visiting nurse or other home services: No Alcohol intake: current Alcohol intake frequency: does not drink Patient Tobacco Use Status: Never used Tobacco Second Hand Smoke Exposure: No Review of Systems Narrative Review of Systems - Constitutional: Reports fatigue, particularly after dialysis. - Musculoskeletal: Reports neck pain and generalized weakness. - Neurological: Reports unsteadiness, balance issues, and neck weakness causing his head to drop. Physical Exam Exam Exam: Physical Exam Cervical Spine: Forward head position. He is tender to the C4 through 7 assess. He is markedly limited in extension as well as lateral rotation. Special Tests: Axial Compression test: Negative Spurlings test: Negative Lhermitte's sign is Negative Upper Extremities: Full range of motion bilateral upper extremities. Equal railroad surveyor strength bilaterally. Neuro: Sensation: Intact to upper extremities bilateral to light touch Strength C5 (Elbow Flexion): 5/5 on the left and 5/5 on the right. C6 (Elbow Ext): 5/5 on the left and 5/5 on the right. C7 (Elbow Ext): 5/5 on the left and 5/5 on the right. C8 (Finger Flex): 5/5 on the left and 5/5 on the right. T1 (Finger Abd/Add): 5/5 on the left and 5/5 on the right. DTR: C5 (Biceps): Left 2 Right 2 C6 (Brachioradialis): Left 1 Right 1 C7 (Triceps): Left 1 Right 1 Abraham sign: Negative No pathologic clonus. No involuntary movement. Assessment & Plan Assessment & Plan (1) Cervicalgia: Code(s): M54.2 - Cervicalgia Category: Medical (2) Cervical spondylosis: Code(s): M47.812 - Spondylosis without myelopathy or radiculopathy, cervical region Category: Medical Plan Pain Management - Analgesia: A recent injection provided 50% pain relief for about one month before its effects wore off. - Affect: The patient demonstrates a positive and accepting attitude regarding his condition and its limitations. - Activities of Daily Living: The patient's inability to hold his head up is most pronounced when he is tired, especially after dialysis. - Adverse Effects: He reports a neck brace he tried was uncomfortable as it would dig into him. - Aberrant Drug Related Behaviors: None discussed. Plan Patient was informed and verbally consented to the use of an ambient scribe for clinic note documentation during this visit. 1. Cervicalgia And Dropped Head Syndrome The patient's neck pain and dropped head are considered secondary to age-related changes and are likely not structurally correctable. A recent injection provided only 50% temporary relief, which does not meet the 80-90% threshold to qualify for a radiofrequency ablation. It was explained that an ablation would only address pain and not the structural weakness causing his head to drop. The possibility of a custom-fabricated splint or chin rest was suggested for head support, acknowledging that comfort may be an issue and a previous brace was unsuccessful. The patient was informed he could seek a second opinion from Dr. Larkin, though a different outcome is unlikely. Will continue to offer management for other pain issues as they arise. 2. End-Stage Renal Disease The patient is on life-sustaining dialysis, which results in significant post- treatment fatigue that exacerbates his neck weakness. Continue with current dialysis regimen. The patient's psychosocial rehabilitation counselor can arrange for dialysis services if he decides to travel. Discussion Notes I discussed with the patient that his primary issue of his head dropping is unfortunately a result of the aging process and is not a structurally correctable problem. We reviewed his recent injection, which provided 50% relief for one month. I explained that this does not meet the typical 80-90% relief criteria required to be a candidate for a radiofrequency ablation (nerve burning procedure). I also clarified that an ablation would only address pain and would not improve the structural support to hold his head up. We discussed the potential option of a custom-fabricated splint to provide physical support for his head, though I noted it might not be comfortable. The patient expressed understanding and acceptance of these limitations. I offered him the opportunity for a formal second opinion with Dr. Larkin, but conveyed that I believe our management options are exhausted. I assured him that while we cannot correct this specific problem, we are here to manage any other pain conditions he may experience. Patient Instructions - The problem with your neck and head dropping is due to age-related changes and is not something we can fix with a procedure. - The injection you had did not provide enough relief for you to be a candidate for a nerve-burning procedure (ablation). - You may want to look for a specialist who can make a custom brace or splint to help support your head, which may be more comfortable than the one you have tried. - Continue with your regular dialysis treatments. This is keeping you alive. - If you decide to travel, let your psychosocial rehabilitation counselor know, and they will help arrange for you to get dialysis where you are going. - Please let us know if you have any other pain issues such as in your hips, knees, back, or shoulders, as we are happy to help manage those. Coding Level of Care Code Est Pt Level 3 (12340) Diagnoses Cervicalgia M54.2 Cervical spondylosis M47.812
--- OUTSIDE RECORDS SUMMARY | 2025-07-29 14:19 | XMS_ITS | Encounter Summary ---
Author Organization [facility] Address [address] [place] [address] Care Team Providers Care Environmental Emergencies Planner Name Role Phone Alida Weber MD Primary Care Provider [phone] Reason for Visit * Reason Comments [facility] [id number] Encounter Details Date Type Department Care Team ([facility] Contact Info) Description 04/24/2025 Billing Patient Not Present Adult Medicine [facility] [address] [place] [address] Alida Weber MD [address] [place], [place] Social History Tobacco Use Types Packs/Day [...] for your loved ones. For example, child neurologist or elderly care for an older adult? [...] 07/29/2025 4:00 PM EST Office Visit [place] [facility] [address] [place] [address] Rosa Roth PA [address] [place] [address] 08/12/2025 9:00 AM EST Consult [facility] [address] [facility] [address] [place] [phone] Franky Choudhury MD Medical [address] [place] [id number] 08/14/2025 10:00 AM EST Appointment [facility] Ultrasound [address] [place] [phone] 08/26/2025 10:30 AM EST Ancillary Procedure Pulmonology - [place] [address] [facility] [address] [place] [address] 09/02/2025 10:45 AM EST Office Visit Pulmonology - [place] [address] [facility] [address] [place] [address] Lore Myers MD [address] [place] [address] 10/28/2025 8:30 AM EDT Office Visit Adult Medicine [facility] [address] [place] [address] Alida Weber MD [address] [place] [address] 05/05/2026 9:00 AM EDT Ancillary Procedure [facility] - [address] [place] [address] 06/24/2026 1:30 PM EST Ancillary Procedure [facility] - [address] [place] [address] 07/21/2026 9:00 AM EST Office Visit Vascular Surgery - [place] [address] [place] [address] Senait España PA [address] [place] [address] documented as of this encounter Visit Diagnoses Not on filedocumented in this encounter Additional Health Concerns Assessment Noted Time PHQ-9 Depression Total Score: 0 02/20/20 25 9:35 AM EDT documented as of this encounter Care Teams Environmental Emergencies Planner Relationship Specialty Start Date End Date Alida Weber MD [address] [place] [address] PCP - General 10/26/22 documented as of this encounter
--- OUTSIDE RECORDS SUMMARY | 2025-07-29 14:20 | XMS_ITS | Data Portability ---
Author Organization [place] - [facility], Allergy Address [address] [place] [address] Care Team Providers Care Technology Sales Specialist Name Role Phone SHAN VALENCIA Primary Care Provider [phone] Assessment Encounter Date Assessment Date Assessment LastModified by Organization Details LastModified Time 04/08/2025 04/08/2025 84 year old male , [...] Organization Details Last Modified Time Details Appointments Test Results 15 2025 11:30A M ETHAN JONES MD Not available Not available Not available Lab None recorded. Referral None recorded. Procedures None recorded. Surgeries None recorded. Imaging None recorded. Medication Orders ofloxacin 0.3 % ear drops 2024 025 [facility] #[id number], [address] [facility] [place], [address], 04/08/2025 12:07:58 Patient TargetsNo targets recorded. Patient InstructionsNo instructions recorded. Reason for Referral None Reported. Results Created Date Observation Date Name Description Value Unit Range Abnormal Flag Note LastModifiedBy Organization Detail LastModifiedTime 04/29/20 25 audio gram No observ ation record ed. BARCODE Not Available 2024 13:43:46 07/22/20 25 audio gram No observ ation record ed. BARCODE Not Available 2024 14:18:20 Result Notes None recorded. Problems Name Problem SNOMED Code Status Onset Date Resolution Date Notes Provider Name and Address Organization Details Recorded Time Impacted cerumen in left ear 63299729636 13839 Active 2019 Impacted cerumen, left ear; Note: Date Diagnosed : 03/04/2020 3:57 PM (H61.22) Ethan Chinchilla, [place] [address], [place], [address] , [facility] 5 15:25:30 Bleeding from nose 426102619 Active 2020 Epistaxis ; Note: Date Diagnosed : 03/02/2021 4:06 PM (R04.0) Not Available [facility] 4 02:46:44 Deviated nasal septum 355064384 Active 2020 Deviated nasal septum; Note: Date Diagnosed : 03/02/2021 4:06 PM (J34.2) Not Available [facility] 4 02:46:52 Impacted cerumen of bilateral ears 15187951634 80421 Active 2020 Impacted cerumen, bilateral ; Note: Date Diagnosed : 03/02/2021 4:06 PM (H61.23) Note: Date Diagnosed : 03/02/2021 4:06 PM (H61.23) Not Available [facility] 4 01:08:39 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 46255748600 100 Active 2021 Sensorine ural hearing loss, unilatera l, right ear, with restricte d hearing on the contralat eral side; Note: Date Diagnosed : 01/24/2022 10:45 AM (H90.A21) Not Available [facility] 4 02:46:52 Disorder of left Eustachia n tube 29782479162 64572 Active 2021 Other specified disorders of Eustachia n tube, left ear; Note: Date Diagnosed : 01/24/2022 10:45 AM (H69.82) Not Available [facility] 4 02:46:53 Mixed conductiv e and sensorine ural hearing loss of left ear 09766833636 107 Active 2021 Mixed conductiv e and sensorine ural hearing loss, unilatera l, left ear with restricte d hearing on the contralat eral side; Note: Date Diagnosed : 01/24/2022 10:45 AM (H90.A32) Not Available [facility] 4 02:46:46 Chronic serous otitis media of left ear 486238716 Active 2022 Chronic serous otitis media, left ear; Note: Date Diagnosed : 02/09/2023 1:16 PM (H65.22) Not Available [facility] 4 02:46:49 Sensorine ural hearing loss of bilateral ears 803466357 Active 2023 SIDNEY CALVO [address] [place] [address],[place] [address], [place], [address] , [place] - [facility] 5 14:42:44 Bilateral disorder of Eustachia n tubes 37925056652 00298 Active 2023 MARIA EUGENIA SANTOS MD [address] [place] [address],[place] [address], [place], [address] , [place] - [facility] 4 09:39:41 Sensorine ural hearing loss of bilateral ears 779286780 Active 2023 Ethan Chinchilla, DO [address], [place], [place], [address] , [place] - [facility] 5 08:47:36 Otorrhagi a of left ear 83560174720 Active 2024 CHITRA ONEAL PA-C [address], [place], [address] , [place] - [facility] 5 10:04:02 Dysfuncti on of bilateral eustachia n tubes 21616909115 Active 2024 Ethan Chinchilla, DO [address], [place], [place], [address] , [place] - [facility] 5 08:47:24 Chronic infective otitis externa 951896781 Active 2024 Ethan Chinchilla, DO [address], [place], [address] , [place] - [facility] 5 15:26:02 Mixed conductiv e AND sensorine ural hearing loss 46629970 Active 2024 YISEL HATHAWAY, AUD [address], [place], [address] , [place] - [facility] 5 11:31:00 Bilateral hearing loss 35084144 Active 2024 SIDNEY CALVO [address], [place], [address] , [place] - [facility] 5 14:45:03 Serous otitis media 22082340 Active 2024 SIDNEY CALVO [address], [place], [address] , [place] - [facility] 5 14:46:49 Dysfuncti on of left eustachia n tube 18889397123 56652 Active 2024 SIDNEY CALVO [address] [facility],[place] [address], [place], [address] , [place] - [facility] 5 14:47:08 Problem Notes None recorded. Procedures Surgical History Date Name Laterality Status Provider Name and Address Organization Details Recorded Time 5 Comp Audio with Tymps - 12045 & 50908 completed THEODORA MORENO, AUD [address] [facility],[address], [address], [place] - [facility] 07/22/2025 11:10:26 5 NasalEndoscopy_ DP active SIDNEY CALVO [address] [facility],[address], [address], [place] - [facility] 07/29/2025 12:33:54 5 Air & Speech Audio with Tymps - 18739, 43965 & 39368 completed YISEL HATHAWAY, AUD [address] [facility],[address], [address], [place] - [facility] 04/29/2025 11:35:41 5 Cerumen removal without microscope left completed SIDNEY CALVO [address] [facility],[address], [address], [place] [facility] 04/08/2025 18:13:03 5 Cerumen removal with microscope completed Ethan Chinchilla, DO [address] [facility],[address], [address], [place] - [facility] 03/27/2025 15:24:17 5 Air & Speech Audio with Tymps - 21271, 04770 & 52245 completed THOM DOBBINS, AUD [address] [facility],[address], [address], [place] - [facility] 12/04/2024 09:52:31 5 Cerumen removal without microscope bilat completed CHITRA ONEAL PA-C [address] [facility],[address], [address], [facility] 12/04/2024 10:03:41 4 Cerumen removal with microscope completed MARIA EUGENIA SANTOS MD [address] [facility],[address], [address], [facility] 06/05/2024 09:32:50 Imaging Results None recorded. Procedure Notes None recorded. Medical Equipment None Reported. Allergies Allergen ID Allergen Name Allergen Category Reaction Reaction Severity Criticality Documentation Date Start Date Code Code System Note Provider Name and Address Organization Details Recorded Time 598455 aspirin medicatio n Not available Not available Not available 07/22/2025 1191 RxNorm Not Available [employer] [facility] 5 03:28:24 831455 sulfameth oxazole / trimethop rim medicatio n Not available Not available Not available 07/22/2025 88641 RxNorm Not Available [employer] [facility] [employer] 5 03:28:24 290685 Substance with sulfonami de structure and antibacte rial mechanism of action (substanc e) medicatio n Not available Not available Not available 07/22/2025 68612 8003 SNOMED Not Available [employer] [facility] [employer] 5 03:28:24 Medications Name Sig Start Date Stop Date Status Note LastModified by Organization Details LastModified Time furosemid e 40 mg tablet 2019 active Medicati on ID: [id number] D uration Value: 30 Brand Name: furosemi de Send Method: E-Prescr ibed Sub s Allowed: subs [place] Speci al Instruct ion: TAKE 1 TABLET BY MOUTH EVERY DAY IN THE MORNING Medicati onGeneri cName: furosemi de Not Available Not Available Not Available levothyro xine 137 mcg tablet TAKE 1 TABLET (137 MCG TOTAL) BY MOUTH DAILY active Not Available Not Available No t Available atorvasta tin 80 mg tablet TAKE [...] 24 hr 06/05 completed Medicati on ID: 457666 D uration Value: 30 Brand Name: metoprol [...] phen 500 mg tablet TAKE 2 TABLETS (1000 MG TOTAL) BY MOUTH EVERY 8 HOURS NEEDED FOR MILD PAIN active Not Available Not Available No t Available carvedilo l 3.125 mg tablet TAKE 1 TABLET BY MOUTH TWICE A DAY WITH MEALS active Not Available Not Available No t Available levothyro xine 75 mcg tablet 06/05 completed Medicati on ID: [id number] D uration Value: 30 Brand Name: levothyr [...] mg tablet 06/05 completed Medicati on ID: [id number] D uration Value: 30 Brand Name: lisinopr il Send Method: E-Prescr ibed Sub s Allowed: subs STEWART Gordoni al Instruct ion: TAKE 1 TABLET BY MOUTH EVERY DAY Medi cationGe nericNam e: lisinopr il Not Available Not Available Not Available mupirocin 2 % topical ointment APPLY EXTERNAL LY DAILY TO OPEN WOUND active Not Available Not Available No t Available furosemid e 20 mg tablet 06/05 completed Medicati on ID: [id number] D uration Value: 30 Brand Name: furosemi [...] B-Complex tablet 2019 active Medicati on ID: [id number] B rand Name: B-Comple x Send Method: E-Prescr ibed Sub s Allowed: subs [place] [facility] B-Comple x Not Available Not [...] unit) tablet 2019 active Medicati on ID: [id number] B rand Name: Vitamin D3 Send Method: E-Prescr ibed Sub s Allowed: subs [place] Medic ationGen ericName : Vitamin D3 Not Available Not Available Not Available Flonase Allergy Relief 50 mcg/actua tion nasal spray,thania pension Griffin 2 spray into both nostrils once a day 2021 active Medicati on ID: 622561 D uration Value: 30 Prescri bed By [...] Updated DateTime 04/08/2025 160.02 cm 20.9 kg/m2 12013.9 g Nickie Hassan [place] - [facility] 04/08/2025 11:43:59 Date Recorded Body height Body mass index (BMI) Body weight Provider Name and Address Organization Details Last Updated DateTime 04/29/2025 160.02 cm 20.5 kg/m2 60172.71 g Nickie Hassan [place] - [facility] 04/29/2025 11:00:42 Date Recorded Body height Provider Name an d Address Organization Details Last Updated DateTime 07/22/2025 160.02 cm LIZ CASSANDRA [place] - [facility] 07/22/2025 11:13:50 Social History None recorded. Functional Status None recorded. Mental Status None recorded. Family History Nothing Reported. Medical History Condition Response Diabetes Y Anemia Y Thyroid Problems Y Hypertension Y High Cholesterol Y Past Encounters Encounter ID Performer Location Encounter Start Date Encounter Closed Date Diagnosis/Indication Diagnosis SNOMED-CT Code Diagnosis ICD10 Code Diagnosis IMO Codes Diagnosis Note [id number] MARIA EUGENIA SANTOS MD [facility] [address] [address] 06/05/2024 08:46:20 06/05/2024 09:08:35 Impacted cerumen of bilateral ears 4318655014 764304 H61.23 Sensorineu ral hearing loss of bilateral ears 918943435 H90.3 Bilateral disorder of Eustachian tubes 2391348039 108763 H69.93 [id number] CHITRA ONEAL PA-C [facility] [address] [address] 12/04/2024 08:41:14 12/04/2024 10:14:19 Disorder of left Eustachian tube 7215528729 359173 H69.82 Impacted c erumen of bilateral ears 9240066120 184672 H61.23 Otorrhagia of left ear 4520802865 676745 H92.22 3950993 [id number] MARIAMA KAT [facility] [address] [address] 12/04/2024 08:41:35 12/04/2024 11:22:53 Sensorineural hearing loss of bilateral ears 269381429 H90.3 Audiologic al evaluation results: Right ear: Normal sloping to severe sensorineu ral hearing loss with excellent word recognitio n. Left ear: Normal sloping to severe sensorineu ral hearing loss with excellent word recognitio n. Tympanomet ry: Right Ear:Type A Left Ear:Type B with large volume [id number] Ethan Chinchilla DO [facility] [address] [address] 03/27/2025 14:53:35 03/27/2025 15:26:58 Dysfunction of bilateral eustachian tubes 7292102744 255962 H69.93 13571082 Sensorineu ral hearing loss of bilateral ears 414371626 H90.3 14773577 Impacted c erumen in left ear 4518675314 124487 H61.22 786505 Chronic in fective otitis externa 374331614 H60.392 79383393 [id number] SIDNEY CALVO [facility] [address] [address] 04/08/2025 11:00:09 04/08/2025 12:11:58 Dysfunction of bilateral eustachian tubes 3945746284 278125 H69.93 72840994 Sensorineu ral hearing loss of bilateral ears 879231195 H90.3 72980953 Impacted c erumen in left ear 4040782018 689352 H61.22 882468 Chronic in fective otitis externa 677639884 H60.392 69994614 [id number] SIDNEY CALVO [facility] [address] [address] 04/29/2025 10:48:51 04/29/2025 12:08:58 Chronic infective otitis externa 596241767 H60.392 39209516 Resolved. Mixed cond uctive AND sensorineural hearing loss 36777138 H90.A32 [id number] Right Ear:Border line normal hearing through 2K Hz sloping to a severe SNHL with excellent speech discrimina tion.Type A tympanogra m.Left Ear:Severe MHL with excellent speech discrimina tion.Type B tympanogra m. Bilateral hearing loss 40677039 H90.A21 08852170 Serous otitis media 8032 7007 H65.92 20946641 Dysfunctio n of left eustachian tube 3853791697 037844 H69.92 [id number] MARIAMA RODRIGUEZ [facility] [address] [address] 04/29/2025 11:27:01 04/30/2025 18:06:48 Sensorineural hearing loss of bilateral ears 623390941 H90.3 Mixed cond uctive AND sensorineural hearing loss 83534916 H90.A32 [id number] Right Ear:Border line normal hearing through 2K Hz sloping to a severe SNHL with excellent speech discrimina tion.Type A tympanogra m.Left Ear:Severe MHL with excellent speech discrimina tion.Type B tympanogra m. [id number] MARIAMA WHITEHEAD [facility] [address] [address] 07/22/2025 11:09:32 07/22/2025 11:11:59 Mixed conductive AND sensorineural hearing loss 56830965 H90.A32 [id number] Audiologic al evaluation results: 07/22/2025 Right ear: DNT Left ear: Severe sloping to profound mixed hearing loss with good word recognitio n. Tympanomet ry: Right Ear:DNT Left Ear:Type B with large volume Health Concerns Section Related Observation LastModified by Organization Detai ls LastModified Time None Recorded Concern Status LastModified by Organization Details LastModified Time None Recorded Advance Directives Directive None Recorded Payers Insurance Date Sequence Insurance Name Policy Number Policy [place] Covered Member ID [place] Member ID Guarantor Name 07/22/2025 2 [employer] [id number] Kike Uribe [id number] Kike Uribe 07/22/2025 1 MEDICARE B-[place]: [employer] Kike Uribe [id number] Kike Uribe Notes Date Note Type Note Provider Name and Address Organization Details Recorded Time 04/08/2025 text/html ROS as noted in the [facility] 84 year old male, with a history of eustachian tube dysfunction s/p left tympanostomy tube placement performed 02/09/[address] Ruiz, presents for repeat left ear debridement. Patient completed course of ofloxacin with resolution of otalgia. He continues to endorse some fullness in the left ear. Denies otorrhea. ETHAN JONES MD [address] [place] [address], [address], [facility] 04/14/2025 07:53:41 04/29/2025 text/html ROS as noted in the [facility] 84 year old male, with a history of eustachian tube dysfunction s/p left tympanostomy tube placement performed 02/09/[address] Ruiz, presents for follow up of left otitis externa. Left tube has already extruded. Patient completed course of topical ofloxacin. He does report persistent fullness in the left ear since the previous visit. Denies otalgia, otorrhea, and dizziness. MARY ELLEN HARRINGTON MD [address] [facility],[place] [address], [place], [address], [facility] 04/29/2025 17:06:39 07/22/2025 text/html Hx fluid MARIAMA WHITEHEAD [address] [facility],[place] [address], [place], [address], [facility] 07/22/2025 11:23:14
--- OUTSIDE RECORDS SUMMARY | 2025-07-29 14:20 | XMS_ITS ---
Author Organization [facility] [address] [place] [address] Address [address] [place], [place] Phone Care Team Providers Care Reactor Service Operator Name Role Phone Alida Weber MD Primary Care Provider Active Problems Problem Noted Date Diagnosed Date ESRD (end stage renal disease) on dialysis 07/22 Family history of ovarian cancer 07/22/2025 Dermatitis 07/22/2025 Heart failure with preserved ejection fraction ( HFpEF) 07/22/2025 Leg swelling 07/22/2025 Uses walker 07/02/2025 Bilateral hearing loss 04/29/2025 Serous otitis media 04/29/2025 Chronic infective otitis externa 03/27/2025 Symptomatic anemia 03/07/2025 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 HFrEF (heart failure with reduced ejection fract ion) 05/09/2024 Assessment & Plan (06/24/2025 8:22 AM [...] dialysis, without long-term current use of insulin 05/09/2024 Secondary hyperparathyroidism of renal origin Hyperkalemia 03/27/2024 Hypothyroidism 12/14/2023 White coat syndrome with diagnosis of hypertensi on 12/14/2023 CAD (coronary artery disease) 09/15/2023 CHF (congestive heart failure) 09/15/2023 CKD (chronic kidney disease) stage 5, GFR less than 15 ml/min 09/12/2023 Atelectasis of right lung 07/18/2023 Ground [...] right leg, limited to breakdown of skin 04/19/2023 Anemia of chronic disease 04/18/2023 Chronic [...] Note: Date Diagnosed: 03/04/2020 3:57 PM (H61.22) 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 Past Treatment and Therapy Plans No past plan information found. 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
--- OUTSIDE RECORDS SUMMARY | 2025-07-29 14:20 | XMS_ITS | Continuity of Care Document ---
Author Organization [place] - [facility], [facility] Address [address] [place] [address] Care Team Providers Care Hedge Fund Accountant Name Role Phone SHAN VALENCIA Primary Care [...] available Not available Not available Lab None recorded . Referral None recorded . Procedures None recorded . Surgeries None recorded . Imaging None recorded . Medication Orders None recorded . Patient TargetsNo targets recorded. Patient InstructionsNo instructions [...] Recorded Time Impacted cerumen in left ear 06982748678 68204 Active 2019 Impacted cerumen, left ear; Note: Date Diagnosed : 03/04/2020 3:57 PM (H61.22) Ethan Chinhcilla, [place] [address], [facility] [place], [address] , [facility] 5 15:25:30 Bleeding from nose 865466789 Active 2020 Epistaxis ; Note: Date Diagnosed : 03/02/2021 4:06 PM (R04.0) Not Available [facility] 4 02:46:44 Deviated nasal septum 239207605 Active 2020 Deviated nasal septum; Note: Date Diagnosed : 03/02/2021 4:06 PM (J34.2) Not Available [facility] 4 02:46:52 Impacted cerumen of bilateral ears 67608213151 45009 Active 2020 Impacted cerumen, bilateral ; Note: Date Diagnosed : 03/02/2021 4:06 PM (H61.23) Note: Date Diagnosed : 03/02/2021 4:06 PM (H61.23) Not Available [facility] 4 01:08:39 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 19082052954 100 Active 2021 Sensorine ural hearing loss, unilatera l, right ear, with restricte d hearing on the contralat eral side; Note: Date Diagnosed : 01/24/2022 10:45 AM (H90.A21) Not Available [facility] 4 02:46:52 Disorder of left Eustachia n tube 66730183064 82535 Active 2021 Other specified disorders of Eustachia n tube, left ear; Note: Date Diagnosed : 01/24/2022 10:45 AM (H69.82) Not Available [facility] 4 02:46:53 Mixed conductiv e and sensorine ural hearing loss of left ear 76063889207 107 Active 2021 Mixed conductiv e and sensorine ural hearing loss, unilatera l, left ear with restricte d hearing on the contralat eral side; Note: Date Diagnosed : 01/24/2022 10:45 AM (H90.A32) Not Available [facility] 4 02:46:46 Chronic serous otitis media of left ear 375585447 Active 2022 Chronic serous otitis media, left ear; Note: Date Diagnosed : 02/09/2023 1:16 PM (H65.22) Not Available [facility] 4 02:46:49 Sensorine ural hearing loss of bilateral ears 048189174 Active 2023 SIDNEY CALVO [address], [place], [place], [address] , [place] - [facility] 5 14:42:44 Bilateral disorder of Eustachia n tubes 06718857689 Active 2023 MARIA EUGENIA SANTOS MD [address], [place], [place], [address] , [place] - [facility] 4 09:39:41 Sensorine ural hearing loss of bilateral ears 161760593 Active 2023 Ethan Chinchilla DO [address], [place], [place], [address] , [place] - [facility] 5 08:47:36 Otorrhagi a of left ear 45201019521 65246 Active 2024 CHITRA ONEAL PA-C [address], [place], [place], [address] , [place] - [facility] 5 10:04:02 Dysfuncti on of bilateral eustachia n tubes 55830032417 39003 Active 2024 Ethan Chinchilla DO [address] [place],[address], [place], [place], [address] , [place] - [facility] 5 08:47:24 Chronic infective otitis externa 712916557 Active 2024 Ethan Chinchilla, DO [address] [facility] [place] [address], [place], [address] , [place] - [facility] 5 15:26:02 Mixed conductiv e AND sensorine ural hearing loss 11608587 Active 2024 YISEL HATHAWAY, AUD [address] [facility] [address], [place], [address] , [place] - [facility] 5 11:31:00 Bilateral hearing loss 14903921 Active [address] [place] [address], [place], [address] , [place] - [facility] 5 14:45:03 Serous otitis media 29049948 Active [address] [facility] [place] [address], [place], [address] , [place] - [facility] 5 14:46:49 Dysfuncti on of left eustachia n tube 29628817158 94985 Active [address],[facility] [address], [place], [address] , [place] - [facility] 5 14:47:08 Problem Notes None recorded. Procedures Surgical History Date Name Laterality Status Provider Name and Address Organization Details Recorded Time 5 Comp Audio with Tymps - 29480 & 54583 completed THEODORA MORENO, AUD [address], [place], [address], [place] - [facility] 07/22/2025 11:10:26 5 NasalEndoscopy_ DP active SIDNEY CALVO [address], [place], [address], [place] - [facility] 07/29/2025 12:33:54 5 Air & Speech Audio with Tymps - 73344, 00709 & 04333 completed YISEL HATHAWAY, AUD [address] [facility] [facility] [place],[address], [address], [facility] - [facility] 04/29/2025 11:35:41 5 Cerumen removal without microscope left completed SIDNEY CALVO [address] [facility] [facility] [place],[address], [address], [facility] - [facility] 04/08/2025 18:13:03 5 Cerumen removal with microscope completed Ethan Chinchilla, [address] [facility] [facility] [place],[address], [address], [facility] - [facility] 03/27/2025 15:24:17 5 Air & Speech Audio with Tymps - 42530, 08574 & 72526 completed THOM DOBBINS, AUD [address] [facility] [facility] [place],[address], [address], [facility] - [facility] 12/04/2024 09:52:31 5 Cerumen removal without microscope bilat completed CHITRA ONEAL PA-C [address] [facility] [place],[address], [address], [facility] - [facility] 12/04/2024 10:03:41 4 Cerumen removal with microscope completed MARIA EUGENIA SANTOS MD [address] [place],[address], [address], [facility] - [facility] 06/05/2024 09:32:50 Imaging Results None recorded. Procedure Notes None recorded. Medical Equipment None Reported. Allergies Allergen ID Allergen Name Allergen Category Reaction Reaction Severity Criticality Documentation Date Start Date Code Code System Note Provider Name and Address Organization Details Recorded Time 389640 aspirin medicatio n Not available Not available Not available 07/22/2025 1191 RxNorm Not Available jeremias - [employer] - prod 03:28:24 769822 sulfameth oxazole / trimethop rim medicatio n Not available Not available Not available 07/22/2025 30879 RxNorm Not Available jeremias - [employer] - prod 5 03:28:24 288365 Substance with sulfonami de structure and antibacte rial mechanism of action (substanc e) medicatio n Not available Not available Not available 07/22/2025 86387 8003 SNOMED Not Available jeremias - [employer] - prod 5 03:28:24 Medications Name Sig Start Date Stop Date Status Note LastModified by Organization Details LastModified Time furosemid e 40 mg tablet 2019 active Medicati on ID: 787590 D uration Value: 30 Brand Name: furosemi [...] 24 hr 06/05 completed Medicati on ID: 614402 D uration Value: 30 Brand Name: metoprol [...] mcg tablet 06/05 completed Medicati on ID: 366946 D uration Value: 30 Brand Name: levothyr [...] mg tablet 06/05 completed Medicati on ID: 710086 D uration Value: 30 Brand Name: lisinopr [...] mg tablet 06/05 completed Medicati on ID: 852994 D uration Value: 30 Brand Name: furosemi [...] B-Complex tablet 2019 active Medicati on ID: 661874 B rand Name: B-Comple x Send Method: [...] unit) tablet 2019 active Medicati on ID: 657639 B rand Name: Vitamin D3 Send Method: E-Prescr ibed Sub s Allowed: subs OK Medic ationGen ericName : Vitamin D3 Not Available Not Available Not Available Flonase Allergy Relief 50 mcg/actua tion nasal spray,thania pension [place] 2 spray into both nostrils once a day 2021 active Medicati on ID: 723084 D uration Value: 30 Prescri bed By Name: SHERRIE Boone nd Name: Flonase Allergy Relief S end Method: E-Prescr ibed Sub s Allowed: subs OK Medic atoraGen ericName : Flonase Allergy Relief Not Available Not Available Not Available Lokelma 10 gram oral powder packet TAKE 1 PACKET BY MOUTH 4 (FOUR) TIMES A WEEK active Not Available Not Available No t Available Vitals Date Recorded Body height Body mass index (BMI) Body weight Provider Name and Address Organization Details Last Updated DateTime 04/29/2025 160.02 cm 20.5 kg/m2 14523.71 g Nickie Hassan [place] - [facility] 04/29/2025 11:00:42 Social History None recorded. Functional Status None recorded. Mental Status None recorded. Family History Nothing Reported. Medical History Condition Response Diabetes Y Anemia Y Thyroid Problems Y Hypertension Y High Cholesterol Y Past Encounters Encounter ID Performer Location Encounter Start Date Encounter Closed Date Diagnosis/Indication Diagnosis SNOMED-CT Code Diagnosis ICD10 Code Diagnosis IMO Codes Diagnosis Note [id number] SIDNEY CALVO [facility] of [address] [address] 04/08/2025 11:00:09 04/08/2025 12:11:58 Dysfunction of bilateral eustachian tubes 8658772738 128781 H69.93 44174757 Sensorineu ral hearing loss of bilateral ears 460700093 H90.3 33742857 Impacted c erumen in left ear 8133856309 669823 H61.22 223495 Chronic in fective otitis externa 018462335 H60.392 [id number] SIDNEY CALVO [facility] of [address] [address] 04/29/2025 10:48:51 04/29/2025 12:08:58 Chronic infective otitis externa 909687846 H60.392 59494065 Resolved. Mixed cond uctive AND sensorineural hearing loss 94864612 H90.A32 09219284 Right Ear:Border line normal hearing through 2K Hz sloping to a severe SNHL with excellent speech discrimina tion.Type A tympanogra m.Left Ear:Severe MHL with excellent speech discrimina tion.Type B tympanogra m. Bilateral hearing loss 91362071 H90.A21 23546804 Serous otitis media 8032 7007 H65.92 27886322 Dysfunctio n of left eustachian tube 5695665975 374843 H69.92 [id number] MARIAMA RODRIGUEZ [facility] of [address] [address] 04/29/2025 11:27:01 04/30/2025 18:06:48 Sensorineural hearing loss of bilateral ears 559283874 H90.3 Mixed cond uctive AND sensorineural hearing loss 51443231 H90.A32 76650146 Right Ear:Border line normal hearing through 2K [...] Member ID Guarantor Name 04/29/2025 2 [employer] [id number] Kike Uribe [id number] Kike Uribe 04/29/2025 1 MEDICARE B-[place]: [facility] [employer] Kike Uribe [id number] Kike Uribe Notes Date Note Type [...] otorrhea, and dizziness. MARY ELLEN HARRINGTON MD [address] [place] [address], [address], [facility] - [facility] 04/29/2025 17:06:39
--- OUTSIDE RECORDS SUMMARY | 2025-07-29 14:20 | XMS_ITS | Clinical Summary ---
Author Organization [facility] Prior to 01/04/[address] [place] [address] Care Team Providers Care Lowerator Operator Name Role Phone Alida Weber MD Primary Care Provider [phone] Allergies Active Allergy Reactions Criticality Noted Date Comments Sulfa Antibiotics Other (See Comments) 12/28/19 Pt is unsure of reaction Medications Medication [...] a week 0 Active epoetin del-epbx (Retacrit) 16942 UNIT/ML SOLN injection once. 0 Ac tive [...] age to complete this topic Care Teams Lowerator Operator Relationship Specialty Start Date End Date Alida Weber MD [address] [place] [address] PCP - General Internal Medicine 10/26/22
--- OUTSIDE RECORDS SUMMARY | 2025-07-29 14:20 | XMS_ITS | Encounter Summary ---
Author Organization [facility] Address [address] [place] [address] Care Team Providers Care Field Crop Harvest Contractor Name Role Phone Alida Weber MD Primary Care Provider [phone] Encounter Details Date Type Department Care Team ([facility] Contact Info) Description 07/25/2025 Results Follow-Up Pulmonology - [place] [address] [place] [address] Lore Myers MD [address] [place] [address] Social History Tobacco Use Types Packs/Day [...] your loved ones. For example, child care supervisor or elderly care for an older adult? [...] documented in this encounter Progress Notes * Rey Welch MA - 07/28/2025 12:01 PM EST Letter mailed to pt * Lore Myers MD - 07/25/2025 5:29 PM EST Inform patient letter/phone call chest CT showed slight decrease in his chronic moderate left pleural effusion. If patient symptom has not changed. I will discuss with him during his follow-up visit09/02/2025. If patient feels that his dyspnea and dyspnea on exertion have increased, I be happy to see him earlier . Okay to overbook. documented in this encounter Plan of Treatment Upcoming Encounters Date Type Department Care Team (Late st Contact Info) Description 07/29/2025 4:00 PM EST Office Visit Endocrinology - [place] [address] [place] [address] Rosa Roth PA [address] [place] [address] 08/12/2025 9:00 AM EST Consult [facility] Cardiology [facility] [address] [place] [phone] Franky Choudhury MD [address] [place] [address] [address] [place] [address] 08/14/2025 10:00 AM EST Appointment [facility] Ultrasound [address] [place] [phone] 08/26/2025 10:30 AM EST Ancillary Procedure Pulmonology - [place] [address] [facility] [address] [place] [address] 09/02/2025 10:45 AM EST Office Visit Pulmonology [facility] [address] [facility] [address] [place] [address] Lore Myers MD [address] [place] [address] 10/28/2025 8:30 AM EDT Office Visit Adult Medicine [facility] [address] [place] [address] Alida Weber MD [address] [place] [address] 05/05/2026 9:00 AM EDT Ancillary Procedure [facility] [address] [place] [address] 06/24/2026 1:30 PM EST Ancillary Procedure [facility] [address] [place] [address] 07/21/2026 9:00 AM EST Office Visit Vascular Surgery - [place] [address] [place] [address] Senait España PA [address] [place] [address] documented as of this encounter Visit Diagnoses Not on filedocumented in this encounter Additional Health Concerns Assessment Noted Time PHQ-9 Depression Total Score: 0 07/22/20 3:23 PM EST A fall risk assessment has been complete d for the patient 07/22/2025 3:20 PM EST documented as of this encounter Care Teams Field Crop Harvest Contractor Relationship Specialty Start Date End Date Alida Weber MD [address] [place] [address] PCP - General 10/26/22 documented as of this encounter
--- OUTSIDE RECORDS SUMMARY | 2025-07-29 14:20 | XMS_ITS | Continuity of Care Document ---
Author Organization [place] - [facility], [facility] Address [address] [place] [address] Care Team Providers Care Revenue Research Analyst Name Role Phone SHAN VALENCIA Primary Care Provider [phone] Assessment No assessment recorded. Plan of Treatment [...] Abnormal Flag Note LastModifiedBy Organization Detail LastModifiedTime 07/22/20 25 audio gram No observ ation record ed. BARCODE Not Available 2024 14:18:20 Result Notes None recorded. Problems Name Problem SNOMED Code Status Onset Date Resolution Date Notes Provider Name and Address Organization Details Recorded Time Impacted cerumen in left ear 16673609938 82949 Active 2019 Impacted cerumen, left ear; Note: Date Diagnosed : 03/04/2020 3:57 PM (H61.22) Ethan Chinchilla, DO [address], [address] , [place] - [facility] 5 15:25:30 Bleeding from nose 258041001 Active 2020 Epistaxis ; Note: Date Diagnosed : 03/02/2021 4:06 PM (R04.0) Not Available [facility] 4 02:46:44 Deviated nasal septum 561415319 Active 2020 Deviated nasal septum; Note: Date Diagnosed : 03/02/2021 4:06 PM (J34.2) Not Available [facility] 4 02:46:52 Impacted cerumen of bilateral ears 08507709967 91161 Active 2020 Impacted cerumen, bilateral ; Note: Date Diagnosed : 03/02/2021 4:06 PM (H61.23) Note: Date Diagnosed : 03/02/2021 4:06 PM (H61.23) Not Available [facility] 4 01:08:39 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 92068813224 100 Active 2021 Sensorine ural hearing loss, unilatera l, right ear, with restricte d hearing on the contralat eral side; Note: Date Diagnosed : 01/24/2022 10:45 AM (H90.A21) Not Available [facility] 4 02:46:52 Disorder of left Eustachia n tube 93019587637 27848 Active 2021 Other specified disorders of Eustachia n tube, left ear; Note: Date Diagnosed : 01/24/2022 10:45 AM (H69.82) Not Available [facility] 4 02:46:53 Mixed conductiv e and sensorine ural hearing loss of left ear 01904976589 107 Active 2021 Mixed conductiv e and sensorine ural hearing loss, unilatera l, left ear with restricte d hearing on the contralat eral side; Note: Date Diagnosed : 01/24/2022 10:45 AM (H90.A32) Not Available [facility] 4 02:46:46 Chronic serous otitis media of left ear 291631781 Active 2022 Chronic serous otitis media, left ear; Note: Date Diagnosed : 02/09/2023 1:16 PM (H65.22) Not Available [facility] 4 02:46:49 Sensorine ural hearing loss of bilateral ears 312061736 Active 2023 SIDNEY CALVO [address] [place] [address],[facility] 100, [facility] [place], [address] , [place] - [facility] 5 14:42:44 Bilateral disorder of Eustachia n tubes 85948262461 Active 2023 MARIA EUGENIA SANTOS MD [address],[place] [address], [place], [place], [address] , [place] - [facility] 4 09:39:41 Sensorine ural hearing loss of bilateral ears 969595535 Active 2023 Ethan Chinchilla, DO 100 [facility] [address],[place] [address], [place], [place], [address] , [place] - [facility] 5 08:47:36 Otorrhagi a of left ear 80317244997 Active 2024 CHITRA ONEAL PA-C [address],[place] [address], [place], [place], [address] , [place] - [facility] 5 10:04:02 Dysfuncti on of bilateral eustachia n tubes 17236924968 Active 2024 Ethan Chinchilla, DO 100 [facility] [address],[place] [address], [place], [address] , [place] [facility] 5 08:47:24 Chronic infective otitis externa 320107357 Active 2024 Ehtan Chinchilla, DO 100 [facility] [address],[place] [address], [place], [place], [address] , [place] - [facility] 5 15:26:02 Mixed conductiv e AND sensorine ural hearing loss 75677433 Active 2024 MARIAMA RODRIGUEZ [address],[place] [address], [place], [address] , [place] [facility] 5 11:31:00 Bilateral hearing loss 98396040 Active 2024 SIDNEY CALVO [address],[place] [address], [place], [place], [address] , [place] - [facility] 5 14:45:03 Serous otitis media 33520641 Active 2024 SIDNEY CALVO 100 [facility],[place] [address], [place], [address] , [place] [facility] 5 14:46:49 Dysfuncti on of left eustachia n tube 69015063563 13416 Active 2024 SIDNEY CALVO 100 [facility],[place] [address], [place], [address] , [place] [facility] 5 14:47:08 Problem Notes None recorded. Procedures Surgical History Date Name Laterality Status Provider Name and Address Organization Details Recorded Time 5 Comp Audio with Tymps - 55351 & 38296 completed THEODORA MORENO, AUD 100 [facility],[address], [address], [place] - [facility] 07/22/2025 11:10:26 5 NasalEndoscopy_ DP active SIDNEY CALVO 100 [facility],[address], [address], [place] - [facility] 07/29/2025 12:33:54 5 Air & Speech Audio with Tymps - 19102, 93768 & 99008 completed YISEL HATHAWAY, AUD [address] [place] [address],[address], [address], [place] - [facility] 04/29/2025 11:35:41 5 Cerumen removal without microscope left completed SIDNEY CALVO 100 [facility],[address], [address], [place] [facility] 04/08/2025 18:13:03 5 Cerumen removal with microscope completed Ethan Chinchilla DO 100 [facility],[address], [address], [place] - [facility] 03/27/2025 15:24:17 5 Air & Speech Audio with Tymps - 67289, 54378 & 69949 completed THOM DOBBINS, AUD [address],[place] [address], [place], [address], [facility] - [facility] 12/04/2024 09:52:31 5 Cerumen removal without microscope bilat completed CHITRA ONEAL PA-C [address],[place] [address], [place], [address], [facility] - [facility] 12/04/2024 10:03:41 4 Cerumen removal with microscope completed MARIA EUGENIA SANTOS MD 100 [facility] [address],[place] [address], [place], [address], [facility] - [facility] 06/05/2024 09:32:50 Imaging Results None recorded. Procedure Notes None recorded. Medical Equipment None Reported. Allergies Allergen ID Allergen Name Allergen Category Reaction Reaction Severity Criticality Documentation Date Start Date Code Code System Note Provider Name and Address Organization Details Recorded Time 216030 aspirin medicatio n Not available Not available Not available 07/22/2025 1191 RxNorm Not Available [employer] - prod 5 03:28:24 562102 sulfameth oxazole / trimethop rim medicatio n Not available Not available Not available 07/22/2025 05376 RxNorm Not Available [employer] [facility] prod 5 03:28:24 [id number] Substance with sulfonami de structure and antibacte rial mechanism of action (substanc e) medicatio n Not available Not available Not available 07/22/2025 97138 8003 SNOMED Not Available [employer] [facility] [employer] 5 03:28:24 Medications Name Sig Start Date Stop Date Status Note LastModified by Organization Details LastModified Time furosemid e 40 mg tablet 2019 active Medicati on ID: 425541 D uration Value: 30 Brand Name: furosemi [...] 24 hr 06/05 completed Medicati on ID: 238604 D uration Value: 30 Brand Name: metoprol [...] mcg tablet 06/05 completed Medicati on ID: 945695 D uration Value: 30 Brand Name: levothyr [...] mg tablet 06/05 completed Medicati on ID: 744794 D uration Value: 30 Brand Name: lisinopr [...] mg tablet 06/05 completed Medicati on ID: 692191 D uration Value: 30 Brand Name: furosemi [...] B-Complex tablet 2019 active Medicati on ID: 773926 B rand Name: B-Comple x Send Method: [...] unit) tablet 2019 active Medicati on ID: 832798 B rand Name: Vitamin D3 Send Method: E-Prescr ibed Sub s Allowed: subs OK Medic ationGen ericName : Vitamin D3 Not Available Not Available Not Available Flonase Allergy Relief 50 mcg/actua tion nasal spray,thania pension Appling 2 spray into both nostrils once a day 2021 active Medicati on ID: 280378 D uration Value: 30 Prescri bed By [...] Last Updated DateTime 07/22/2025 160.02 cm LIZ TRUJILLO [place] - [facility] 07/22/2025 11:13:50 Social History None recorded. Functional Status None recorded. Mental Status None recorded. Family History Nothing Reported. Medical History Condition Response Diabetes Y Anemia Y Thyroid Problems Y Hypertension Y High Cholesterol Y Past Encounters Encounter ID Performer Location Encounter Start Date Encounter Closed Date Diagnosis/Indication Diagnosis SNOMED-CT Code Diagnosis ICD10 Code Diagnosis IMO Codes Diagnosis Note [id number] MARIAMA [facility] of [address] [address] 07/22/2025 11:09:32 07/22/2025 11:11:59 Mixed conductive AND sensorineural hearing loss 61136703 H90.A32 [id number] Audiologic al evaluation results: 07/22/2025 Right ear: [...] Member ID Guarantor Name 07/22/2025 2 [employer] [id number] Kike Uribe [id number] Kike Uribe 07/22/2025 1 MEDICARE B-RI: [facility] Kike Uribe [id number] Kike Uribe Notes Date Note Type Note Provider Name and Address Organization Details Recorded Time 07/22/2025 text/html Hx fluid THEODORA MORENO, [facility] 100 [facility],[place] [address], [place], [address], [facility] - [facility] 07/22/2025 11:23:14
--- OUTSIDE RECORDS SUMMARY | 2025-07-29 14:20 | XMS_ITS | Patient Health Record ---
Author Organization [facility] Address [address] [place] [address] Care Team Providers Care Scow Captain Name Role Phone Gus Alida Primary Care Provider Edda Roberson Unavailable [phone] Eunice Rivera Unavailable [phone] Osorio Cleaning Unavailable [phone] José Miguel Mora Unavailable [phone] Allergies Allergen (clinical drug ingredient) Drug/Non Drug Allergy documented on EMR Reaction Allergy Type Onset Date Status aspirin Aspirin Unknown Drug Allergy Active sulfamethoxazole / trimethoprim Bactrim Unknown Drug Allergy Active Substance with sulfonamide structure and antibacterial mechanism of action (substance) Sulfa Antibiotics Unknown Drug Allergy A ctive Results Component Value Reference Range Notes HEMOGLOBIN A1C (GLYCOHEMOGLO BIN) Reviewed date:12/31/2024 01:40:01 PM Interpretation: Performing Lab: Notes/Report: HEMOGLOBIN A1C % (HH) 6.3 Reason For Referral No Information Medications Medication SIG (Take, Route, Frequency, Duration) Notes Start Date End Date Status Lokelma Active Sevelamer Carbonate Active Torsemide Active Midodrine HCl 5 MG 1 tablet Orally Twic e a day Active Tylenol Active Calcitriol Active Sodium Bicarbonate N ot-Taking Ezetimibe Active Tums 500 MG 1 tablet Orally Once a day Not-Taking Carvedilol Active Levothyroxine Sodium Active Albuterol Active Retacrit Active Atorvastatin Calcium Active Extra Depth Orthopedic Shoes, (1) Pair With (3) Pair Custom Heat Molded Multidensity Innersoles Dx: NIDDM/PVD(E11.51), Hammertoe Foot Deformity(M20.41,M20.42) , Preulcerative Skin Lesion(s)(L85.1) Wear Daily; Duration: 365 days Active B Complex Active Mupirocin 2 % 1 application Projection Printer ally daily to open wound; Duration: 30 days 05/01/2025 Active Immunizations Vaccine Route Administration Date Status [...] Problem Acquired hammer toe of right foot (6013996218962514) Other hammer toe(s) (acquired), right foot (M20.41) Active confirmed Problem Bilateral atherosclerosis of arteries of lower limbs (disorder) (15774800651602213 ) Atherosclerosis of [place] artery of both lower extremities, with unspecified presence of clinical manifestation (I70.203) Active confirmed Q7(A), Q8(2B), Q9(1B,2 C) Problem Polyneuropathy due to type 2 diabetes mellitus (035650252) Type 2 diabetes mellitus with diabetic polyneuropathy, unspecified whether snf insulin use (E11.42) Active confirmed Vital Signs Blood pressure diastolic 70 mm Hg 07/01/2025 Height 5ft 2 in in 07/01/2025 Blood pressure systolic 120 mm Hg 07/01/2025 Weight 135 lbs 07/01/2025 BMI 24.69 kg/m2 07/01/2025 Procedures Procedure Date Ordered Date Performed Result Body Sit e D9419-PACMKFJG DYSTROPHIC NAILS ANY # 08/27/2024 N/A 52159-ICVC SKIN LESIONS, 2 TO 4 10/29/2024 N/A H1678-QVIICJBY DYSTROPHIC NAILS ANY # 10/29/2024 N/A 86223-Avkb Destruction, 1-14 12/31/2024 N/A 53904-ZZRWZQF SKIN/TISSUE 06/05/2025 N/A Encounters Encounter Location Date Provider Diagnosis [facility] [address] [address] 08/27/2024 Osorio Cleaning Keratoma L57.0 and Nail dystrophy L60.[address] [address] 10/29/2024 Osorio Cleaning Keratoma L57.0 and Nail dystrophy L60.3 [facility] [address] [facility] [address] [place] [address] 12/31/2024 Edda Jackson Right foot pain M79.671 ; Plantar wart B07.0 and Left foot pain M79.[address] [address] 01/16/2025 Eunice Cochrana Plantar wart B07.0 ; Other hammer toe(s) (acquired), right foot M20.41 ; Type 2 diabetes mellitus with diabetic peripheral angiopathy without gangrene E11.51 ; Tinea unguium B35.1 ; Pain in right toe(s) M79.674 ; Pain in left toe(s) M79.675 ; Right foot pain M79.671 ; Left foot pain M79.672 and Other hammer toe(s) (acquired), left foot M20.[address] [address] 05/01/2025 Eunice Perica Plantar wart B07.0 ; Other hammer toe(s) [...] injury of left heel, stage [address] L89.[address] [address] 05/22/2025 Eunice Cochrana Other hammer toe(s) (acquired), right foot M20.41 ; Ischemic ulcer of right foot with fat layer exposed L97.512 ; Type 2 diabetes mellitus with diabetic peripheral angiopathy without gangrene E11.51 and Pressure injury of left heel, stage 1 L89.6[address] [facility] [address] 06/05/2025 José Miguel Mora Skin ulcer of toe of right foot with fat layer exposed L97.512 ; Ingrown nail L60.0 ; Type 2 diabetes mellitus with diabetic polyneuropathy, 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 pdf (WOUND CARE INSTRUCTIONS. pdf) 07/01/2025 Ingrown nail (ICD-10 - L60.0) 07/01/2025 Skin ulcer of toe of right foot, limited to breakdown of skin (ICD-10 - L97.511) 07/01/2025 Type 2 diabetes mellitus with diabetic polyneuropathy, unspecified whether snf insulin use (ICD-10 - E11.42) 06/05/2025 Type 2 diabetes mellitus with diabetic polyneuropathy, unspecified whether snf insulin use (ICD-10 - E11.42) 05/22/2025 Type [...] 1 (ICD-10 - L89.621) 06/05/2025 Atherosclerosis of [place] artery of both lower extremities, with unspecified presence of clinical manifestation (ICD-10 - I70.203) Q7(A), Q8(2B), Q9(1B,2C) 05/01/2025 Tinea unguium (ICD-10 - B35.1) 07/01/2025 Atherosclerosis of [place] artery of both lower extremities, with unspecified presence of clinical manifestation (ICD-10 - I70.203) Q7(A), Q8(2B), Q9(1B,2C) 05/01/2025 Pain in right toe(s) (ICD-10 - [...] Treatment Pending Test Test Name Order Date 34964-Mxpr Destruction, 1-14 12/31/2024 80793-MWETWER SKIN/TISSUE 06/05/2025 65086-VEDD SKIN LESIONS, 2 TO 4 10/30/19 Q9289-OTQQLWYE DYSTROPHIC NAILS ANY # L0812-BLKNNBBD DYSTROPHIC NAILS ANY # J4466-SQXWJXMA DYSTROPHIC NAILS ANY # Next Appt Details Provider Name:Eunice molina, 08/14/2025 03:45:00 PM, [address] [facility], [place], [address], Insurance Providers Payer Name Payer Address Payer Phone Subscriber Number Group Number Insured Name Patient Relationship to Insured Coverage Start Date Coverage End Date Medicare National Govt S[employer] [address] [place] [address] [id number] Kike Uribe Self - patient is the insured 5 [employer] [address] [place] [address] [id number] Kike Uribe Self - patient is the insured Medical (General) History Medical History History ICD Code Back,Hip,and Knee pain Cataracts covid-19 type II diabetes High Blood Pressure Kidney disease thyroid Vascular grafts Measles Mumps Transfusions Broken bones Surgical History Surgery Date(Month/Year) cardiac pacemeker Hospitalization History Reason Date(Month/Year) injection in neck for arthritis 07/01 fell 12/29
--- OUTSIDE RECORDS SUMMARY | 2025-07-29 14:20 | XMS_ITS | Continuity of Care Document ---
Author Organization [place] - [facility], [facility] Address [address] [place] [address] Care Team Providers Care Joinery Patternmaker Name Role Phone SHAN VALENCIA Primary Care Provider Assessment No assessment recorded. Plan of Treatment [...] Recorded Time Impacted cerumen in left ear 69448118150 22906 Active 2019 Impacted cerumen, left ear; Note: Date Diagnosed : 03/04/2020 3:57 PM (H61.22) Ethan Chinchilla, DO [address] [place] [address] [place], [address] , [facility] - [facility] 15:25:30 Bleeding from nose 582692595 Active 2020 Epistaxis ; Note: Date Diagnosed : 03/02/2021 4:06 PM (R04.0) Not Available [facility] 4 02:46:44 Deviated nasal septum 707886531 Active 2020 Deviated nasal septum; Note: Date Diagnosed : 03/02/2021 4:06 PM (J34.2) Not Available [facility] 4 02:46:52 Impacted cerumen of bilateral ears 45729211168 09362 Active 2020 Impacted cerumen, bilateral ; Note: Date Diagnosed : 03/02/2021 4:06 PM (H61.23) Note: Date Diagnosed : 03/02/2021 4:06 PM (H61.23) Not Available [facility] 4 01:08:39 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 23445852751 100 Active 2021 Sensorine ural hearing loss, unilatera l, right ear, with restricte d hearing on the contralat eral side; Note: Date Diagnosed : 01/24/2022 10:45 AM (H90.A21) Not Available [facility] 4 02:46:52 Disorder of left Eustachia n tube 98961060155 69030 Active 2021 Other specified disorders of Eustachia n tube, left ear; Note: Date Diagnosed : 01/24/2022 10:45 AM (H69.82) Not Available [facility] 4 02:46:53 Mixed conductiv e and sensorine ural hearing loss of left ear 04620752361 107 Active 2021 Mixed conductiv e and sensorine ural hearing loss, unilatera l, left ear with restricte d hearing on the contralat eral side; Note: Date Diagnosed : 01/24/2022 10:45 AM (H90.A32) Not Available [facility] 4 02:46:46 Chronic serous otitis media of left ear 076791969 Active 2022 Chronic serous otitis media, left ear; Note: Date Diagnosed : 02/09/2023 1:16 PM (H65.22) Not Available [facility] 4 02:46:49 Sensorine ural hearing loss of bilateral ears 814128275 Active 2023 SIDNEY CALVO [address], [place], [place], [address] , [place] - [facility] [place] 5 14:42:44 Bilateral disorder of Eustachia n tubes 12590873978 Active 2023 MARIA EUGENIA SANTOS MD [address], [place], [address] , [place] - [facility] [place] 4 09:39:41 Sensorine ural hearing loss of bilateral ears 498789483 Active 2023 Ethan Chinchilla, DO [address], [place], [place], [address] , [place] - [facility] [place] 5 08:47:36 Otorrhagi a of left ear 26382250917 Active 2024 CHITAR ONEAL PA-C [address] [facility] [address], [place], [place], [address] , [place] - [facility] [place] 5 10:04:02 Dysfuncti on of bilateral eustachia n tubes 86044444800 Active 2024 Ethan Chinchilla, DO [address] [facility] [address], [place], [place], [address] , [place] - [facility] [place] 5 08:47:24 Chronic infective otitis externa 532775784 Active 2024 Ethan Chinchilla, DO [address] [facility],[address], [place], [address] , [place] [facility] [place] 5 15:26:02 Mixed conductiv e AND sensorine ural hearing loss 68599403 Active 2024 MARIAMA RODRIGUEZ [address] [facility] [address], [place], [place], [address] , [place] - [facility] [place] 5 11:31:00 Bilateral hearing loss 49428237 Active 2024 SIDNEY CALVO [address], [place], [address] , [place] - [facility] [place] 5 14:45:03 Serous otitis media 61245786 Active 2024 SIDNEY CALVO [address] [facility] [address], [facility] [place], [address] , [place] - [facility] [place] 5 14:46:49 Dysfuncti on of left eustachia n tube 88914914001 62230 Active 2024 SIDNEY CALVO [address] [facility] [address], [facility] [place], [address] , [place] - [facility] [place] 5 14:47:08 Problem Notes None recorded. Procedures Surgical History Date Name Laterality Status Provider Name and Address Organization Details Recorded Time 5 Comp Audio with Tymps - 30449 & 71972 completed THEODORA MORENO, AUD [address] [facility],[place] [address], [place], [address], [place] - [facility] 07/22/2025 11:10:26 5 NasalEndoscopy_ DP active SIDNEY CALVO [address] [facility],[place] [address], [place], [address], [place] [facility] [place] 07/29/2025 12:33:54 5 Air & Speech Audio with Tymps - 45204, 06097 & 45161 completed YISEL HATHAWAY, AUD [address] [facility],[place] [address], [place], [address], [place] [facility] 04/29/2025 11:35:41 5 Cerumen removal without microscope left completed SIDNEY CALVO [address] [facility],[place] [address], [place], [address], [place] [facility] 04/08/2025 18:13:03 5 Cerumen removal with microscope completed Ethan Chinchilla, DO [address] [facility],[place] [address], [place], [address], [place] [facility] 03/27/2025 15:24:17 5 Air & Speech Audio with Tymps - 23881, 84805 & 16930 completed MARIAMA KAT [address] [facility],[place] [address], [place], [address], [facility] - [facility] 12/04/2024 09:52:31 5 Cerumen removal without microscope bilat completed CHITRA ONEAL PA-C [address] [facility],[place] [address], [place], [address], [facility] - [facility] 12/04/2024 10:03:41 4 Cerumen removal with microscope completed MARIA EUGENIA SANTOS MD [address] [facility],[place] [address], [place], [address], [facility] - [facility] 06/05/2024 09:32:50 Imaging Results None recorded. Procedure Notes None recorded. Medical Equipment None Reported. Allergies Allergen ID Allergen Name Allergen Category Reaction Reaction Severity Criticality Documentation Date Start Date Code Code System Note Provider Name and Address Organization Details Recorded Time 441100 aspirin medicatio n Not available Not available Not available 07/22/2025 1191 RxNorm Not Available [facility] External Data [employer] - prod 5 03:28:24 379649 sulfameth oxazole / trimethop rim medicatio n Not available Not available Not available 07/22/2025 13956 RxNorm Not Available [employer] - prod 5 03:28:24 324313 Substance with sulfonami de structure and antibacte rial mechanism of action (substanc e) medicatio n Not available Not available Not available 07/22/2025 79402 8003 SNOMED Not Available [employer] - prod 5 03:28:24 Medications Name Sig Start Date Stop Date Status Note LastModified by Organization Details LastModified Time furosemid e 40 mg tablet 2019 active Medicati on ID: 948608 D uration Value: 30 Brand Name: furosemi [...] 24 hr 06/05 completed Medicati on ID: 941478 D uration Value: 30 Brand Name: metoprol [...] mcg tablet 06/05 completed Medicati on ID: 986467 D uration Value: 30 Brand Name: levothyr [...] mg tablet 06/05 completed Medicati on ID: 596985 D uration Value: 30 Brand Name: lisinopr [...] mg tablet 06/05 completed Medicati on ID: 054860 D uration Value: 30 Brand Name: furosemi [...] B-Complex tablet 2019 active Medicati on ID: 433556 B rand Name: B-Comple x Send Method: [...] unit) tablet 2019 active Medicati on ID: 720373 B rand Name: Vitamin D3 Send Method: E-Prescr ibed Sub s Allowed: subs OK Medic ationGen ericName : Vitamin D3 Not Available Not Available Not Available Flonase Allergy Relief 50 mcg/actua tion nasal spray,thania [employer] 2 spray into both nostrils once a day 2021 active Medicati on ID: 988281 D uration Value: 30 Prescri bed By [...] Updated DateTime 04/29/2025 160.02 cm 20.5 kg/m2 19296.71 g Nickie Hassan [place] - [facility] 04/29/2025 11:00:42 Social History None recorded. Functional Status None recorded. Mental Status None recorded. Family History Nothing Reported. Medical History Condition Response Diabetes Y Anemia Y Thyroid Problems Y Hypertension Y High Cholesterol Y Past Encounters Encounter ID Performer Location Encounter Start Date Encounter Closed Date Diagnosis/Indication Diagnosis SNOMED-CT Code Diagnosis ICD10 Code Diagnosis IMO Codes Diagnosis Note [id number] SIDNEY CALVO [facility] [address] [address] 04/08/2025 11:00:09 04/08/2025 12:11:58 Dysfunction of bilateral eustachian tubes 9112331819 167932 H69.93 77760195 Sensorineu ral hearing loss of bilateral ears 478310128 H90.3 36851196 Impacted c erumen in left ear 0618637626 970983 H61.22 036137 Chronic in fective otitis externa 583396637 H60.392 75948042 [id number] SIDNEY CALVO [facility] [address] [address] 04/29/2025 10:48:51 04/29/2025 12:08:58 Chronic infective otitis externa 617727309 H60.392 44629109 Resolved. Mixed cond uctive AND sensorineural hearing loss 34311344 H90.A32 74074495 Right Ear:Border line normal hearing through 2K Hz sloping to a severe SNHL with excellent speech discrimina tion.Type A tympanogra m.Left Ear:Severe MHL with excellent speech discrimina tion.Type B tympanogra m. Bilateral hearing loss 13884377 H90.A21 14347009 Serous otitis media 8032 7007 H65.92 47442706 Dysfunctio n of left eustachian tube 8624404646 747246 H69.92 [id number] MARIAMA RODRIGUEZ [facility] [address] [address] 04/29/2025 11:27:01 04/30/2025 18:06:48 Sensorineural hearing loss of bilateral ears 506934872 H90.3 Mixed cond uctive AND sensorineural hearing loss 13608225 H90.A32 [id number] Right Ear:Border line normal hearing through 2K [...] Member ID Guarantor Name 04/29/2025 2 [employer] [id number] Kike Uribe [id number] Kike Uribe 04/29/2025 1 MEDICARE B-[place]: [facility] Kike Jeff Rony [id number] Kike Jeff Rony Notes Date Note Type Note Provider Name [...] otorrhea, and dizziness. MARY ELLEN HARRINGTON MD [address] [place] [address], [address], [facility] 04/29/2025 17:06:39
--- OUTSIDE RECORDS SUMMARY | 2025-07-29 14:20 | XMS_ITS ---
Author Organization [facility] Prior to 01/04/[address] [place] [address] Care Team Providers Care Dinkey Locomotive Engineer Name Role Phone Alida Weber MD Primary [...] treatments are documented for this patient in [facility]. Treatments may have been administered in another system.
--- OUTSIDE RECORDS SUMMARY | 2025-07-29 14:20 | XMS_ITS | Encounter Summary ---
Author Organization [facility] Address [address] [place] [address] Care Team Providers Care Goodwill Ambassador Name Role Phone Alida Weber MD Primary Care Provider [phone] Reason for Referral * Consultation (Urgent) - Closed Specialty Diagnoses / Procedures Referred By Lillian govea Referred To Contact Ophthalmology Diagnoses Abnormal brain CT Alida Weber MD [address] [place], [place] [address] [address] Phone: tel: fax: [facility] [address] [address] Phone: tel: fax: Referral ID Status Reason Start Date Expiration Date V isits Requested Visits Authorized [id number] Closed Specialty Services Required 07/24/2025 07/24/2026 1 1 * Consultation (Urgent) - Closed Specialty Diagnoses / Procedures Referred By Lillian govea Referred To Contact Otolaryngology Diagnoses Abnormal brain CT Alida Weber MD [address] [place], [place] [address] [address] Phone: tel: fax: [facility] [address] [place] [address] Phone: tel: fax: Referral ID Status Reason Start Date Expiration Date V isits Requested Visits Authorized [id number] Closed Specialty Services Required 07/24/2025 07/24/2026 1 1 * Consultation (Urgent) - Closed Specialty Diagnoses / Procedures Referred By Lillian govea Referred To Contact Oral Surgery Diagnoses Abnormal brain CT Mastoiditis Alida Weber MD [address] [place] [address] Phone: tel: fax: Skye Simon, DDS [address] [place] [address] Phone: tel: fax: Referral ID Status Reason Start Date Expiration Date V isits Requested Visits Authorized [id number] Closed Specialty Services Required 07/24/2025 07/24/2026 1 1 Encounter Details Date Type Department Care Team (Late st Contact Info) Description 07/24/2025 Results Follow-Up Adult Medicine [facility] [address] [place] [address] Alida Weber MD [address] [place] [address] Social History Tobacco Use Types Packs/Day Years [...] for your loved ones. For example, child development teacher or elderly care for an older [...] Progress Notes * Jacquie Nicole RN - 07/24/2025 3:34 PM EST Call to pt. Left message for pt to call triage Pt did f/u with opthalmology ,notes sent to eye doctor documented in this encounter Plan of Treatment Upcoming Encounters Date Type Department Care Team (Late st Contact Info) Description 07/29/2025 4:00 PM EST Office Visit Endocrinology - [place] [address] [place] [address] Rosa Roth PA [address] [place] [address] 08/12/2025 9:00 AM EST Consult [facility] [address] [place] [address] Franky Choudhury MD [address] [place] [address] [address] [place] [address] 08/14/2025 10:00 AM EST Appointment [facility] [address] [place] [address] 08/26/2025 10:30 AM EST Ancillary Procedure Pulmonology - [place] [address] [facility] [address] [place] [address] 09/02/2025 10:45 AM EST Office Visit Pulmonology - [place] [address] [facility] [address] [place] [address] Lore Myers MD [address] [place] [address] 10/28/2025 8:30 AM EDT Office Visit Adult Medicine [facility] [address] [place] [address] Alida Weber MD [address] [place] [address] 05/05/2026 9:00 AM EDT Ancillary Procedure [facility] Cardiology [facility] [address] [place] [address] 06/24/2026 1:30 PM EST Ancillary Procedure [facility] Card[facility] [address] [place] [address] 07/21/2026 9:00 AM EST Office Visit Vascular Surgery - [place] [address] [place] [address] Senait España PA [address] [place] [address] Scheduled Referrals Name Type Priority Associated Diagnoses Order Schedule Ambulatory referral to Oral Maxillofacial Surgery Outpatient Referral Routine Abnormal brain CT 1 Occurrences starting 07/24/2025 until 07/24/2026 Ambulatory referral to ENT Outpatient Referral Routine Abnormal brain CT 1 Occurrences starting 07/24/2025 until 07/24/2026 Ambulatory referral to Ophthalmology Outpatient Referral Routine Abnormal brain CT 1 Occurrences starting 07/24/2025 until 07/24/2026 documented as of this encounter Visit Diagnoses Diagnosis Abnormal brain CT- Primary Nonspecific (abnormal) findings on radiological and other examination of skull and head Encounter for adjustment or management of cardiac device documented in this encounter Additional Health Concerns Assessment Noted Time PHQ-9 Depression Total Score: 0 07/22/20 25 3:23 PM EST A fall risk assessment has been complete d for the patient 07/22/2025 3:20 PM EST documented as of this encounter Care Teams Goodwill Ambassador Relationship Specialty Start Date End Date Alida Weber MD [address] [place] [address] PCP - General 10/26/22 documented as of this encounter
--- OUTSIDE RECORDS SUMMARY | 2025-07-29 14:21 | XMS_ITS | Patient Health Record ---
Author Organization [facility] Address [address] [place] [address] Care Team Providers Care Command Post Craftsman Name Role Phone LANDY PINEDA MARGRET Primary Care Provider [phone] BRITTANIE Mccoy [phone] Reason For Referral No Information Medications Medication SIG (Take, Route, Frequency, Duration) Notes Start Date End Date Status Vitamin D3 50 MCG (1999) Tablet 2 tab(s) orally once a day Active Ezetimibe 10 MG Tablet 1 tab(s) orally once a day; Duration: 30 day(s) Active Furosemide 20 MG Tablet 1 tab(s) orally once a day; Duration: 30 day(s) Active Furosemide 40 MG Tablet 1 tab(s) orally once a day; Duration: 30 day(s) Active Tylenol Extra Strength 500 MG Tablet 2 tab(s) orally every 6 hours; Duration: 5 day(s) Active Levothyroxine Sodium 75 MCG Tablet 1 tab(s) orally once a day; Duration: 30 day(s) Active Lipitor 80 MG Tablet 1 tab(s) orally once a day (at bedtime) Active Metoprolol Succinate ER 50 MG Tablet Extended Release 24 Hour 1 tab(s) orally once a day; Duration: 30 day(s) Active LANTUS INSULIN 10 UNITS SUB CUTANEOUSLY QHS *Please review for potential replacement for e-prescription and drug interaction check* Active Golytely - POWDER FOR RECONSTITUTION 240 ML ORALLY EVERY 15 MINUTES; Duration: 16 DOSE(S) NAME ONLY Conversion from Multum Review and pick correct strength-formulati on from [facility] [employer] options. If intended option is not shown, discontinue and re-order from Quick Search. 09/06/2018 Active Social History Tobacco Use: Social History Observation Description Date Details (start date - stop date) Never Smoker NA - NA Social History Tobacco Use: Social Info Question Answer Notes Smoking Are you a: never smoker Additional Details Category Social Info Options Details General Occupation: Retired alcohol use: no drug use: no Coffee/Tea/Soda: no Marital Status single Living with sister smokers in household no Section Notes: never smoked Problems Problem Type SNOMED Code ICD Code Onset Dates Problem Status W/U Status Risk Notes Problem Iron deficiency anemia (84937993) Other iron deficiency anemia (D50.8) Active confirmed Plan Of Treatment No Information Insurance Providers Payer Name Payer Address Payer Phone Subscriber Number Group Number Insured Name Patient Relationship to Insured Coverage Start Date Coverage End Date MEDICARE [employer] [address] [facility] [place] [address] [id number] TOSHA CAMPBELL Self - patient is the insured [address] [place] [address] [employer] [address] [place] [address] [id number] TOSHA CAMPBELL Self - patient is the insured Medical (General) History Medical History History ICD Code Colonoscopy 07/28/2000- Sm inter hem HTN High Cholestorol DM type II Overactive Thyroid Chronic kidney disease lymphocytosis anemia Colonoscopy 10/24/18 6mm poly p in the ascending colon otherwise normal Path: tubular adenoma EGD 10/24/18 Normal esophagus Normal stomach Normal examined duodenum Path: duodenal mucosa without pathologic change. Normal villous architecture. Surgical History Surgery Date(Month/Year) nose-bleeds cautery 06/2018
--- OUTSIDE RECORDS SUMMARY | 2025-07-29 14:21 | XMS_ITS | Clinical Summary ---
Author Organization [facility] [address] [place] [address] Address [address], [place] Phone Care Team Providers Care Loading Shovel Oiler Name Role Phone Alida Weber MD Primary Care Provider Allergies Active Allergy Reactions Criticality Noted Date Comments Aspirin Bleeding Medium 01/23/2025 BLEEDING ULCERS Sulfa (Sulfonamide Antibiotics) Unknown 12/27/2022 Other reaction(s): Other (See Comments) Pt is unsure of reaction Sulfamethoxazole-Trimethop rim Unknown 01/23/2025 UNKNOWN Medications blood sugar diagnostic (FreeStyle Lite Strips) test strip Use daily to check bs 100 each 12 02/26/20 25 026 Active Nephro-Ailyn 0.8 mg tablet TAKE 1 TABLET BY MOUTH 1 TIME EACH DAY. 90 tablet 1 06/10/20 25 Active atorvastatin (LIPITOR) 80 mg tablet TAKE 1 TABLET BY MOUTH 1 TIME EACH DAY. 90 tablet 1 06/12/20 25 Active cholecalcifero l (VITAMIN D-3) 125 mcg (5,000 unit) capsule TAKE 1 CAPSULE (5000 UNITS TOTAL) BY MOUTH ONCE DAILY 90 capsule 1 06/13/20 25 Active acetaminophen (TYLENOL) 500 mg tablet Take 2 tablets (1,000 mg total) by mouth every 8 (eight) hours if needed for mild pain. 360 tablet 1 06/17/20 25 Active ezetimibe (ZETIA) 10 mg tablet Take 1 tablet (10 mg total) by mouth 1 (one) time each day. 90 each 06/19/20 25 026 Active albuterol HFA (PROAIR HFA ; PROVENTIL HFA ; VENTOLIN HFA) 90 mcg/actuation inhaler Inhale 2 puffs by mouth every 6 (six) hours if needed for wheezing or shortness of breath. 6.7 g 2 06/19/20 Active midodrine (PROAMATINE) 5 mg tablet Take 1 tablet (5 mg total) by mouth 1 (one) time each day. 90 each 06/19/20 25 026 Active carvediloL (COREG) 3.125 mg tablet Take 1 tablet (3.125 mg total) by mouth 2 (two) times a day with meals. 180 each 06/19/20 25 026 Active FreeStyle Lancets 28 gauge lancets Use to test blood glucose once daily before a meal 100 each 1 06/19/20 25 Active sevelamer carbonate (RENVELA) 800 mg tabletIndicati ons:ESRD (end stage renal disease) on dialysis ([facility] V24, [facility] V28) Take 1 tablet (800 mg total) by mouth 3 (three) times a day with meals. Swallow tablet whole; do not crush, break, or chew. 270 each 1 06/19/20 25 026 Active levothyroxine (SYNTHROID, LEVOTHROID) 125 mcg tablet Take 1 tablet (125 mcg total) by mouth 1 (one) time each day. 30 each 2 07/22/20 25 026 Active triamcinolone (KENALOG) 0.1 % cream Apply to affected area 1-2 times daily as needed. 30 g 2 07/22/20 25 026 Active mupirocin (BACTROBAN) 2 % ointment 2 (two) times a day. 05/01/20 25 025 Discontinued calcitrioL (ROCALTROL) 0.25 mcg capsuleIndicat ions:ESRD (end stage renal disease) on dialysis ([facility] V24, [facility] V28) Take 1 capsule (0.25 mcg total) by mouth 1 (one) time each day. 90 each 06/19/20 25 025 Discontinued levothyroxine (SYNTHROID, LEVOTHROID) 112 mcg tablet Take 1 tablet (112 mcg total) by mouth 1 (one) time each day before breakfast. 90 each 06/19/20 25 025 Discontinued levothyroxine (SYNTHROID, LEVOTHROID) 125 mcg tablet Take 1 tablet (125 mcg total) by mouth 1 (one) time each day. 30 each 2 06/26/20 25 025 Discontinued levothyroxine (SYNTHROID, LEVOTHROID) 137 mcg tablet Take 1 tablet (137 mcg total) by mouth 1 (one) time each day. 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 Resolved Problems Problem Noted Date Diagnosed Date Resolved Date Chronic lymphocytic leukemia 12/22/2017 07/22/2025 Encounters Date Type Department Care Team Description 07/25/2025 Results Follow-Up Pulmonology - [place] [address] [facility] [address] [place] [phone] Lore Myers MD 07/24/2025 3:00 PM EST Office Visit Vascular Surgery - [place] [address] [facility] [address] [place] [address] Senait España PA PAD (peripheral artery disease) ([facility] V24) (Primary Dx); Leg swelling 07/24/2025 9:26 AM EST - 07/24/2025 11:59 PM EST Hospital Encounter CT Scan - [address] [phone] Dyspnea, unspecified type Discharge Disposition: Home or Self Care 07/24/2025 9:22 AM EST - 07/24/2025 11:59 PM EST Hospital Encounter CT Scan - [address] [phone] Encounter for subsequent annual wellness visit (AWV) in Medicare patient; Left eye injury, subsequent encounter Discharge Disposition: Home or Self Care 07/24/2025 Results Follow-Up Adult Medicine [address] [phone] Alida Weber MD 07/23/2025 Telephone Adult Medicine [address] [phone] Alida Weber MD 07/22/2025 2:00 PM EST Office Visit Adult [address] [phone] Alida Weber MD Encounter for subsequent annual wellness visit (AWV) in Medicare patient (Primary Dx); Routine general medical examination at a health care facility; Type 2 diabetes mellitus with other specified complication, unspecified whether skilled nursing insulin use ([facility] V24, [facility] V28); Hyperlipidemia, unspecified hyperlipidemia type; Primary hypertension; Atrial fibrillation, unspecified type ([facility] V24, [facility] V28); ESRD (end stage renal disease) on dialysis ([facility] V24, [facility] V28); Encounter for screening for malignant neoplasm of prostate; Family history of ovarian cancer; Dermatitis; Biventricular cardiac pacemaker in situ; Aortic valve stenosis, etiology of cardiac valve disease unspecified; Heart failure with preserved ejection fraction (HFpEF), unspecified HF chronicity ([facility] V24, [facility] V28); Leg swelling; Bilateral leg edema; Left eye injury, subsequent encounter 07/16/2025 Results Follow-Up Adult [address] [phone] Alida Weber MD 07/15/2025 7:45 AM EST Lab Draw [address] Hypokalemia; Elevated liver enzymes; Hypothyroidism, unspecified type; Type 2 diabetes mellitus with other specified complication, unspecified whether skilled nursing insulin use ([facility] V24, [facility] V28) 07/10/2025 5:35 PM EST Ancillary Procedure [facility] - [facility] [address] [facility] [address] [place] [phone] 07/02/2025 Telephone Adult [address] [phone] Nathalie Giraldo MA 06/26/2025 Results Follow-Up [address] [phone] Alida Weber MD 06/24/2025 7:40 AM EST Office Visit [facility] - [facility] [address] [facility] [address] [place] [phone] Saira Daly NP Nonrheumatic aortic valve stenosis (Primary Dx); Paroxysmal atrial fibrillation (CMS/HCC V24, CMS/HCC V28); HFrEF (heart failure with reduced ejection fraction) (CMS/HCC V24, CMS/HCC V28) 06/23/2025 10:20 AM EST Lab Draw Station [address] Memory loss; Type 2 diabetes mellitus with other specified complication, unspecified whether skilled nursing insulin use (CMS/HCC V24, CMS/HCC V28); Abnormal pleural fluid; Nutritional deficiency; Dyspnea, unspecified type; Abnormal findings on diagnostic imaging of other parts of digestive tract 06/23/2025 Telephone Adult [address] [phone] Alida Weber MD 06/19/2025 12:30 PM EST Office Visit Adult [address] [phone] Alida Weber MD Hyperlipidemia, unspecified hyperlipidemia type [...] situ 06/13/2025 9:20 PM EST Ancillary Procedure [facility] Cardiology [facility] [address] [facility] [address] [place] [address] 06/02/2025 Telephone Adult [address] [phone] Alida Weber MD 05/28/2025 Telephone Pulmonology [address] [phone] Nataliya Lopez [place] 05/20/2025 Telephone Adult Medicine [address] [phone] Jacquie Nicole RN 05/15/2025 3:30 PM EDT Office Visit Pulmonology - [address] [phone] Lore Myers MD KERRI on CPAP (Primary Dx); Dyspnea, unspecified type; Chronic obstructive pulmonary disease, unspecified COPD type (CMS/HCC V24, CMS/HCC V28); Multiple closed fractures of ribs of both sides with routine healing, subsequent encounter; Restrictive lung disease; Kyphoscoliosis 05/07/2025 4:25 PM EDT Ancillary Procedure [facility] - [facility] [address] [address] 05/07/2025 2:58 PM EDT - 05/07/2025 11:59 PM EDT Hospital Encounter [address] [phone] Pleural effusion, bilateral; RAMIREZ (dyspnea on exertion) Discharge Disposition: Home or Self Care 05/07/2025 Results Follow-Up Pulmonology - [address] [phone] Lore Myers MD 05/07/2025 Telephone Infectious Disease - [address] [phone] Dorcas Perez MA 05/01/2025 1:00 PM EDT Ancillary Procedure [facility] [address] [address] Encounter for adjustment or management of cardiac device from Last 3 Months Immunizations Immunization Administration [...] Date Comments CLL (chronic lymphocytic randy kemia) ([facility] V24, [facility] V28) DX:CLL (chronic lymphocytic leukemia) ([facility]) Hypertension DX:Hypertension Chronic kidney disease CKD 4/5 Diabetes mellitus type 2, co ntrolled, with complications ([facility] V24, [facility] V28) DX:Diabetes mellitus type 2, controlled, with complications ([facility]) Hyperlipidemia DX:Hyperlipidemi a Hypothyroidism DX:Hypothyroidis m Stage 4 chronic kidney disea se ([facility] V24, [facility] V28) 10/06/2022 DX:Stage 4 chronic kidney di sease (HCC) Atrial fibrillation ([facility] V24, [facility] V28) Heart failure with mildly re duced ejection fraction ([facility] V24, [facility] V28) LVEF 30-40 07/2025 Aortic stenosis GI bleed CHF (congestive heart failur e) ([facility] V24, [facility] V28) 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 Cervical kyphosis Fall Osteoarthritis Rib fractures History of transfusion Family History Medical History Relation Name Comments Heart attack Father Cancer Mother Ryann Cancer Sister Indu Relation Name Status Comments Father Mother Ryann Sister Indu Alive Social History Tobacco Use Types Packs/Day Years Used Date Smoking Tobacco: Never Smokeless Tobacco: Never Tobacco Cessation:Counseling Given: Not Answered Alcohol Use Standard Drinks/Week Comments Not Currently [...] Orientation Straight 02/05/2025 2: 22 PM EDT Last Filed Vital Signs Vital Sign Reading Time Taken Comments Blood Pressure 117/73 07/24/2025 3:06 PM EST Pulse 99 07/24/2025 3:06 PM EST Temperature 35.9 C (96.6 F) 07/22/2025 2:01 PM EST Respiratory Rate 20 05/15/2025 3:41 PM EDT Oxygen Saturation 100% 05/15/2025 3:41 PM EDT Inhaled Oxygen Concentration - - Weight 51.8 kg (114 lb 3.2 oz) 07/24/2025 3:06 P M EST Height 160 cm (5' 3 ) 07/24/2025 3:06 PM EST Body Mass Index 20.23 07/24/2025 3:06 PM EST Plan of Treatment Upcoming Encounters Date Type Department Care Team (Late st Contact Info) Description 07/29/2025 4:00 PM EST Office Visit Endocrinology - [place] [address] [place] [address] Rosa Roth PA [address] [place] [address] 08/12/2025 9:00 AM EST Consult [facility] [address] [place] [address] Franky Choudhury MD [address] [place] [address] [address] [place] [address] [place] [address] 08/14/2025 10:00 AM EST Appointment [facility] Ultrasound [address] [place] [phone] 08/26/2025 10:30 AM EST Ancillary Procedure Pulmonology - [place] [address] [facility] [address] [place] [address] 09/02/2025 10:45 AM EST Office Visit Pulmonology - [place] [address] [facility] [address] [place] [phone] Lore Myers MD [address] [place] [phone] 10/28/2025 8:30 AM EDT Office Visit Adult Medicine [facility] [place] [address] [place] [address] Alida Weber MD [address] [place] [address] 05/05/2026 9:00 AM EDT Ancillary Procedure [facility] - [facility] [address] [facility] [address] [place] [address] 06/24/2026 1:30 PM EST Ancillary Procedure [facility] - [facility] [address] [facility] [place] [address] [place] [address] 07/21/2026 9:00 AM EST Office Visit Vascular Surgery - [place] [address] [facility] [address] [place] [address] Senait España PA [address] [facility] [address] [place] [address] Health Maintenance Due Date Last Done Comments Hepatitis B Vaccines (3 of 3 - 19+ 3-dose series) 09/21/2025 05/19/2025, 04/18/2025, 03/21/2025 COVID-19 Vaccine (10 - Pfizer risk season) 2025 04/24/2025, 04/20/2024, 10/25/2023, Additional history exists Diabetes: Annual Retina Eye Exam 11/07/2025 11/07/2024, 08/14/2023 Diabetes: Blood Sugar Control Test (HGBA1C) 01/13/2026 07/15/2025, 06/16/2025, 06/16/2025, Additional history exists Diabetes: Annual Foot Exam 06/19/2026 06/19/2025, RSV Immunization Adult Patients (1 - 1-dose 75+ series) 06/29/2026 08/31/2023 Postponed from 2015 (Patient Refused) Hypertension/CHF/CAD Annual BMP Blood Test 07/15/2026 07/15/2025, 06/23/2025, 04/16/2025, Additional history exists Falls Risk Assessment 07/22/2026 07/22/2025 , 07/22/2025, 03/08/2025, Additional history exists Medicare Annual Wellness Visit 07/22/2026 07/22/2025 Social Influencers of Health Screening 07/22/2026 07/22/2025 Cholesterol Screening (Lipid Panel) 06/16/2030 06/16/2025, 05/28/2025, 05/07/2025, Additional history exists DTaP,Tdap,and Td Vaccines (3 - Td or Tdap) 11/30/2031 11/29/2021, 04/11/2019 Zoster Vaccines Completed 11/05/2022, 07/22/2022 RSV Immunization Patients Under 20 months Aged Out 08/31/2023 No longer eligible based on patient's age to complete this topic Pneumococcal Vaccine: 50+ Years Completed 12/14/2023, 04/11/2019, 03/18/2013 Influenza Vaccine Completed 04/24/2025, , 05/10/2023, Additional history exists Depression Screening Completed 07/22/2025, 10/27/19 24 HIB Vaccines Aged Out No longer eligi [...] this topic Medical Devices Implanted Type Area [id number] Consultant Device Identifier Shelf Expiration Date Model / Serial / Lot Abbt-Stju [id number] Quadra Allure Mp(Tm) [id number] Implanted:12/2023 (Quantity not on file) [facility] [employer] [facility] 3562 QUADRA ALLURE MP(TM) / [id number] / Abbt-Stju Quadra Allure Mp [id number] [id number] Implanted:12/2023 (Quantity not on file) [facility] [employer] [facility] QUADRA ALLURE MP 3562 / [id number] / Procedures Procedure Name Priority Date/Time Associated Diagnosis Comments CT CHEST WO CONTRAST Routine 07/24/2025 9:32 AM EST Dyspnea, unspecified type CT FOSSA/SELLA/IAC/ORBIT WO CONTRAST STAT 07/24/2025 9:32 AM EST Encounter for subsequent annual wellness visit (AWV) in Medicare patient Left eye injury, subsequent encounter TRIIODOTHYRONINE FREE Routine 07/15/2025 7:58 AM EST Hypothyroidism, unspecified type FREE THYROXINE WITH REFLEX TO FREE TRIIODOTHYRONINE Routine 07/15/2025 7:58 AM EST Hypothyroidism, unspecified type BILIRUBIN DUPLICATE PROCEDURE TO ORDER Routine 07/15/2025 7:58 AM EST Elevated liver enzymes HEMOGLOBIN A1C Routine 07/15/2025 7:58 AM EST Type 2 diabetes mellitus with other specified complication, unspecified whether skilled nursing insulin use ([facility] V24, [facility] V28) ANTIMITOCHONDRIAL ANTIBODY Routine 07/15/2025 7:58 AM EST Elevated liver enzymes THYROID STIMULATING HORMONE WITH REFLEX TO FREE T4 AND FREE T3 Routine 07/15/2025 7:58 AM EST Hypothyroidism, unspecified type COMPREHENSIVE METABOLIC PANEL Routine 07/15/2025 7:58 AM EST Hypokalemia Elevated liver enzymes CARDIAC DEVICE CHECK- REMOTE- MURJ Routine 07/10/2025 5:30 PM EST TRIIODOTHYRONINE FREE Routine 06/23/2025 10:29 AM EST Memory loss FREE THYROXINE WITH REFLEX TO FREE TRIIODOTHYRONINE Routine 06/23/2025 10:29 AM EST Memory loss THYROID STIMULATING HORMONE WITH REFLEX TO FREE T4 AND FREE T3 Routine 06/23/2025 10:29 AM EST Memory loss COMPREHENSIVE METABOLIC PANEL Routine 06/23/2025 10:29 AM EST Type 2 diabetes mellitus with other specified complication, unspecified whether skilled nursing insulin use ([facility] V24, CMS/[facility] V28) MICROALBUMIN CREATININE URINE RATIO Routine 06/23/2025 10:29 AM EST Type 2 diabetes mellitus with other specified complication, unspecified whether skilled nursing insulin use ([facility] V24, [facility] V28) TREPONEMA PALLIDUM ANTIBODY WITH REFLEX TO [...] for adjustment or management of cardiac device LIPID PANEL WITH REFLEX TO DIRECT LDL Routine 04/16/2025 10:44 AM EDT Type 2 diabetes mellitus with other specified complication, without long-term current use of insulin ([facility] V24, CMS/[facility] V28) EXTERNAL DIABETIC RETINA EYE EXAM 11/07/2024 FALLS RISK ASSESSMENT Routine 03/13/2024 DEPRESSION SCREENING Routine 10/27/2023 DIABETES FOOT EXAM Routine 07/18/2023 from Last 3 Months or Most Recently Relevant to Health Maintenance Results * CT Chest wo Contrast (07/24/2025 9:32 AM EST) Only the most recent of2 resultswithin the time period is included. Anatomical Region Laterality Modality Body Computed Tomogra [...] Signed Date: 07/25/2025 07:37 ET Workstation ID: [id number] Transcribed By: Self Edit Transcribed Date: 07/25/2025 [...] Signed Date: 07/25/2025 07:37 ET Workstation ID: [id number] Transcribed By: Self Edit Transcribed Date: 07/25/2025 06:57 ET Lore Myers MD IMG CT PROCEDURES Final Result * CT Fossa/Sella/IAC/Orbit wo Contrast (07/24/2025 9:32 [...] Signed Date: 07/24/2025 11:47 ET Workstation ID: [id number] Transcribed By: Self Edit Transcribed Date: 07/24/2025 [...] Signed Date: 07/24/2025 11:47 ET Workstation ID: [id number] Transcribed By: Self Edit Transcribed Date: 07/24/2025 11:30 ET us Alida Weber MD IMG CT PROCEDURES Final Res ult * (ABNORMAL) Bilirubin duplicate procedure to order (07/15/2025 7:58 AM EST) Total Bilirubin 1.1 0.0 - 1.4 mg/dL 07/15/2025 1:25 PM EST [facility] Bilirubin, Direct 0.4(H) 0.0 - 0.3 mg/dL 07/15/2025 1:25 PM EST [facility] Bilirubin, Indirect 0.7 0.0 - 1.1 mg/dL 07/15/2025 1:25 PM EST [facility] Blood Venous blood specimen / Unknown Venipuncture / Unknown 07/15/2025 7:58 AM EST 07/15/2025 7:58 AM EST us Lorri LITTLE LAB BLOOD ORDERABLES Final Resu lt [facility] [address] [place] [address], * (ABNORMAL) Thyroid stimulating hormone with reflex to free t4 and free t3 (07/15/2025 7:58 AM EST) Only the most recent of2 resultswithin the time period is included. TSH 7.94(H) 0.40 - 4.00 mcIU/mL 07/15/2025 1:18 PM EST [facility] Blood Venous blood specimen / Unknown Venipuncture / Unknown 07/15/2025 7:58 AM EST 07/15/2025 7:58 AM EST Alida Weber MD LAB BLOOD ORDERABLES Final Result Performing Organization Address [facility]/ZIP Co de Phone Number [facility] [address] [place] [address], [place] [phone] * Free thyroxine with reflex to free triiodothyronine (07/15/2025 7:58 AM EST) Only the most recent of2 resultswithin the time period is included. [facility] Free T4 1.15 0.70 - 1.80 ng/dL 07/15/2025 1:36 PM EST [facility] Blood Venous blood specimen / Unknown Venipuncture / Unknown 07/15/2025 7:58 AM EST 07/15/2025 7:58 AM EST Alida Weber MD LAB BLOOD ORDERABLES Final Result Performing Organization Address [facility] Co de Phone Number [facility] [address] [place] [address], [place] [phone] * (ABNORMAL) Antimitochondrial antibody (07/15/2025 7:58 AM EST) [facility] Mitochondrial Antibody Quantitative 107.2(H) <=20.0 units LAB CHEMISTRY METHOD 07/16/2025 11:52 AM EST [facility] Mitochondrial Antibody Qualitative Positive (A) Negative LAB CHEMISTRY METHOD 07/16/2025 11:52 AM EST [facility] Blood Venous blood specimen / Unknown Venipuncture / Unknown 07/15/2025 7:58 AM EST 07/15/2025 7:58 AM EST Lorri LITTLE LAB BLOOD ORDERABLES Final Resu lt Performing Organization Address [facility]/ZIP Co de Phone Number [facility] [address] [place] [address], [place] [phone] * (ABNORMAL) Triiodothyronine free (07/15/2025 7:58 AM EST) Only the most recent of2 resultswithin the time period is included. T3, Free 78(L) 230 - 420 pcg/dL 07/15/2025 1:53 PM EST [facility] Blood Venous blood specimen / Unknown Venipuncture / Unknown 07/15/2025 7:58 AM EST 07/15/2025 7:58 AM EST Alida Weber MD LAB BLOOD ORDERABLES Final Result Performing Organization Address City/[facility]/ZIP Co de Phone Number [facility] [address] [place] [address], [place] [phone] * Hemoglobin A1c (07/15/2025 7:58 AM EST) [facility] Hemoglobin A1C 4.8 <6.5 % LAB CHEMISTRY METHOD 07/17/2025 9:55 AM EST [facility] Mean Bld Glu Estim. 91 mg/dL LAB CHEMISTRY METHOD 07/17/2025 9:55 AM EST [facility] Blood Venous blood specimen / Unknown Venipuncture / Unknown 07/15/2025 7:58 AM EST 07/15/2025 7:58 AM EST Alida Weber MD LAB BLOOD ORDERABLES Final Result [facility] [address] [place] [address], [place] [phone] * (ABNORMAL) Comprehensive metabolic panel (07/15/2025 7:58 AM EST) Only the most recent of2 resultswithin the time period is included. Pathologist [facility] Sodium 134 133 - 145 mmol/L 07/15/2025 1:25 PM EST [facility] Potassium 4.3 3.5 - 5.5 mmol/L 07/15/2025 1:[address] [facility] Chloride 90(L) 96 - 110 mmol/L 07/15/2025 1:[address] [facility] CO2 34(H) 21 - 32 mmol/L 07/15/2025 1:[address] [facility] Anion Gap 10 3 - 11 07/15/2025 1:[address] [facility] Glucose 97 70 - 100 mg/dL 07/15/2025 1:[address] [facility] BUN 53(H) 5 - 25 mg/dL 07/15/2025 1:[address] [facility] Creatinine 3.49(H) 0.70 - 1.30 mg/dL 07/15/2025 1:[address] [facility] eGFR 16(L) >=60 mL/min/1. 73m2 07/15/2025 1:[address] [facility] Comment:Calculation based on the Chronic Kidney Disease Epidemiology Collaboration (CKD-EPI) equation refit without adjustment for race. BUN/Creatinine Ratio 15.2 07/15/2025 1:[address] [facility] Calcium 9.3 8.5 - 10.5 mg/dL 07/15/2025 1:[address] [facility] AST (SGOT) 79(H) 10 - 42 unit/L 07/15/2025 1:[address] [facility] ALT (SGPT) 128(H) 10 - 60 unit/L 07/15/2025 1:[address] [facility] Alkaline Phosphatase 109 42 - 121 unit/L 07/15/2025 1:[address] [facility] Total Protein 6.3 6.0 - 8.0 g/dL 07/15/2025 1:[address] [facility] Albumin 3.9 3.2 - 5.0 g/dL 07/15/2025 1:25 PM EST [facility] Total Bilirubin 1.1 0.0 - 1.4 mg/dL 07/15/2025 1:25 PM EST [facility] Blood Venous blood specimen / Unknown Venipuncture / Unknown 07/15/2025 7:58 AM EST 07/15/2025 7:58 AM EST us Alida Weber MD LAB BLOOD ORDERABLES Final Result [facility] [address] [place] [address], * Cardiac device check - Remote- MURJ (07/10/2025 5:30 PM EST) Only the most recent of3 resultswithin the time period is included. Date Time Interrogation Session [id number] CV DEVICE CHECK Type Interrogation Session Remote Scheduled CV DEVICE CHECK Implantable Pulse Generator J2Ee Consultant [employer].Jonathon CV DEVICE CHECK Implantable Pulse Generator Type FARMWORKER CRANBERRY-P CV DEVICE CHECK Implantable Pulse Generator Model 3562 Quadra Allure MP(TM) CV DEVICE CHECK Implantable Pulse Generator Serial Number [id number] CV DEVICE CHECK Implantable Pulse Generator Implant Date 20240311 CV DEVICE CHECK Battery Remaining Percentage 82.00 CV DEVICE CHECK Battery Remaining Longevity 80.0 CV DEVICE CHECK Battery Voltage 2.980 CV D EVICE CHECK Battery SUPERVISOR WRAPPING ROOM Trigger 2.620 CV DEVICE CHECK Battery Status Middle of Service CV DEVICE CHECK Chaim Statistic RA Percent Paced 44.00 CV DEVICE CHECK Chaim Statistic RV Percent Paced 99.00 CV DEVICE CHECK FARMWORKER CRANBERRY Statistic FARMWORKER CRANBERRY Percent Paced 99.00 CV DEVICE CHECK Atrial Tachy Statistic AT/AF [place] Percent 0.00 CV DEVICE CHECK Lead Channel Sensing Intrinsic Amplitude 3.100 CV DEVICE CHECK Lead Channel Setting Sensing Sensitivity 0.50 CV DEVICE CHECK Lead Channel Impedance Value 400 CV DEVICE CHECK Lead Channel Pacing Threshold Amplitude 0.875 CV DEVICE CHECK Lead Channel Pacing Threshold Pulse Width 0.4 CV DEVICE CHECK Lead Channel RA Pacing Threshold Date 2025-07-05 CV DEVICE CHECK Lead Channel Setting Pacing Amplitude 1.875 CV DEVICE CHECK Lead Channel Setting Pacing Pulse Width 0.4 CV DEVICE CHECK Lead Channel Sensing Intrinsic Amplitude 9.400 CV DEVICE CHECK Lead Channel Setting Sensing Sensitivity 2.00 CV DEVICE CHECK Lead Channel Impedance Value 390 CV DEVICE CHECK Lead Channel Pacing Threshold Amplitude 0.750 CV DEVICE CHECK Lead Channel Pacing Threshold Pulse Width 0.4 CV DEVICE CHECK Lead Channel RV Pacing Threshold Date 2025-07-05 CV DEVICE CHECK Lead Channel Setting Pacing Amplitude 2.000 CV DEVICE CHECK Lead Channel Setting Pacing Pulse Width 0.4 CV DEVICE CHECK Lead Channel Impedance Value 610 CV DEVICE CHECK Lead Channel Pacing Threshold Amplitude 1.000 CV DEVICE CHECK Lead Channel Pacing Threshold Pulse Width 0.4 CV DEVICE CHECK Lead Channel Pacing Threshold Date 2025-07-05 CV DEVICE CHECK Lead Channel Setting Pacing Amplitude 2.000 CV DEVICE CHECK Lead Channel Setting Pacing Pulse Width 0.4 CV DEVICE CHECK Chaim Setting Mode (NBG Code) DDDR CV DEVICE CHECK Ventricular chambers paced during FARMWORKER CRANBERRY pacing. BiV CV DEVICE CHECK Chaim Setting Lower Rate Limit 60 CV DEVICE CHECK Chaim Setting AT Mode Switch Rate 180 CV DEVICE CHECK Chaim Setting Maximum Tracking Rate 130 CV DEVICE CHECK Chaim Setting Maximum Sensor Rate 130 CV DEVICE CHECK Chaim Setting PAV Delay 150 CV DEVICE CHECK Chaim Setting MIKHAIL Delay 130 CV DEVICE CHECK FARMWORKER CRANBERRY LV-RV Delay 20 CV D EVICE CHECK Date of Service 2025-08-12 CV DEVICE CHECK Anatomical Region Laterality Modality Device Interroga tion 07/05/2025 3:04 AM EST Impressions 07/09/2025 5:16 PM EST Heart Failure Diagnostic: Stable * Heart failure diagnostics assessed through the device * Status: Stable * No overt HF present Narrative Procedure Note Rodrigo Medina MD - 07/10/2025 IMPRESSION: Heart Failure Diagnostic: Stable * Heart failure diagnostics assessed through the device * Status: Stable * No overt HF present us Rodrigo Medina MD CV IMPLANTABLE CARDIAC DEVICE PROCEDURES Final Result * Treponema pallidum antibody with reflex to RPR and particle agglutination (06/23/2025 10:29 AM EST) T. Pallidum Antibodies Negative Negative LAB CHEMISTRY METHOD 06/23/2025 5:15 PM EST [facility] Blood Venous blood specimen / Unknown Venipuncture / Unknown 06/23/2025 10:29 AM EST 06/23/2025 10:29 AM EST Alida Weber MD LAB BLOOD ORDERABLES Final Result Performing Organization Address City/[facility]/ZIP Co de Phone Number [facility] [address] [place] [address], [place] [phone] * (ABNORMAL) Microalbumin creatinine urine ratio (06/23/2025 10:29 AM EST) Creatinine, Urine 19.0 mg/dL LAB CHEMISTRY METHOD 06/23/2025 7:40 PM EST [facility] Microalb, Ur 112.0(H) 0.0 - 29.0 mg/L LAB CHEMISTRY METHOD 06/23/2025 7:40 PM EST [facility] Microalb/Crea t Ratio 589(H) <30 mg/g creat LAB CHEMISTRY METHOD 06/23/2025 7:40 PM EST [facility] Urine Urine specimen obtained by clean catch procedure / Unknown Non-blood Collection / Unknown 06/23/2025 10:29 AM EST 06/23/2025 10:29 AM EST Alida Weber MD LAB URINE ORDERABLES Final Result Performing Organization Address [facility]/ZIP Co de Phone Number [facility] [address] [place] [address], [place] [phone] * XR Chest 2 Views (05/07/2025 3:16 [...] Signed Date: 05/07/2025 18:52 ET Workstation ID: [id number] Transcribed By: Self Edit Transcribed Date: 05/07/2025 [...] Signed Date: 05/07/2025 18:52 ET Workstation ID: [id number] Transcribed By: Self Edit Transcribed Date: 05/07/2025 18:35 ET Lore Myers MD IMG XR PROCEDURES Final Result * CARDIAC DEVICE CHECK- IN [facility]- [facility] (05/01/2025 1:40 PM EDT) Date Time Interrogation Session [id number] CV DEVICE CHECK Implantable Pulse Generator J2Ee Consultant St.Jonathon CV DEVICE CHECK Implantable Pulse Generator Type FARMWORKER CRANBERRY-P CV DEVICE CHECK Implantable Pulse Generator Model Quadra Allure MP 3562 CV DEVICE CHECK Implantable Pulse Generator Serial Number [id number] CV DEVICE CHECK Implantable Pulse Generator Implant Date 20240311 CV DEVICE CHECK Battery Voltage 2.980 CV D EVICE CHECK Battery Status Middle of Service CV DEVICE CHECK Chaim Statistic RA Percent Paced 41.00 CV DEVICE CHECK FARMWORKER CRANBERRY Statistic FARMWORKER CRANBERRY Percent Paced 99.67 CV DEVICE CHECK Lead [...] CV DEVICE CHECK Ventricular chambers paced during FARMWORKER CRANBERRY pacing. LV -> RV CV DEVICE CHECK Chaim Setting Lower Rate Limit 60 CV DEVICE CHECK Chaim Setting AT Mode Switch Rate 180 CV DEVICE CHECK Chaim Setting Maximum Tracking Rate 130 CV DEVICE CHECK Chaim Setting Maximum Sensor Rate 130 CV DEVICE CHECK Chaim Setting PAV Delay 150 CV DEVICE CHECK Chaim Setting MIKHAIL Delay 130 CV DEVICE CHECK FARMWORKER CRANBERRY LV-RV Delay 20 CV D EVICE CHECK [...] CAR DIAC DEVICE PROCEDURES Final Result * Lipid panel with reflex to direct LDL (04/16/2025 10:44 AM EDT) Cholesterol 103 0 - 200 mg/dL LAB CHEMISTRY METHOD 04/16/2025 12:28 PM EDT [facility] Triglycerides 73 0 - 150 mg/dL LAB CHEMISTRY METHOD 04/16/2025 12:28 PM EDT [facility] HDL 64 >=40 mg/dL LAB CHEMISTRY METHOD 04/16/2025 12:28 PM EDT [facility] LDL Calculated 24 0 - 100 mg/dL LAB CHEMISTRY METHOD 04/16/2025 12:28 PM T [facility] Comment:Estimated LDL Calcul ated using equation: Total cholesterol - HDL cholesterol - (Triglycerides/5) VLDL Cholesterol Frankie 14.6 mg/dL LAB CHEMISTRY METHOD 04/16/2025 12:28 PM EDT [facility] Non HDL Chol. (LDL+VLDL) 39 <145 mg/dL LAB CHEMISTRY METHOD 04/16/2025 12:28 PM EDT [facility] Chol/HDL Ratio 1.6 0.0 - 4.4 LAB CHEMISTRY METHOD 04/16/2025 12:28 PM EDT [facility] Blood Venous blood specimen / Unknown Venipuncture / Unknown 04/16/2025 10:44 AM EDT 04/16/2025 10:44 AM EDT Alida Weber MD LAB BLOOD ORDERABLES Final Result [facility] [address] [place] [address], [place] [phone] * External Diabetic Retina Eye Exam Report (11/07/2024) Anatomical Region Laterality Modality Ultrasound Provider [facility] US PROCEDURES Final Result * Falls Risk Assessment (03/13/2024) Pathologist [facility] Falls Risk Assessment Abstracted Historical Provider HEALTH MAINTENANCE Final Result * Depression Screening (10/27/2023) Pathologist [facility] Depression Screening Abstracted Historical Provider HEALTH MAINTENANCE Final Result * Diabetes Foot Exam (07/18/2023) Pathologist [facility] Diabetes: Annual Foot Exam Abstracted Historical Provider HEALTH MAINTENANCE Final Result from Last 3 Months or Most Recently Relevant to Health Maintenance Insurance MEDICARE [employer]ET[employer] Advance Directives Documents on File Type Date Recorded 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
--- OUTSIDE RECORDS SUMMARY | 2025-07-29 14:21 | XMS_ITS | Encounter Summary ---
Author Organization [facility] Address [address] [place] [address] Care Team Providers Care Source Water Protection Specialist Name Role Phone Alida Weber MD Primary Care Provider [phone] Reason for Visit * Reason Onset Date Comments office notes 07/23/2025 Encounter Details Date Type Department Care Team ([facility] st Contact Info) Description 07/23/2025 Telephone Adult Medicine [facility] [address] [place] [address] Alida Weber MD [address] [place] [address] Social History Tobacco Use Types Packs/Day Years [...] for your loved ones. For example, child therapist or elderly care for an older adult? [...] documented in this encounter Progress Notes * Amy Juarez MA - 07/24/2025 7:39 AM EST Office note faxed to Dr Null * Jeri Adan - 07/23/2025 3:20 PM EST Patient states he had seen Dr Weber yesterday and he told him he has something concerning going on with his eyes and to call his eye Dr for an appointment. Patient states he called the eye Dr and he wants Dr Weber' notes from yesterday so he can see what was founded. Dr Perez with [facility] - fax [phone] documented in this encounter Plan of Treatment Upcoming Encounters Date Type Department Care Team (Late st Contact Info) Description 07/29/2025 4:00 PM EST Office Visit Endocrinology - [address] [place] [phone] Rosa Roth PA [address] [place], [place] 08/12/2025 9:00 AM EST Consult [facility]iology Associates [facility] [address] [place] [address] [address] [place] [phone] Franky Choudhury MD [address] [place] [address] [address] [place] [phone] 08/14/2025 10:[address] [facility] Ultrasound [address] [place] [phone] 08/26/2025 10:30 AM EST Ancillary Procedure Pulmonology - [place] [facility] [address] [place] [phone] 09/02/2025 10:45 AM EST Office Visit Pulmonology - [place] [facility] [address] [place] [phone] Lore Myers MD [address] [place] [phone] 10/28/2025 8:30 AM EDT Office Visit Adult Medicine [facility] [address] [place], [place] [phone] Alida Weber MD [address] [place] [address] 05/05/2026 9:00 AM EDT Ancillary Procedure [facility] Cardiology [facility] [address] [place] [address] 06/24/2026 1:30 PM EST Ancillary Procedure [facility] - [address] [place] [address] 07/21/2026 9:00 AM EST Office Visit Vascular Surgery - [place] [address] [place] [address] Senait España PA [address] [place] [address] documented as of this encounter Visit Diagnoses Not on filedocumented in this encounter Additional Health Concerns Assessment Noted Time PHQ-9 Depression Total Score: 0 07/22/20 3:23 PM EST A fall risk assessment has been complete d for the patient 07/22/2025 3:20 PM EST documented as of this encounter Care Teams Source Water Protection Specialist Relationship Specialty Start Date End Date Alida Weber MD [address] [place] [address] PCP - General 10/26/22 documented as of this encounter
--- OUTSIDE RECORDS SUMMARY | 2025-07-29 14:21 | XMS_ITS | Encounter Summary ---
Author Organization [facility] Address [address] [place] [address] Care Team Providers Care Choral Teacher Name Role Phone Alida Weber MD Primary Care Provider [phone] Encounter Details Date Type Department Care Team ([facility] Contact Info) Description 07/16/2025 Results Follow-Up Adult [facility] [address] [place] [address] Alida Weber MD [address] [place] [address] Social History Tobacco Use Types Packs/Day Years [...] your loved ones. For example, child care associate or elderly care for an older adult? [...] Start Date End Date levothyroxine (SYNTHROID, LEVOTHROID) 137 mcg tablet Take 1 tablet (137 mcg total) by mouth 1 (one) time each day. 30 each 2 07/16/2025 07/22/2025 documented in this encounter Progress Notes * Radha Carter MD - 07/22/2025 5:06 PM EST Please let patient know that his most recent liver enzymes continue to slowly improve. One of his autoimmune markers are elevated although improved from when last checked by Lorri LITTLE 3 monthsago. This may be a false positive. I would continue to monitor his liver enzymes as some of the abnormalities could have been secondary to his underlying thyroid disease. He should have repeat LFTs in 3 months time. documented in this encounter Plan of Treatment Upcoming Encounters Date Type Department Care Team (Late st Contact Info) Description 07/29/2025 4:00 PM EST Office Visit [address] [phone] Rosa Roth PA [address] [place], [place] 08/12/2025 9:00 AM EST Consult [facility]iology Associates [facility] [address] [facility] [address] [place] [phone] Franky Choudhury MD [address] [place] [address] [address] [place] [phone] 08/14/2025 10:00 AM EST Appointment [facility] Ultrasound [address] [place] [phone] 08/26/2025 10:30 AM EST Ancillary Procedure Pulmonology - [place] [facility] [address] [place] [phone] 09/02/2025 10:45 AM EST Office Visit Pulmonology [facility] [address] [place] [phone] Lore Myers MD [address] [place] [phone] 10/28/2025 8:30 AM EDT Office Visit Adult Medicine [facility] [address] [place] [address] Alida Weber MD [address] [place] [address] 05/05/2026 9:00 AM EDT Ancillary Procedure [facility] Cardiology [facility] [address] [place] [address] 06/24/2026 1:30 PM EST Ancillary Procedure [facility] Cardiology [facility] [address] [place] [address] 07/21/2026 9:00 AM EST Office Visit Vascular Surgery - [place] [address] [place] [address] Senait España PA [address] [facility] [address] [place] [address] Scheduled Orders Name Type Priority Associated Diagnoses Orde r Schedule Thyroid stimulating hormone with reflex to free t4 and free t3 Lab Routine Hypothyroidism, unspecified type 1 Occurrences starting 07/16/2025 until 07/16/2026 documented as of this encounter Visit Diagnoses Diagnosis Hypothyroidism, unspecified type- Primary Encounter for adjustment or management of cardiac device documented in this encounter Discontinued Medications Medication Sig Discontinue Reason Start Date End Da te levothyroxine (SYNTHROID, LEVOTHROID) 112 mcg tablet Take 1 tablet (112 mcg total) by mouth 1 (one) time each day before breakfast. 06/19/2025 07/16/2025 levothyroxine (SYNTHROID, LEVOTHROID) 125 mcg tablet Take 1 tablet (125 mcg total) by mouth 1 (one) time each day. 06/26/2025 07/16/2025 documented as of this encounter Additional Health Concerns Assessment Noted Time PHQ-9 Depression Total Score: 0 02/20/20 25 9:35 AM EDT documented as of this encounter Care Teams Choral Teacher Relationship Specialty Start Date End Date Alida Weber MD [address] [place] [address] PCP - General 10/26/22 documented as of this encounter
--- OUTSIDE RECORDS SUMMARY | 2025-07-29 14:21 | XMS_ITS | Encounter Summary ---
Author Organization [facility] Address [address] [place] [address] Care Team Providers Care Commissary Steward Name Role Phone Alida Weber MD Primary Care Provider Encounter Details Date Type Department Care Team ([facility] Contact Info) Description 06/26/2025 Results Follow-Up Adult [facility] [address] [place] [address] Alida Weber MD [address] [place] [address] Social History Tobacco Use Types Packs/Day Years [...] time each day. 30 each 2 06/26/2025 5 potassium chloride (KLOR-CON M20) 20 mEq CR [...] 4:00 PM EST Office Visit Endocrinology - [place] [address] [place] [address] Rosa Roth PA [address] [place] [address] 08/12/2025 9:00 AM EST Consult [facility]iology Associates - [facility] [address] [place] [phone] Franky Choudhury MD [address] [place] [address] Dr [address] [place] [phone] 08/14/2025 10:00 AM EST Appointment [facility] Ultrasound [address] [place] [phone] 08/26/2025 10:30 AM EST Ancillary Procedure Pulmonology - [place] [facility] [address] [place] [phone] 09/02/2025 10:45 AM EST Office Visit Pulmonology - [place] [facility] [address] [place] [phone] Lore Myers MD [address] [place] [phone] 10/28/2025 8:30 AM EDT Office Visit Adult Medicine [facility] [address] [place] [address] Alida Weber MD [address] [place] [address] 05/05/2026 9:00 AM EDT Ancillary Procedure [facility] Cardiology [facility] [address] [facility] [address] [place] [address] 06/24/2026 1:30 PM EST Ancillary Procedure [facility] Cardiology [facility] [address] [facility] [address] [place] [address] 07/21/2026 9:00 AM EST Office Visit Vascular Surgery - [place] [address] [place] [address] Senait España PA [address] [place] [address] documented as of this encounter Results * (ABNORMAL) Comprehensive metabolic panel (07/15/2025 7:58 AM EST) Sodium 134 133 - 145 mmol/L 07/15/2025 1:25 PM [facility] Potassium 4.3 3.5 - 5.5 mmol/L 07/15/2025 1:25 PM [facility] Chloride 90(L) 96 - 110 mmol/L 07/15/2025 1:25 PM [facility] CO2 34(H) 21 - 32 mmol/L 07/15/2025 1:25 PM [facility] Anion Gap 10 3 - 11 07/15/2025 1:25 PM [facility] Glucose 97 70 - 100 mg/dL 07/15/2025 1:25 PM [facility] BUN 53(H) 5 - 25 mg/dL 07/15/2025 1:25 PM [facility] Creatinine 3.49(H) 0.70 - 1.30 mg/dL 07/15/2025 1:25 PM [facility] eGFR 16(L) >=60 mL/min/1. 73m2 07/15/2025 1:25 PM [facility] Comment:Calculation based on the Chronic Kidney Disease Epidemiology Collaboration (CKD-EPI) equation refit without adjustment for race. BUN/Creatinine Ratio 15.2 07/15/2025 1:25 PM [facility] Calcium 9.3 8.5 - 10.5 mg/dL 07/15/2025 1:25 PM [facility] AST (SGOT) 79(H) 10 - 42 unit/L 07/15/2025 1:25 PM [facility] ALT (SGPT) 128(H) 10 - 60 unit/L 07/15/2025 1:25 PM EST [facility] Alkaline Phosphatase 109 42 - 121 unit/L 07/15/2025 1:25 PM EST [facility] Total Protein 6.3 6.0 - 8.0 g/dL 07/15/2025 1:25 PM [facility] Albumin 3.9 3.2 - 5.0 g/dL 07/15/2025 1:25 PM [facility] Total Bilirubin 1.1 0.0 - 1.4 mg/dL 07/15/2025 1:25 PM [facility] Blood Venous blood specimen / Unknown Venipuncture / Unknown 07/15/2025 7:58 AM EST 07/15/2025 7:58 AM EST Alida Weber MD LAB BLOOD ORDERABLES Final Result [facility] [address] [place] [address], [place] [phone] * (ABNORMAL) Thyroid stimulating hormone with reflex to free t4 and free t3 (07/15/2025 7:58 AM EST) TSH 7.94(H) 0.40 - 4.00 mcIU/mL 07/15/2025 1:18 PM EST [facility] Blood Venous blood specimen / Unknown Venipuncture / Unknown 07/15/2025 7:58 AM EST 07/15/2025 7:58 AM EST Alida Weber MD LAB BLOOD ORDERABLES Final Result [facility] [address] [place] [address], [place] [phone] documented in this encounter Visit Diagnoses Diagnosis Hypothyroidism, unspecified type- Primary Hypokalemia Hypopotassemia Elevated liver enzymes Other nonspecific abnormal serum enzyme levels Encounter for adjustment or management of cardiac device documented in this encounter Additional Health Concerns Assessment Noted Time PHQ-9 Depression Total Score: 0 02/20/20 25 9:35 AM EDT documented as of this encounter Care Teams Commissary Steward Relationship Specialty Start Date End Date Alida Weber MD [address] [place] [address] PCP - General 10/26/22 documented as of this encounter
== END 2025-07-29 13:52 | disposition home or self-care (01) ==
LOC: HO.HPHYS 13:11
PROVIDERS: PCP Internal Medicine; Visit Provider Physician Assistant
DX: M54.2 Cervicalgia (principal); M47.812 Spondylosis without myelopathy or radiculopathy, cervical region
CPT/HCPCS: 99213

== ENCOUNTER → 2025-07-29 13:11 | Outpatient (BNVA) | payer MEDICARE, OTHER, SELFPAY | PROVIDERS: PCP Internal Medicine; Visit Provider Physician Assistant | DX: M54.2 Cervicalgia (principal); M47.812 Spondylosis without myelopathy or radiculopathy, cervical region | CPT/HCPCS: 99212 ==